=== PATIENT | female | born 1930 | race Caucasian/White ===

== ENCOUNTER → 2018-09-15 | Outpatient (CLI) | payer MEDICARE ==
--- NOTE | 2018-09-15 13:30 | USB ---
Reason for exam: clinical finding. History: Patient is postmenopausal. Benign MG stereo VAD BX RT of the right breast, January 18, 2015. Benign stereotactic core biopsy of the right breast, June 13, 2001. Core biopsy of the right breast. Excisional biopsy of the left breast. Excisional biopsy of the right breast. Physical Findings: Nurse Summary: right breast tender, nipple with healing black blood blister, previously bleeding (nurse dw). US Breast RT Right complete breast ultrasound includes all four quadrants, the retroareolar region and axilla. Finding demonstrates several benign appearing, oval, cystic, complex lesions measuring 0.4 x 0.4 x 0.2cm at 8 o'clock, 0.9 x 0.8 x 0.6cm at 8 o'clock, 0.4 x 1.2 x 0.3cm at 8 o'clock and 0.6 x 0.9 x 0.5cm at 9 o'clock, a 0.7 x 0.7 x 0.5cm oval, irregular, mixed, vascular lesion at 9 o'clock, suspicious, biopsy recommended and duct ectasia with calcification at the posterior nipple. These results were verbally communicated with the patient and result sheet given to the patient on 09/15/18. ASSESSMENT: Suspicious, BI-RAD 4 RECOMMENDATION: Ultrasound core biopsy of the right breast. Called Dr. Valle with mammographic findings. Patient unsure if she/family wants to proceed with biopsy. Patient's daughter will speak with Dr. Golden and decide what action to take. PRELIMINARY REPORT CALLED AND FAXED TO DR. VALLE ON 09/15/18.
== END | disposition home or self-care (01) ==
LOC: RADUSWWP 10:06
PROVIDERS: ATTEND Internal Medicine
DX: N63.10 Unspecified lump in the right breast, unspecified quadrant (principal); N64.59 Other signs and symptoms in breast

== ENCOUNTER 2019-02-05 10:07 | Inpatient (IN) | payer MEDICARE ==
[2019-02-05] MEDS ORDERED: methylPREDNISolone SOD SUCCI 125 MG/2 ML VIAL IV STA (10:22)
[2019-02-05] MEDS ORDERED: ALBUTEROL NEBULIZED 2.5 MG/3 ML INHALATION STA (10:22)
[2019-02-05] MEDS ORDERED: IPRATROPIUM 0.5 MG/2.5 ML NEBU INHALATION STA (10:22)
[2019-02-05] MEDS ORDERED: AZITHROMYCIN 500 MG in SODIUM CHLORIDE 0.9% 250 ML IVPB STA (10:22)
--- NOTE | 2019-02-05 10:26 | ED ---
General Adult HPI - General Chief complaint: Shortness of Breath Stated complaint: ALLEN, WEAKNESS Time Seen by Provider: 02/05/19 10:14 Source: patient, RN notes reviewed, old records reviewed Mode of arrival: wheelchair Limitations: no limitations - History of Present Illness Initial comments: 88 -year-old female presented for evaluation of worsening cough and dyspnea. Patient's symptoms have progressed over the past 3 or 4 days. She does follow with pulmonology secondary to advanced COPD currently on home oxygen. She denies fever or chills. She has had productive cough with green sputum. Denies chest pain. She denies lower extremity pain or swelling. Denies abdominal pain nausea vomiting. She states his symptoms are consistent with previous episodes of worsening COPD. No history of heart failure. No history of DVT or PE. - Related Data Home Medications Medication Instructions Recorded Confirmed Albuterol Sulfate [Proair Hfa] 1 - 2 puff INHALATION RT-Q6H PRN 10/12/17 02/05/19 Budesonide/Formoterol Fumarate 2 puff INHALATION RT-BID PRN 10/12/17 02/05/19 [Symbicort 160-4.5 Mcg Inhaler] Gabapentin [Neurontin] 100 mg PO DAILY 10/12/17 02/05/19 Gabapentin [Neurontin] 300 mg PO HS 10/12/17 02/05/19 Ascorbic Acid [Vitamin C] 500 mg PO DAILY 02/05/19 02/05/19 Losartan [Cozaar] 25 mg PO DAILY 02/05/19 02/05/19 Magnesium Oxide [Mag-Ox] 250 mg PO DAILY 02/05/19 02/05/19 Vit C/E/Zn/Coppr/Lutein/Zeaxan 1 cap PO DAILY 02/05/19 02/05/19 [Preservision Areds 2 Softgel] Previous Rx's Medication Instructions Recorded Aspirin [Adult Low Dose Aspirin EC] 81 mg PO DAILY #30 tablet. 10/16/17 Furosemide [Lasix] 20 mg PO DAILY #30 tab 10/16/17 Isosorbide Mononitrate ER [Imdur] 30 mg PO DAILY #30 tab.er.24h 10/16/17 Metoprolol Tartrate [Lopressor] 25 mg PO BID #60 tab 10/16/17 Allergies Allergy/AdvReac Type Severity Reaction Status Date / Time alendronate sodium Allergy Unknown Verified 02/05/19 10:45 [From Fosamax] raloxifene [From Evista] Allergy Unknown Verified 02/05/19 10:45 simvastatin [From Zocor] Allergy Unknown Verified 02/05/19 10:45 Review of Systems ROS Statement: Those systems with pertinent positive or pertinent negative responses have been documented in the HPI. ROS Other: All systems not noted in ROS Statement are negative. Past Medical History Past Medical History: Asthma, COPD, Dementia, Hypertension, Osteoarthritis (OA) Additional Past Medical History / Comment(s): emphysema, rheumatic fever as a child, aortic aneurysm - tests done at [facility] History of Any Multi-Drug Resistant Organisms: None Reported Past Surgical History: Appendectomy, Cholecystectomy, Hysterectomy Additional Past Surgical History / Comment(s): colonoscopy Past Anesthesia/Blood Transfusion Reactions: No Reported Reaction Past Psychological History: No Psychological Hx Reported Smoking Status: Never smoker Past Alcohol Use History: None Reported Past Drug Use History: None Reported - Past Family History Father Family Medical History: Cancer Additional Family Medical History / Comment(s): Patient is unable to provide family history due to dementia. Mother Family Medical History: Cancer General Exam Limitations: no limitations General appearance: alert, in distress Head exam: Present: atraumatic, normocephalic Eye exam: Present: normal appearance, PERRL ENT exam: Present: normal exam Neck exam: Present: normal inspection. Absent: tenderness, meningismus Respiratory exam: Present: respiratory distress, wheezes, accessory muscle use, decreased breath sounds, prolonged expiratory Cardiovascular Exam: Present: regular rate, normal rhythm GI/Abdominal exam: Present: soft. Absent: distended, tenderness, guarding Extremities exam: Present: normal inspection, normal capillary refill. Absent: pedal edema, calf tenderness Neurological exam: Present: alert, oriented X3, CN II-XII intact, motor sensory deficit Psychiatric exam: Present: normal affect, normal mood Skin exam: Present: warm, dry, intact. Absent: cyanosis, diaphoretic Course Vital Signs 02/05/19 02/05/19 02/05/19 10:09 10:23 10:30 Temperature 98.8 F Pulse Rate 89 63 Respiratory 18 22 Rate Blood Pressure 139/77 149/94 O2 Sat by Pulse 91 L 94 L 94 L Oximetry 02/05/19 02/05/19 02/05/19 10:40 10:47 10:50 Temperature Pulse Rate 63 64 Respiratory 19 18 27 H Rate Blood Pressure 139/78 139/78 O2 Sat by Pulse 93 L Oximetry 02/05/19 02/05/19 02/05/19 11:00 11:10 11:20 Temperature Pulse Rate 59 L 62 70 Respiratory 26 H 18 21 Rate Blood Pressure 139/78 137/83 137/83 O2 Sat by Pulse 98 97 97 Oximetry 02/05/19 02/05/19 02/05/19 11:25 11:30 11:40 Temperature Pulse Rate 80 82 Respiratory 22 Rate Blood Pressure 137/83 116/67 O2 Sat by Pulse 95 Oximetry 02/05/19 02/05/19 02/05/19 11:50 12:00 12:10 Temperature Pulse Rate 86 86 85 Respiratory 24 25 H 14 Rate Blood Pressure 116/67 116/67 113/87 O2 Sat by Pulse 96 97 97 Oximetry 02/05/19 02/05/19 02/05/19 12:20 12:30 12:40 Temperature Pulse Rate 85 85 Respiratory 20 26 H 20 Rate Blood Pressure 113/87 113/87 127/83 O2 Sat by Pulse 97 97 97 Oximetry 02/05/19 02/05/19 12:50 13:00 Temperature Pulse Rate 80 81 Respiratory 13 20 Rate Blood Pressure 127/83 127/83 O2 Sat by Pulse 97 98 Oximetry EKG Findings - EKG Comments: EKG Findings:: EKG: Normal sinus rhythm, low voltage left anterior fascicular block, rate of 81, IL interval 170, QS duration 68, QTC 476, no ST segment elevation. Medical Decision Making - Medical Decision Making 88 -year-old female history of COPD presenting with increased cough and dyspnea. Patient has small respiratory distress, decreased air entry, wheezing bilateral lung dykes. X-ray obtained, negative for focal pneumonia. No pneumothorax. Normal CBC, normal CMP. Patient started on IV steroids, given albuterol, Atrovent, after 3 treatments, she still has persistent dyspnea. Will be admitted for further treatment of COPD exacerbation. Case discussed with admitting physician Dr. Walden, we will admit with pulmonology on consult. - Lab Data Result diagrams: 02/05/19 10:32 02/05/19 10:32 Lab Results 02/05/19 02/05/19 02/05/19 Range/Units 10:32 10:32 10:32 WBC 6.9 (3.8-10.6) k/uL RBC 4.05 (3.80-5.40) m/uL Hgb 14.4 (11.4-16.0) gm/dL Hct 42.7 (34.0-46.0) % MCV 105.2 H (80.0-100.0) fL MCH 35.5 H (25.0-35.0) pg MCHC 33.7 (31.0-37.0) g/dL RDW 13.3 (11.5-15.5) % Plt Count 184 (150-450) k/uL Neutrophils % 85 % Lymphocytes % 9 % Monocytes % 4 % Eosinophils % 1 % Basophils % 0 % Neutrophils # 5.8 (1.3-7.7) k/uL Lymphocytes # 0.6 L (1.0-4.8) k/uL Monocytes # 0.3 (0-1.0) k/uL Eosinophils # 0.1 (0-0.7) k/uL Basophils # 0.0 (0-0.2) k/uL Macrocytosis Slight PT (9.0-12.0) sec INR (<1.2) APTT (22.0-30.0) sec Sodium (137-145) mmol/L Potassium (3.5-5.1) mmol/L Chloride (98-107) mmol/L Carbon Dioxide (22-30) mmol/L Anion Gap mmol/L BUN (7-17) mg/dL Creatinine (0.52-1.04) mg/dL Est GFR (CKD-EPI)AfAm (>60 ml/min/1.73 sqM) Est GFR (CKD-EPI)NonAf (>60 ml/min/1.73 sqM) Glucose (74-99) mg/dL Plasma Lactic Acid Tramaine 1.2 (0.7-2.0) mmol/L Calcium (8.4-10.2) mg/dL Total Bilirubin (0.2-1.3) mg/dL AST (14-36) U/L ALT (9-52) U/L Alkaline Phosphatase (38-126) U/L Total Protein (6.3-8.2) g/dL Albumin (3.5-5.0) g/dL Influenza Type A RNA Not Detected (Not Detectd) Influenza Type B (PCR) Not Detected (Not Detectd) 02/05/19 02/05/19 Range/Units 10:32 10:32 WBC (3.8-10.6) k/uL RBC (3.80-5.40) m/uL Hgb (11.4-16.0) gm/dL Hct (34.0-46.0) % MCV (80.0-100.0) fL MCH (25.0-35.0) pg MCHC (31.0-37.0) g/dL RDW (11.5-15.5) % Plt Count (150-450) k/uL Neutrophils % % Lymphocytes % % Monocytes % % Eosinophils % % Basophils % % Neutrophils # (1.3-7.7) k/uL Lymphocytes # (1.0-4.8) k/uL Monocytes # (0-1.0) k/uL Eosinophils # (0-0.7) k/uL Basophils # (0-0.2) k/uL Macrocytosis PT 10.8 (9.0-12.0) sec INR 1.0 (<1.2) APTT 22.0 (22.0-30.0) sec Sodium 135 L (137-145) mmol/L Potassium 4.9 (3.5-5.1) mmol/L Chloride 99 (98-107) mmol/L Carbon Dioxide 29 (22-30) mmol/L Anion Gap 7 mmol/L BUN 24 H (7-17) mg/dL Creatinine 0.54 (0.52-1.04) mg/dL Est GFR (CKD-EPI)AfAm >90 (>60 ml/min/1.73 sqM) Est GFR (CKD-EPI)NonAf 86 (>60 ml/min/1.73 sqM) Glucose 108 H (74-99) mg/dL Plasma Lactic Acid Tramaine (0.7-2.0) mmol/L Calcium 8.6 (8.4-10.2) mg/dL Total Bilirubin 0.9 (0.2-1.3) mg/dL AST 57 H (14-36) U/L ALT 33 (9-52) U/L Alkaline Phosphatase 79 (38-126) U/L Total Protein 6.7 (6.3-8.2) g/dL Albumin 3.8 (3.5-5.0) g/dL Influenza Type A RNA (Not Detectd) Influenza Type B (PCR) (Not Detectd) Critical Care Time Critical Care Time: Yes Total Critical Care Time: 35 Disposition Clinical Impression: Acute exacerbation of chronic obstructive airways disease Disposition: ADMITTED IP TO THIS HOSP Condition: Stable Is patient prescribed a controlled substance at d/c from ED?: No Referrals: Efrain Walden DO [Primary Care Provider] - 1-2 days Time of Disposition: 13:03
[2019-02-05 10:58] LABS: Basophils % (A) 0 %; Eosinophils # (A) 0.1 k/uL (0-0.7); Eosinophils % (A) 1 %; HCT 42.7 % (34.0-46.0); HGB 14.4 gm/dL (11.4-16.0); Lymphocytes # (A) 0.6 k/uL (1.0-4.8); Lymphocytes % (A) 9 %; MCH 35.5 pg (25.0-35.0); MCHC 33.7 g/dL (31.0-37.0); MCV 105.2 fL (80.0-100.0); Macrocytosis Slight; Mean Platelet Volume 7.5; Monocytes # (A) 0.3 k/uL (0-1.0); Monocytes % (A) 4 %; Neutrophils # (A) 5.8 k/uL (1.3-7.7); Neutrophils % (A) 85 %; Platelet Count 184 k/uL (150-450); RBC 4.05 m/uL (3.80-5.40); RDW 13.3 % (11.5-15.5); WBC 6.9 k/uL (3.8-10.6)
[2019-02-05 11:03] LABS: ALT 33 U/L (9-52); AST 57 U/L (14-36); Albumin 3.8 g/dL (3.5-5.0); Alkaline Phosphatase 79 U/L (38-126); Anion Gap 7 mmol/L; Blood Urea Nitrogen 24 mg/dL (7-17); Calcium 8.6 mg/dL (8.4-10.2); Carbon Dioxide 29 mmol/L (22-30); Chloride 99 mmol/L (98-107); Glucose 108 mg/dL (74-99); Sodium 135 mmol/L (137-145); Total Bilirubin 0.9 mg/dL (0.2-1.3); Total Protein 6.7 g/dL (6.3-8.2)
[2019-02-05 11:06] LABS: Potassium 4.9 mmol/L (3.5-5.1)
[2019-02-05 11:15] LABS: Prothrombin Time 10.8 sec (9.0-12.0)
--- NOTE | 2019-02-05 11:47 | XR ---
EXAMINATION TYPE: XR chest 2V DATE OF EXAM: 02/05/2019 COMPARISON: Chest x-ray October 12, 2017 and newer study January 05, 2019. HISTORY: Difficulty breathing and cough. TECHNIQUE: Frontal and lateral views of the chest are obtained. FINDINGS: There is chronic emphysematous change without suspicious focal air space opacity or pneumo thorax seen. There is tiny left pleural effusion. The cardiac silhouette size is mildly enlarged with atherosclerotic and ectatic aorta. The osseous structures are demineralized. IMPRESSION: Mild cardiomegaly and chronic emphysematous change with tiny left pleural effusion. No n ew acute infiltrate. No significant change from most recent x-ray.
[2019-02-05] MEDS ORDERED: IPRATROPIUM-ALBUTEROL 3 ML NEB INHALATION PRN (12:58)
[2019-02-05] MEDS ORDERED: ALBUTEROL NEBULIZED 2.5 MG/3 ML INHALATION PRN (13:01)
[2019-02-05] MEDS ORDERED: FUROSEMIDE 10 MG/ML 4 ML VIAL IV STA (13:04)
[2019-02-05] MEDS ORDERED: SYMBICORT 160-4.5 MCG INHALER INHALATION PRN (14:36)
[2019-02-05] MEDS ORDERED: FUROSEMIDE 20 MG TAB PO SCH (14:45)
--- NOTE | 2019-02-05 15:08 | P.CNPUL ---
History of Present Illness Consult date: 02/05/19 Reason for consult: dyspnea, COPD, hypoxemia, abnormal CXR/CT Chief complaint: Acute hypoxic respiratory failure secondary to COPD exacerbation History of present illness: This is a 88-year-old white female patient with past medical history of severe advanced emphysema/COPD at her baseline FEV1 is 41% of predicted, with FEV1/FVC ratio of 49% and DLCO consistent with severe emphysema. Patient is on home oxygen, DuoNeb nebulized treatments, Symbicort. 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 Patient presented to the emergency department on 02/05/2019 for complaints of worsening dyspnea and cough for last 3 days. Denied any fever or chills, denied any complaints of chest pain. She has had a productive cough with some green sputum. Denied any weight gain or swelling in lower extremities. No nausea vomiting or diarrhea. Patient was having difficulty ambulating, her states she was hardly able to walk a few feet without being extremely short of breath. In the emergency department chest x-ray was taken, which showed mild cardiomegaly, and chronic emphysematous changes with tiny left pleural effusion, no new acute infiltrate. EKG showed normal sinus rhythm with evidence of inferior infarct of undetermined age, and possible old anterolateral infarct. Lab work was negative for any leukocytosis, white blood cell count was 6.9, hemoglobin is 14.4, sodium was 135, the rest of the electrolytes were unremarkable, BUN was 24 creatinine was 0.54, plasma lactic acid was 1.2, influenza screen was negative. She was afebrile, she is sinus rhythm on the monitor, she is on 2 L of oxygen and her pulse ox is 88-91%. She was given a dose of IV Lasix in the emergency department, she was given a dose of Zithromax, started on breathing treatments and IV steroids and admitted for further management. Review of Systems All systems: negative Constitutional: Denies chills, Denies fever Eyes: denies blurred vision, denies pain Ears, nose, mouth and throat: Denies headache, Denies sore throat Cardiovascular: Denies chest pain, Denies shortness of breath Respiratory: Reports dyspnea, Reports home oxygen, Reports wheezing, Denies cough Gastrointestinal: Denies abdominal pain, Denies diarrhea, Denies nausea, Denies vomiting Genitourinary: Denies dysuria, Denies hematuria Musculoskeletal: Denies myalgias Integumentary: Denies pruritus, Denies rash Neurological: Denies numbness, Denies weakness Psychiatric: Denies anxiety, Denies depression Endocrine: Denies fatigue, Denies weight change Past Medical History Past Medical History: Asthma, Heart Failure, COPD, Dementia, Eye Disorder, Hypertension, Myocardial Infarction (RI), Osteoarthritis (OA), Respiratory Disorder Additional Past Medical History / Comment(s): Aortic aneurysm, nonischemic cardiomyopathy, acute systolic heart failure, home oxygen at 2L.NC ATC, rheumatic fever as a child, chronic back pain, macular degeneration L eye, hiatal hernia, diverticular disease, benign colon polyps. Last Myocardial Infarction Date:: 10/12/17 History of Any Multi-Drug Resistant Organisms: None Reported Past Surgical History: Appendectomy, Bladder Surgery, Cholecystectomy, Hysterectomy Additional Past Surgical History / Comment(s): EGDs, colonoscopies/benign polyps, bladder suspension. Past Anesthesia/Blood Transfusion Reactions: No Reported Reaction Smoking Status: Never smoker - Past Family History Father Family Medical History: Cancer Additional Family Medical History / Comment(s): Father had pleural cancer per pt's spouse. Mother Family Medical History: Cancer Additional Family Medical History / Comment(s): Mother had liver cancer. Medications and Allergies Home Medications Medication Instructions Recorded Confirmed Type Albuterol Sulfate [Proair Hfa] 1 - 2 puff INHALATION RT-Q6H PRN 10/12/17 02/05/19 History Budesonide/Formoterol Fumarate 2 puff INHALATION RT-BID PRN 10/12/17 02/05/19 History [Symbicort 160-4.5 Mcg Inhaler] Gabapentin [Neurontin] 100 mg PO DAILY 10/12/17 02/05/19 History Gabapentin [Neurontin] 300 mg PO HS 10/12/17 02/05/19 History Aspirin [Adult Low Dose Aspirin EC] 81 mg PO DAILY #30 tablet.dr 10/16/17 02/05/19 Rx Furosemide [Lasix] 20 mg PO DAILY #30 tab 10/16/17 02/05/19 Rx Isosorbide Mononitrate ER [Imdur] 30 mg PO DAILY #30 tab.er.24h 10/16/17 02/05/19 Rx Metoprolol Tartrate [Lopressor] 25 mg PO BID #60 tab 10/16/17 02/05/19 Rx Ascorbic Acid [Vitamin C] 500 mg PO DAILY 02/05/19 02/05/19 History Losartan [Cozaar] 25 mg PO DAILY 02/05/19 02/05/19 History Magnesium Oxide [Mag-Ox] 250 mg PO DAILY 02/05/19 02/05/19 History Vit C/E/Zn/Coppr/Lutein/Zeaxan 1 cap PO DAILY 02/05/19 02/05/19 History [Preservision Areds 2 Softgel] Allergies Allergy/AdvReac Type Severity Reaction Status Date / Time alendronate sodium Allergy Unknown Verified 02/05/19 10:45 [From Fosamax] raloxifene [From Evista] Allergy Unknown Verified 02/05/19 10:45 simvastatin [From Zocor] Allergy Unknown Verified 02/05/19 10:45 Physical Exam Vitals: Vital Signs Temp Pulse Pulse Resp BP BP Pulse Ox 02/05/19 13:46 97.8 F 80 20 145/88 90 L 02/05/19 13:00 99.4 F 81 20 127/83 98 02/05/19 12:50 80 13 127/83 97 02/05/19 12:40 20 127/83 97 02/05/19 12:30 85 26 H 113/87 97 02/05/19 12:20 85 20 113/87 97 02/05/19 12:10 85 14 113/87 97 02/05/19 12:00 86 25 H 116/67 97 02/05/19 11:50 86 24 116/67 96 02/05/19 11:40 116/67 02/05/19 11:30 82 22 137/83 95 02/05/19 11:25 80 02/05/19 11:20 70 21 137/83 97 02/05/19 11:10 62 18 137/83 97 02/05/19 11:00 59 L 26 H 139/78 98 02/05/19 10:50 64 27 H 139/78 02/05/19 10:47 18 02/05/19 10:40 63 19 139/78 93 L 02/05/19 10:30 63 22 149/94 94 L 02/05/19 10:23 94 L 02/05/19 10:09 98.8 F 89 18 139/77 91 L Intake and Output 02/04/19 02/05/19 02/05/19 22:59 06:59 14:59 Other: # Voids 1 # Bowel Movements 0 Weight 61.235 kg GENERAL EXAM: Alert, pleasant, 88-year-old white female, currently on 2 L of oxygen with a pulse ox ranging from 80-91% comfortable in no apparent distress. HEAD: Normocephalic/atraumatic. EYES: Normal reaction of pupils, equal size. Conjunctiva pink, sclera white. NOSE: Clear with pink turbinates. THROAT: No erythema or exudates. NECK: No masses, no JVD, no thyroid enlargement, no adenopathy. CHEST: No chest wall deformity. Symmetrical expansion. LUNGS: Equal air entry with coarse expiratory crackles over right lower base, end expiratory wheezes CVS: Regular rate and rhythm, normal S1 and S2, no gallops, no murmurs, no rubs ABDOMEN: Soft, nontender. No hepatosplenomegaly, normal bowel sounds, no guarding or rigidity. EXTREMITIES: No clubbing, no edema, no cyanosis, 2+ pulses and upper and lower extremities. MUSCULOSKELETAL: Muscle strength and tone normal. SPINE: No scoliosis or deformity SKIN: No rashes CENTRAL NERVOUS SYSTEM: Alert and oriented -3. No focal deficits, tone is normal in all 4 extremities. PSYCHIATRIC: Alert and oriented -3. Appropriate affect. Intact judgment and insight. Results - Laboratory Findings CBC and BMP: 02/05/19 10:32 02/05/19 10:32 PT/INR, D-dimer PT 10.8 sec (9.0-12.0) 02/05/19 10:32 INR 1.0 (<1.2) 02/05/19 10:32 Abnormal lab findings: Abnormal Labs 02/05/19 02/05/19 10:32 10:32 MCV 105.2 H MCH 35.5 H Lymphocytes # 0.6 L Sodium 135 L BUN 24 H Glucose 108 H AST 57 H - Diagnostic Findings Chest x-ray: report reviewed, image reviewed Assessment and Plan Plan: Assessment: #1. Acute exacerbation of COPD, chest x-ray did not show any acute pulmonary infiltrates #2. Possible exacerbation of congestive heart failure, previously documented systolic dysfunction with an EF of 35-40% #3. Advanced oxygen-dependent COPD, with a baseline FEV1 of 41% of predicted, an FEV1/FVC of 49% of predicted, stage III COPD #4. Hypertension #5. Osteoarthritis #6. History of Takosubo syndrome #7. History of aortic aneurysm #8. Previous history of non-ST elevated RI #9. Dementia Plan: Will obtain the IV diuretics, 20 mg every 12 hours, continue the IV steroids, continue Zithromax, will add Rocephin, Symbicort. We'll add BNP to the labs drawn earlier. Patient is dyspnea could be related to acute exacerbation of COPD and possibly congestive heart failure. We'll obtain repeat echocardiogram. Daily weights, monitor electrolytes and renal profile, we'll continue to follow and make further recommendations I performed a history & physical examination of the patient and discussed their management with my nurse practitioner, Josie Espinosa. I reviewed the nurse practitioner's note and agree with the documented findings and plan of care. Lung sounds are positive for coarse crackles at the right base. The findings and the impression was discussed with the patient. I attest to the documentation by the nurse practitioner. Time with Patient: Greater than 30
[2019-02-05] MEDS ORDERED: ACETAMINOPHEN TAB 325 MG TAB PO PRN (15:14)
[2019-02-05] MEDS: ISOSORBIDE MONONITRATE ER 30 MG TAB.ER.24H PO SCH (15:24)
[2019-02-05] MEDS: IPRATROPIUM-ALBUTEROL 3 ML NEB INHALATION SCH ×2 (15:30→20:11)
[2019-02-05 16:52] LABS: Glucose,Whole Blood 144 mg/dL (75-99)
[2019-02-05] MEDS: INSULIN ASPART (NovoLOG) 100 UNIT/ML VIAL SQ SCH ×2 (17:16→20:55)
[2019-02-05] MEDS: methylPREDNISolone SOD SUCCI 125 MG/2 ML VIAL IV SCH ×2 (18:55→23:13)
[2019-02-05 20:11] LABS: Glucose,Whole Blood 233 mg/dL (75-99)
[2019-02-05] MEDS: METOPROLOL TARTRATE 25 MG TAB PO SCH (20:55)
[2019-02-05] MEDS: GABAPENTIN 300 MG CAP PO SCH (20:55)
[2019-02-05] MEDS: FUROSEMIDE 10 MG/ML 2 ML VIAL IV SCH (20:56)
[2019-02-06] MEDS: methylPREDNISolone SOD SUCCI 125 MG/2 ML VIAL IV SCH ×4 (05:15→23:06)
[2019-02-06] MEDS: IPRATROPIUM-ALBUTEROL 3 ML NEB INHALATION SCH ×4 (07:13→19:28)
[2019-02-06 07:37] LABS: Glucose,Whole Blood 137 mg/dL (75-99)
[2019-02-06 08:28] LABS: Anion Gap 6 mmol/L; Blood Urea Nitrogen 31 mg/dL (7-17); Carbon Dioxide 31 mmol/L (22-30); Chloride 98 mmol/L (98-107); Glucose 149 mg/dL (74-99); Potassium 4.2 mmol/L (3.5-5.1); Sodium 135 mmol/L (137-145)
[2019-02-06] MEDS: GABAPENTIN 100 MG CAP PO SCH (08:33)
[2019-02-06] MEDS: ISOSORBIDE MONONITRATE ER 30 MG TAB.ER.24H PO SCH (08:33)
[2019-02-06] MEDS: ASCORBIC ACID 500 MG TAB PO SCH (08:33)
[2019-02-06] MEDS: METOPROLOL TARTRATE 25 MG TAB PO SCH ×2 (08:33→20:04)
[2019-02-06] MEDS: LOSARTAN 25 MG TAB PO SCH (08:33)
[2019-02-06] MEDS: MAGNESIUM OXIDE 400 MG TAB PO SCH (08:33)
[2019-02-06] MEDS: VIT A,C & E-LUTEIN-MINERALS 1 EACH TAB PO SCH (08:33)
[2019-02-06] MEDS: ASPIRIN 81 MG PO SCH (08:33)
[2019-02-06] MEDS: AZITHROMYCIN 500 MG TAB PO SCH (08:33)
[2019-02-06] MEDS: INSULIN ASPART (NovoLOG) 100 UNIT/ML VIAL SQ SCH ×4 (08:34→20:26)
[2019-02-06] MEDS: FUROSEMIDE 10 MG/ML 2 ML VIAL IV SCH (08:34)
--- NOTE | 2019-02-06 10:12 | ECHOF ---
Referral Reason:lv dysfunction sob MEASUREMENTS -------- HEIGHT: 149.9 cm WEIGHT: 61.2 kg BP: 145/88 RVIDd: 3.1 cm (< 3.3) IVSd: 1.2 cm (0.6 - 1.1) LVIDd: 2.9 cm (3.9 - 5.3) LVPWd: 1.2 cm (0.6 - 1.1) IVSs: 1.7 cm LVIDs: 2.1 cm LVPWs: 1.9 cm LA Diam: 3.3 cm (2.7 - 3.8) LAESV Index (A-L): 13.03 ml/m Ao Diam: 3.0 cm (2.0 - 3.7) AV Cusp: 1.8 cm (1.5 - 2.6) MV EXCURSION: 8.807 mm (> 18.000) MV EF SLOPE: 19 mm/s (70 - 150) EPSS: 0.7 cm MV E Jose: 0.62 m/s MV DecT: 298 ms MV A Jose: 1.10 m/s MV E/A Ratio: 0.56 RAP: 5.00 mmHg RVSP: 30.86 mmHg FINDINGS -------- Sinus rhythm. This was a technically adequate study. The left ventricular size is normal. There is borderline concentric left ventricular hypertrophy. Overall left ventricular systolic function is normal with, an EF between 60 - 65 %. The right ventricle is normal in size. Normal LA size by volume 22+/-6 ml/m2. The right atrium is normal in size. Interatrial and interventricular septum intact. There is mild aortic valve sclerosis. Trace to mild aortic regurgitation. Mild mitral annular calcification present. Mild mitral regurgitation is present. Mild tricuspid regurgitation present. Right ventricular systolic pressure is normal at < 35 mmHg. Trace/mild (physiologic) pulmonic regurgitation. The aortic root size is normal. Normal inferior vena cava with normal inspiratory collapse consistent with estimated right atrial pre ssure of 5 mmHg. The inferior vena cava is mildly dilated. There is no pericardial effusion. CONCLUSIONS -------- 1. Sinus rhythm. 2. This was a technically adequate study. 3. The left ventricular size is normal. 4. There is borderline concentric left ventricular hypertrophy. 5. Overall left ventricular systolic function is normal with, an EF between 60 - 65 %. 6. The right ventricle is normal in size. 7. Normal LA size by volume 22+/-6 ml/m2. 8. The right atrium is normal in size. 9. Interatrial and interventricular septum intact. 10. There is mild aortic valve sclerosis. 11. Trace to mild aortic regurgitation. 12. Mild mitral annular calcification present. 13. Mild mitral regurgitation is present. 14. Mild tricuspid regurgitation present. 15. Right ventricular systolic pressure is normal at < 35 mmHg. 16. Trace/mild (physiologic) pulmonic regurgitation. 17. The aortic root size is normal. 18. Normal inferior vena cava with normal inspiratory collapse consistent with estimated right atrial pressure of 5 mmHg. 19. The inferior vena cava is mildly dilated. 20. There is no pericardial effusion. SINTER PRESS OPERATOR: Kaye Maki RDCS
[2019-02-06 11:38] LABS: Glucose,Whole Blood 221 mg/dL (75-99)
[2019-02-06 12:03] VITALS: BMI 24.5
--- NOTE | 2019-02-06 17:12 | P.PN ---
Subjective Progress Note Date: 02/06/19 Principal diagnosis: Acute exacerbation of COPD, and acute exacerbation of congestive heart failure with systolic dysfunction This is a 88-year-old white female patient with past medical history of severe advanced emphysema/COPD at her baseline FEV1 is 41% of predicted, with FEV1/FVC ratio of 49% and DLCO consistent with severe emphysema. Patient is on home oxygen, DuoNeb nebulized treatments, Symbicort. 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 Patient presented to the emergency department on 02/05/2019 for complaints of worsening dyspnea and cough for last 3 days. Denied any fever or chills, denied any complaints of chest pain. She has had a productive cough with some green sputum. Denied any weight gain or swelling in lower extremities. No nausea vomiting or diarrhea. Patient was having difficulty ambulating, her states she was hardly able to walk a few feet without being extremely short of breath. In the emergency department chest x-ray was taken, which showed mild cardiomegaly, and chronic emphysematous changes with tiny left pleural effusion, no new acute infiltrate. EKG showed normal sinus rhythm with evidence of inferior infarct of undetermined age, and possible old anterolateral infarct. Lab work was negative for any leukocytosis, white blood cell count was 6.9, hemoglobin is 14.4, sodium was 135, the rest of the electrolytes were unremarkable, BUN was 24 creatinine was 0.54, plasma lactic acid was 1.2, influenza screen was negative. She was afebrile, she is sinus rhythm on the monitor, she is on 2 L of oxygen and her pulse ox is 88-91%. She was given a dose of IV Lasix in the emergency department, she was given a dose of Zithromax, started on breathing treatments and IV steroids and admitted for further management. On 02/06/2019 patient was seen again in follow-up on medical surgical floor. Still has exertional dyspnea, but no acute distress. Lung sounds are positive for diffuse coarse crackles, some minimal wheezing. She continues on 2 L of oxygen with pulse ox of 98%, afebrile, empiric antibiotic coverage in the form of Rocephin and Zithromax. On IV diuretics at 20 every 12, she is maintaining negative fluid balance. Today's labs have been reviewed, shows sodium of 135, potassium is 4.2, chloride is 98, CO2 was 31, B1 is 31 and creatinine 0.68. Her BNP was elevated at 5930 confirming the suspicion of congestive heart failure. No new chest x-rays, no complaints of chest pain, repeat echocardiogram was completed, showing borderline concentric left ventricular hypertrophy, normal systolic function of 60-65% Objective - Vital Signs Vital signs: Vital Signs Temp 98.1 F 02/06/19 14:47 Pulse 82 02/06/19 16:00 Resp 16 02/06/19 14:47 BP 121/68 02/06/19 14:47 Pulse Ox 98 02/06/19 14:47 Intake & Output 02/05/19 02/06/19 02/06/19 18:59 06:59 18:59 Weight 61.235 kg 55 kg 55 kg Other: # Voids 1 3 1 # Bowel Movements 0 - Exam GENERAL EXAM: Alert, pleasant, 88-year-old white female, currently on 2 L of oxygen with a pulse ox ranging from 80-91% comfortable in no apparent distress. HEAD: Normocephalic/atraumatic. EYES: Normal reaction of pupils, equal size. Conjunctiva pink, sclera white. NOSE: Clear with pink turbinates. THROAT: No erythema or exudates. NECK: No masses, no JVD, no thyroid enlargement, no adenopathy. CHEST: No chest wall deformity. Symmetrical expansion. LUNGS: Equal air entry with coarse expiratory crackles over right lower base, end expiratory wheezes CVS: Regular rate and rhythm, normal S1 and S2, no gallops, no murmurs, no rubs ABDOMEN: Soft, nontender. No hepatosplenomegaly, normal bowel sounds, no guarding or rigidity. EXTREMITIES: No clubbing, no edema, no cyanosis, 2+ pulses and upper and lower extremities. MUSCULOSKELETAL: Muscle strength and tone normal. SPINE: No scoliosis or deformity SKIN: No rashes CENTRAL NERVOUS SYSTEM: Alert and oriented -3. No focal deficits, tone is normal in all 4 extremities. PSYCHIATRIC: Alert and oriented -3. Appropriate affect. Intact judgment and insight. - Labs CBC & Chem 7: 02/05/19 10:32 02/06/19 08:01 Labs: Abnormal Lab Results - Last 24 Hours (Table) 02/05/19 02/06/19 02/06/19 Range/Units 20:10 07:34 08:01 Sodium 135 L (137-145) mmol/L Carbon Dioxide 31 H (22-30) mmol/L BUN 31 H (7-17) mg/dL Glucose 149 H (74-99) mg/dL POC Glucose (mg/dL) 233 H 137 H (75-99) mg/dL 02/06/19 Range/Units 11:36 Sodium (137-145) mmol/L Carbon Dioxide (22-30) mmol/L BUN (7-17) mg/dL Glucose (74-99) mg/dL POC Glucose (mg/dL) 221 H (75-99) mg/dL Microbiology - Last 24 Hours (Table) 02/05/19 10:32 Blood Culture - Preliminary Blood No Growth after 24 hours Assessment and Plan Plan: Assessment: #1. Acute exacerbation of COPD, chest x-ray did not show any acute pulmonary infiltrates #2. Possible exacerbation of congestive heart failure, previously documented systolic dysfunction with an EF of 35-40%. Repeat echo showed a preserved left ventricular systolic function of 60-65% #3. Advanced oxygen-dependent COPD, with a baseline FEV1 of 41% of predicted, an FEV1/FVC of 49% of predicted, stage III COPD #4. Hypertension #5. Osteoarthritis #6. History of Takosubo syndrome #7. History of aortic aneurysm #8. Previous history of non-ST elevated [place] #9. Dementia Plan: Patient has been diuresed, we will switch to oral Lasix, she started to develop volume contraction alkalosis. Continue with IV steroids, nebulized broncho- dilators and oral antibiotics. Improving. Increase activity as tolerated. Follow-up labs to check electrolytes and renal profile in the morning. Continue to follow. I performed a history & physical examination of the patient and discussed their management with my nurse practitioner, Josie Espinosa. I reviewed the nurse practitioner's note and agree with the documented findings and plan of care. Lung sounds are positive for coarse crackles at the right base. The findings and the impression was discussed with the patient. I attest to the documentation by the nurse practitioner. Time with Patient: Less than 30
[2019-02-06 17:21] LABS: Glucose,Whole Blood 179 mg/dL (75-99)
[2019-02-06] MEDS: GABAPENTIN 300 MG CAP PO SCH (20:04)
[2019-02-06 20:11] LABS: Glucose,Whole Blood 231 mg/dL (75-99)
--- NOTE | 2019-02-06 20:54 | P.HPIM ---
History of Present Illness H&P Date: 02/06/19 This is an 88-year-old female presented to the ER with shortness of breath, worsening cough of 3-4 days in a patient with advanced COPD, chronic hypoxic respiratory failure on home oxygen, and multiple other medical issues. Reports green sputum no fever or chills. Denies nausea vomiting or diarrhea. Denies chest pain, palpitations. Denies lightheadedness dizziness or focal deficits. EKG reporting normal sinus rhythm, evidence of inferior infarct of undetermined age, possible old anterior lateral infarct. Troponin added onto labs, pending. T-max on admission 99.4 .Chest X-ray reported chronic emphysematous change no new acute infiltrate, no significant change from prior. On admission m aintaining high 90s on 2 L nasal cannula. Afebrile, normal WBC. Tested negative for influenza. Nebulized bronchodilators, IV diuretics, IV steroids, Zithromax and Rocephin initiated. Elevated BNP, 5930. Echo pending. Memory mildly impaired,cannot remember PCPs name. States she's been having some mild memory deficits. Evaluated by Pulmonary with recommendations noted. Review of Systems ROS Statement: Those systems with pertinent positive or pertinent negative responses have been documented in the HPI. ROS Other: All systems not noted in ROS Statement are negative. Past Medical History Past Medical History: Asthma, Heart Failure, COPD, Dementia, Eye Disorder, Hypertension, Myocardial Infarction ([place]), Osteoarthritis (OA), Respiratory Disorder Additional Past Medical History / Comment(s): Aortic aneurysm, nonischemic cardiomyopathy, acute systolic heart failure, home oxygen at 2L.[place] ATC, rheumatic fever as a child, chronic back pain, macular degeneration L eye, hiatal hernia, diverticular disease, benign colon polyps. Last Myocardial Infarction Date:: 10/12/17 History of Any Multi-Drug Resistant Organisms: None Reported Past Surgical History: Appendectomy, Bladder Surgery, Cholecystectomy, Hysterectomy Additional Past Surgical History / Comment(s): EGDs, colonoscopies/benign polyps, bladder suspension. Past Anesthesia/Blood Transfusion Reactions: No Reported Reaction Smoking Status: Never smoker - Past Family History Father Family Medical History: Cancer Additional Family Medical History / Comment(s): Father had pleural cancer per pt's spouse. Mother Family Medical History: Cancer Additional Family Medical History / Comment(s): Mother had liver cancer. Medications and Allergies Home Medications Medication Instructions Recorded Confirmed Type Albuterol Sulfate [Proair Hfa] 1 - 2 puff INHALATION RT-Q6H PRN 10/12/17 02/05/19 History Budesonide/Formoterol Fumarate 2 puff INHALATION RT-BID PRN 10/12/17 02/05/19 History [Symbicort 160-4.5 Mcg Inhaler] Gabapentin [Neurontin] 100 mg PO DAILY 10/12/17 02/05/19 History Gabapentin [Neurontin] 300 mg PO HS 10/12/17 02/05/19 History Aspirin [Adult Low Dose Aspirin EC] 81 mg PO DAILY #30 tablet.dr 10/16/17 02/05/19 Rx Furosemide [Lasix] 20 mg PO DAILY #30 tab 10/16/17 02/05/19 Rx Isosorbide Mononitrate ER [Imdur] 30 mg PO DAILY #30 tab.er.24h 10/16/17 02/05/19 Rx Metoprolol Tartrate [Lopressor] 25 mg PO BID #60 tab 10/16/17 02/05/19 Rx Ascorbic Acid [Vitamin C] 500 mg PO DAILY 02/05/19 02/05/19 History Losartan [Cozaar] 25 mg PO DAILY 02/05/19 02/05/19 History Magnesium Oxide [Mag-Ox] 250 mg PO DAILY 02/05/19 02/05/19 History Vit C/E/Zn/Coppr/Lutein/Zeaxan 1 cap PO DAILY 02/05/19 02/05/19 History [Preservision Areds 2 Softgel] Allergies Allergy/AdvReac Type Severity Reaction Status Date / Time alendronate sodium Allergy Unknown Verified 02/05/19 10:45 [From Fosamax] raloxifene [From Evista] Allergy Unknown Verified 02/05/19 10:45 simvastatin [From Zocor] Allergy Unknown Verified 02/05/19 10:45 Physical Exam Vitals: Vital Signs Temp Pulse Pulse Resp BP Pulse Ox 02/06/19 19:59 97.8 F 107 H 16 119/77 99 02/06/19 19:40 82 02/06/19 19:29 80 02/06/19 16:00 82 02/06/19 15:49 80 02/06/19 14:47 98.1 F 78 16 121/68 98 02/06/19 11:00 82 04/19/19 10:51 80 02/06/19 08:00 20 02/06/19 07:27 79 02/06/19 07:14 78 02/06/19 07:00 98.2 F 82 20 167/108 90 L 02/06/19 01:25 97.8 F 64 16 130/82 99 Intake and Output 02/06/19 02/06/19 02/06/19 06:59 14:59 22:59 Other: Voiding Method Toilet # Voids 3 1 Weight 55 kg 55 kg PHYSICAL EXAM: VITAL SIGNS: As above GENERAL: Sitting up in bed, respiratory effort increased HEENT: Conjunctivae normal. eyes normal. Oral mucosa moist NECK: No JVD. No thyroid enlargement. No LNs CARDIOVASCULAR: S1, S2 muffled. No murmur RESPIRATION: Breath sounds diminished in the bases. inspiratory and expiratory wheezing ,No rhonchi, occasional fine crackles right base ABDOMEN: Soft, nontender . No guarding. no masses palpable. No guarding or rigidity.Bowel sounds heard. LEGS: No edema. no swelling PSYCHIATRY: Alert and oriented -3, mood and affect normal. NERVOUS SYSTEM: Cranial N 2-12 grossly normal. Moves all 4 limbs. Diffuse weakness No focal deficits. Skin: no lesions, no rash Joints: No active swelling. No inflammation. Lymphatic system. No LN neck axilla or groin. Results CBC & Chem 7: 02/05/19 10:32 02/06/19 08:01 Labs: Abnormal Lab Results - Last 24 Hours (Table) 02/06/19 02/06/19 02/06/19 Range/Units 07:34 08:01 11:36 Sodium 135 L (137-145) mmol/L Carbon Dioxide 31 H (22-30) mmol/L BUN 31 H (7-17) mg/dL Glucose 149 H (74-99) mg/dL POC Glucose (mg/dL) 137 H 221 H (75-99) mg/dL 02/06/19 02/06/19 Range/Units 17:19 20:10 Sodium (137-145) mmol/L Carbon Dioxide (22-30) mmol/L BUN (7-17) mg/dL Glucose (74-99) mg/dL POC Glucose (mg/dL) 179 H 231 H (75-99) mg/dL Microbiology - Last 24 Hours (Table) 02/05/19 10:32 Blood Culture - Preliminary Blood No Growth after 24 hours Thrombosis Risk Factor Assmnt - Choose All That Apply Any of the Below Risk Factors Present?: Yes Each Factor Represents 1 point: Abnormal pulmonary function (COPD), Obesity (BMI >25), Serious lung disease incl. pneumonia (< 1month) Other Risk Factors: Yes Each Risk Factor Represents 3 Points: Age 75 years or older Other congenital or acquired thrombophilia - If yes, enter type in comment: No Thrombosis Risk Factor Assessment Total Risk Factor Score: 6 Thrombosis Risk Factor Assessment Level: High Risk Assessment and Plan Assessment: -Acute COPD exacerbation in a patient with history of advanced COPD, stage III -Possible mild component of CHF exacerbation, systolic dysfunction, EF 35-40% -Chronic hypoxic respiratory failure -Dementia, type unknown -Previous history of non-STEMI, Takosubo syndrome -Hypertension -Osteoarthritis -History of aortic aneurysm Plan continue on current medication regime ,monitoring and symptomatic treatment. Maintain nebulized bronchodilators, IV antibiotics, IV steroids, diuretics. Strict I&O's , daily weights .Close monitoring of renal function, electrolytes with repeat labs ordered for a.m. Echo completed, results pending. Increase ambulation as tolerated. Follow closely with pulmonary.Home meds have been reviewed and resumed. Significant clinical improvement, discharge planning in the next 48 hrs. The impression and plan of care has been dictated as directed. : I performed a history and examination of this patient, discussed the same with the dictator. I agree with the dictator's note ,documented as a scribe. Any additional findings or plans will be noted.
[2019-02-07] MEDS: methylPREDNISolone SOD SUCCI 125 MG/2 ML VIAL IV SCH ×3 (05:33→18:06)
[2019-02-07 07:54] LABS: Glucose,Whole Blood 129 mg/dL (75-99)
[2019-02-07 08:41] LABS: Anion Gap 7 mmol/L; Blood Urea Nitrogen 42 mg/dL (7-17); Calcium 9.2 mg/dL (8.4-10.2); Carbon Dioxide 33 mmol/L (22-30); Chloride 96 mmol/L (98-107); Glucose 130 mg/dL (74-99); Potassium 4.7 mmol/L (3.5-5.1); Sodium 136 mmol/L (137-145)
[2019-02-07] MEDS: IPRATROPIUM-ALBUTEROL 3 ML NEB INHALATION SCH ×4 (09:36→20:25)
[2019-02-07] MEDS: ASCORBIC ACID 500 MG TAB PO SCH (10:23)
[2019-02-07] MEDS: INSULIN ASPART (NovoLOG) 100 UNIT/ML VIAL SQ SCH ×4 (10:23→20:59)
[2019-02-07] MEDS: ISOSORBIDE MONONITRATE ER 30 MG TAB.ER.24H PO SCH (10:24)
[2019-02-07] MEDS: ASPIRIN 81 MG PO SCH (10:24)
[2019-02-07] MEDS: LOSARTAN 25 MG TAB PO SCH (10:24)
[2019-02-07] MEDS: AZITHROMYCIN 500 MG TAB PO SCH (10:24)
[2019-02-07] MEDS: FUROSEMIDE 20 MG TAB PO SCH ×2 (10:24→18:04)
[2019-02-07] MEDS: GABAPENTIN 100 MG CAP PO SCH (10:24)
[2019-02-07] MEDS: VIT A,C & E-LUTEIN-MINERALS 1 EACH TAB PO SCH (10:25)
[2019-02-07] MEDS: MAGNESIUM OXIDE 400 MG TAB PO SCH (10:25)
[2019-02-07] MEDS: METOPROLOL TARTRATE 25 MG TAB PO SCH ×2 (10:25→20:59)
[2019-02-07 12:10] LABS: Glucose,Whole Blood 138 mg/dL (75-99)
--- NOTE | 2019-02-07 12:23 | P.PN ---
Subjective Progress Note Date: 02/07/19 Principal diagnosis: Acute exacerbation of chronic obstructive pulmonary disease as well as an acute exacerbation of diastolic congestive heart failure. This is a 88-year-old white female patient with past medical history of severe advanced emphysema/COPD at her baseline FEV1 is 41% of predicted, with FEV1/FVC ratio of 49% and DLCO consistent with severe emphysema. Patient is on home oxygen, DuoNeb nebulized treatments, Symbicort. 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 Patient presented to the emergency department on 02/05/2019 for complaints of worsening dyspnea and cough for last 3 days. Denied any fever or chills, denied any complaints of chest pain. She has had a productive cough with some green sputum. Denied any weight gain or swelling in lower extremities. No nausea vomiting or diarrhea. Patient was having difficulty ambulating, her states she was hardly able to walk a few feet without being extremely short of breath. In the emergency department chest x-ray was taken, which showed mild cardiomegaly, and chronic emphysematous changes with tiny left pleural effusion, no new acute infiltrate. EKG showed normal sinus rhythm with evidence of inferior infarct of undetermined age, and possible old anterolateral infarct. Lab work was negative for any leukocytosis, white blood cell count was 6.9, hemoglobin is 14.4, sodium was 135, the rest of the electrolytes were unremarkable, BUN was 24 creatinine was 0.54, plasma lactic acid was 1.2, influenza screen was negative. She was afebrile, she is sinus rhythm on the monitor, she is on 2 L of oxygen and her pulse ox is 88-91%. She was given a dose of IV Lasix in the emergency dep artment, she was given a dose of Zithromax, started on breathing treatments and IV steroids and admitted for further management. On 02/06/2019 patient was seen again in follow-up on medical surgical floor. Still has exertional dyspnea, but no acute distress. Lung sounds are positive for diffuse coarse crackles, some minimal wheezing. She continues on 2 L of oxygen with pulse ox of 98%, afebrile, empiric antibiotic coverage in the form of Rocephin and Zithromax. On IV diuretics at 20 every 12, she is maintaining negative fluid balance. Today's labs have been reviewed, shows sodium of 135, potassium is 4.2, chloride is 98, CO2 was 31, B1 is 31 and creatinine 0.68. Her BNP was elevated at 5930 confirming the suspicion of congestive heart failure. No new chest x-rays, no complaints of chest pain, repeat echocardiogram was completed, showing borderline concentric left ventricular hypertrophy, normal systolic function of 60-65% The patient is seen today 02/07/2018 in follow-up on the regular medical floor. She is awake and alert in no acute distress. She is maintaining good O2 s aturations in the upper 90s on 3 L/m per nasal cannula. She's afebrile. Hemodynamically stable. Blood culture reveals no growth. Sodium 136, potassium 4.7, creatinine 0.67. She is maintained on DuoNeb inhalations, Symbicort, IV Solu-Medrol. Antibiotics in the form of ceftriaxone and Symbicort. Objective - Vital Signs Vital signs: Vital Signs Temp 97.9 F 02/07/19 07:00 Pulse 64 02/07/19 09:48 Resp 12 02/07/19 07:00 BP 124/74 02/07/19 07:00 Pulse Ox 98 02/07/19 07:00 Intake & Output 02/06/19 02/07/19 02/07/19 18:59 06:59 18:59 Intake Total 350 Balance 350 Weight 55 kg 58 kg Intake: Oral 350 Other: Voiding Method Toilet # Voids 1 - Exam GENERAL EXAM: Alert, pleasant, 88-year-old female, currently on 3 L of oxygen wi th a pulse ox 98% comfortable in no apparent distress. HEAD: Normocephalic/atraumatic. EYES: Normal reaction of pupils, equal size. Conjunctiva pink, sclera white. NOSE: Clear with pink turbinates. THROAT: No erythema or exudates. NECK: No masses, no JVD, no thyroid enlargement, no adenopathy. CHEST: No chest wall deformity. Symmetrical expansion. LUNGS: Equal air entry with coarse expiratory crackles over right lower base, end expiratory wheezes CVS: Regular rate and rhythm, normal S1 and S2, no gallops, no murmurs, no rubs ABDOMEN: Soft, nontender. No hepatosplenomegaly, normal bowel sounds, no guarding or rigidity. EXTREMITIES: No clubbing, no edema, no cyanosis, 2+ pulses and upper and lower extremities. MUSCULOSKELETAL: Muscle strength and tone normal. SPINE: No scoliosis or deformity SKIN: No rashes CENTRAL NERVOUS SYSTEM: No focal deficits, tone is normal in all 4 extremities. PSYCHIATRIC: Alert and oriented -3. Appropriate affect. Intact judgment and insight. - Labs CBC & Chem 7: 02/05/19 10:32 02/07/19 07:43 Labs: Abnormal Lab Results - Last 24 Hours (Table) 02/06/19 02/06/19 02/07/19 Range/Units 17:19 20:10 07:24 Sodium (137-145) mmol/L Chloride (98-107) mmol/L Carbon Dioxide (22-30) mmol/L BUN (7-17) mg/dL Glucose (74-99) mg/dL POC Glucose (mg/dL) 179 H 231 H 129 H (75-99) mg/dL 02/07/19 02/07/19 Range/Units 07:43 11:52 Sodium 136 L (137-145) mmol/L Chloride 96 L (98-107) mmol/L Carbon Dioxide 33 H (22-30) mmol/L BUN 42 H (7-17) mg/dL Glucose 130 H (74-99) mg/dL POC Glucose (mg/dL) 138 H (75-99) mg/dL Microbiology - Last 24 Hours (Table) 02/05/19 10:32 Blood Culture - Preliminary Blood No Growth after 24 hours Assessment and Plan Assessment: Assessment: #1. Acute exacerbation of COPD, chest x-ray did not show any acute pulmonary infiltrates #2. Possible exacerbation of congestive heart failure, previously documented systolic dysfunction with an EF of 35-40%. Repeat echo showed a preserved left ventricular systolic function of 60-65% #3. Advanced oxygen-dependent COPD, with a baseline FEV1 of 41% of predicted, an FEV1/FVC of 49% of predicted, stage III COPD #4. Hypertension #5. Osteoarthritis #6. History of Takosubo syndrome #7. History of aortic aneurysm #8. Previous history of non-ST elevated AL #9. Dementia Plan: The patient was seen and evaluated by Dr. Blakely. She is improved today as compared to yesterday. We'll continue with the current treatment plan. Increas e her activity as tolerated. We'll continue to follow. I, the cosigning physician, performed a history & physical examination of the patient. Lungs sounds with crackles in the right posterior base. Maintaining good O2 saturations in the 90s on 3 L/m per nasal cannula. I discussed the assessment and plan of care with my nurse practitioner, Carolina Li. I attest to the above note as dictated by her.
[2019-02-07] MEDS: CLOTRIMAZOLE TROCHE 10 MG TROCHE MUCOUS MEM SCH ×3 (12:56→20:59)
[2019-02-07 17:05] LABS: Glucose,Whole Blood 194 mg/dL (75-99)
[2019-02-07 20:39] LABS: Glucose,Whole Blood 329 mg/dL (75-99)
[2019-02-07] MEDS: GABAPENTIN 300 MG CAP PO SCH (20:59)
[2019-02-07 22:10] LABS: Glucose,Whole Blood 211 mg/dL (75-99)
[2019-02-08] MEDS: methylPREDNISolone SOD SUCCI 125 MG/2 ML VIAL IV SCH ×2 (00:11→05:07)
[2019-02-08] MEDS: CLOTRIMAZOLE TROCHE 10 MG TROCHE MUCOUS MEM SCH ×6 (00:11→23:47)
[2019-02-08] MEDS: METOPROLOL TARTRATE 25 MG TAB PO SCH ×2 (07:31→21:08)
[2019-02-08] MEDS: FUROSEMIDE 20 MG TAB PO SCH ×2 (07:31→15:56)
[2019-02-08] MEDS: ISOSORBIDE MONONITRATE ER 30 MG TAB.ER.24H PO SCH (07:31)
[2019-02-08] MEDS: MAGNESIUM OXIDE 400 MG TAB PO SCH (07:31)
[2019-02-08] MEDS: INSULIN ASPART (NovoLOG) 100 UNIT/ML VIAL SQ SCH ×4 (07:32→21:08)
[2019-02-08] MEDS: ASPIRIN 81 MG PO SCH (07:32)
[2019-02-08] MEDS: GABAPENTIN 100 MG CAP PO SCH (07:32)
[2019-02-08] MEDS: LOSARTAN 25 MG TAB PO SCH (07:32)
[2019-02-08] MEDS: ASCORBIC ACID 500 MG TAB PO SCH (07:32)
[2019-02-08] MEDS: VIT A,C & E-LUTEIN-MINERALS 1 EACH TAB PO SCH (07:41)
[2019-02-08] MEDS: AZITHROMYCIN 500 MG TAB PO SCH (07:41)
[2019-02-08 07:49] LABS: Glucose,Whole Blood 133 mg/dL (75-99)
--- NOTE | 2019-02-08 08:39 | P.PN ---
Subjective Progress Note Date: 02/08/19 Principal diagnosis: Acute exacerbation of COPD, and acute exacerbation of congestive heart failure with systolic dysfunction This is a 88-year-old white female patient with past medical history of severe advanced emphysema/COPD at her baseline FEV1 is 41% of predicted, with FEV1/FVC ratio of 49% and DLCO consistent with severe emphysema. Patient is on home oxygen, DuoNeb nebulized treatments, Symbicort. 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 Patient presented to the emergency department on 02/05/2019 for complaints of worsening dyspnea and cough for last 3 days. Denied any fever or chills, denied any complaints of chest pain. She has had a productive cough with some green sputum. Denied any weight gain or swelling in lower extremities. No nausea vomiting or diarrhea. Patient was having difficulty ambulating, her states she was hardly able to walk a few feet without being extremely short of breath. In the emergency department chest x-ray was taken, which showed mild cardiomegaly, and chronic emphysematous changes with tiny left pleural effusion, no new acute infiltrate. EKG showed normal sinus rhythm with evidence of inferior infarct of undetermined age, and possible old anterolateral infarct. Lab work was negative for any leukocytosis, white blood cell count was 6.9, hemoglobin is 14.4, sodium was 135, the rest of the electrolytes were unremarkable, BUN was 24 creatinine was 0.54, plasma lactic acid was 1.2, influenza screen was negative. She was afebrile, she is sinus rhythm on the monitor, she is on 2 L of oxygen and her pulse ox is 88-91%. She was given a dose of IV Lasix in the emergency department, she was given a dose of Zithromax, started on breathing treatments and IV steroids and admitted for further management. On 02/06/2019 patient was seen again in follow-up on medical surgical floor. Still has exertional dyspnea, but no acute distress. Lung sounds are positive for diffuse coarse crackles, some minimal wheezing. She continues on 2 L of oxygen with pulse ox of 98%, afebrile, empiric antibiotic coverage in the form of Rocephin and Zithromax. On IV diuretics at 20 every 12, she is maintaining negative fluid balance. Today's labs have been reviewed, shows sodium of 135, potassium is 4.2, chloride is 98, CO2 was 31, B1 is 31 and creatinine 0.68. Her BNP was elevated at 5930 confirming the suspicion of congestive heart failure. No new chest x-rays, no complaints of chest pain, repeat echocardiogram was completed, showing borderline concentric left ventricular hypertrophy, normal systolic function of 60-65% On 02/08/2019 patient seen in follow-up on medical surgical floor. She is resting in bed, in no acute distress, she states her breathing is improving, lung sounds are still positive for some coarse scattered rales bilaterally, no fever or chills, patient is on oral Lasix 20 mg twice daily, she is on antibiotic coverage in the form of Rocephin and Zithromax. Blood culture has s hown no growth, sputum culture was not sent, patient was not able to produce a sputum sample. He is on 3 L of oxygen her pulse ox is 96%. We will obtain follow-up chest x-ray today, and follow-up blood work to check electrolytes and renal profile. No acute complaints, no complaints of chest pain or worsening dyspnea. No cough or congestion. Objective - Vital Signs Vital signs: Vital Signs Temp 97.4 F L 02/08/19 01:43 Pulse 62 02/08/19 01:43 Resp 18 02/08/19 01:43 BP 105/66 02/08/19 01:43 Pulse Ox 96 02/08/19 01:43 Intake & Output 02/07/19 02/08/19 02/08/19 18:59 06:59 18:59 Intake Total 200 Balance 200 Weight 55.5 kg Intake: Oral 200 Other: Voiding Method Toilet # Voids 3 - Exam GENERAL EXAM: Alert, pleasant, 88-year-old white female, currently on 3 L of oxygen with a pulse ox of 96% comfortable in no apparent distress. HEAD: Normocephalic/atraumatic. EYES: Normal reaction of pupils, equal size. Conjunctiva pink, sclera white. NOSE: Clear with pink turbinates. THROAT: No erythema or exudates. NECK: No masses, no JVD, no thyroid enlargement, no adenopathy. CHEST: No chest wall deformity. Symmetrical expansion. LUNGS: Equal air entry with coarse expiratory crackles over right lower base, end expiratory wheezes CVS: Regular rate and rhythm, normal S1 and S2, no gallops, no murmurs, no rubs ABDOMEN: Soft, nontender. No hepatosplenomegaly, normal bowel sounds, no guarding or rigidity. EXTREMITIES: No clubbing, no edema, no cyanosis, 2+ pulses and upper and lower extremities. MUSCULOSKELETAL: Muscle strength and tone normal. SPINE: No scoliosis or deformity SKIN: No rashes CENTRAL NERVOUS SYSTEM: Alert and oriented -3. No focal deficits, tone is normal in all 4 extremities. PSYCHIATRIC: Alert and oriented -3. Appropriate affect. Intact judgment and insight. - Labs CBC & Chem 7: 02/05/19 10:32 02/07/19 07:43 Labs: Abnormal Lab Results - Last 24 Hours (Table) 02/07/19 02/07/19 02/07/19 Range/Units 07:43 11:52 16:53 Sodium 136 L (137-145) mmol/L Chloride 96 L (98-107) mmol/L Carbon Dioxide 33 H (22-30) mmol/L BUN 42 H (7-17) mg/dL Glucose 130 H (74-99) mg/dL POC Glucose (mg/dL) 138 H 194 H (75-99) mg/dL 02/07/19 02/07/19 02/08/19 Range/Units 20:20 21:51 07:29 Sodium (137-145) mmol/L Chloride (98-107) mmol/L Carbon Dioxide (22-30) mmol/L BUN (7-17) mg/dL Glucose (74-99) mg/dL POC Glucose (mg/dL) 329 H 211 H 133 H (75-99) mg/dL Microbiology - Last 24 Hours (Table) 02/05/19 10:32 Blood Culture - Preliminary Blood No Growth after 48 hours Assessment and Plan Plan: Assessment: #1. Acute exacerbation of COPD, chest x-ray did not show any acute pulmonary infiltrates #2. Possible exacerbation of congestive heart failure, previously documented systolic dysfunction with an EF of 35-40%. Repeat echo showed a preserved left ventricular systolic function of 60-65% #3. Advanced oxygen-dependent COPD, with a baseline FEV1 of 41% of predicted, an FEV1/FVC of 49% of predicted, stage III COPD #4. Hypertension #5. Osteoarthritis #6. History of Takosubo syndrome #7. History of aortic aneurysm #8. Previous history of non-ST elevated [place] #9. Dementia Plan: We'll obtain a BMP today, and follow-up chest x-ray. Continue with oral Lasix, current antibiotics, breathing treatments and steroids. We'll start tapering the steroids. I performed a history & physical examination of the patient and discussed their management with my nurse practitioner, Josie Espinosa. I reviewed the nurse practitioner's note and agree with the documented findings and plan of care. Lung sounds are positive for coarse crackles at the right base. The findings and the impression was discussed with the patient. I attest to the docu mentation by the nurse practitioner. Time with Patient: Less than 30
[2019-02-08 08:56] LABS: Anion Gap 4 mmol/L; Blood Urea Nitrogen 47 mg/dL (7-17); Calcium 8.6 mg/dL (8.4-10.2); Carbon Dioxide 37 mmol/L (22-30); Chloride 97 mmol/L (98-107); Glucose 128 mg/dL (74-99); Potassium 4.4 mmol/L (3.5-5.1); Sodium 138 mmol/L (137-145)
[2019-02-08] MEDS: IPRATROPIUM-ALBUTEROL 3 ML NEB INHALATION SCH ×4 (09:11→20:59)
--- NOTE | 2019-02-08 11:12 | XR ---
EXAMINATION TYPE: XR chest 2V DATE OF EXAM: 02/08/2019 COMPARISON: 02/05/2019 HISTORY: 88-year-old female follow-up left pleural effusion TECHNIQUE: PA and lateral views FINDINGS: The heart is upper limits of normal in size. Tortuous/ectatic thoracic aorta redemonstrated. Somewhat large appearance to the right and left pulmonary arteries on the lateral view. Hyperinflation with m ild interstitial prominence. There is trace blunting of the costophrenic angles that could represent pleural parenchymal scarring or trace effusions. IMPRESSION: COPD and suspected underlying pulmonary arterial hypertension. Trace blunting of the costophrenic angles could represent trace effusions or pleural parenchymal scar ring. No progressive effusion.
--- NOTE | 2019-02-08 11:49 | P.PN ---
Subjective Progress Note Date: 02/07/19 This is a 88-year-old white female patient with past medical history of severe advanced emphysema/COPD at her baseline FEV1 is 41% of predicted, with FEV1/FVC ratio of 49% and DLCO consistent with severe emphysema. Patient is on home oxygen, DuoNeb nebulized treatments, Symbicort. 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 Patient presented to the emergency department on 02/05/2019 for complaints of worsening dyspnea and cough for last 3 days. Denied any fever or chills, denied any complaints of chest pain. She has had a productive cough with some green sputum 02/07/2018 Patient is seen in follow-up on the regular medical floor. She is awake and alert in no acute distress. She is maintaining good O2 saturations in the upper 90s on 3 L/m per nasal cannula. She's afebrile. Hemodynamically stable. Blood culture reveals no growth. Sodium 136, potassium 4.7, creatinine 0.67. She is maintained on DuoNeb inhalations, Symbicort, IV Solu-Medrol. Antibiotics in the form of ceftriaxone and Symbicort. Objective - Vital Signs Vital signs: Vital Signs Temp 97.9 F 02/07/19 07:00 Pulse 64 02/07/19 09:48 Resp 12 02/07/19 07:00 BP 124/74 02/07/19 07:00 Pulse Ox 98 02/07/19 07:00 Intake & Output 02/06/19 02/07/19 02/07/19 18:59 06:59 18:59 Intake Total 350 Balance 350 Weight 55 kg 58 kg Intake: Oral 350 Other: Voiding Method Toilet # Voids 1 - Exam GENERAL EXAM: Alert, pleasant, 88-year-old female, currently on 3 L of oxygen with a pulse ox 98% comfortable in no apparent distress. HEAD: Normocephalic/atraumatic. EYES: Normal reaction of pupils, equal size. Conjunctiva pink, sclera white. NOSE: Clear with pink turbinates. THROAT: No erythema or exudates. NECK: No masses, no JVD, no thyroid enlargement, no adenopathy. CHEST: No chest wall deformity. Symmetrical expansion. LUNGS: Equal air entry with coarse expiratory crackles over right lower base, end expiratory wheezes CVS: Regular rate and rhythm, normal S1 and S2, no gallops, no murmurs, no rubs ABDOMEN: Soft, nontender. No hepatosplenomegaly, normal bowel sounds, no guarding or rigidity. EXTREMITIES: No clubbing, no edema, no cyanosis, 2+ pulses and upper and lower extremities. MUSCULOSKELETAL: Muscle strength and tone normal. SPINE: No scoliosis or deformity SKIN: No rashes CENTRAL NERVOUS SYSTEM: No focal deficits, tone is normal in all 4 extremities. PSYCHIATRIC: Alert and oriented -3. Appropriate affect. Intact judgment and insight. - Labs CBC & Chem 7: 02/05/19 10:32 02/07/19 07:43 Labs: Abnormal Lab Results - Last 24 Hours (Table) 02/06/19 02/06/19 02/07/19 Range/Units 17:19 20:10 07:24 Sodium (137-145) mmol/L Chloride (98-107) mmol/L Carbon Dioxide (22-30) mmol/L BUN (7-17) mg/dL Glucose (74-99) mg/dL POC Glucose (mg/dL) 179 H 231 H 129 H (75-99) mg/dL 02/07/19 02/07/19 Range/Units 07:43 11:52 Sodium 136 L (137-145) mmol/L Chloride 96 L (98-107) mmol/L Carbon Dioxide 33 H (22-30) mmol/L BUN 42 H (7-17) mg/dL Glucose 130 H (74-99) mg/dL POC Glucose (mg/dL) 138 H (75-99) mg/dL Microbiology - Last 24 Hours (Table) 02/05/19 10:32 Blood Culture - Preliminary Blood No Growth after 48 hours Assessment and Plan Assessment: 1. Acute exacerbation of COPD, chest x-ray did not show any acute pulmonary infiltrates - Patient remains on IV ceftriaxone and Zithromax; pulmonary service is following - Continue with DuoNeb nebulizer treatments along with Symbicort inhalation 2 puffs twice a day - IV Solu-Medrol 60 mg every 6 hours 2. Possible exacerbation of congestive heart failure, - previously documented systolic dysfunction with an EF of 35-40%. - Repeat echo showed a preserved left ventricular systolic function of 60-65% - Patient remains on Lasix 20 mg by mouth twice a day; continue with gelacio inhibitor therapy in form of Cozaar 25 mg twice a day - Continue to monitor weights and I&O's 3. Advanced oxygen-dependent COPD, with a baseline FEV1 of 41% of predicted, an FEV1/FVC of 49% of predicted, stage III COPD 4. Hypertension; stable on Cozaar 25 mg twice a day and metoprolol 25 mg twice a day 5. Osteoarthritis; Tylenol when necessary 6. History of Takosubo syndrome/ non-ST elevation [place]/ aortic aneurysm; continue with aspirin' oral nitrates, beta blockers and GELACIO inhibitor therapy 7. Dementia 8. DVT prophylaxis; SCDs CODE STATUS; full code
[2019-02-08 11:58] LABS: Glucose,Whole Blood 194 mg/dL (75-99)
[2019-02-08] MEDS ORDERED: methylPREDNISolone SOD SUCCI 40 MG/ML 1 ML VIAL IV SCH (16:00)
[2019-02-08 17:07] LABS: Glucose,Whole Blood 185 mg/dL (75-99)
[2019-02-08 20:59] LABS: Glucose,Whole Blood 202 mg/dL (75-99)
[2019-02-08] MEDS: GABAPENTIN 300 MG CAP PO SCH (21:07)
--- NOTE | 2019-02-08 21:42 | P.PN ---
Subjective Progress Note Date: 02/08/19 Principal diagnosis: Acute exacerbation COPD Acute exacerbation systolic CHF This is a 88-year-old white female patient with past medical history of severe advanced emphysema/COPD at her baseline FEV1 is 41% of predicted, with FEV1/FVC ratio of 49% and DLCO consistent with severe emphysema. Patient is on home oxygen, DuoNeb nebulized treatments, Symbicort. 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 Patient presented to the emergency department on 02/05/2019 for complaints of worsening dyspnea and cough for last 3 days. Denied any fever or chills, denied any complaints of chest pain. She has had a productive cough with some green sputum 02/07/2018 Patient is seen in follow-up on the regular medical floor. She is awake and alert in no acute distress. She is maintaining good O2 saturations in the upper 90s on 3 L/m per nasal cannula. She's afebrile. Hemodynamically stable. Blood culture reveals no growth. Sodium 136, potassium 4.7, creatinine 0.67. She is maintained on DuoNeb inhalations, Symbicort, IV Solu-Medrol. Antibiotics in the form of ceftriaxone and Symbicort. 02/08/2019 Patient is seen and evaluated in follow-up on medical surgical floor. She is resting in bed, in no acute distres; reports breathing is improving, Vital signs are reviewed and significant for a temperature of 97.5, pulse 76, respiration 12 and blood pressure 134/79 with SpO2 of 97% on 3 L On examination; lung sounds are still positive for some coarse scattered rales bilaterally, no fever or chills, patient is on oral Lasix 20 mg twice daily, she is on antibiotic coverage in the form of Rocephin and Zithromax. Blood culture has shown no growth, sputum culture was not sent, patient was not able to produce a sputum sample. Pulmonary's recommending follow-up chest x-ray today, and follow-up blood work to check electrolytes and renal profile. No acute complaints, no complaints of chest pain or worsening dyspnea. No cough or congestion. Objective - Vital Signs Vital signs: Vital Signs Temp 97.5 F L 02/08/19 07:00 Pulse 76 02/08/19 09:23 Resp 12 02/08/19 07:00 BP 134/79 02/08/19 07:00 Pulse Ox 97 02/08/19 07:00 Intake & Output 02/07/19 02/08/19 02/08/19 18:59 06:59 18:59 Intake Total 200 Balance 200 Weight 55.5 kg Intake: Oral 200 Other: Voiding Method Toilet # Voids 3 - Exam GENERAL EXAM: Alert, pleasant, 88-year-old female, currently on 3 L of oxygen with a pulse ox 98% comfortable in no apparent distress. HEAD: Normocephalic/atraumatic. EYES: Normal reaction of pupils, equal size. Conjunctiva pink, sclera white. NOSE: Clear with pink turbinates. THROAT: No erythema or exudates. NECK: No masses, no JVD, no thyroid enlargement, no adenopathy. CHEST: No chest wall deformity. Symmetrical expansion. LUNGS: Equal air entry with coarse expiratory crackles over right lower base, end expiratory wheezes CVS: Regular rate and rhythm, normal S1 and S2, no gallops, no murmurs, no rubs ABDOMEN: Soft, nontender. No hepatosplenomegaly, normal bowel sounds, no guarding or rigidity. EXTREMITIES: No clubbing, no edema, no cyanosis, 2+ pulses and upper and lower extremities. MUSCULOSKELETAL: Muscle strength and tone normal. SPINE: No scoliosis or deformity SKIN: No rashes CENTRAL NERVOUS SYSTEM: No focal deficits, tone is normal in all 4 extremities. PSYCHIATRIC: Alert and oriented -3. Appropriate affect. Intact judgment and insight. - Labs CBC & Chem 7: 02/05/19 10:32 02/08/19 07:26 Labs: Abnormal Lab Results - Last 24 Hours (Table) 02/07/19 02/07/19 02/07/19 Range/Units 11:52 16:53 20:20 Chloride (98-107) mmol/L Carbon Dioxide (22-30) mmol/L BUN (7-17) mg/dL Glucose (74-99) mg/dL POC Glucose (mg/dL) 138 H 194 H 329 H (75-99) mg/dL 02/07/19 02/08/19 02/08/19 Range/Units 21:51 07:26 07:29 Chloride 97 L (98-107) mmol/L Carbon Dioxide 37 H (22-30) mmol/L BUN 47 H (7-17) mg/dL Glucose 128 H (74-99) mg/dL POC Glucose (mg/dL) 211 H 133 H (75-99) mg/dL Microbiology - Last 24 Hours (Table) 02/05/19 10:32 Blood Culture - Preliminary Blood No Growth after 48 hours Assessment and Plan Assessment: 1. Acute exacerbation of COPD, chest x-ray did not show any acute pulmonary infiltrates - Patient remains on IV ceftriaxone and Zithromax; pulmonary service is following - Continue with DuoNeb nebulizer treatments along with Symbicort inhalation 2 puffs twice a day - IV Solu-Medrol 60 mg every 6 hours 2. Possible exacerbation of congestive heart failure, - previously documented systolic dysfunction with an EF of 35-40%. - Repeat echo showed a preserved left ventricular systolic function of 60-65% - Patient remains on Lasix 20 mg by mouth twice a day; continue with gelacio inhibitor therapy in form of Cozaar 25 mg twice a day - Continue to monitor weights and I&O's 3. Advanced oxygen-dependent COPD, with a baseline FEV1 of 41% of predicted, an FEV1/FVC of 49% of predicted, stage III COPD 4. Hypertension; stable on Cozaar 25 mg twice a day and metoprolol 25 mg twice a day 5. Osteoarthritis; Tylenol when necessary 6. History of Takosubo syndrome/ non-ST elevation [place]/ aortic aneurysm; continue with aspirin' oral nitrates, beta blockers and GELACIO inhibitor therapy 7. Dementia 8. DVT prophylaxis; SCDs CODE STATUS; full code
[2019-02-09] MEDS: CLOTRIMAZOLE TROCHE 10 MG TROCHE MUCOUS MEM SCH ×2 (05:39→12:28)
[2019-02-09 07:17] LABS: Glucose,Whole Blood 100 mg/dL (75-99)
[2019-02-09] MEDS: INSULIN ASPART (NovoLOG) 100 UNIT/ML VIAL SQ SCH ×2 (07:24→12:27)
[2019-02-09] MEDS: IPRATROPIUM-ALBUTEROL 3 ML NEB INHALATION SCH ×2 (07:55→11:18)
[2019-02-09 08:14] VITALS: BP 152/81; RESP 18; TEMP 98.3
[2019-02-09 08:14] LABS: Anion Gap 2 mmol/L; Blood Urea Nitrogen 41 mg/dL (7-17); Calcium 8.5 mg/dL (8.4-10.2); Carbon Dioxide 38 mmol/L (22-30); Chloride 97 mmol/L (98-107); Glucose 102 mg/dL (74-99); Sodium 137 mmol/L (137-145)
[2019-02-09 08:15] LABS: Potassium 4.5 mmol/L (3.5-5.1)
[2019-02-09 08:18] LABS: Basophils % (A) 0 %; Eosinophils # (A) 0.1 k/uL (0-0.7); Eosinophils % (A) 1 %; HCT 42.6 % (34.0-46.0); HGB 14.2 gm/dL (11.4-16.0); Lymphocytes # (A) 1.2 k/uL (1.0-4.8); Lymphocytes % (A) 11 %; MCH 34.9 pg (25.0-35.0); MCHC 33.3 g/dL (31.0-37.0); MCV 104.7 fL (80.0-100.0); Macrocytosis Slight; Mean Platelet Volume 9.6; Monocytes # (A) 0.7 k/uL (0-1.0); Monocytes % (A) 6 %; Neutrophils # (A) 8.6 k/uL (1.3-7.7); Neutrophils % (A) 81 %; Platelet Count 162 k/uL (150-450); RBC 4.07 m/uL (3.80-5.40); RDW 13.2 % (11.5-15.5); WBC 10.6 k/uL (3.8-10.6)
[2019-02-09] MEDS ORDERED: predniSONE 20 MG TAB PO SCH (09:00)
[2019-02-09] MEDS: ASPIRIN 81 MG PO SCH (09:12)
[2019-02-09] MEDS: LOSARTAN 25 MG TAB PO SCH (09:12)
[2019-02-09] MEDS: METOPROLOL TARTRATE 25 MG TAB PO SCH (09:12)
[2019-02-09] MEDS: MAGNESIUM OXIDE 400 MG TAB PO SCH (09:12)
[2019-02-09] MEDS: ISOSORBIDE MONONITRATE ER 30 MG TAB.ER.24H PO SCH (09:12)
[2019-02-09] MEDS: FUROSEMIDE 20 MG TAB PO SCH (09:12)
[2019-02-09] MEDS: GABAPENTIN 100 MG CAP PO SCH (09:12)
[2019-02-09] MEDS: ASCORBIC ACID 500 MG TAB PO SCH (09:12)
[2019-02-09] MEDS: AZITHROMYCIN 500 MG TAB PO SCH (09:13)
[2019-02-09] MEDS: VIT A,C & E-LUTEIN-MINERALS 1 EACH TAB PO SCH (09:14)
[2019-02-09 11:28] VITALS: PULSE 76
--- NOTE | 2019-02-09 11:45 | P.DS ---
Providers Date of admission: 02/05/19 12:58 Expected date of discharge: 02/09/19 Attending physician: Efrain Walden Consults: 02/05/19 12:58 Consult Physician Routine Consulting Provider: Bodgan Blakely Consult Reason/Comments: COPD Do you want consulting provider notified?: Yes Primary care physician: Efrain Walden Hospital Course: Final Diagnoses: -Acute COPD exacerbation in a patient with history of advanced COPD, stage III -Possible mild component of CHF exacerbation, systolic dysfunction, EF 35-40% -Chronic hypoxic respiratory failure -Dementia, type unknown -Previous history of non-STEMI, Takosubo syndrome -Hypertension -Osteoarthritis -History of aortic aneurysm Hospital course:This is an 88-year-old female presented to the ER with shortness of breath, worsening cough of 3-4 days in a patient with advanced COPD, chronic hypoxic respiratory failure on home oxygen, and multiple other medical issues. Reports green sputum no fever or chills. Denies nausea vomiting or diarrhea. Denies chest pain, palpitations. Denies lightheadedness dizziness or focal deficits. EKG reporting normal sinus rhythm, evidence of inferior infarct of undetermined age, possible old anterior lateral infarct. Troponin added onto labs, pending. T-max on admission 99.4 .Chest X-ray reported chronic emphysematous change no new acute infiltrate, no significant change from prior. On admission maintaining high 90s on 2 L nasal cannula. Afebrile, normal WBC. Tested negative for influenza. Nebulized bronchodilators, IV diuretics, IV steroids, Zithromax and Rocephin initiated. Elevated BNP, 5930. Echo pending. Memory mildly impaired,cannot remember PCPs name. States she's been having some mild memory deficits. Evaluated by Pulmonary with recommendations noted. Maintained on nebulized bronchodilators, Lasix, steroids, antibiotics. Lasix increased to 20 mg twice a day.Significant clinical improvement. Cleared by pulmonary for discharge. Patient is being discharged home in a stable condition with guarded prognosis. EXAM: GENERAL: Alert and oriented 2, no acute distress CARDIOVASCULAR: S1, S2 muffled. No murmur RESPIRATION: Breath sounds diminished in the bases. fine crackles right base ABDOMEN: Soft, nontender . No guarding. no masses palpable. No guarding or rigidity.Bowel sounds heard. NERVOUS SYSTEM: No focal deficits. Skin: no lesions, no rash The impression and plan of care has been dictated as directed. : I performed a history and examination of this patient, discussed the same with the dictator. I agree with the dictator's note ,documented as a scribe. Any additional findings or plans will be noted. Time taken: 35 minutes Patient Condition at Discharge: Stable Plan - Discharge Summary Discharge Rx Participant: No New Discharge Prescriptions: New Clotrimazole Nick [Mycelex Nick] 10 mg MUCOUS MEM 5XD #25 nick predniSONE 10 mg PO DIRECTED #30 tab Azithromycin [Zithromax Z-pack] 0 mg PO DIRECTED #6 tab Furosemide [Lasix] 20 mg PO BID@0900,1600 #60 tab Ipratropium-Albuterol Nebulize [Duoneb 0.5 mg-3 mg/3 ml Soln] 3 ml INHALATION RT-QID #120 ampul.neb Continue Gabapentin [Neurontin] 300 mg PO HS Gabapentin [Neurontin] 100 mg PO DAILY Albuterol Sulfate [Proair Hfa] 1 - 2 puff INHALATION RT-Q6H PRN PRN Reason: sob Budesonide/Formoterol Fumarate [Symbicort 160-4.5 Mcg Inhaler] 2 puff INHALATION RT-BID PRN PRN Reason: Cough Aspirin [Adult Low Dose Aspirin EC] 81 mg PO DAILY #30 tablet. Isosorbide Mononitrate ER [Imdur] 30 mg PO DAILY #30 tab.er.24h Metoprolol Tartrate [Lopressor] 25 mg PO BID #60 tab Ascorbic Acid [Vitamin C] 500 mg PO DAILY Magnesium Oxide [Mag-Ox] 250 mg PO DAILY Vit C/E/Zn/Coppr/Lutein/Zeaxan [Preservision Areds 2 Softgel] 1 cap PO DAILY Losartan [Cozaar] 25 mg PO DAILY Discontinued Furosemide [Lasix] 20 mg PO DAILY #30 tab Discharge Medication List Albuterol Sulfate [Proair Hfa] 1 - 2 puff INHALATION RT-Q6H PRN 10/12/17 [History] Budesonide/Formoterol Fumarate [Symbicort 160-4.5 Mcg Inhaler] 2 puff INHALATION RT-BID PRN 10/12/17 [History] Gabapentin [Neurontin] 100 mg PO DAILY 10/12/17 [History] Gabapentin [Neurontin] 300 mg PO HS 10/12/17 [History] Aspirin [Adult Low Dose Aspirin EC] 81 mg PO DAILY #30 tablet.dr 10/16/17 [Rx] Isosorbide Mononitrate ER [Imdur] 30 mg PO DAILY #30 tab.er.24h 10/16/17 [Rx] Metoprolol Tartrate [Lopressor] 25 mg PO BID #60 tab 10/16/17 [Rx] Ascorbic Acid [Vitamin C] 500 mg PO DAILY 02/05/19 [History] Losartan [Cozaar] 25 mg PO DAILY 02/05/19 [History] Magnesium Oxide [Mag-Ox] 250 mg PO DAILY 02/05/19 [History] Vit C/E/Zn/Coppr/Lutein/Zeaxan [Preservision Areds 2 Softgel] 1 cap PO DAILY 02/05/19 [History] Azithromycin [Zithromax Z-pack] 0 mg PO DIRECTED #6 tab 02/09/19 [Rx] Clotrimazole Nick [Mycelex Nick] 10 mg MUCOUS MEM 5XD #25 nick 02/09/19 [Rx] Furosemide [Lasix] 20 mg PO BID@0900,1600 #60 tab 02/09/19 [Rx] Ipratropium-Albuterol Nebulize [Duoneb 0.5 mg-3 mg/3 ml Soln] 3 ml INHALATION RT-QID #120 ampul.neb 02/09/19 [Rx] predniSONE 10 mg PO DIRECTED #30 tab 02/09/19 [Rx] Follow up Appointment(s)/Referral(s): Bogdan Blakely MD [STAFF PHYSICIAN] - 2 Weeks Efrain Walden DO [Primary Care Provider] - 3 Days [facility], [NON-STAFF] - Ambulatory/Diagnostic Orders: Complete Blood Count w/diff [LAB.AMB] Time Frame: 3 Days, Location: None Selected Activity/Diet/Wound Care/Special Instructions: Case management to arrange for nebulizer 2 L nasal cannula O2 O2 sat on room air 87-88%.
[2019-02-09 12:19] LABS: Glucose,Whole Blood 178 mg/dL (75-99)
--- NOTE | 2019-02-09 13:22 | P.PN ---
Subjective Progress Note Date: 02/09/19 Principal diagnosis: Acute exacerbation of COPD, and acute exacerbation of congestive heart failure with systolic dysfunction This is a 88-year-old white female patient with past medical history of severe advanced emphysema/COPD at her baseline FEV1 is 41% of predicted, with FEV1/FVC ratio of 49% and DLCO consistent with severe emphysema. Patient is on home oxygen, DuoNeb nebulized treatments, Symbicort. 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 Patient presented to the emergency department on 02/05/2019 for complaints of worsening dyspnea and cough for last 3 days. Denied any fever or chills, denied any complaints of chest pain. She has had a productive cough with some green sputum. Denied any weight gain or swelling in lower extremities. No nausea vomiting or diarrhea. Patient was having difficulty ambulating, her states she was hardly able to walk a few feet without being extremely short of breath. In the emergency department chest x-ray was taken, which showed mild cardiomegaly, and chronic emphysematous changes with tiny left pleural effusion, no new acute infiltrate. EKG showed normal sinus rhythm with evidence of inferior infarct of undetermined age, and possible old anterolateral infarct. Lab work was negative for any leukocytosis, white blood cell count was 6.9, hemoglobin is 14.4, sodium was 135, the rest of the electrolytes were unremarkable, BUN was 24 creatinine was 0.54, plasma lactic acid was 1.2, influenza screen was negative. She was afebrile, she is sinus rhythm on the monitor, she is on 2 L of oxygen and her pulse ox is 88-91%. She was given a dose of IV Lasix in the emergency department, she was given a dose of Zithromax, started on breathing treatments and IV steroids and admitted for further management. On 02/06/2019 patient was seen again in follow-up on medical surgical floor. Still has exertional dyspnea, but no acute distress. Lung sounds are positive for diffuse coarse crackles, some minimal wheezing. She continues on 2 L of oxygen with pulse ox of 98%, afebrile, empiric antibiotic coverage in the form of Rocephin and Zithromax. On IV diuretics at 20 every 12, she is maintaining negative fluid balance. Today's labs have been reviewed, shows sodium of 135, potassium is 4.2, chloride is 98, CO2 was 31, B1 is 31 and creatinine 0.68. Her BNP was elevated at 5930 confirming the suspicion of congestive heart failure. No new chest x-rays, no complaints of chest pain, repeat echocardiogram was completed, showing borderline concentric left ventricular hypertrophy, normal systolic function of 60-65% On 02/08/2019 patient seen in follow-up on medical surgical floor. She is resting in bed, in no acute distress, she states her breathing is improving, lung sounds are still positive for some coarse scattered rales bilaterally, no fever or chills, patient is on oral Lasix 20 mg twice daily, she is on antibiotic coverage in the form of Rocephin and Zithromax. Blood culture has s hown no growth, sputum culture was not sent, patient was not able to produce a sputum sample. He is on 3 L of oxygen her pulse ox is 96%. We will obtain follow-up chest x-ray today, and follow-up blood work to check electrolytes and renal profile. No acute complaints, no complaints of chest pain or worsening dyspnea. No cough or congestion. On 02/09/2018 patient seen in follow-up medical surgical floor. Doing well, vital signs are stable, she is currently on 2 L of oxygen the pulse ox of 92%, vital signs are stable, no fever or chills, lung sounds reveal bibasilar crackles, and some scattered wheezes, today's lab work has been reviewed. Patient has been on oral Lasix, overall she is less short of breath, she is able to ambulate in the room, her proBNP is trending down. Cultures showed no growth, no fever or chills Objective - Vital Signs Vital signs: Vital Signs Temp 98.3 F 02/09/19 07:22 Pulse 76 02/09/19 11:27 Resp 18 02/09/19 09:21 BP 152/81 02/09/19 07:22 Pulse Ox 94 L 02/09/19 09:03 Intake & Output 02/08/19 02/09/19 02/09/19 18:59 06:59 18:59 Weight 55.1 kg 55.1 kg Other: Voiding Method Toilet Toilet # Voids 1 - Exam GENERAL EXAM: Alert, pleasant, 88-year-old white female, currently on 3 L of oxygen with a pulse ox of 96% comfortable in no apparent distress. HEAD: Normocephalic/atraumatic. EYES: Normal reaction of pupils, equal size. Conjunctiva pink, sclera white. NOSE: Clear with pink turbinates. THROAT: No erythema or exudates. NECK: No masses, no JVD, no thyroid enlargement, no adenopathy. CHEST: No chest wall deformity. Symmetrical expansion. LUNGS: Equal air entry with coarse expiratory crackles over right lower base, end expiratory wheezes CVS: Regular rate and rhythm, normal S1 and S2, no gallops, no murmurs, no rubs ABDOMEN: Soft, nontender. No hepatosplenomegaly, normal bowel sounds, no guar ding or rigidity. EXTREMITIES: No clubbing, no edema, no cyanosis, 2+ pulses and upper and lower extremities. MUSCULOSKELETAL: Muscle strength and tone normal. SPINE: No scoliosis or deformity SKIN: No rashes CENTRAL NERVOUS SYSTEM: Alert and oriented -3. No focal deficits, tone is normal in all 4 extremities. PSYCHIATRIC: Alert and oriented -3. Appropriate affect. Intact judgment and insight. - Labs CBC & Chem 7: 02/09/19 06:44 02/09/19 06:44 Labs: Abnormal Lab Results - Last 24 Hours (Table) 02/08/19 02/08/19 02/09/19 Range/Units 16:55 20:48 06:44 MCV (80.0-100.0) fL Neutrophils # (1.3-7.7) k/uL Chloride 97 L (98-107) mmol/L Carbon Dioxide 38 H (22-30) mmol/L BUN 41 H (7-17) mg/dL Glucose 102 H (74-99) mg/dL POC Glucose (mg/dL) 185 H 202 H (75-99) mg/dL 02/09/19 02/09/19 02/09/19 Range/Units 06:44 07:03 11:56 MCV 104.7 H (80.0-100.0) fL Neutrophils # 8.6 H (1.3-7.7) k/uL Chloride (98-107) mmol/L Carbon Dioxide (22-30) mmol/L BUN (7-17) mg/dL Glucose (74-99) mg/dL POC Glucose (mg/dL) 100 H 178 H (75-99) mg/dL Microbiology - Last 24 Hours (Table) 02/05/19 10:32 Blood Culture - Preliminary Blood No Growth after 72 hours Assessment and Plan Plan: Assessment: #1. Acute exacerbation of COPD, chest x-ray did not show any acute pulmonary infiltrates #2. Possible exacerbation of congestive heart failure, previously documented systolic dysfunction with an EF of 35-40%. Repeat echo showed a preserved left ventricular systolic function of 60-65% #3. Advanced oxygen-dependent COPD, with a baseline FEV1 of 41% of predicted, an FEV1/FVC of 49% of predicted, stage III COPD #4. Hypertension #5. Osteoarthritis #6. History of Takosubo syndrome #7. History of aortic aneurysm #8. Previous history of non-ST elevated OK #9. Dementia Plan: Yesterday chest x-ray has been reviewed and shows COPD, and trace pleural effusions, no progressive effusion, clinically patient is improving, she is less short of breath, she is able to ambulate within the room, proBNP is trending down, patient has been diuresed, patient has been treated with steroids and breathing treatments, clinically improving, from pulmonary perspective patient is stable for discharge home today, she has oxygen, she has nebulized bronchodilators at home, will likely need oral diuretics, Follow up with Dr. Escobar in the office in 7-10 days. I performed a history & physical examination of the patient and discussed their management with my nurse practitioner, Josie Espinosa. I reviewed the nurse practitioner's note and agree with the documented findings and plan of care. Lung sounds are positive for coarse crackles at the right base. The findings and the impression was discussed with the patient. I attest to the docume ntation by the nurse practitioner. Time with Patient: Less than 30
== END 2019-02-09 15:15 | disposition home health service (06) | DRG 190 ==
LOC: EC 10:07 → 4SSUR 12:58
PROVIDERS: ADMIT Family Medicine; ATTEND Family Medicine
DX: J43.9 Emphysema, unspecified (principal); J96.21 Acute and chronic respiratory failure with hypoxia; I42.9 Cardiomyopathy, unspecified; J96.11 Chronic respiratory failure with hypoxia; F03.90 Unspecified dementia, unspecified severity, without behavioral disturbance, psychotic disturbance, mood disturbance, and anxiety; I11.0 Hypertensive heart disease with heart failure; I25.2 Old myocardial infarction; Z99.81 Dependence on supplemental oxygen; M19.90 Unspecified osteoarthritis, unspecified site; Z79.51 Long term (current) use of inhaled steroids; Z79.52 Long term (current) use of systemic steroids; Z79.82 Long term (current) use of aspirin; Z79.899 Other long term (current) drug therapy; Z80.0 Family history of malignant neoplasm of digestive organs; Z80.2 Family history of malignant neoplasm of other respiratory and intrathoracic organs; Z86.79 Personal history of other diseases of the circulatory system; Z90.710 Acquired absence of both cervix and uterus; Z88.8 Allergy status to other drugs, medicaments and biological substances
CPT/HCPCS: 36415; 71046; 80048; 80053; 83605; 83880; 84484; 85025; 85610; 85730; 87040; 87502; 93005; 93306; 94640; 94760; 96365; 96366; 96375; 99291

== ENCOUNTER 2019-04-14 03:01 | Inpatient (IN) | payer MEDICARE ==
[2019-04-14] MEDS ORDERED: IPRATROPIUM-ALBUTEROL 3 ML NEB INHALATION STA ×2 (03:37→03:39)
[2019-04-14 03:43] LABS: Basophils # (A) 0.1 k/uL (0-0.2); Basophils % (A) 1 %; Eosinophils # (A) 0.1 k/uL (0-0.7); Eosinophils % (A) 1 %; HCT 39.9 % (34.0-46.0); HGB 13.2 gm/dL (11.4-16.0); Lymphocytes # (A) 3.8 k/uL (1.0-4.8); Lymphocytes % (A) 31 %; MCH 35.1 pg (25.0-35.0); MCHC 33.1 g/dL (31.0-37.0); MCV 105.9 fL (80.0-100.0); Macrocytosis Slight; Mean Platelet Volume 7.1; Monocytes # (A) 0.7 k/uL (0-1.0); Monocytes % (A) 6 %; Neutrophils # (A) 7.4 k/uL (1.3-7.7); Neutrophils % (A) 60 %; Platelet Count 184 k/uL (150-450); RBC 3.77 m/uL (3.80-5.40); RDW 12.7 % (11.5-15.5); WBC 12.3 k/uL (3.8-10.6)
[2019-04-14 03:49] LABS: ALT 41 U/L (9-52); AST 50 U/L (14-36); African American GFR (CKD) >90 (>60 ml/min/1.73 sqM); Albumin 3.5 g/dL (3.5-5.0); Alkaline Phosphatase 86 U/L (38-126); Anion Gap 8 mmol/L; Blood Urea Nitrogen 19 mg/dL (7-17); Calcium 8.4 mg/dL (8.4-10.2); Carbon Dioxide 23 mmol/L (22-30); Chloride 102 mmol/L (98-107); Glucose 141 mg/dL (74-99); Potassium 4.7 mmol/L (3.5-5.1); Sodium 133 mmol/L (137-145); Total Bilirubin 0.5 mg/dL (0.2-1.3)
--- NOTE | 2019-04-14 04:23 | XR ---
EXAM: XR Chest, 2 Views CLINICAL HISTORY: cough TECHNIQUE: Frontal and lateral views of the chest. COMPARISON: 02/09/20 FINDINGS: Lungs: Nonspecific bibasilar opacities may represent atelectasis or consolidation. Pulmonary vascular congestion. Pleural space: Small bilateral pleural effusions. No pneumothorax. Heart: Stable cardiomediastinal silhouette. Mediastinum: See above. Bones/joints: No acute osseous abnormality. Tubes, lines and devices: Telemetry leads overlie the patient. IMPRESSION: Small bilateral pleural effusions with adjacent atelectasis or consolidation. Pulmonary vascular congestion.
[2019-04-14 04:24] LABS: Appearance,Urine Clear (Clear); Bilirubin,Urine Negative (Negative); Blood,Urine Negative (Negative); Color,Urine Yellow; Glucose,Urine (UA) Negative (Negative); Hyaline Casts,Urine 6 /lpf (0-2); Ketones,Urine Negative (Negative); Leukocyte Esterase,Urine Negative (Negative); Mucus,Urine Rare /hpf; Nitrite,Urine Negative (Negative); PH, Urine 5.5 (5.0-8.0); Protein,Urine 1+ (Negative); RBC,Urine <1 /hpf (0-5); Specific Gravity,Urine 1.018 (1.001-1.035); Urobilinogen,Urine <2.0 mg/dL (<2.0); WBC,Urine 2 /hpf (0-5)
--- NOTE | 2019-04-14 04:53 | ED ---
SOB HPI - General Chief Complaint: Shortness of Breath Stated Complaint: SOB Time Seen by Provider: 04/14/19 03:09 Source: EMS Mode of arrival: EMS Limitations: physical limitation - History of Present Illness Initial Comments: Rebeca an 89-year-old female with history of CHF and COPD with what she reports is 20% function of her lungs. Patient is brought to the emergency department today by her family for evaluation of progressively worsening shortness of breath and nonproductive cough for 2 days. Patient reports she's not been able to sleep due to difficult in breathing. History is limited by patient's dementia however she denies any chest pain. Daughter reports she's not been complaining about any chest pain but that the daughter has noticed that her breathing seems strained and she can hear her wheezing. - Related Data Home Medications Medication Instructions Recorded Confirmed Albuterol Sulfate [Proair Hfa] 1 - 2 puff INHALATION RT-Q6H PRN 10/12/17 04/14/19 Budesonide/Formoterol Fumarate 2 puff INHALATION RT-BID PRN 10/12/17 04/14/19 [Symbicort 160-4.5 Mcg Inhaler] Gabapentin [Neurontin] 100 mg PO DAILY 10/12/17 04/14/19 Gabapentin [Neurontin] 300 mg PO HS 10/12/17 04/14/19 Losartan [Cozaar] 25 mg PO DAILY 02/05/19 04/14/19 Metoprolol Tartrate [Lopressor] 25 mg PO DAILY 04/14/19 04/14/19 Pravastatin Sodium [Pravachol] 10 mg PO DAILY 04/14/19 04/14/19 Previous Rx's Medication Instructions Recorded Isosorbide Mononitrate ER [Imdur] 30 mg PO DAILY #30 tab.er.24h 10/16/17 Furosemide [Lasix] 20 mg PO BID@0900,1600 #60 tab 02/09/19 Ipratropium-Albuterol Nebulize 3 ml INHALATION RT-QID #120 02/09/19 [Duoneb 0.5 mg-3 mg/3 ml Soln] ampul.neb Allergies Allergy/AdvReac Type Severity Reaction Status Date / Time alendronate sodium Allergy Unknown Verified 04/14/19 08:13 [From Fosamax] raloxifene [From Evista] Allergy Unknown Verified 04/14/19 08:13 simvastatin [From Zocor] Allergy Unknown Verified 04/14/19 08:13 Review of Systems ROS Statement: Those systems with pertinent positive or pertinent negative responses have been documented in the HPI. Limitations: ROS unobtainable due to patients medical condition (Dementia) Past Medical History Past Medical History: Asthma, Heart Failure, COPD, Dementia, Eye Disorder, Hypertension, Myocardial Infarction ([place]), Osteoarthritis (OA), Respiratory Disorder Additional Past Medical History / Comment(s): Aortic aneurysm, nonischemic cardiomyopathy, acute systolic heart failure, home oxygen at 2L.[place] ATC, r heumatic fever as a child, chronic back pain, macular degeneration L eye, hiatal hernia, diverticular disease, benign colon polyps. Last Myocardial Infarction Date:: 10/12/17 History of Any Multi-Drug Resistant Organisms: None Reported Past Surgical History: Appendectomy, Bladder Surgery, Cholecystectomy, Hysterectomy Additional Past Surgical History / Comment(s): EGDs, colonoscopies/benign polyps , bladder suspension. Past Anesthesia/Blood Transfusion Reactions: No Reported Reaction Past Psychological History: No Psychological Hx Reported Smoking Status: Never smoker - Past Family History Father Family Medical History: Cancer Additional Family Medical History / Comment(s): Father had pleural cancer per pt's spouse. Mother Family Medical History: Cancer Additional Family Medical History / Comment(s): Mother had liver cancer. General Exam - General Exam Comments Initial Comments: Physical Exam GENERAL: Elderly female, tachypneic with increased work of breathing HENT: Normocephalic, Atraumatic. EYES: PERRL, EOMI PULMONARY: Tachypnea with wheezing in all lung dykes CARDIOVASCULAR: RRR ABDOMEN: Soft and nontender with normal bowel sounds. SKIN: Skin is dry : Deferred NEUROLOGIC: Alert and oriented to person only MUSCULOSKELETAL: Normal extremities with adequate strength and full range of motion. No lower extremity swelling or edema. No calf tenderness. PSYCHIATRIC: Pleasantly demented Limitations: physical limitation Course Vital Signs 04/14/19 04/14/19 04/14/19 03:03 03:22 03:34 Temperature 100.0 F H Pulse Rate 126 H 124 H Respiratory 26 H Rate Blood Pressure 157/117 O2 Sat by Pulse 98 Oximetry 04/14/19 04/14/19 04/14/19 03:42 04:15 05:44 Temperature 98.4 F 98.8 F Pulse Rate 129 H 124 H 109 H Respiratory 20 16 Rate Blood Pressure 119/80 106/74 O2 Sat by Pulse 99 99 Oximetry Medical Decision Making - Medical Decision Making The patient was seen and evaluated patient presented via EMS she received a DuoNeb as well as steroids and route to the hospital Despite DuoNeb therapy patient continues to have wheezing in all lung dykes repeat doses were ordered Labs and imaging ordered chest x-ray shows no signs of pneumonia there is concern for fluid overload patient will be admitted for CHF and COPD exacerbation. - Lab Data Result diagrams: 04/15/19 05:48 04/15/19 05:48 Lab Results 04/14/19 04/14/19 04/14/19 Range/Units 03:14 03:14 03:14 WBC 12.3 H (3.8-10.6) k/uL RBC 3.77 L (3.80-5.40) m/uL Hgb 13.2 (11.4-16.0) gm/dL Hct 39.9 (34.0-46.0) % MCV 105.9 H (80.0-100.0) fL MCH 35.1 H (25.0-35.0) pg MCHC 33.1 (31.0-37.0) g/dL RDW 12.7 (11.5-15.5) % Plt Count 184 (150-450) k/uL Neutrophils % 60 % Lymphocytes % 31 % Monocytes % 6 % Eosinophils % 1 % Basophils % 1 % Neutrophils # 7.4 (1.3-7.7) k/uL Lymphocytes # 3.8 (1.0-4.8) k/uL Monocytes # 0.7 (0-1.0) k/uL Eosinophils # 0.1 (0-0.7) k/uL Basophils # 0.1 (0-0.2) k/uL Macrocytosis Slight PT (9.0-12.0) sec INR (<1.2) APTT (22.0-30.0) sec Sodium 133 L (137-145) mmol/L Potassium 4.7 (3.5-5.1) mmol/L Chloride 102 (98-107) mmol/L Carbon Dioxide 23 (22-30) mmol/L Anion Gap 8 mmol/L BUN 19 H (7-17) mg/dL Creatinine 0.65 (0.52-1.04) mg/dL Est GFR (CKD-EPI)AfAm >90 (>60 ml/min/1.73 sqM) Est GFR (CKD-EPI)NonAf 80 (>60 ml/min/1.73 sqM) Glucose 141 H (74-99) mg/dL Plasma Lactic Acid Tramaine 1.2 (0.7-2.0) mmol/L Calcium 8.4 (8.4-10.2) mg/dL Total Bilirubin 0.5 (0.2-1.3) mg/dL AST 50 H (14-36) U/L ALT 41 (9-52) U/L Alkaline Phosphatase 86 (38-126) U/L Total Creatine Kinase (30-135) U/L CK-MB (CK-2) (0.0-2.4) ng/mL CK-MB (CK-2) Rel Index Troponin I (0.000-0.034) ng/mL Total Protein 6.0 L (6.3-8.2) g/dL Albumin 3.5 (3.5-5.0) g/dL Urine Color Urine Appearance (Clear) Urine pH (5.0-8.0) Ur Specific [place] (1.001-1.035) Urine Protein (Negative) Urine Glucose (UA) (Negative) Urine Ketones (Negative) Urine Blood (Negative) Urine Nitrite (Negative) Urine Bilirubin (Negative) Urine Urobilinogen (<2.0) mg/dL Ur Leukocyte Esterase (Negative) Urine RBC (0-5) /hpf Urine WBC (0-5) /hpf Hyaline Casts (0-2) /lpf Urine Mucus (None) /hpf 04/14/19 04/14/19 04/14/19 Range/Units 03:14 03:14 04:10 WBC (3.8-10.6) k/uL RBC (3.80-5.40) m/uL Hgb (11.4-16.0) gm/dL Hct (34.0-46.0) % MCV (80.0-100.0) fL MCH (25.0-35.0) pg MCHC (31.0-37.0) g/dL RDW (11.5-15.5) % Plt Count (150-450) k/uL Neutrophils % % Lymphocytes % % Monocytes % % Eosinophils % % Basophils % % Neutrophils # (1.3-7.7) k/uL Lymphocytes # (1.0-4.8) k/uL Monocytes # (0-1.0) k/uL Eosinophils # (0-0.7) k/uL Basophils # (0-0.2) k/uL Macrocytosis PT 11.0 (9.0-12.0) sec INR 1.0 (<1.2) APTT 20.0 L (22.0-30.0) sec Sodium (137-145) mmol/L Potassium (3.5-5.1) mmol/L Chloride (98-107) mmol/L Carbon Dioxide (22-30) mmol/L Anion Gap mmol/L BUN (7-17) mg/dL Creatinine (0.52-1.04) mg/dL Est GFR (CKD-EPI)AfAm (>60 ml/min/1.73 sqM) Est GFR (CKD-EPI)NonAf (>60 ml/min/1.73 sqM) Glucose (74-99) mg/dL Plasma Lactic Acid Tramaine (0.7-2.0) mmol/L Calcium (8.4-10.2) mg/dL Total Bilirubin (0.2-1.3) mg/dL AST (14-36) U/L ALT (9-52) U/L Alkaline Phosphatase (38-126) U/L Total Creatine Kinase 83 (30-135) U/L CK-MB (CK-2) 2.3 (0.0-2.4) ng/mL CK-MB (CK-2) Rel Index 2.8 Troponin I 0.042 H* (0.000-0.034) ng/mL Total Protein (6.3-8.2) g/dL Albumin (3.5-5.0) g/dL Urine Color Yellow Urine Appearance Clear (Clear) Urine pH 5.5 (5.0-8.0) Ur Specific [place] 1.018 (1.001-1.035) Urine Protein 1+ H (Negative) Urine Glucose (UA) Negative (Negative) Urine Ketones Negative (Negative) Urine Blood Negative (Negative) Urine Nitrite Negative (Negative) Urine Bilirubin Negative (Negative) Urine Urobilinogen <2.0 (<2.0) mg/dL Ur Leukocyte Esterase Negative (Negative) Urine RBC <1 (0-5) /hpf Urine WBC 2 (0-5) /hpf Hyaline Casts 6 H (0-2) /lpf Urine Mucus Rare H (None) /hpf - EKG Data -: EKG Interpreted by Me EKG Comments: EKG was obtained due to complaint of shortness of breath. EKG obtained at 3:14 AM, rate is 124 rhythm is sinus tachycardia. WI 170, QRS 76, QTC is 422. There are no acute ST elevations or depressions there is no evidence of acute ischemia or infarction. When EKG was her to EKG obtained in January of this year there is no significant change in morphology, tachycardia has replaced normal rhythm. Disposition Clinical Impression: Systolic CHF, COPD (chronic obstructive pulmonary disease) Disposition: ADMITTED IP TO THIS HOSP Condition: Serious
[2019-04-14] MEDS ORDERED: IPRATROPIUM-ALBUTEROL 3 ML NEB INHALATION PRN (05:13)
[2019-04-14] MEDS: predniSONE 20 MG TAB PO SCH (08:36)
[2019-04-14 10:14] LABS: Creatine Kinase MB 2.3 ng/mL (0.0-2.4)
[2019-04-14] MEDS ORDERED: HYDROmorphone 0.5 MG/0.5 ML SYRINGE IVP STA (10:28)
[2019-04-14] MEDS: ALPRAZolam 0.25 MG TAB PO PRN (10:39)
[2019-04-14 10:41] LABS: Troponin I 0.042 ng/mL (0.000-0.034)
[2019-04-14] MEDS: METOPROLOL TARTRATE 25 MG TAB PO SCH (10:54)
[2019-04-14] MEDS ORDERED: PRAVASTATIN SODIUM 20 MG TAB PO SCH (11:00)
[2019-04-14] MEDS ORDERED: FUROSEMIDE 10 MG/ML 2 ML VIAL IV SCH (11:00)
[2019-04-14 11:10] LABS: Creatine Kinase MB 10.2 ng/mL (0.0-2.4)
[2019-04-14 11:12] LABS: Troponin I 2.65 ng/mL (0.000-0.034)
--- NOTE | 2019-04-14 13:38 | P.HPIM ---
History of Present Illness H&P Date: 04/14/19 Chief Complaint: Shortness of breath Patient is a 89-year-old female with a known history of COPD/severe emphysema with baseline FEV1 of 41% of predicted, CHF with systolic dysfunction, history of CT, hypertension and chronic hypoxic respiratory failure on home oxygen, dementia, aortic aneurysm, history of rheumatic fever in childhood, possible Takasubu syndrome previously, was brought to the ER by her family and EMS with worsening shortness of breath for the past few days and also developed congested cough since yesterday. Patient is also requiring more oxygen at home. Up to 6 L. Patient does not have any sputum production otherwise. No fever or chills at home. Patient denied any nausea vomiting or abdominal pain or diarrhea. Patient was previously discharged from hospital on 02/07/2019, was treated for acute COPD exacerbation. Denied any worsening leg swelling. No headache or dizziness or lightheadedness. Patient follows with Dr. Escobar as an outpatient. Patient is being treated for acute COPD exacerbation and CHF. Patient developed chest tightness this morning and second troponin is trending up to 2.650. Patient was transferred to telemetry unit and cardiology was consulted. Shewas given a dose of aspirin. EKG showed sinus tachycardia with low voltage criteria. Recent echocardiogram on 02/05/2019 showed ejection fraction 60-60% with mild aortic regurgitation and mitral and tricuspid regurgitation. No significant valvular abnormalities were noted. Chest x-ray showed small bilateral pleural effusions with adjacent atelectasis or consolidation. Pulmonary vascular congestion. WBC 13.3, sodium 133 Troponin 0.042 and 2.650 BNP 3770 Review of Systems Constitutional: Patient denies any fever or chills . No generalized weakness or weight loss. Abdomen: Patient denied nausea vomiting and diarrhea and abdominal pain. Cardiovascular: Chest tightness and shortness of breath. No palpitations.. Respiratory: Cough with congestion and shortness of breath Neurologic: Patient denied any numbness or tingling headache. Musculoskeletal: Patient denies any complaints of joint swelling or deformity. Skin: Negative Psychiatric: Negative Endocrine: No heat or cold intolerance. No recent weight gain. Genitourinary: No dysuria or hematuria. All other 14 point ROS negative except the above Past Medical History Past Medical History: Asthma, Heart Failure, COPD, Dementia, Eye Disorder, Hypertension, Myocardial Infarction (CT), Osteoarthritis (OA), Respiratory Disorder Additional Past Medical History / Comment(s): Aortic aneurysm, nonischemic cardiomyopathy, acute systolic heart failure, home oxygen at 2L.[place] ATC, rheumatic fever as a child, chronic back pain, macular degeneration L eye, hiatal hernia, diverticular disease, benign colon polyps. Last Myocardial Infarction Date:: 10/12/17 History of Any Multi-Drug Resistant Organisms: None Reported Past Surgical History: Appendectomy, Bladder Surgery, Cholecystectomy, Hysterectomy Additional Past Surgical History / Comment(s): EGDs, colonoscopies/benign poly ps, bladder suspension. Past Anesthesia/Blood Transfusion Reactions: No Reported Reaction Past Psychological History: No Psychological Hx Reported Additional Psychological History / Comment(s): Pt resides with her spouse and their adult son, Hernando. Hernando is very helpful with parents care. Pt has home oxygen at 2L/NC ATC. She has a nebulizer. Pt no longer drives, her spouse drives. Smoking Status: Never smoker Past Alcohol Use History: None Reported Additional Past Alcohol Use History / Comment(s): Patient is a lifelong nonsmoker. She denies any illicit drug use, alcohol use. She lives at home with her . She ambulates with out assistant superintendent device. She denies any oxygen or nebulizer at home. Past Drug Use History: None Reported - Past Family History Father Family Medical History: Cancer Additional Family Medical History / Comment(s): Father had pleural cancer per pt's spouse. Mother Family Medical History: Cancer Additional Family Medical History / Comment(s): Mother had liver cancer. Medications and Allergies Home Medications Medication Instructions Recorded Confirmed Type Albuterol Sulfate [Proair Hfa] 1 - 2 puff INHALATION RT-Q6H PRN 10/12/17 04/14/19 History Budesonide/Formoterol Fumarate 2 puff INHALATION RT-BID PRN 10/12/17 04/14/19 History [Symbicort 160-4.5 Mcg Inhaler] Gabapentin [Neurontin] 100 mg PO DAILY 10/12/17 04/14/19 History Gabapentin [Neurontin] 300 mg PO HS 10/12/17 04/14/19 History Isosorbide Mononitrate ER [Imdur] 30 mg PO DAILY #30 tab.er.24h 10/16/17 04/14/19 Rx Losartan [Cozaar] 25 mg PO DAILY 02/05/19 04/14/19 History Furosemide [Lasix] 20 mg PO BID@0900,1600 #60 tab 02/09/19 04/14/19 Rx Ipratropium-Albuterol Nebulize 3 ml INHALATION RT-QID #120 02/09/19 04/14/19 Rx [Duoneb 0.5 mg-3 mg/3 ml Soln] ampul.neb Metoprolol Tartrate [Lopressor] 25 mg PO DAILY 04/14/19 04/14/19 History Pravastatin Sodium [Pravachol] 10 mg PO DAILY 04/14/19 04/14/19 History Allergies Allergy/AdvReac Type Severity Reaction Status Date / Time alendronate sodium Allergy Unknown Verified 04/14/19 08:13 [From Fosamax] raloxifene [From Evista] Allergy Unknown Verified 04/14/19 08:13 simvastatin [From Zocor] Allergy Unknown Verified 04/14/19 08:13 Physical Exam Vitals: Vital Signs Temp Pulse Pulse Resp BP BP Pulse Ox 04/14/19 12:02 98.7 F 107 H 24 101/69 98 04/14/19 11:48 107 H 24 04/14/19 09:05 76 20 127/72 97 04/14/19 06:50 98.7 F 107 H 16 101/69 98 04/14/19 05:44 98.8 F 109 H 16 106/74 99 04/14/19 04:15 98.4 F 124 H 20 119/80 99 04/14/19 03:42 129 H 04/14/19 03:34 124 H 04/14/19 03:22 126 H 04/14/19 03:03 100.0 F H 26 H 157/117 98 Intake and Output 04/13/19 04/14/19 04/14/19 22:59 06:59 14:59 Intake Total 20 Balance 20 Intake: Oral 20 Other: Weight 58.513 kg PHYSICAL EXAMINATION: Patient is lying in the bed comfortably, no acute distress, awake alert and oriented.. HEENT: Normocephalic. Neck is supple. Pupils reactive. Nostrils clear. Oral cavity is moist. Ears reveal no drainage. Neck reveals no JVD, carotid bruits, or thyromegaly. CHEST EXAMINATION: Trachea is central. Symmetrical expansion. Bilateral fine crackles heard. Diminished breath sounds basally.. CARDIAC: Normal S1, S2 with no gallops. No murmurs ABDOMEN: Soft. Bowel sounds normal. No organomegaly. No abdominal bruits. Extremities: reveal no edema. No clubbing or cyanosis Neurologically awake, alert, oriented x3 with well-coordinated movements. No focal deficits noted Skin: No rash or skin lesions. Psychiatric: Coperative. Nonsuicidal Musculoskeletal: No joint swelling or deformity. Normal range of motion. Results CBC & Chem 7: 04/14/19 03:14 04/14/19 03:14 Labs: Abnormal Lab Results - Last 24 Hours (Table) 04/14/19 04/14/19 04/14/19 Range/Units 03:14 03:14 03:14 WBC 12.3 H (3.8-10.6) k/uL RBC 3.77 L (3.80-5.40) m/uL MCV 105.9 H (80.0-100.0) fL MCH 35.1 H (25.0-35.0) pg APTT 20.0 L (22.0-30.0) sec Sodium 133 L (137-145) mmol/L BUN 19 H (7-17) mg/dL Glucose 141 H (74-99) mg/dL AST 50 H (14-36) U/L Total Creatine Kinase (30-135) U/L CK-MB (CK-2) (0.0-2.4) ng/mL Troponin I (0.000-0.034) ng/mL Total Protein 6.0 L (6.3-8.2) g/dL Urine Protein (Negative) Hyaline Casts (0-2) /lpf Urine Mucus (None) /hpf 04/14/19 04/14/19 04/14/19 Range/Units 03:14 04:10 09:52 WBC (3.8-10.6) k/uL RBC (3.80-5.40) m/uL MCV (80.0-100.0) fL MCH (25.0-35.0) pg APTT (22.0-30.0) sec Sodium (137-145) mmol/L BUN (7-17) mg/dL Glucose (74-99) mg/dL AST (14-36) U/L Total Creatine Kinase 169 H (30-135) U/L CK-MB (CK-2) 10.2 H (0.0-2.4) ng/mL Troponin I 0.042 H* 2.650 H* (0.000-0.034) ng/mL Total Protein (6.3-8.2) g/dL Urine Protein 1+ H (Negative) Hyaline Casts 6 H (0-2) /lpf Urine Mucus Rare H (None) /hpf Microbiology - Last 24 Hours (Table) 04/14/19 04:10 Urine Culture - Preliminary Urine,Catheterized Thrombosis Risk Factor Assmnt - DVT/VTE Prophylaxis DVT/VTE Prophylaxis: Pharmacologic Prophylaxis ordered - Choose All That Apply Each Factor Represents 1 point: Abnormal pulmonary function (COPD), Obesity (BMI >25) Each Risk Factor Represents 3 Points: Age 75 years or older Thrombosis Risk Factor Assessment Total Risk Factor Score: 5 Thrombosis Risk Factor Assessment Level: High Risk Assessment and Plan Assessment: Acute on chronic CHF with systolic dysfunction. EF was 35-40%. Normalized ejection fraction during recent echo on 02/05/2019 Acute non-ST elevated CT with elevated troponin level trending up. Mild COPD exacerbation Severe COPD/emphysema and chronic hypoxic respiratory failure on home oxygen 2 L nasal cannula. Acute on chronic hypoxic respiratory failure requiring up to 6 L of oxygen. History of Takosubo syndrome Hypertension osteoarthritis Dementia Chronic back pain Macular degeneration of left eye Diverticular disease History of secondhand smoking DVT prophylaxis Plan: Patient will be started on telemetry monitoring was given a dose of aspirin and continue with statins. IV Lasix 20 mg daily. Continue with beta blockers. Continue with DuoNeb's and prednisone 40 mg daily. Cardiology was consulted for evaluation. Continue the home medications and blood pressure medications as tolerated. Further recommendations based on the clinical course. Prognosis is guarded with multiple medical problems and comorbid conditions. Discussed with family at bedside in detail. Time with Patient: Greater than 30
[2019-04-14] MEDS ORDERED: HEPARIN SODIUM,PORCINE 5,000 UNIT/ML 1 ML VIAL SQ SCH (16:00)
[2019-04-14 16:46] LABS: Creatine Kinase MB 16.5 ng/mL (0.0-2.4)
[2019-04-14 16:50] LABS: Troponin I 3.87 ng/mL (0.000-0.034)
[2019-04-14] MEDS ORDERED: HEPARIN SODIUM,PORCINE 5,000 UNIT/ML 1 ML VIAL IV ONE (17:15)
[2019-04-14] MEDS ORDERED: HEPARIN SOD,PORK IN 0.45% NACL 25,000 UNIT in 0.45% NACL 1 250ML.BAG IV SCH (17:15)
[2019-04-14] MEDS ORDERED: HEPARIN SODIUM,PORCINE 5,000 UNIT/ML 1 ML VIAL IV PRN (17:15)
[2019-04-14] MEDS: NITROGLYCERIN OINT 1 INCH/GM PACKET TOPICAL SCH ×2 (17:30→23:07)
[2019-04-14] MEDS: HYDROmorphone 0.5 MG/0.5 ML SYRINGE IVP PRN (17:31)
[2019-04-14] MEDS: ASPIRIN 81 MG PO SCH (20:21)
[2019-04-14] MEDS: FUROSEMIDE 10 MG/ML 2 ML VIAL IV SCH (20:21)
[2019-04-14] MEDS: IPRATROPIUM-ALBUTEROL 3 ML NEB INHALATION SCH (20:50)
[2019-04-15] MEDS ORDERED: NITROGLYCERIN OINT 1 INCH/GM PACKET TOPICAL ONE
[2019-04-15] MEDS: NITROGLYCERIN SL TABS 0.4 MG TAB SUBLINGUAL PRN ×2 (04:58→05:01)
[2019-04-15] MEDS: HYDROmorphone 0.5 MG/0.5 ML SYRINGE IVP PRN (05:12)
[2019-04-15] MEDS ORDERED: FUROSEMIDE 10 MG/ML 4 ML VIAL IV STA (05:30)
[2019-04-15] MEDS ORDERED: methylPREDNISolone SOD SUCCI 125 MG/2 ML VIAL IV STA (06:12)
[2019-04-15] MEDS: NITROGLYCERIN OINT 1 INCH/GM PACKET TOPICAL SCH (06:19)
[2019-04-15 06:27] LABS: Basophils % (A) 0 %; Eosinophils % (A) 0 %; HCT 39.9 % (34.0-46.0); HGB 13.4 gm/dL (11.4-16.0); Lymphocytes # (A) 0.9 k/uL (1.0-4.8); Lymphocytes % (A) 12 %; MCH 35.6 pg (25.0-35.0); MCHC 33.6 g/dL (31.0-37.0); MCV 106.1 fL (80.0-100.0); Macrocytosis Moderate; Mean Platelet Volume 7.9; Monocytes # (A) 0.6 k/uL (0-1.0); Monocytes % (A) 8 %; Neutrophils # (A) 5.9 k/uL (1.3-7.7); Neutrophils % (A) 78 %; Platelet Count 185 k/uL (150-450); RBC 3.76 m/uL (3.80-5.40); RDW 13.7 % (11.5-15.5); WBC 7.5 k/uL (3.8-10.6)
[2019-04-15 06:46] LABS: Partial Thromboplastin Time 50.4 sec (22.0-30.0)
[2019-04-15 06:49] LABS: Calcium 8.6 mg/dL (8.4-10.2); Potassium 4.7 mmol/L (3.5-5.1)
--- NOTE | 2019-04-15 06:56 | CONS ---
CONSULTATION Mrs. Sequeira is an 89-year-old female who is seen for cardiac evaluation. Patient's history and physical examination as well as medical records reviewed. This patient was admitted through the emergency room yesterday with symptoms of shortness of breath. EKG on admission did not show any acute ischemic changes. The patient was admitted with diagnosis of congestive heart failure and acute exacerbation of COPD. The patient's troponin went up to 2 and patient was transferred to the selective care unit. The patient remained stable during the evening. This morning patient developed more significant chest tightness, shortness of breath and she was diaphoretic. Patient's troponin this morning was 3.8. EKG done again shows some T-wave inversion and mild J- point elevation. Patient was given Dilaudid and breathing treatment with it got stabilized. She continues to have some chest discomfort. I came and saw the patient, discussed with the family, explained the situation that she may have underlying significant cardiac blockage and discussed the pros and cons with a cardiac catheterization. They would like to proceed with cardiac catheterization if patient could be a candidate for any significant stenting. The patient is not considered an ideal candidate for coronary artery bypass surgery. Patient has severe COPD. She follows with Dr. Blakely as outpatient and has been using oxygen at times. The patient was admitted with non-Q-wave myocardial infarction in 2019 and was treated medically. She did not have any recent cardiac catheterization. The patient denies any history of diabetes. PAST MEDICAL HISTORY: Past medial history includes history of known coronary artery disease, hypertension, history of aortic aneurysm, history of COPD, appendicectomy, bladder surgery, cholecystectomy, and hysterectomy. SOCIAL HISTORY: Patient is a lifelong nonsmoker. HOME MEDICATIONS: Patient's home medications included albuterol, Symbicort, gabapentin, losartan 25 mg daily, DuoNeb nebulizer, pravastatin 10 mg daily and metoprolol 25 mg daily. PHYSICAL EXAMINATION: Physical examination at present reveals an 89-year-old female who is slightly diaphoretic and clammy. Blood pressure is 110/80 mmHg. HEAD/ENT examination is negative. Neck is supple. Jugular venous pressure is difficult to assess. HEART: First and second heart sounds are heard. LUNGS: Examination reveals bilateral basal rales. ABDOMEN: Soft. EXTREMITIES: Peripheral pulsations are 1+. EKG shows significant baseline artifact with some J-point elevation and T-wave inversions in the inferior lateral leads. FINAL IMPRESSION: Acute non ST-segment elevation myocardial infarction with recurrent chest pain. The patient appears to be at present in mild congestive cardiac failure. Arterial blood gases done shows pCO2 is 59, pH is 7.32. PLAN: The patient will be taken to the cardiac catheterization. The risk and benefits of the cardiac catheterization were fully discussed with the family members and they want to proceed with it. FERNANDA / JUAN: [id number] /
[2019-04-15] MEDS ORDERED: LIDOCAINE 1% INJ 10MG/ML (20 ML MDV) ONE (06:58)
[2019-04-15] MEDS ORDERED: MIDAZOLAM (PF) 2 MG/2 ML VIAL IV ONE (07:00)
[2019-04-15] MEDS ORDERED: IV FLUID CONTINUATION 500 ML IV ONE (07:00)
--- NOTE | 2019-04-15 07:10 | XR ---
EXAMINATION TYPE: XR chest 1V portable DATE OF EXAM: 04/15/2019 Comparison: 04/14/2019 Clinical History: 89-year-old female with shortness of breath. Findings: Heart borderline in size. Hyperinflation. Elongated/ectatic thoracic aorta with arch calcifications. Leftward rotated exam. Right hilar prominence redemonstrated. Mild interstitial prominence and suspe cted trace effusions. Mild patchy density left upper lobe increased. Impression: 1. COPD, suspected underlying pulmonary arterial hypertension, and mild pulmonary vascular congestion , overall similar. Trace effusions also suspected. 2. Increase in patchy left upper lobe density could represent an area of developing edema or infiltra te.
[2019-04-15 07:26] LABS: ABG Base Excess 4.7 mmol/L; ABG HCO3 31 mmol/L (21-25); ABG Oxygen Saturation 98.5 % (94-97); ABG PCO2 59 mmHg (35-45); ABG PH 7.32 (7.35-7.45); ABG PO2 119 mmHg (83-108); ABG TCO2 33 mmol/L (19-24); Allen Test Performed? Yes
[2019-04-15] MEDS ORDERED: IOPAMIDOL-370 125ML BTL INJ ONE (07:35)
[2019-04-15] MEDS ORDERED: RX INFO: IV CONTRAST WAS GIVEN 1 EACH MISC MISCELLANE PRN (07:56)
[2019-04-15] MEDS ORDERED: CLOPIDOGREL 75 MG TAB PO STA (07:59)
[2019-04-15] MEDS ORDERED: HEPARIN SODIUM,PORCINE 5,000 UNIT/ML 1 ML VIAL IV PRN (08:00)
--- NOTE | 2019-04-15 08:26 | CC ---
CARDIAC CATHETERIZATION REPORT Mrs. Sequeira is an 89-year-old female who was admitted with a non-Q-wave myocardial infarction. Patient had a severe chest pain and shortness of breath early this morning with EKG showed T-wave inversions in the anterior lateral leads. Maximum troponin was 3.8. In view of the prolonged episode of resting pain and elevated troponin, patient was advised further evaluation with a cardiac catheterization for definite diagnosis procedure. The right groin was prepped and draped in the usual manner and the skin was infiltrated with 2% Xylocaine. The right femoral artery was entered using Seldinger technique, a #6-Amharic sheath was placed in. Selective coronary angiography was then performed in multiple projections. The patient's aorta was tortuous and all the catheters were exchanged over the exchange wire. Left ventricular end-diastolic pressure was subsequently obtained. Moderate sedation was used. Total sedation time was 21 minutes. HEMODYNAMICS: Left ventricular end-diastolic pressure is 28-30 mmHg. No gradient is noted across the aortic valve. CORONARY ANGIOGRAPHY: Left main coronary artery is normal and patent. LAD is a good caliber blood vessel. The ostial LAD has a 50% stenosis. The 50% stenosis circumflex coronary artery is a good caliber blood vessel and 1st obtuse marginal branch has about 40% to 50% stenosis. The right coronary artery has mild irregularity. FINAL IMPRESSION: This study has a mild coronary artery disease with a 50% ostial stenosis, 50% mid LAD stenosis and there is also 40%-50% percent stenosis of obtuse marginal branch. The films were reviewed with Dr. Melgar does not have a critical coronary artery disease, possibly patient had Keflex rupture and non-Q-wave myocardial infarction. I recommended to continue the patient on medical treatment. If in spite of that medical treatment patient continues to have recurrent episodes of chest pain. He may need she may need further intervention thank. MMODL / IJN: [id number] /
[2019-04-15] MEDS: IPRATROPIUM-ALBUTEROL 3 ML NEB INHALATION SCH ×4 (08:30→21:01)
[2019-04-15 09:23] LABS: INR 1.1 (<1.2); Prothrombin Time 11.2 sec (9.0-12.0)
[2019-04-15] MEDS: ASPIRIN 81 MG PO SCH (09:27)
--- NOTE | 2019-04-15 09:47 | ECHOF ---
Referral Reason:elevated trop MEASUREMENTS -------- HEIGHT: 177.8 cm WEIGHT: 58.5 kg BP: 105/78 RVIDd: 2.6 cm (< 3.3) IVSd: 1.2 cm (0.6 - 1.1) LVIDd: 4.6 cm (3.9 - 5.3) LVPWd: 1.0 cm (0.6 - 1.1) IVSs: 1.1 cm LVIDs: 4.3 cm LVPWs: 0.9 cm LAESV Index (A-L): 23.56 ml/m Ao Diam: 3.2 cm (2.0 - 3.7) AV Cusp: 1.6 cm (1.5 - 2.6) LA Diam: 3.1 cm (2.7 - 3.8) MV EXCURSION: 6.247 mm (> 18.000) MV EF SLOPE: 22 mm/s (70 - 150) EPSS: 0.5 cm MV E Jose: 0.76 m/s MV DecT: 222 ms MV A Jose: 1.17 m/s MV E/A Ratio: 0.65 AR PHT: 140 ms RAP: 15.00 mmHg RVSP: 51.67 mmHg FINDINGS -------- Sinus rhythm. This was a technically adequate study. The left ventricular size is normal. There is mild concentric left ventricular hypertrophy. Overa ll left ventricular systolic function is severely impaired with, an EF between 25 - 30 %. Basal Seg ment Artie only. The right ventricle is normal in size. The left atrial size is normal. Normal LA size by volume 22+/-6 ml/m2. The right atrial size is normal. Interatrial and interventricular septum intact. Aortic valve is trileaflet and is mildly thickened. The mitral valve leaflets are mildly thickened. Mild mitral annular calcification present. Mild m itral regurgitation is present. Mild tricuspid regurgitation present. There is mild to moderate pulmonary hypertension. The right ventricular systolic pressure, as measured by Doppler, is 51.67mmHg. Trace/mild (physiologic) pulmonic regurgitation. The aortic root size is normal. The inferior vena cava is mildly dilated. There is a trivial pericardial effusion present. CONCLUSIONS -------- 1. Sinus rhythm. 2. This was a technically adequate study. 3. The left ventricular size is normal. 4. There is mild concentric left ventricular hypertrophy. 5. Overall left ventricular systolic function is severely impaired with, an EF between 25 - 30 %. 6. Basal Segment Artie only. 7. The right ventricle is normal in size. 8. The left atrial size is normal. 9. Normal LA size by volume 22+/-6 ml/m2. 10. The right atrial size is normal. 11. Interatrial and interventricular septum intact. 12. Aortic valve is trileaflet and is mildly thickened. 13. The mitral valve leaflets are mildly thickened. 14. Mild mitral annular calcification present. 15. Mild mitral regurgitation is present. 16. Mild tricuspid regurgitation present. 17. There is mild to moderate pulmonary hypertension. 18. The right ventricular systolic pressure, as measured by Doppler, is 51.67mmHg. 19. Trace/mild (physiologic) pulmonic regurgitation. 20. The aortic root size is normal. 21. The inferior vena cava is mildly dilated. 22. There is a trivial pericardial effusion present. CLOTH SHRINKER: Lucila Del Rio RDCS
[2019-04-15] MEDS: HEPARIN SOD,PORK IN 0.45% NACL 25,000 UNIT in 0.45% NACL 1 250ML.BAG IV SCH (11:50)
[2019-04-15] MEDS: predniSONE 20 MG TAB PO SCH (11:51)
[2019-04-15] MEDS ORDERED: HEPARIN SODIUM,PORCINE 5,000 UNIT/ML 1 ML VIAL IV ONE (12:00)
[2019-04-15] MEDS: ATORVASTATIN 40 MG TAB PO SCH (19:49)
[2019-04-15] MEDS: FUROSEMIDE 10 MG/ML 4 ML VIAL IV SCH (19:49)
[2019-04-15] MEDS: ALPRAZolam 0.25 MG TAB PO PRN (19:49)
[2019-04-16] MEDS: FUROSEMIDE 10 MG/ML 2 ML VIAL IV SCH ×3 (01:52→23:18)
[2019-04-16] MEDS: METOPROLOL TARTRATE 25 MG TAB PO SCH (01:52)
[2019-04-16 06:58] LABS: Basophils % (A) 0 %; Eosinophils # (A) 0.1 k/uL (0-0.7); Eosinophils % (A) 1 %; HGB 13.9 gm/dL (11.4-16.0); Lymphocytes # (A) 1.3 k/uL (1.0-4.8); Lymphocytes % (A) 11 %; MCH 35.5 pg (25.0-35.0); MCHC 32.2 g/dL (31.0-37.0); Macrocytosis Marked; Mean Platelet Volume 7.6; Monocytes # (A) 0.9 k/uL (0-1.0); Monocytes % (A) 8 %; Neutrophils % (A) 78 %; Platelet Count 198 k/uL (150-450); RBC 3.91 m/uL (3.80-5.40); RDW 12.8 % (11.5-15.5); WBC 11.5 k/uL (3.8-10.6)
[2019-04-16] MEDS: SYMBICORT 160-4.5 MCG INHALER INHALATION PRN ×2 (07:16→19:32)
[2019-04-16] MEDS: IPRATROPIUM-ALBUTEROL 3 ML NEB INHALATION SCH ×4 (07:16→19:32)
[2019-04-16] MEDS: FUROSEMIDE 10 MG/ML 4 ML VIAL IV SCH (08:38)
[2019-04-16] MEDS: predniSONE 20 MG TAB PO SCH (08:38)
[2019-04-16] MEDS: ASPIRIN 81 MG PO SCH (08:38)
[2019-04-16] MEDS: CLOPIDOGREL 75 MG TAB PO SCH (08:38)
[2019-04-16] MEDS: HEPARIN SOD,PORK IN 0.45% NACL 25,000 UNIT in 0.45% NACL 1 250ML.BAG IV SCH (08:39)
[2019-04-16 08:50] LABS: Poikilocytosis (M) Present
--- NOTE | 2019-04-16 12:43 | P.PN ---
Subjective Progress Note Date: 04/16/19 This is an 89-year-old female seen in consultation by Dr. VC Rascon. Patient was admitted through the emergency room with symptoms of shortness of breath, originally her EKG on admission did not show any acute changes, she was admitted with the diagnosis of congestive heart failure and acute exacerbation of COPD. Her troponins went up to 2, she was transferred to the cardiac unit and during the night developed significant chest discomfort with EKG changes. Subsequent to that the patient was taken to the cardiac catheterization lab, early yesterday morning which revealed mild coronary artery disease with a 50% ostial stenosis 50% mid LAD stenosis and also a 40-50% stenosis of the obtuse marginal branch. The films were reviewed with Dr. Melgar who felt the patient did not have any critical coronary artery disease, possible plaque rupture to be considered. Patient was treated medically. Echocardiogram with Doppler study was performed which revealed an ejection fraction of 25-30%, only the basal segment was dallin. Suggesting possible stress cardiomyopathy. I pressure this morning 110/60 with a heart rate in the low 100s, 92% on 4 L of oxygen. Does continue to be on IV Lasix and is diuresing well overall. Blood cell count 11.5, hemoglobin 13.9, platelet count 198. Objective - Vital Signs Vital signs: Vital Signs Temp 97.8 F 04/16/19 12:00 Pulse 116 H 04/16/19 12:00 Resp 18 04/16/19 12:00 BP 109/57 04/16/19 12:00 Pulse Ox 92 L 04/16/19 12:00 Intake & Output 04/15/19 04/16/19 04/16/19 18:59 06:59 18:59 Intake Total 220 266.175 Output Total 1600 875 600 Balance -1380 -875 -333.825 Weight 58.513 kg 54 kg Intake: IV 100 Intake, IV Titration 146.175 Amount Heparin Sod,Pork in 0.45% 146.175 NaCl 25,000 unit In 0.45 % NaCl 1 250ml.bag @ 12 UNITS/KG/HR 7.022 mls/hr IV .Q24H [facility] Rx#: [id number] Oral 120 120 Output: Urine 1600 875 600 Straight 800 Other: Voiding Method Indwelling Catheter Indwelling Catheter Indwelling Catheter - Exam PHYSICAL EXAMINATION: GENERAL: 89-year-old female in no acute distress at the time of my examination HEENT: Head is atraumatic, normocephalic. Pupils equal, round. Sclera anicteric. Conjunctiva are clear. Mucous membranes of the mouth are moist. Neck is supple. There is no elevated jugular venous pressure. No carotid bruit is heard. HEART EXAMINATION: Heart S1, S2 normal. No murmur or gallop heard. CHEST EXAMINATION: Lungs reveal fine rales to bilateral bases. ABDOMEN: Soft, nontender. Bowel sounds are heard. No organomegaly noted. EXTREMITIES: 1+ peripheral pulses with no evidence of peripheral edema and no calf tenderness noted. Right groin is soft, mild ecchymosis noted, no hematoma. NEUROLOGIC patient is awake, alert and oriented 3 . . - Labs CBC & Chem 7: 04/16/19 06:32 04/15/19 05:48 Labs: Abnormal Lab Results - Last 24 Hours (Table) 04/15/19 04/15/19 04/16/19 Range/Units 13:58 18:10 06:32 WBC 11.5 H (3.8-10.6) k/uL MCV 110.0 H (80.0-100.0) fL MCH 35.5 H (25.0-35.0) pg Neutrophils # 9.0 H (1.3-7.7) k/uL Macrocytosis Marked A APTT 33.3 H 49.9 H (22.0-30.0) sec 04/16/19 Range/Units 06:32 WBC (3.8-10.6) k/uL MCV (80.0-100.0) fL MCH (25.0-35.0) pg Neutrophils # (1.3-7.7) k/uL Macrocytosis APTT 55.6 H (22.0-30.0) sec Microbiology - Last 24 Hours (Table) 04/14/19 03:33 Blood Culture - Preliminary Blood No Growth after 48 hours 04/14/19 04:10 Urine Culture - Final Urine,Catheterized Assessment and Plan Plan: Assessment and plan #1 symptoms of shortness of breath with associated chest discomfort, status post cardiac catheterization which revealed proximal and mid LAD disease of approximately 50%. Echocardiogram with Doppler study revealed an ejection fraction of 20-25%, severe area suggests a possible stress cardiomyopathy versus non-Q-wave AK #2 hypertension #3 hyperlipidemia #4 systolic congestive heart failure acute on chronic #5 COPD Plan We will decrease the Lasix to 20 mg IV every 8 hourly, add a small dose of losartan and metoprolol to the medication regime. Discontinue IV heparin and initiate subcu heparin. DNP note has been reviewed, I agree with a documented findings and plan of care. Patient was seen and examined.
[2019-04-16] MEDS: HYDROmorphone 0.5 MG/0.5 ML SYRINGE IVP PRN (14:43)
--- NOTE | 2019-04-16 17:51 | P.PN ---
Subjective Progress Note Date: 04/15/19 Principal diagnosis: CHF with acute exacerbation Acute CT non-ST elevated CT Patient is a 89-year-old female with a known history of COPD/severe emphysema with baseline FEV1 of 41% of predicted, CHF with systolic dysfunction, history of CT, hypertension and chronic hypoxic respiratory failure on home oxygen, dementia, aortic aneurysm, history of rheumatic fever in childhood, possible Takasubu syndrome previously, was brought to the ER by her family and EMS with worsening shortness of breath for the past few days and also developed congested cough since yesterday. Patient is also requiring more oxygen at home. Up to 6 L. Patient does not have any sputum production otherwise. No fever or chills at home. Patient denied any nausea vomiting or abdominal pain or diarrhea. Patient was previously discharged from hospital on 02/07/2019, was treated for acute COPD exacerbation. Denied any worsening leg swelling. No headache or dizziness or lightheadedness. Patient follows with Dr. Escobar as an outpatient. Patient is being treated for acute COPD exacerbation and CHF. Patient developed chest tightness this morning and second troponin is trending up to 2.650. Patient was transferred to telemetry unit and cardiology was consulted. Shewas given a dose of aspirin. EKG showed sinus tachycardia with low voltage criteria. Recent echocardiogram on 02/05/2019 showed ejection fraction 60-60% with mild aortic regurgitation and mitral and tricuspid regurgitation. No significant valvular abnormalities were noted. Chest x-ray showed small bilateral pleural effusions with adjacent atelectasis or consolidation. Pulmonary vascular congestion. WBC 13.3, sodium 133 Troponin 0.042 and 2.650 BNP 3770 04/15/2019 Patient underwent cardiac catheterization today. Nonobstructive coronary disease. breathing status is improving. No complains of chest pain or worsenin g shortness of breath. No nausea vomiting or abdominal pain. Tolerating oral diet. He is following. Chest x-ray showed COPD suspect underlying pulmonary arterial hypertension, mild pulmonary vascular congestion, trace effusions are suspected. Increase in patchy left lower lobe density could represent area of developing edema or infiltrate. WBC 7.5. No fever no chills. No cough or sputum production. Patient is being continued on DuoNeb's and IV Lasix and prednisone. Current medications reviewed. Objective - Vital Signs Vital signs: Vital Signs Temp 97.6 F 04/15/19 07:57 Pulse 82 04/15/19 12:27 Resp 18 04/15/19 12:00 BP 121/68 04/15/19 11:42 Pulse Ox 97 04/15/19 11:42 Intake & Output 04/14/19 04/15/19 04/15/19 18:59 06:59 18:59 Intake Total 20 212.08 100 Output Total 1648 1274 1600 Balance -1628 -1061.92 -1500 Weight 58.513 kg Intake: IV 160 100 0.9 160 Intake, IV Titration 52.08 Amount Heparin Sod,Pork in 0.45% 52.08 NaCl 25,000 unit In 0.45 % NaCl 1 250ml.bag @ 12 UNITS/KG/HR 7.022 mls/hr IV .Q24H [facility] Rx#: [id number] Oral 20 0 Output: Urine 8478 153 1450 Straight 600 800 Post Void Residual 448 424 Other: Voiding Method Indwelling Catheter Indwelling Catheter - Exam PHYSICAL EXAMINATION: Patient is lying in the bed comfortably, no acute distress, awake alert and oriented.. HEENT: Normocephalic. Neck is supple. Pupils reactive. Nostrils clear. Oral cavity is moist. Ears reveal no drainage. Neck reveals no JVD, carotid bruits, or thyromegaly. CHEST EXAMINATION: Trachea is central. Symmetrical expansion. Bilateral fine crackles heard. Diminished breath sounds basally.. CARDIAC: Normal S1, S2 with no gallops. No murmurs ABDOMEN: Soft. Bowel sounds normal. No organomegaly. No abdominal bruits. Extremities: reveal no edema. No clubbing or cyanosis Neurologically awake, alert, oriented x3 with well-coordinated movements. No focal deficits noted Skin: No rash or skin lesions. Psychiatric: Coperative. Nonsuicidal Musculoskeletal: No joint swelling or deformity. Normal range of motion. - Labs CBC & Chem 7: 04/16/19 06:32 04/15/19 05:48 Labs: Abnormal Lab Results - Last 24 Hours (Table) 04/14/19 04/15/19 04/15/19 Range/Units 16:00 00:06 05:43 RBC (3.80-5.40) m/uL MCV (80.0-100.0) fL MCH (25.0-35.0) pg Lymphocytes # (1.0-4.8) k/uL APTT 111.7 H* (22.0-30.0) sec ABG pH 7.32 L (7.35-7.45) ABG pCO2 59 H (35-45) mmHg ABG pO2 119 H (83-108) mmHg ABG HCO3 31 H (21-25) mmol/L ABG Total CO2 33 H (19-24) mmol/L ABG O2 Saturation 98.5 H (94-97) % Sodium (137-145) mmol/L Chloride (98-107) mmol/L Carbon Dioxide (22-30) mmol/L BUN (7-17) mg/dL Glucose (74-99) mg/dL Total Creatine Kinase 196 H (30-135) U/L CK-MB (CK-2) 16.5 H (0.0-2.4) ng/mL Troponin I 3.870 H* (0.000-0.034) ng/mL 04/15/19 04/15/19 04/15/19 Range/Units 05:48 05:48 05:48 RBC 3.76 L (3.80-5.40) m/uL MCV 106.1 H (80.0-100.0) fL MCH 35.6 H (25.0-35.0) pg Lymphocytes # 0.9 L (1.0-4.8) k/uL APTT 50.4 H (22.0-30.0) sec ABG pH (7.35-7.45) ABG pCO2 (35-45) mmHg ABG pO2 (83-108) mmHg ABG HCO3 (21-25) mmol/L ABG Total CO2 (19-24) mmol/L ABG O2 Saturation (94-97) % Sodium 135 L (137-145) mmol/L Chloride 97 L (98-107) mmol/L Carbon Dioxide 33 H (22-30) mmol/L BUN 30 H (7-17) mg/dL Glucose 135 H (74-99) mg/dL Total Creatine Kinase (30-135) U/L CK-MB (CK-2) (0.0-2.4) ng/mL Troponin I (0.000-0.034) ng/mL 04/15/19 Range/Units 13:58 RBC (3.80-5.40) m/uL MCV (80.0-100.0) fL MCH (25.0-35.0) pg Lymphocytes # (1.0-4.8) k/uL APTT 33.3 H (22.0-30.0) sec ABG pH (7.35-7.45) ABG pCO2 (35-45) mmHg ABG pO2 (83-108) mmHg ABG HCO3 (21-25) mmol/L ABG Total CO2 (19-24) mmol/L ABG O2 Saturation (94-97) % Sodium (137-145) mmol/L Chloride (98-107) mmol/L Carbon Dioxide (22-30) mmol/L BUN (7-17) mg/dL Glucose (74-99) mg/dL Total Creatine Kinase (30-135) U/L CK-MB (CK-2) (0.0-2.4) ng/mL Troponin I (0.000-0.034) ng/mL Microbiology - Last 24 Hours (Table) 04/14/19 04:10 Urine Culture - Final Urine,Catheterized 04/14/19 03:33 Blood Culture - Preliminary Blood No Growth after 24 hours Assessment and Plan Assessment: Acute on chronic CHF with systolic dysfunction. EF was 35-40%. Normalized ejec tion fraction during recent echo on 02/05/2019 Acute non-ST elevated CT with elevated troponin. Status post cardiac catheterization. No PCI.. Mild COPD exacerbation Severe COPD/emphysema and chronic hypoxic respiratory failure on home oxygen 2 L nasal cannula. Acute on chronic hypoxic respiratory failure requiring up to 6 L of oxygen. History of Takosubo syndrome Hypertension osteoarthritis Dementia Chronic back pain Macular degeneration of left eye Diverticular disease History of secondhand smoking DVT prophylaxis Plan: Patient continued on telemetry monitoring was given a dose of aspirin and continue with statins. IV Lasix 20 mg twice daily. Continue with beta blockers. Continue with DuoNeb's and prednisone 40 mg daily. Cardiology is following. Continue the home medications and blood pressure medications as tolerated. Further recommendations based on the clinical course. Prognosis is guarded with multiple medical problems and comorbid conditions. Discussed with family at bedside in detail. Time with Patient: Greater than 30
[2019-04-16] MEDS: ATORVASTATIN 40 MG TAB PO SCH (20:19)
--- NOTE | 2019-04-17 02:19 | P.PN ---
Subjective Progress Note Date: 04/16/19 Principal diagnosis: CHF with acute exacerbation Acute NV non-ST elevated NV Patient is a 89-year-old female with a known history of COPD/severe emphysema with baseline FEV1 of 41% of predicted, CHF with systolic dysfunction, history of NV, hypertension and chronic hypoxic respiratory failure on home oxygen, dementia, aortic aneurysm, history of rheumatic fever in childhood, possible Takasubu syndrome previously, was brought to the ER by her family and EMS with worsening shortness of breath for the past few days and also developed congested cough since yesterday. Patient is also requiring more oxygen at home. Up to 6 L. Patient does not have any sputum production otherwise. No fever or chills at home. Patient denied any nausea vomiting or abdominal pain or diarrhea. Patient was previously discharged from hospital on 02/07/2019, was treated for acute COPD exacerbation. Denied any worsening leg swelling. No headache or dizziness or lightheadedness. Patient follows with Dr. Escobar as an outpatient. Patient is being treated for acute COPD exacerbation and CHF. Patient developed chest tightness this morning and second troponin is trending up to 2.650. Patient was transferred to telemetry unit and cardiology was consulted. Shewas given a dose of aspirin. EKG showed sinus tachycardia with low voltage criteria. Recent echocardiogram on 02/05/2019 showed ejection fraction 60-60% with mild aortic regurgitation and mitral and tricuspid regurgitation. No significant valvular abnormalities were noted. Chest x-ray showed small bilateral pleural effusions with adjacent atelectasis or consolidation. Pulmonary vascular congestion. WBC 13.3, sodium 133 Troponin 0.042 and 2.650 BNP 3770 04/15/2019 Patient underwent cardiac catheterization today. Nonobstructive coronary disease. breathing status is improving. No complains of chest pain or worsenin g shortness of breath. No nausea vomiting or abdominal pain. Tolerating oral diet. He is following. Chest x-ray showed COPD suspect underlying pulmonary arterial hypertension, mild pulmonary vascular congestion, trace effusions are suspected. Increase in patchy left lower lobe density could represent area of developing edema or infiltrate. WBC 7.5. No fever no chills. No cough or sputum production. Patient is being continued on DuoNeb's and IV Lasix and prednisone. 2018 Patient is currently sitting in a chair comfortable. Shortness of breath is improving. Cardiac catheterization showed mild coronary artery disease with a 50% ostial stenosis 50% mid LAD stenosis and also 5-50% stenosis of the obtuse marginal branch. Possible Plake rupture to be considered. Echocardiogram showed ejection fraction 25-30% with basal segment dallin. Possible stress cardiomyopathy. Patient is being continued on IV diuresis. No fever no chills. No nausea vomiting or abdominal pain or diarrhea. Patient is being continued on breathing treatments and oral steroids as well. Current medications reviewed. Objective - Vital Signs Vital signs: Vital Signs Temp 98.1 F 04/16/19 15:33 Pulse 102 H 04/16/19 16:24 Resp 18 04/16/19 15:38 BP 103/65 04/16/19 15:33 Pulse Ox 98 04/16/19 16:09 Intake & Output 04/15/19 04/16/19 04/16/19 18:59 06:59 18:59 Intake Total 220 376.175 Output Total 1600 875 600 Balance -1380 -875 -223.825 Weight 58.513 kg 54 kg Intake: IV 100 Intake, IV Titration 146.175 Amount Heparin Sod,Pork in 0.45% 146.175 NaCl 25,000 unit In 0.45 % NaCl 1 250ml.bag @ 12 UNITS/KG/HR 7.022 mls/hr IV .Q24H [facility] Rx#: [id number] Oral 120 230 Output: Urine 1600 875 600 Straight 800 Other: Voiding Method Indwelling Catheter Indwelling Catheter Indwelling Catheter - Exam PHYSICAL EXAMINATION: Patient is lying in the bed comfortably, no acute distress, awake alert and oriented.. HEENT: Normocephalic. Neck is supple. Pupils reactive. Nostrils clear. Oral cavity is moist. Ears reveal no drainage. Neck reveals no JVD, carotid bruits, or thyromegaly. CHEST EXAMINATION: Trachea is central. Symmetrical expansion. Bilateral fine crackles heard. Diminished breath sounds basally.. CARDIAC: Normal S1, S2 with no gallops. No murmurs ABDOMEN: Soft. Bowel sounds normal. No organomegaly. No abdominal bruits. Extremities: reveal no edema. No clubbing or cyanosis Neurologically awake, alert, oriented x3 with well-coordinated movements. No focal deficits noted Skin: No rash or skin lesions. Psychiatric: Coperative. Nonsuicidal Musculoskeletal: No joint swelling or deformity. Normal range of motion. - Labs CBC & Chem 7: 06/27/19 06:32 04/15/19 05:48 Labs: Abnormal Lab Results - Last 24 Hours (Table) 04/15/19 04/16/19 04/16/19 Range/Units 18:10 06:32 06:32 WBC 11.5 H (3.8-10.6) k/uL MCV 110.0 H (80.0-100.0) fL MCH 35.5 H (25.0-35.0) pg Neutrophils # 9.0 H (1.3-7.7) k/uL Macrocytosis Marked A APTT 49.9 H 55.6 H (22.0-30.0) sec Microbiology - Last 24 Hours (Table) 04/14/19 03:33 Blood Culture - Preliminary Blood No Growth after 48 hours Assessment and Plan Assessment: Acute on chronic CHF with systolic dysfunction. EF was 35-40%. Ejection fraction 25-30% as per echocardiogram. Possible stress cardiomyopathy. Acute non-ST elevated NV with elevated troponin. Status post cardiac catheterization. No PCI.. Mild COPD exacerbation Severe COPD/emphysema and chronic hypoxic respiratory failure on home oxygen 2 L nasal cannula. Acute on chronic hypoxic respiratory failure requiring up to 6 L of oxygen. History of Takosubo syndrome Hypertension osteoarthritis Dementia Chronic back pain Macular degeneration of left eye Diverticular disease History of secondhand smoking DVT prophylaxis Plan: Patient continued on telemetry monitoring was given a dose of aspirin and continue with statins. IV Lasix 20 mg every 8. Continue with beta blockers. Continue with DuoNeb's and prednisone 40 mg daily. Cardiology is following. Continue the home medications and blood pressure medications as tolerated. Further recommendations based on the clinical course. Prognosis is guarded with multiple medical problems and comorbid conditions. Discussed with family at bedside in detail. Time with Patient: Greater than 30
[2019-04-17 06:45] LABS: Basophils % (A) 0 %; Eosinophils # (A) 0.1 k/uL (0-0.7); Eosinophils % (A) 1 %; HCT 38.3 % (34.0-46.0); Lymphocytes # (A) 1.7 k/uL (1.0-4.8); Lymphocytes % (A) 18 %; MCH 35.6 pg (25.0-35.0); Macrocytosis Slight; Mean Platelet Volume 8.1; Monocytes # (A) 0.9 k/uL (0-1.0); Monocytes % (A) 9 %; Neutrophils # (A) 6.8 k/uL (1.3-7.7); Neutrophils % (A) 70 %; Platelet Count 165 k/uL (150-450); RBC 3.67 m/uL (3.80-5.40); RDW 13.7 % (11.5-15.5); WBC 9.8 k/uL (3.8-10.6)
[2019-04-17 06:49] LABS: MCV 104.6 fL (80.0-100.0)
[2019-04-17 06:57] LABS: Calcium 8.4 mg/dL (8.4-10.2); Potassium 3.5 mmol/L (3.5-5.1)
[2019-04-17] MEDS ORDERED: METOPROLOL TARTRATE 12.5 MG TAB PO SCH (09:00)
[2019-04-17] MEDS: IPRATROPIUM-ALBUTEROL 3 ML NEB INHALATION SCH ×4 (09:04→20:39)
[2019-04-17] MEDS: SYMBICORT 160-4.5 MCG INHALER INHALATION PRN ×2 (09:19→20:39)
[2019-04-17] MEDS: FUROSEMIDE 10 MG/ML 2 ML VIAL IV SCH (09:44)
[2019-04-17] MEDS: ASPIRIN 81 MG PO SCH (09:45)
[2019-04-17] MEDS: CLOPIDOGREL 75 MG TAB PO SCH (09:45)
[2019-04-17] MEDS: predniSONE 20 MG TAB PO SCH (09:45)
[2019-04-17] MEDS: PSYLLIUM HUSK 100% 6 GM PACKET PO SCH (13:58)
[2019-04-17] MEDS: DRONABINOL 2.5 MG CAP PO SCH ×2 (13:58→17:16)
[2019-04-17] MEDS: POTASSIUM CHLORIDE ER 20 MEQ TAB.ER PO SCH ×2 (13:58→17:16)
--- NOTE | 2019-04-17 18:10 | PN ---
PROGRESS NOTE DATE OF SERVICE: Mrs. Sequeira came into the hospital with chest pain, troponin elevation, and clinical picture is that of takotsubo. However, she also has COPD and complains of shortness of breath. Clinical evaluation suggests her vital are stable. Blood pressure is at the low end of normal with 92 systolic. S1, S2 heard normally. Short systolic murmur noted. Lungs revealed diminished air entry. There is no JVD. Abdomen is soft. Right groin area has a small hematoma. I am recommending that we increase the Lopressor, increase Lasix, and hopefully this will help her shortness of breath also. We will keep her for one more day and see how she does clinically. MMODL / IJN: [id number] /
[2019-04-17] MEDS: LOSARTAN 25 MG TAB PO SCH (19:46)
[2019-04-17] MEDS: ATORVASTATIN 40 MG TAB PO SCH (19:46)
[2019-04-17] MEDS: FUROSEMIDE 10 MG/ML 4 ML VIAL IV SCH (19:49)
[2019-04-17] MEDS: METOPROLOL TARTRATE 12.5 MG TAB PO SCH (21:51)
[2019-04-18] MEDS: DRONABINOL 2.5 MG CAP PO SCH ×2 (06:52→17:47)
[2019-04-18] MEDS: SYMBICORT 160-4.5 MCG INHALER INHALATION PRN (07:38)
[2019-04-18] MEDS: IPRATROPIUM-ALBUTEROL 3 ML NEB INHALATION SCH ×4 (07:39→20:19)
[2019-04-18 07:54] LABS: Basophils % (A) 0 %; Eosinophils % (A) 0 %; HCT 40.8 % (34.0-46.0); HGB 13.3 gm/dL (11.4-16.0); Lymphocytes # (A) 2.4 k/uL (1.0-4.8); Lymphocytes % (A) 21 %; MCH 35.2 pg (25.0-35.0); MCHC 32.7 g/dL (31.0-37.0); MCV 107.7 fL (80.0-100.0); Macrocytosis Moderate; Monocytes # (A) 0.9 k/uL (0-1.0); Monocytes % (A) 8 %; Neutrophils % (A) 69 %; Platelet Count 178 k/uL (150-450); RBC 3.79 m/uL (3.80-5.40); RDW 12.6 % (11.5-15.5); WBC 11.6 k/uL (3.8-10.6)
[2019-04-18 08:09] LABS: African American GFR (CKD) >90 (>60 ml/min/1.73 sqM); Blood Urea Nitrogen 45 mg/dL (7-17); Calcium 8.3 mg/dL (8.4-10.2); Chloride 96 mmol/L (98-107); Glucose 110 mg/dL (74-99); Potassium 3.9 mmol/L (3.5-5.1); Sodium 140 mmol/L (137-145)
[2019-04-18 08:15] LABS: Anion Gap 3 mmol/L
[2019-04-18] MEDS: FUROSEMIDE 10 MG/ML 4 ML VIAL IV SCH (08:30)
[2019-04-18] MEDS: CLOPIDOGREL 75 MG TAB PO SCH (08:30)
[2019-04-18] MEDS: METOPROLOL TARTRATE 12.5 MG TAB PO SCH ×2 (08:30→22:12)
[2019-04-18] MEDS: PSYLLIUM HUSK 100% 6 GM PACKET PO SCH (08:30)
[2019-04-18] MEDS: ASPIRIN 81 MG PO SCH (08:30)
[2019-04-18] MEDS: predniSONE 20 MG TAB PO SCH (08:30)
[2019-04-18 08:33] LABS: Carbon Dioxide 41 mmol/L (22-30)
[2019-04-18] MEDS: NITROGLYCERIN SL TABS 0.4 MG TAB SUBLINGUAL PRN ×2 (10:46→10:51)
[2019-04-18] MEDS: HYDROmorphone 0.5 MG/0.5 ML SYRINGE IVP PRN (11:10)
--- NOTE | 2019-04-18 11:50 | PN ---
PROGRESS NOTE Mrs. Sequeira is in sinus rhythm, resting comfortably. Breathing is a bit easier. Her blood pressure is somewhat low. I will switch her from IV to oral Lasix. She continues to have wheezing. I will request Pulmonary evaluation. Vital signs stable. JVD is 1 cm. No carotid bruit. S1-S2 heard normally. Short systolic murmur noted. Lungs reveal scattered rhonchi. Abdomen and lower extremity exam unchanged. This patient got admitted with takotsubo type picture without obstructive CAD of significance and extensive wall motion abnormality and troponin elevation. Clinically, she is doing better. I am recommending that we switch her from IV to oral Lasix and seek Pulmonary evaluation. MMODL / IJN: [id number] /
--- NOTE | 2019-04-18 12:06 | P.PN ---
Subjective Progress Note Date: 04/17/19 Principal diagnosis: CHF with acute exacerbation Acute TN non-ST elevated TN Patient is a 89-year-old female with a known history of COPD/severe emphysema with baseline FEV1 of 41% of predicted, CHF with systolic dysfunction, history of TN, hypertension and chronic hypoxic respiratory failure on home oxygen, dementia, aortic aneurysm, history of rheumatic fever in childhood, possible Takasubu syndrome previously, was brought to the ER by her family and EMS with worsening shortness of breath for the past few days and also developed congested cough since yesterday. Patient is also requiring more oxygen at home. Up to 6 L. Patient does not have any sputum production otherwise. No fever or chills at home. Patient denied any nausea vomiting or abdominal pain or diarrhea. Patient was previously discharged from hospital on 02/07/2019, was treated for acute COPD exacerbation. Denied any worsening leg swelling. No headache or dizziness or lightheadedness. Patient follows with Dr. Escobar as an outpatient. Patient is being treated for acute COPD exacerbation and CHF. Patient developed chest tightness this morning and second troponin is trending up to 2.650. Patient was transferred to telemetry unit and cardiology was consulted. Shewas given a dose of aspirin. EKG showed sinus tachycardia with low voltage criteria. Recent echocardiogram on 02/05/2019 showed ejection fraction 60-60% with mild aortic regurgitation and mitral and tricuspid regurgitation. No significant valvular abnormalities were noted. Chest x-ray showed small bilateral pleural effusions with adjacent atelectasis or consolidation. Pulmonary vascular congestion. WBC 13.3, sodium 133 Troponin 0.042 and 2.650 BNP 3770 04/15/2019 Patient underwent cardiac catheterization today. Nonobstructive coronary disease. breathing status is improving. No complains of chest pain or worsenin g shortness of breath. No nausea vomiting or abdominal pain. Tolerating oral diet. He is following. Chest x-ray showed COPD suspect underlying pulmonary arterial hypertension, mild pulmonary vascular congestion, trace effusions are suspected. Increase in patchy left lower lobe density could represent area of developing edema or infiltrate. WBC 7.5. No fever no chills. No cough or sputum production. Patient is being continued on DuoNeb's and IV Lasix and prednisone. 2018 Patient is currently sitting in a chair comfortable. Shortness of breath is improving. Cardiac catheterization showed mild coronary artery disease with a 50% ostial stenosis 50% mid LAD stenosis and also 5-50% stenosis of the obtuse marginal branch. Possible Plake rupture to be considered. Echocardiogram showed ejection fraction 25-30% with basal segment dallin. Possible stress cardiomyopathy. Patient is being continued on IV diuresis. No fever no chills. No nausea vomiting or abdominal pain or diarrhea. Patient is being continued on breathing treatments and oral steroids as well. 04/17/2019 Patient is currently sitting received. Breathing is about the same. Patient is getting IV Lasix 40 mg every 12. Patient feels very weak otherwise. BUN 45 and creatinine 0.78 Bicarbonate level is 38. No complaint of chest pain. No nausea vomiting or diarrhea. Patient is on DuoNeb's and prednisone 40 mg daily. We will follow up chest x-ray tomorrow. No fever no chills. No leukocytosis. Current medications reviewed. Objective - Vital Signs Vital signs: Vital Signs Temp 98.1 F 04/17/19 20:00 Pulse 98 04/17/19 20:52 Resp 17 04/17/19 20:00 BP 106/68 04/17/19 20:00 Pulse Ox 98 04/17/19 20:41 Intake & Output 04/17/19 04/17/19 04/18/19 06:59 18:59 06:59 Intake Total 340 Output Total 1400 Balance -1060 Weight 54.5 kg Intake: Oral 340 Output: Urine 1400 Straight 800 Other: Voiding Method Indwelling Catheter Indwelling Catheter Indwelling Catheter - Exam PHYSICAL EXAMINATION: Patient is lying in the bed comfortably, no acute distress, awake alert and oriented.. HEENT: Normocephalic. Neck is supple. Pupils reactive. Nostrils clear. Oral cavity is moist. Ears reveal no drainage. Neck reveals no JVD, carotid bruits, or thyromegaly. CHEST EXAMINATION: Trachea is central. Symmetrical expansion. Bilateral fine crackles heard. Diminished breath sounds basally.. CARDIAC: Normal S1, S2 with no gallops. No murmurs ABDOMEN: Soft. Bowel sounds normal. No organomegaly. No abdominal bruits. Extremities: reveal no edema. No clubbing or cyanosis Neurologically awake, alert, oriented x3 with well-coordinated movements. No focal deficits noted Skin: No rash or skin lesions. Psychiatric: Coperative. Nonsuicidal Musculoskeletal: No joint swelling or deformity. Normal range of motion. - Labs CBC & Chem 7: 04/18/19 06:48 04/18/19 06:48 Labs: Abnormal Lab Results - Last 24 Hours (Table) 04/17/19 04/17/19 Range/Units 06:18 06:18 RBC 3.67 L (3.80-5.40) m/uL MCV 104.6 H D (80.0-100.0) fL MCH 35.6 H (25.0-35.0) pg Carbon Dioxide 38 H (22-30) mmol/L BUN 45 H (7-17) mg/dL Glucose 109 H (74-99) mg/dL Microbiology - Last 24 Hours (Table) 04/14/19 03:33 Blood Culture - Preliminary Blood No Growth after 72 hours Assessment and Plan Assessment: Acute on chronic CHF with systolic dysfunction. EF was 35-40%. Ejection fraction 25-30% as per echocardiogram. Possible stress cardiomyopathy. Acute non-ST elevated TN with elevated troponin. Status post cardiac catheterization. No PCI.. Acute COPD exacerbation Severe COPD/emphysema and chronic hypoxic respiratory failure on home oxygen 2 L nasal cannula. Acute on chronic hypoxic respiratory failure requiring up to 6 L of oxygen. History of Takosubo syndrome Hypertension osteoarthritis Dementia Chronic back pain Macular degeneration of left eye Diverticular disease History of secondhand smoking DVT prophylaxis Plan: Patient continued on telemetry monitoring was given a dose of aspirin and continue with statins. IV Lasix 40 mg every 12. Continue with beta blockers. Continue with DuoNeb's and prednisone 40 mg daily. Cardiology is following. Continue the home medications and blood pressure medications as tolerated. Further recommendations based on the clinical course. Prognosis is guarded with multiple medical problems and comorbid conditions. Discussed with family at bedside in detail. Time with Patient: Greater than 30
[2019-04-18] MEDS: AZITHROMYCIN 500 MG in SODIUM CHLORIDE 0.9% 250 ML IVPB SCH (12:42)
--- NOTE | 2019-04-18 14:00 | XR ---
EXAMINATION TYPE: XR chest 1V portable DATE OF EXAM: 04/18/2019 HISTORY: dyspnea. REFERENCE: Previous study dated 04/15/2019. FINDINGS: Lung volumes are prominent. Heart size is mildly enlarged. Lungs appear clear. Pleural spac e are clear. IMPRESSION: 1. COPD. 2. MILD CARDIOMEGALY.
--- NOTE | 2019-04-18 14:31 | CONS ---
CONSULTATION PULMONARY/CRITICAL CARE CONSULTATION: DATE OF SERVICE: 04/18/2019 This is an 89-year-old female who apparently sees Dr. Efrain Walden as a primary. She apparently presented to the emergency room on April 14 with complaints of shortness of breath. She apparently been having shortness of breath that had been getting progressively worse for about 2 days prior to admission. She does have a history of chronic bronchial asthma and also has a history of congestive heart failure with poor ejection fraction of about 20%. She had apparently not been able to sleep particularly well and was having difficulty with her breathing. Most of the history is obtained from her daughter. The patient herself is somewhat demented. She is also very hard of hearing. In addition to being short of breath apparently the daughter could hear her wheezing. For that reason she was brought in and evaluated by the ER physician. The admission diagnosis was that of CHF and COPD exacerbation. Finally, on April 18, we were consulted for worsening shortness of breath as well as congested wet cough and wheezing. She is in the room trying to eat lunch with her daughter feeding her. Her cough is very harsh and wet and congested sounding. She is not in any respiratory distress to look at her. No conversational dyspnea. No audible wheezing. No use of accessory muscles. MEDICATIONS: Reviewed. She is on a ProAir inhaler and also Symbicort. I suspect she got those from my partner, Dr. Blakely. In addition, she has a history of being on Neurontin, Cozaar, metoprolol, pravastatin, Imdur, Lasix and DuoNeb. ALLERGIES: INCLUDE FOSAMAX, EVISTA AND ZOCOR. MEDICAL HISTORY: Chronic bronchial asthma, severe systolic heart failure with an ejection fraction of about 20%, dementia, hypertension, myocardial infarction, DJD, aortic aneurysm, chronic hypoxemic respiratory failure. Rheumatic fever as a child. Chronic back pain. Macular degeneration left eye, hiatal hernia. Diverticular disease and benign colonic polyps. SURGICAL HISTORY: Includes among other things appendectomy, bladder suspension, cholecystectomy, and hysterectomy. She has also had EGDs in the past. SOCIAL HISTORY: Negative for tobacco use. Denies any alcohol use or illicit drug use. FAMILY HISTORY: Positive for father with mesothelioma, a mother with liver cancer. The other family members that were free of any significant diseases. 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 REVIEW OF SYSTEMS: CONSTITUTIONAL negative. NEUROLOGIC negative. HEENT negative. CARDIOVASCULAR negative. PULMONARY: Shortness of breath, wheezing and chest congestion, congested cough without phlegm production. GI negative. negative. RHEUMATOLOGIC negative. IMMUNOLOGIC negative. ENDOCRINOLOGICAL: Negative. HEMATOLOGIC negative. DERMATOLOGIC negative. PHYSICAL EXAMINATION: VITAL SIGNS: Current vital signs are reviewed. Temperature 97, heart rate 60, respiratory rate 18, blood pressure 105/64 mean 77, 2 L saturation 98%. GENERAL: Appears in no acute distress. Nasal O2 in place. HEENT examination is grossly unremarkable. As I mentioned, nasal supplemental oxygen is noted. Being given to her by nasal cannula. NECK: Supple. Full range of motion. No adenopathy, thyromegaly or neck vein distention. CARDIOVASCULAR examination reveals a regular rhythm and rate. Heart rate is about 60 beats per minute. Heart sounds are distant. S1 normal. Soft systolic murmur is noted. S2 is normal. No S3, S4. LUNGS: Some inspiratory and expiratory wheezes. There is some prolongation. No crackles. Breath sounds are equal bilaterally. ABDOMEN: Soft. Bowel sounds are heard. EXTREMITIES are intact. No cyanosis, clubbing, or edema. Skin without rash. NEUROLOGIC examination is difficult to assess because of her dementia, but she does move all 4 extremities. She does respond but you have to talk very loudly to her. A chest x-ray was done. It does not show any abnormality in my opinion. The chest x- ray on admission April 14 shows small bilateral effusions and pulmonary vascular congestion consistent with a admission diagnosis of heart failure. Microbiologic studies have been negative here. White count 11.6, hemoglobin 13.3, hematocrit 40.8, platelet count 178,000. Sodium 140, potassium 3.9, chloride 96, CO2 41, anion gap 3 BUN and creatinine were 45 and 0.69. The rest of the labs look okay. Medications are reviewed. ASSESSMENT: 1. Shortness of breath, likely multifactorial in part related to underlying asthma exacerbation, but also congestive heart failure from chronic systolic heart failure. 2. Possible purulent tracheobronchitis. 3. History of dementia. 4. History of macular degeneration. 5. Hypertension by history. 6. Myocardial infarction. 7. Degenerative joint disease. 8. Lifelong nonsmoking nonsmoker. 9. Aortic aneurysm. 10.History of diverticular disease. 11.History of benign colonic polyps. PLAN: Please see my orders. Additional medications will be reviewed. It appears that her asthma is probably what is causing most of her shortness of breath right now. Her chest x-ray looks good. The patient's medications will be adjusted accordingly. Will DC prednisone and favor some IV Solu-Medrol. She is on good antibiotics. She is on updrafts. We will add Singulair. Additional recommendations and suggestions are forthcoming. MMODL / IJN: [id number] /
[2019-04-18] MEDS: methylPREDNISolone SOD SUCCI 125 MG/2 ML VIAL IV SCH ×2 (17:47→23:31)
[2019-04-18] MEDS: FUROSEMIDE 20 MG TAB PO SCH (17:47)
[2019-04-18] MEDS: ATORVASTATIN 40 MG TAB PO SCH (19:41)
[2019-04-18] MEDS: MONTELUKAST 10 MG TAB PO SCH (19:41)
[2019-04-18] MEDS: LOSARTAN 25 MG TAB PO SCH (19:41)
[2019-04-18] MEDS ORDERED: BUDESONIDE 0.5 MG/2 ML NEBU INHALATION SCH (20:00)
[2019-04-18] MEDS: BUDESONIDE 1 MG/2 ML NEBU INHALATION SCH (20:19)
[2019-04-18] MEDS: FORMOTEROL FUMARATE 20 MCG/2 ML NEBU INHALATION SCH (20:19)
[2019-04-19 05:57] LABS: Glucose,Whole Blood 166 mg/dL (75-99)
[2019-04-19] MEDS: DRONABINOL 2.5 MG CAP PO SCH ×2 (06:26→17:29)
[2019-04-19] MEDS: INSULIN ASPART (NovoLOG) 100 UNIT/ML VIAL SQ SCH ×4 (06:26→21:39)
[2019-04-19] MEDS: methylPREDNISolone SOD SUCCI 125 MG/2 ML VIAL IV SCH ×4 (06:26→22:56)
[2019-04-19 06:54] LABS: African American GFR (CKD) >90 (>60 ml/min/1.73 sqM); Anion Gap 4 mmol/L; Blood Urea Nitrogen 50 mg/dL (7-17); Calcium 8.3 mg/dL (8.4-10.2); Carbon Dioxide 40 mmol/L (22-30); Chloride 94 mmol/L (98-107); Glucose 154 mg/dL (74-99); Potassium 4.2 mmol/L (3.5-5.1); Sodium 138 mmol/L (137-145)
[2019-04-19 07:01] LABS: Basophils % (A) 0 %; Eosinophils % (A) 0 %; HCT 38.6 % (34.0-46.0); HGB 12.7 gm/dL (11.4-16.0); Lymphocytes # (A) 0.9 k/uL (1.0-4.8); Lymphocytes % (A) 11 %; MCHC 32.8 g/dL (31.0-37.0); MCV 106.7 fL (80.0-100.0); Macrocytosis Moderate; Mean Platelet Volume 8.9; Monocytes # (A) 0.3 k/uL (0-1.0); Monocytes % (A) 4 %; Neutrophils % (A) 84 %; Platelet Count 147 k/uL (150-450); RBC 3.62 m/uL (3.80-5.40); RDW 13.2 % (11.5-15.5); WBC 8.3 k/uL (3.8-10.6)
[2019-04-19] MEDS: PSYLLIUM HUSK 100% 6 GM PACKET PO SCH (07:54)
[2019-04-19] MEDS: FUROSEMIDE 40 MG TAB PO SCH (07:54)
[2019-04-19] MEDS: METOPROLOL TARTRATE 12.5 MG TAB PO SCH ×2 (07:54→21:39)
[2019-04-19] MEDS: ASPIRIN 81 MG PO SCH (07:54)
[2019-04-19] MEDS: CLOPIDOGREL 75 MG TAB PO SCH (07:54)
[2019-04-19] MEDS: BUDESONIDE 1 MG/2 ML NEBU INHALATION SCH ×2 (08:51→20:19)
[2019-04-19] MEDS: IPRATROPIUM-ALBUTEROL 3 ML NEB INHALATION SCH ×4 (08:52→20:19)
[2019-04-19] MEDS: FORMOTEROL FUMARATE 20 MCG/2 ML NEBU INHALATION SCH ×2 (08:52→20:19)
[2019-04-19] MEDS: HYDROmorphone 0.5 MG/0.5 ML SYRINGE IVP PRN (10:02)
--- NOTE | 2019-04-19 11:29 | PN ---
PROGRESS NOTE Mrs Sequeira is in sinus rhythm. Comfortable. Breathing easier. Denies chest pain. Blood pressure is better. Vital signs stable. S1-S2 heard normally. Short systolic murmur noted. Lungs reveal improved air entry. She has some reactive airway disease and pulmonary consult was requested and have made some adjustment in her medications. We will continue current medical regimen including beta liz and losartan. MMODL / IJN: [id number] /
[2019-04-19 12:13] LABS: Glucose,Whole Blood 203 mg/dL (75-99)
--- NOTE | 2019-04-19 12:36 | PN ---
PROGRESS NOTE DATE OF SERVICE: April 19, 2019 This is an 89-year-old female seen yesterday in consultation. She sees Dr. Efrain Walden as a primary. She came into the emergency room on April 14 complaining of shortness of breath. I saw her yesterday for an asthma exacerbation complicated by purulent tracheobronchitis. She was quite bronchospastic and had a very congested wet sounding cough. She also had some issues with her congestive heart failure that was chronic and systolic in nature. Anyway, the patient is feeling a bit better according to the daughter. She still has a significant cough. Not producing much or any phlegm. She is still a bit short of breath particularly with exertion. In addition to the above, she has a history of dementia, macular degeneration, hypertension, myocardial infarction, DJD, aortic aneurysm, diverticular disease, and benign colonic polyps. We basically put her on bronchodilators, steroids and antibiotics. Her ejection fraction is quite low right around 20%. Chest x-ray from April 18 shows primarily changes of COPD/asthma. There is some cardiomegaly. PHYSICAL EXAMINATION: Current vital signs reviewed. Temperature 97.6 heart rate 65, respiratory rate 16, blood pressure 119/74 mean 89 and 3 L saturation is 99%. She appears to be much more comfortable today than yesterday. She is certainly coughing less. HEENT examination is grossly unremarkable. Nasal O2 in place. NECK: Supple. Full range of motion. No adenopathy. Neck veins are flat. CARDIOVASCULAR examination reveals regular rhythm and rate. Heart rate 65. Heart sounds are distant. There is a soft systolic murmur. LUNGS: Expiratory rhonchi and wheezes. Breath sounds are diminished. There is prolongation. Her cough is very congested and wet sounding. ABDOMEN: Soft. Bowel sounds are heard. EXTREMITIES reveal no cyanosis, clubbing, or edema. SKIN without rash. NEUROLOGIC examination is brief. Appears not to be focal. She is demented. History is difficult to obtain. LAB DATA: Reviewed. White count 8.3, hemoglobin 12.7, hematocrit 38.6, platelet count 147,000. Sodium 138, potassium 4.2, chloride 94, CO2 40, BUN and creatinine were 15 and 0.66. Anion gap is 4. The rest of the labs look okay. Microbiologic studies include urine and blood sampling is negative. Chest x-ray shows changes primarily of COPD/asthma. Medications were adjusted yesterday. They include Pulmicort, formoterol, Zithromax, Solu-Medrol, Singulair and DuoNeb. ASSESSMENT: 1. Shortness of breath, likely related primarily to an asthma exacerbation, but also heart failure. 2. Chronic systolic congestive heart failure, with ejection fraction of 20%. 3. History of dementia. 4. History of macular degeneration. 5. History of hypertension. 6. Myocardial infarction. 7. Degenerative joint disease. 8. History of being a lifelong nonsmoker. 9. Aortic aneurysm. 10.History of diverticular disease. 11.History of benign colonic polyps. PLAN: The patient's medications are adjusted accordingly. She is on appropriate medications including Pulmicort, formoterol, DuoNeb, steroids and antibiotics. We will continue to follow. Her cough today is much better. Not as bronchospastic. Her cough is still significant though. Not quite ready for discharge. We will continue to follow closely. MMODL / IJN: [id number] /
[2019-04-19] MEDS: AZITHROMYCIN 500 MG in SODIUM CHLORIDE 0.9% 250 ML IVPB SCH (12:43)
[2019-04-19] MEDS: FAMOTIDINE 20 MG TAB PO SCH ×2 (14:01→20:00)
[2019-04-19] MEDS: ALPRAZolam 0.25 MG TAB PO PRN (14:01)
[2019-04-19 17:15] LABS: Glucose,Whole Blood 212 mg/dL (75-99)
[2019-04-19] MEDS: FUROSEMIDE 20 MG TAB PO SCH (17:29)
[2019-04-19] MEDS: LOSARTAN 25 MG TAB PO SCH (19:59)
[2019-04-19] MEDS: ATORVASTATIN 40 MG TAB PO SCH (19:59)
[2019-04-19] MEDS: MONTELUKAST 10 MG TAB PO SCH (19:59)
[2019-04-19 21:05] LABS: Glucose,Whole Blood 296 mg/dL (75-99)
--- NOTE | 2019-04-20 01:01 | P.PN ---
Subjective Progress Note Date: 04/18/19 Principal diagnosis: CHF with acute exacerbation Acute GA non-ST elevated GA Patient is a 89-year-old female with a known history of COPD/severe emphysema with baseline FEV1 of 41% of predicted, CHF with systolic dysfunction, history of GA, hypertension and chronic hypoxic respiratory failure on home oxygen, dementia, aortic aneurysm, history of rheumatic fever in childhood, possible Takasubu syndrome previously, was brought to the ER by her family and EMS with worsening shortness of breath for the past few days and also developed congested cough since yesterday. Patient is also requiring more oxygen at home. Up to 6 L. Patient does not have any sputum production otherwise. No fever or chills at home. Patient denied any nausea vomiting or abdominal pain or diarrhea. Patient was previously discharged from hospital on 02/07/2019, was treated for acute COPD exacerbation. Denied any worsening leg swelling. No headache or dizziness or lightheadedness. Patient follows with Dr. Escobar as an outpatient. Patient is being treated for acute COPD exacerbation and CHF. Patient developed chest tightness this morning and second troponin is trending up to 2.650. Patient was transferred to telemetry unit and cardiology was consulted. Shewas given a dose of aspirin. EKG showed sinus tachycardia with low voltage criteria. Recent echocardiogram on 02/05/2019 showed ejection fraction 60-60% with mild aortic regurgitation and mitral and tricuspid regurgitation. No significant valvular abnormalities were noted. Chest x-ray showed small bilateral pleural effusions with adjacent atelectasis or consolidation. Pulmonary vascular congestion. WBC 13.3, sodium 133 Troponin 0.042 and 2.650 BNP 3770 04/15/2019 Patient underwent cardiac catheterization today. Nonobstructive coronary disease. breathing status is improving. No complains of chest pain or worsenin g shortness of breath. No nausea vomiting or abdominal pain. Tolerating oral diet. He is following. Chest x-ray showed COPD suspect underlying pulmonary arterial hypertension, mild pulmonary vascular congestion, trace effusions are suspected. Increase in patchy left lower lobe density could represent area of developing edema or infiltrate. WBC 7.5. No fever no chills. No cough or sputum production. Patient is being continued on DuoNeb's and IV Lasix and prednisone. 2018 Patient is currently sitting in a chair comfortable. Shortness of breath is improving. Cardiac catheterization showed mild coronary artery disease with a 50% ostial stenosis 50% mid LAD stenosis and also 5-50% stenosis of the obtuse marginal branch. Possible Plake rupture to be considered. Echocardiogram showed ejection fraction 25-30% with basal segment dallin. Possible stress cardiomyopathy. Patient is being continued on IV diuresis. No fever no chills. No nausea vomiting or abdominal pain or diarrhea. Patient is being continued on breathing treatments and oral steroids as well. 04/17/2019 Patient is currently sitting received. Breathing is about the same. Patient is getting IV Lasix 40 mg every 12. Patient feels very weak otherwise. BUN 45 and creatinine 0.78 Bicarbonate level is 38. No complaint of chest pain. No nausea vomiting or diarrhea. Patient is on DuoNeb's and prednisone 40 mg daily. We will follow up chest x-ray tomorrow. No fever no chills. No leukocytosis. 04/18/2019 Patient is awake alert and seems to have increased shortness of breath. Chest x-ray showed COPD. Otherwise patient is being continued on prednisone and breathing treatments. Added Pulmicort and Perforomist as per pulmonary recommendations. Patient does have elevated bicarb level likely due to contraction alkalosis. Lasix changed to by mouth. Monitor closely and complains of fever or chills. No sputum production. Discussed with the family at bedside in detail. Current medications reviewed. Objective - Vital Signs Vital signs: Vital Signs Temp 98 F 04/18/19 20:00 Pulse 68 04/18/19 20:42 Resp 20 04/18/19 20:00 BP 105/71 04/18/19 20:00 Pulse Ox 99 04/18/19 20:20 Intake & Output 04/18/19 04/18/19 04/19/19 06:59 18:59 06:59 Intake Total 400 65 400 Output Total 600 650 Balance -200 -585 400 Weight 51.5 kg Intake: Oral 400 65 400 Output: Urine 600 650 Other: Voiding Method Indwelling Catheter Indwelling Catheter Indwelling Catheter - Exam PHYSICAL EXAMINATION: Patient is lying in the bed comfortably, no acute distress, awake alert and oriented.. HEENT: Normocephalic. Neck is supple. Pupils reactive. Nostrils clear. Oral cavity is moist. Ears reveal no drainage. Neck reveals no JVD, carotid bruits, or thyromegaly. CHEST EXAMINATION: Trachea is central. Symmetrical expansion. Bilateral coarse breath sounds and wheezing... CARDIAC: Normal S1, S2 with no gallops. No murmurs ABDOMEN: Soft. Bowel sounds normal. No organomegaly. No abdominal bruits. Extremities: reveal no edema. No clubbing or cyanosis Neurologically awake, alert, oriented x3 with well-coordinated movements. No focal deficits noted Skin: No rash or skin lesions. Psychiatric: Coperative. Nonsuicidal Musculoskeletal: No joint swelling or deformity. Normal range of motion. - Labs CBC & Chem 7: 04/19/19 06:00 04/19/19 06:00 Labs: Abnormal Lab Results - Last 24 Hours (Table) 04/18/19 04/18/19 Range/Units 06:48 06:48 WBC 11.6 H (3.8-10.6) k/uL RBC 3.79 L (3.80-5.40) m/uL MCV 107.7 H (80.0-100.0) fL MCH 35.2 H (25.0-35.0) pg Neutrophils # 8.0 H (1.3-7.7) k/uL Chloride 96 L (98-107) mmol/L Carbon Dioxide 41 H* (22-30) mmol/L BUN 45 H (7-17) mg/dL Glucose 110 H (74-99) mg/dL Calcium 8.3 L (8.4-10.2) mg/dL Microbiology - Last 24 Hours (Table) 04/14/19 03:33 Blood Culture - Preliminary Blood No Growth after 96 hours Assessment and Plan Assessment: Acute on chronic CHF with systolic dysfunction. EF was 35-40%. Ejection fraction 25-30% as per echocardiogram. Possible stress cardiomyopathy. Acute non-ST elevated GA with elevated troponin. Status post cardiac catheterization. No PCI.. Acute COPD exacerbation Severe COPD/emphysema and chronic hypoxic respiratory failure on home oxygen 2 L nasal cannula. Acute on chronic hypoxic respiratory failure requiring up to 6 L of oxygen. History of Takosubo syndrome Hypertension osteoarthritis Dementia Chronic back pain Macular degeneration of left eye Diverticular disease History of secondhand smoking DVT prophylaxis Plan: Patient continued on telemetry monitoring was given a dose of aspirin and continue with statins. IV Lasix 40 mg every 12--change to by mouth.. Continue with beta blockers. Continue with DuoNeb's and prednisone 40 mg daily. Cardiology is following. Continue the home medications and blood pressure medications as tolerated. Further recommendations based on the clinical course. Prognosis is guarded with multiple medical problems and comorbid conditions. Discussed with family at bedside in detail. Time with Patient: Greater than 30
--- NOTE | 2019-04-20 01:04 | P.PN ---
Subjective Progress Note Date: 04/19/19 Principal diagnosis: CHF with acute exacerbation Acute GA non-ST elevated GA Patient is a 89-year-old female with a known history of COPD/severe emphysema with baseline FEV1 of 41% of predicted, CHF with systolic dysfunction, history of GA, hypertension and chronic hypoxic respiratory failure on home oxygen, dementia, aortic aneurysm, history of rheumatic fever in childhood, possible Takasubu syndrome previously, was brought to the ER by her family and EMS with worsening shortness of breath for the past few days and also developed congested cough since yesterday. Patient is also requiring more oxygen at home. Up to 6 L. Patient does not have any sputum production otherwise. No fever or chills at home. Patient denied any nausea vomiting or abdominal pain or diarrhea. Patient was previously discharged from hospital on 02/07/2019, was treated for acute COPD exacerbation. Denied any worsening leg swelling. No headache or dizziness or lightheadedness. Patient follows with Dr. Escobar as an outpatient. Patient is being treated for acute COPD exacerbation and CHF. Patient developed chest tightness this morning and second troponin is trending up to 2.650. Patient was transferred to telemetry unit and cardiology was consulted. Shewas given a dose of aspirin. EKG showed sinus tachycardia with low voltage criteria. Recent echocardiogram on 02/05/2019 showed ejection fraction 60-60% with mild aortic regurgitation and mitral and tricuspid regurgitation. No significant valvular abnormalities were noted. Chest x-ray showed small bilateral pleural effusions with adjacent atelectasis or consolidation. Pulmonary vascular congestion. WBC 13.3, sodium 133 Troponin 0.042 and 2.650 BNP 3770 04/15/2019 Patient underwent cardiac catheterization today. Nonobstructive coronary disease. breathing status is improving. No complains of chest pain or worsening shortness of breath. No nausea vomiting or abdominal pain. Tolerating oral diet. He is following. Chest x-ray showed COPD suspect underlying pulmonary arterial hypertension, mild pulmonary vascular congestion, trace effusions are suspected. Increase in patchy left lower lobe density could represent area of developing edema or infiltrate. WBC 7.5. No fever no chills. No cough or sputum production. Patient is being continued on DuoNeb's and IV Lasix and prednisone. 2018 Patient is currently sitting in a chair comfortable. Shortness of breath is improving. Cardiac catheterization showed mild coronary artery disease with a 50% ostial stenosis 50% mid LAD stenosis and also 5-50% stenosis of the obtuse marginal branch. Possible Plake rupture to be considered. Echocardiogram showed ejection fraction 25-30% with basal segment dallin. Possible stress cardiomyopathy. Patient is being continued on IV diuresis. No fever no chills. No nausea vomiting or abdominal pain or diarrhea. Patient is being continued on breathing treatments and oral steroids as well. 04/17/2019 Patient is currently sitting received. Breathing is about the same. Patient is getting IV Lasix 40 mg every 12. Patient feels very weak otherwise. BUN 45 and creatinine 0.78 Bicarbonate level is 38. No complaint of chest pain. No nausea vomiting or diarrhea. Patient is on DuoNeb's and prednisone 40 mg daily. We will follow up chest x-ray tomorrow. No fever no chills. No leukocytosis. 04/18/2019 Patient is awake alert and seems to have increased shortness of breath. Chest x-ray showed COPD. Otherwise patient is being continued on prednisone and breathing treatments. Added Pulmicort and Perforomist as per pulmonary recommendations. Patient does have elevated bicarb level likely due to contraction alkalosis. Lasix changed to by mouth. Monitor closely and complains of fever or chills. No sputum production. Discussed with the family at bedside in detail. 04/19/2019 Patient is being treated for acute COPD and CHF exacerbation. Patient seems to be more comfortable today. Breathing status is improving slowly. Continue don oral Lasix. Saturating well on 2 L nasal cannula. Continue with prednisone, DuoNeb's and Pulmicort. Pulmonary and cardiology is following. Anticipate discharge in next 24-48 hours with marked clinical improvement. Current medications reviewed. Objective - Vital Signs Vital signs: Vital Signs Temp 97.6 F 04/19/19 11:54 Pulse 64 04/19/19 13:55 Resp 16 04/19/19 11:54 BP 119/74 04/19/19 11:54 Pulse Ox 99 04/19/19 11:54 Intake & Output 04/18/19 04/19/19 04/19/19 18:59 06:59 18:59 Intake Total 65 600 120 Output Total 650 400 Balance -585 200 120 Weight 52 kg Intake: Oral 65 600 120 Output: Urine 650 400 Other: Voiding Method Indwelling Catheter Indwelling Catheter Indwelling Catheter # Voids 0 # Bowel Movements 0 - Exam PHYSICAL EXAMINATION: Patient is lying in the bed comfortably, no acute distress, awake alert and oriented.. HEENT: Normocephalic. Neck is supple. Pupils reactive. Nostrils clear. Oral cavity is moist. Ears reveal no drainage. Neck reveals no JVD, carotid bruits, or thyromegaly. CHEST EXAMINATION: Trachea is central. Symmetrical expansion. Bilateral air entry improved. Mild expiratory wheeze.... CARDIAC: Normal S1, S2 with no gallops. No murmurs ABDOMEN: Soft. Bowel sounds normal. No organomegaly. No abdominal bruits. Extremities: reveal no edema. No clubbing or cyanosis Neurologically awake, alert, oriented x3 with well-coordinated movements. No focal deficits noted Skin: No rash or skin lesions. Psychiatric: Coperative. Nonsuicidal Musculoskeletal: No joint swelling or deformity. Normal range of motion. - Labs CBC & Chem 7: 04/19/19 06:00 04/19/19 06:00 Labs: Abnormal Lab Results - Last 24 Hours (Table) 04/19/19 04/19/19 04/19/19 Range/Units 05:56 06:00 06:00 RBC 3.62 L (3.80-5.40) m/uL MCV 106.7 H (80.0-100.0) fL Plt Count 147 L (150-450) k/uL Lymphocytes # 0.9 L (1.0-4.8) k/uL Chloride 94 L (98-107) mmol/L Carbon Dioxide 40 H (22-30) mmol/L BUN 50 H (7-17) mg/dL Glucose 154 H (74-99) mg/dL POC Glucose (mg/dL) 166 H (75-99) mg/dL Calcium 8.3 L (8.4-10.2) mg/dL 04/19/19 Range/Units 12:11 RBC (3.80-5.40) m/uL MCV (80.0-100.0) fL Plt Count (150-450) k/uL Lymphocytes # (1.0-4.8) k/uL Chloride (98-107) mmol/L Carbon Dioxide (22-30) mmol/L BUN (7-17) mg/dL Glucose (74-99) mg/dL POC Glucose (mg/dL) 203 H (75-99) mg/dL Calcium (8.4-10.2) mg/dL Microbiology - Last 24 Hours (Table) 04/14/19 03:33 Blood Culture - Preliminary Blood No Growth after 120 hours Assessment and Plan Assessment: Acute on chronic CHF with systolic dysfunction. EF was 35-40%. Ejection fraction 25-30% as per echocardiogram. Possible stress cardiomyopathy. Acute non-ST elevated GA with elevated troponin. Status post cardiac catheteriz ation. No PCI.. Acute COPD exacerbation Severe COPD/emphysema and chronic hypoxic respiratory failure on home oxygen 2 L nasal cannula. Acute on chronic hypoxic respiratory failure requiring up to 6 L of oxygen. History of Takosubo syndrome Hypertension osteoarthritis Dementia Chronic back pain Macular degeneration of left eye Diverticular disease History of secondhand smoking DVT prophylaxis Plan: Patient continued on telemetry monitoring was given a dose of aspirin and continue with statins. IV Lasix 40 mg every 12--change to by mouth.. Continue with beta blockers. Continue with DuoNeb's and prednisone 40 mg daily. Cardiology is following. Continue the home medications and blood pressure medications as tolerated. Further recommendations based on the clinical course. Prognosis is guarded with multiple medical problems and comorbid conditions. Discussed with family at bedside in detail. Time with Patient: Greater than 30
[2019-04-20 06:06] LABS: Glucose,Whole Blood 154 mg/dL (75-99)
[2019-04-20] MEDS: INSULIN ASPART (NovoLOG) 100 UNIT/ML VIAL SQ SCH ×4 (06:11→20:54)
[2019-04-20] MEDS: DRONABINOL 2.5 MG CAP PO SCH ×2 (06:11→17:29)
[2019-04-20] MEDS: methylPREDNISolone SOD SUCCI 125 MG/2 ML VIAL IV SCH ×4 (06:11→22:56)
[2019-04-20] MEDS: IPRATROPIUM-ALBUTEROL 3 ML NEB INHALATION SCH ×4 (07:57→21:04)
[2019-04-20] MEDS: BUDESONIDE 1 MG/2 ML NEBU INHALATION SCH ×2 (07:57→21:04)
[2019-04-20] MEDS: FORMOTEROL FUMARATE 20 MCG/2 ML NEBU INHALATION SCH ×2 (07:57→21:04)
[2019-04-20] MEDS: AZITHROMYCIN 500 MG TAB PO SCH (08:17)
[2019-04-20] MEDS: CLOPIDOGREL 75 MG TAB PO SCH (08:17)
[2019-04-20] MEDS: FAMOTIDINE 20 MG TAB PO SCH ×2 (08:17→20:26)
[2019-04-20] MEDS: PSYLLIUM HUSK 100% 6 GM PACKET PO SCH (08:17)
[2019-04-20] MEDS: METOPROLOL TARTRATE 12.5 MG TAB PO SCH ×2 (08:17→20:26)
[2019-04-20] MEDS: FUROSEMIDE 40 MG TAB PO SCH (08:17)
[2019-04-20] MEDS: ASPIRIN 81 MG PO SCH (08:17)
[2019-04-20 09:24] LABS: Basophils % (A) 0 %; Eosinophils # (A) 0.1 k/uL (0-0.7); Eosinophils % (A) 0 %; HCT 39.4 % (34.0-46.0); HGB 12.9 gm/dL (11.4-16.0); Lymphocytes # (A) 0.8 k/uL (1.0-4.8); Lymphocytes % (A) 6 %; MCH 35.1 pg (25.0-35.0); MCHC 32.9 g/dL (31.0-37.0); MCV 106.8 fL (80.0-100.0); Macrocytosis Moderate; Mean Platelet Volume 9.2; Monocytes # (A) 0.4 k/uL (0-1.0); Monocytes % (A) 3 %; Neutrophils # (A) 11.9 k/uL (1.3-7.7); Neutrophils % (A) 90 %; Platelet Count 213 k/uL (150-450); RBC 3.69 m/uL (3.80-5.40); RDW 13.3 % (11.5-15.5); WBC 13.2 k/uL (3.8-10.6)
[2019-04-20 09:27] LABS: Calcium 8.4 mg/dL (8.4-10.2)
[2019-04-20 09:39] LABS: Potassium 4.2 mmol/L (3.5-5.1)
[2019-04-20 12:06] LABS: Glucose,Whole Blood 298 mg/dL (75-99)
[2019-04-20] MEDS ORDERED: INSULIN ASPART (NovoLOG) 100 UNIT/ML VIAL SQ ONE (12:08)
--- NOTE | 2019-04-20 12:28 | P.PN ---
Subjective 89-year-old female with a history of COPD with FEV1 of 41% of predicted, history of CHF systolic dysfunction, history of NM comes in for shortness of breath. She is been treated for COPD and CHF exacerbation, troponins were high at the time of admission. Cardiology is following the patient so is pulmonology. Patient had cardiac cath which showed a mild CAD with 50% ostial stenosis 50% mid LAD stenosis and stenosis of the obtuse marginal branch. Pulmonology also following the patient and patient is on steroids, breathing treatments. This morning the patient was still short of breath and wheezy She does not complain of any chest pain racing heart Lasix today changed to oral Objective - Vital Signs Vital signs: Vital Signs Temp 98.3 F 04/20/19 12:00 Pulse 70 04/20/19 12:00 Resp 20 04/20/19 12:00 BP 112/57 04/20/19 12:00 Pulse Ox 98 04/20/19 12:00 Intake & Output 04/19/19 04/20/19 04/20/19 18:59 06:59 18:59 Intake Total 370 1130 Output Total 450 0 Balance -80 1130 Weight 50.5 kg 50.5 kg Intake: IV 20 Invasive Line 2 20 Intake, IV Titration 250 500 Amount Azithromycin 500 mg In 250 500 Sodium Chloride 0.9% 250 ml @ 250 mls/hr IVPB DAILY@1200 [facility] Rx#: [id number] Oral 120 610 Output: Urine 450 Stool 0 Other: Voiding Method Indwelling Catheter Indwelling Catheter Indwelling Catheter # Voids 0 # Bowel Movements 0 0 - Exam PHYSICAL EXAMINATION: Patient is lying in the bed comfortably, no acute distress, awake alert and oriented.. HEENT: Normocephalic. Neck is supple. Pupils reactive. Nostrils clear. Oral cavity is moist. Ears reveal no drainage. Neck reveals no JVD, carotid bruits, or thyromegaly. CHEST EXAMINATION: Patient is having wheezing heard bilaterally, no rhonchi no rales appreciated CARDIAC: Normal S1, S2 with no gallops. No murmurs ABDOMEN: Soft. Bowel sounds normal. No organomegaly. No abdominal bruits. Extremities: reveal no edema. No clubbing or cyanosis Neurologically awake, alert, oriented x3 with well-coordinated movements. No focal deficits noted Skin: No rash or skin lesions. Psychiatric: Coperative. Nonsuicidal Musculoskeletal: No joint swelling or deformity. Normal range of motion. - Labs CBC & Chem 7: 04/20/19 07:40 04/20/19 07:40 Labs: Abnormal Lab Results - Last 24 Hours (Table) 04/19/19 04/19/19 04/20/19 Range/Units 17:12 21:04 06:03 WBC (3.8-10.6) k/uL RBC (3.80-5.40) m/uL MCV (80.0-100.0) fL MCH (25.0-35.0) pg Neutrophils # (1.3-7.7) k/uL Lymphocytes # (1.0-4.8) k/uL Chloride (98-107) mmol/L Carbon Dioxide (22-30) mmol/L BUN (7-17) mg/dL Glucose (74-99) mg/dL POC Glucose (mg/dL) 212 H 296 H 154 H (75-99) mg/dL 04/20/19 04/20/19 04/20/19 Range/Units 07:40 07:40 11:44 WBC 13.2 H (3.8-10.6) k/uL RBC 3.69 L (3.80-5.40) m/uL MCV 106.8 H (80.0-100.0) fL MCH 35.1 H (25.0-35.0) pg Neutrophils # 11.9 H (1.3-7.7) k/uL Lymphocytes # 0.8 L (1.0-4.8) k/uL Chloride 92 L (98-107) mmol/L Carbon Dioxide 39 H (22-30) mmol/L BUN 57 H (7-17) mg/dL Glucose 171 H (74-99) mg/dL POC Glucose (mg/dL) 298 H (75-99) mg/dL Microbiology - Last 24 Hours (Table) 04/14/19 03:33 Blood Culture - Final Blood No Growth after 144 hours Assessment and Plan Assessment: Acute on chronic respiratory failure due to combination of COPD and CHF exacerbation Acute on chronic CHF with systolic dysfunction. EF was 35-40%. Ejection fraction 25-30% as per echocardiogram. Possible stress cardiomyopathy. Acute non-ST elevated NM with elevated troponin. Status post cardiac catheterization. No PCI.. Acute COPD exacerbation History of Takosubo syndrome Hypertension osteoarthritis Dementia Chronic back pain Macular degeneration of left eye Diverticular disease History of secondhand smoking Plan - Continue steroids, breathing treatments. Further recommendations from pulmonology appreciated - Continue oral Lasix - Continue rest of medications - We'll follow the patient - Discussed with the nurse patient apparently is doing the same as yesterday. She seems to be in distress because of the shortness of breath at the time examination Time with Patient: Greater than 30
--- NOTE | 2019-04-20 13:00 | P.DS ---
Providers Date of admission: 04/14/19 05:13 Expected date of discharge: 04/20/19 Attending physician: Kota Guadarrama Consults: 04/14/19 10:47 Consult Physician Stat Consulting Provider: Farzad Hayden Consult Reason/Comments: chest pain, critical trops Do you want consulting provider notified?: Yes 04/18/19 10:24 Consult Physician Routine Consulting Provider: Chaz Holt Consult Reason/Comments: dyspnea Do you want consulting provider notified?: Yes Primary care physician: Efrain Walden [facility] Hospital Course: -Nonketotic hyperglycemia to the diabetes2. Patient is stopping her metformin because of diarrhea. Has also had been on steroids. -Diabetes mellitus type 2 on oral hypoglycemic -Morbid obesity BMI 44.7 -Intubated asthma -Essential hypertension -Hyperlipidemia -Hypothyroid -Primary osteoarthritis -Depression otherwise specified -Lymph nodes in the lung being evaluated as an outpatient Hospital course This very pleasant 76-year-old female with a past paresis significant for diabetes, hypertension, hyperlipidemia is admitted for hypoglycemia. She said that metformin was causing her diarrhea should she stop taking metformin. She was also on steroids for a while for bronchitis and she is not on them right now. Patient was not feeling well so she decided to come to the ER. Blood sugars were over 500. She was started on insulin drip and IV fluids. Her insul in drip was DC'd. She was tried on metformin again yesterday but she did not tolerate and she said that she is starting to have diarrhea again and she would not take metformin. On 04/20/2019 Patient says that she's feeling much better. Blood sugars in the morning are 120s and then after breakfast there were 250. Discussed the case with Dr. Win Knight who suggested that the patient will be started on invokana which he already discussed with her. He was kind enough to prescribe invokana so that the patient can pick it up on the way home after discharge. Physical On exam, alert and oriented x3. HEENT: Conjunctivae normal. eyes normal. NECK: No JVD. No thyroid enlargement. No LNs CARDIOVASCULAR: S1, S2 muffled. No murmur RESPIRATION: Breath sounds diminished in the bases. No rhonchi or crackles. No bronchial breathing. ABDOMEN: Soft, nontender . No guarding. no masses palpable. No ascites, No hepatosplenomegaly.Bowel sounds heard. LEGS: No edema. no swelling NERVOUS SYSTEM: Cranial N 2-12 grossly normal. Moves all 4 limbs. No focal deficits. No sensory deficit. No signs of cerebellar dysfucntion. Skin: no ulcer no rash Patient will does be discharged home with instruction to start taking invokana She was to follow-up with her PCP on Saturday that is on 04/27/2019 the appointment is already scheduled Spoke with the PCP personally and appreciate his help in prescribing invokana Patient Condition at Discharge: Serious Plan - Discharge Summary Discharge Rx Participant: No New Discharge Prescriptions: No Action Gabapentin [Neurontin] 300 mg PO HS Gabapentin [Neurontin] 100 mg PO DAILY Albuterol Sulfate [Proair Hfa] 1 - 2 puff INHALATION RT-Q6H PRN PRN Reason: sob Budesonide/Formoterol Fumarate [Symbicort 160-4.5 Mcg Inhaler] 2 puff INHALATION RT-BID PRN PRN Reason: Cough Isosorbide Mononitrate ER [Imdur] 30 mg PO DAILY #30 tab.er.24h Losartan [Cozaar] 25 mg PO DAILY Furosemide [Lasix] 20 mg PO BID@0900,1600 #60 tab Ipratropium-Albuterol Nebulize [Duoneb 0.5 mg-3 mg/3 ml Soln] 3 ml INHALATION RT-QID #120 ampul.neb Metoprolol Tartrate [Lopressor] 25 mg PO DAILY Pravastatin Sodium [Pravachol] 10 mg PO DAILY Discharge Medication List Albuterol Sulfate [Proair Hfa] 1 - 2 puff INHALATION RT-Q6H PRN 10/12/17 [History] Budesonide/Formoterol Fumarate [Symbicort 160-4.5 Mcg Inhaler] 2 puff INHALATION RT-BID PRN 10/12/17 [History] Gabapentin [Neurontin] 100 mg PO DAILY 10/12/17 [History] Gabapentin [Neurontin] 300 mg PO HS 10/12/17 [History] Isosorbide Mononitrate ER [Imdur] 30 mg PO DAILY #30 tab.er.24h 10/16/17 [Rx] Losartan [Cozaar] 25 mg PO DAILY 02/05/19 [History] Furosemide [Lasix] 20 mg PO BID@0900,1600 #60 tab 02/09/19 [Rx] Ipratropium-Albuterol Nebulize [Duoneb 0.5 mg-3 mg/3 ml Soln] 3 ml INHALATION RT-QID #120 ampul.neb 02/09/19 [Rx] Metoprolol Tartrate [Lopressor] 25 mg PO DAILY 04/14/19 [History] Pravastatin Sodium [Pravachol] 10 mg PO DAILY 04/14/19 [History] Follow up Appointment(s)/Referral(s): Efrain Walden DO [Primary Care Provider] - 05/01/19 3:30 pm (Saturday -earliest available appointment) Chaz Holt DO [Doctor of Osteopathic Medicine] - 04/22/19 10:45 am [facility], [NON-STAFF] - Frida Rascon MD [STAFF PHYSICIAN] - 1 Week Patient Instructions/Handouts: Heart Failure (DC), COPD (Chronic Obstructive Pulmonary Disease) (DC), Low-Sodium Diet (DC)
--- NOTE | 2019-04-20 15:05 | CDI ---
Documentation Clarification Form Date: 04/20/2019 CDS: Leida Blue, CCS, CCDS Admit Date: 04/14/2019 Patient Name: Rebeca Sequeira Discharge Date: ATTENTION: The Clinical Documentation Specialists (CDI) and [facility] Coding Staff appreciate your assistance in clarifying documentation. Please respond to the clarification below the line at the bottom and electronically sign. The CDI & [facility] Coding staff will review the response and follow-up if needed. Please note: Queries are made part of the Legal Health Record. If you have any questions, please contact the author of this message via ITS. Dear Dr. Chaz Holt: Per the 04/19 pulmonary progress note: "Shortness of breath, likely related primarily to an asthma exacerbation, but also heart failure." History: Asthma, PA, Cardiomyopathy, Chronic systolic CHF, Chronic hypoxic respiratory failure on home O2, Hypertension, Dementia, Aortic, mitral & tricuspid regurgitation. Clinical Indicators: Presented with SOB. Diagnosed with acute on chronic systolic CHF, Acute NSTEMI, Mild COPD exacerbation, Chronic hypoxic respiratory failure on home O2 2Lnc. Radiology: CXR: COPD, suspected pulmonary arterial hypertension & mild pulmonary vascular congestion, trace effusions suspected. Vital Signs: T 100.0^, P 126^, R 26^ (sob, labored, accessory use, deep breathing, tachypnea), BP 157/117^. PO 98 10L aerosol mist. Treatment: INH Albuterol, IV Dilaudid, IV Lasix, IV Heparin drip, Nitro sl, IV Solumedrol, O2. In your professional opinion, can you please further specify the type of asthma, if known? Severity o Mild intermittent o Mild persistent o Moderate persistent o Severe persistent o Other, please specify ____ o Unable to determine Form or Type o Cough variant o Childhood o Exercise induced bronchospasm o Extrinsic allergic o Idiosyncratic o Intrinsic nonallergic o Late-onset o Mixed o Other, please specify____ o Unable to determine (Last Revision: January 2018)Not able to determine severity or type at this time MTDD
[2019-04-20 16:49] LABS: Glucose,Whole Blood 99 mg/dL (75-99)
[2019-04-20] MEDS: FUROSEMIDE 20 MG TAB PO SCH (17:29)
--- NOTE | 2019-04-20 18:27 | P.PN ---
Subjective Progress Note Date: 04/20/19 Principal diagnosis: Shortness of breath related to acute exacerbation of COPD and exacerbation congestive heart failure with systolic dysfunction On 04/20/2019 patient seen in follow-up on selective care unit, she is awake and alert, she is sitting up in the recliner, currently on 2 L of oxygen, her pulse ox 99%, she is afebrile, hemodynamically stable, she appears to be quite fatigued, but no acute distress, lung sounds are positive for some diffuse rhonchi, no significant wheezing, family is at the bedside, and they state that the and appears to be more confused, she does have underlying dementia. No acute events overnight, no new chest x-rays today, today's labs have been reviewed, showing white blood cell, 13.2, hemoglobin of 12.9, serum sodium is 137, potassium is 4.2, chloride is 92, CO2 is 39, BUN is 57, creatinine 0.75. Continues on Zithromax, she is on oral Lasix, IV steroids, 60 mg every 6 hours, nebulized bronchodilators. Urine and blood cultures showed no growth. No fever or chills Objective - Vital Signs Vital signs: Vital Signs Temp 97.9 F 04/20/19 15:36 Pulse 60 04/20/19 15:36 Resp 18 04/20/19 15:36 BP 113/60 04/20/19 15:36 Pulse Ox 99 04/20/19 15:36 Intake & Output 04/19/19 04/20/19 04/20/19 18:59 06:59 18:59 Intake Total 370 1130 120 Output Total 450 0 550 Balance -80 1130 -430 Weight 50.5 kg 50.5 kg Intake: IV 20 Invasive Line 2 20 Intake, IV Titration 250 500 Amount Azithromycin 500 mg In 250 500 Sodium Chloride 0.9% 250 ml @ 250 mls/hr IVPB DAILY@1200 [facility] Rx#: [id number] Oral 120 610 120 Output: Urine 450 550 Stool 0 Other: Voiding Method Indwelling Catheter Indwelling Catheter Indwelling Catheter # Voids 0 # Bowel Movements 0 0 1 - Exam GENERAL EXAM: Alert, pleasant, 89-year-old white female, on 2 L of oxygen with a pulse ox of 99%, sitting up in the recliner, appears fatigued comfortable in no apparent distress. HEAD: Normocephalic/atraumatic. EYES: Normal reaction of pupils, equal size. Conjunctiva pink, sclera white. NOSE: Clear with pink turbinates. THROAT: No erythema or exudates. NECK: No masses, no JVD, no thyroid enlargement, no adenopathy. CHEST: No chest wall deformity. Symmetrical expansion. LUNGS: Equal air entry with diffuse rhonchi CVS: Regular rate and rhythm, normal S1 and S2, no gallops, no murmurs, no rubs ABDOMEN: Soft, nontender. No hepatosplenomegaly, normal bowel sounds, no guarding or rigidity. EXTREMITIES: No clubbing, no edema, no cyanosis, 2+ pulses and upper and lower extremities. MUSCULOSKELETAL: Muscle strength and tone normal. SPINE: No scoliosis or deformity SKIN: No rashes CENTRAL NERVOUS SYSTEM: Alert and oriented -2. No focal deficits, tone is normal in all 4 extremities. PSYCHIATRIC: Alert and oriented -2. Appropriate affect. Intact judgment and insight. - Labs CBC & Chem 7: 04/20/19 07:40 04/20/19 07:40 Labs: Abnormal Lab Results - Last 24 Hours (Table) 04/19/19 04/20/19 04/20/19 Range/Units 21:04 06:03 07:40 WBC 13.2 H (3.8-10.6) k/uL RBC 3.69 L (3.80-5.40) m/uL MCV 106.8 H (80.0-100.0) fL MCH 35.1 H (25.0-35.0) pg Neutrophils # 11.9 H (1.3-7.7) k/uL Lymphocytes # 0.8 L (1.0-4.8) k/uL Chloride (98-107) mmol/L Carbon Dioxide (22-30) mmol/L BUN (7-17) mg/dL Glucose (74-99) mg/dL POC Glucose (mg/dL) 296 H 154 H (75-99) mg/dL 04/20/19 04/20/19 Range/Units 07:40 11:44 WBC (3.8-10.6) k/uL RBC (3.80-5.40) m/uL MCV (80.0-100.0) fL MCH (25.0-35.0) pg Neutrophils # (1.3-7.7) k/uL Lymphocytes # (1.0-4.8) k/uL Chloride 92 L (98-107) mmol/L Carbon Dioxide 39 H (22-30) mmol/L BUN 57 H (7-17) mg/dL Glucose 171 H (74-99) mg/dL POC Glucose (mg/dL) 298 H (75-99) mg/dL Microbiology - Last 24 Hours (Table) 04/14/19 03:33 Blood Culture - Final Blood No Growth after 144 hours Assessment and Plan Plan: Assessment: #1. Acute exacerbation of chronic obstructive pulmonary disease #2. Acute exacerbation of congestive heart failure with systolic dysfunction, with ejection fraction of 25-30% #3. Advanced COPD, with a baseline FEV1 0.42 l or 42% of predicted chronic hypoxemic respiratory failure #4. Previous myocardial infarction #5. Elevated troponins, acute non-ST elevated [place] #6. Coronary artery disease and cardiac cath showed mild CAD with 50% ostial stenosis, 50% mid LAD stenosis, and stenosis of the up to his marginal branch #7. Takasubo syndrome #8. History of dementia #9. Osteoarthritis #10. 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 No acute events overnight, FiO2 is at 2 L, patient maintaining stable oxygenation. Continue Symbicort, and abdomen, culture data has been reviewed, remains is negative. Family is discussing possibility of taking the patient home after discharge, may need home care, or possible rehab. Long-term prognosis is guarded. Continue to follow I performed a history & physical examination of the patient and discussed their management with my nurse practitioner, Josie Espinosa. I reviewed the nurse practitioner's note and agree with the documented findings and plan of care. Lung sounds are positive for scattered wheezes throughout the lung dykes. The findings and the impression was discussed with the patient. I attest to the do cumentation by the nurse practitioner. Time with Patient: Less than 30
[2019-04-20] MEDS: ATORVASTATIN 40 MG TAB PO SCH (20:26)
[2019-04-20] MEDS: MONTELUKAST 10 MG TAB PO SCH (20:26)
[2019-04-20] MEDS: LOSARTAN 25 MG TAB PO SCH (20:26)
[2019-04-20 20:46] LABS: Glucose,Whole Blood 318 mg/dL (75-99)
[2019-04-20] MEDS: NITROGLYCERIN-D5W PMX 50 MG in DEXTROSE/WATER 1 250ML.BAG IV SCH ×4 (22:11→22:29)
[2019-04-21 02:02] LABS: Glucose,Whole Blood 139 mg/dL (75-99)
[2019-04-21 06:21] LABS: Glucose,Whole Blood 208 mg/dL (75-99)
[2019-04-21] MEDS: methylPREDNISolone SOD SUCCI 125 MG/2 ML VIAL IV SCH ×4 (06:27→22:41)
[2019-04-21] MEDS: DRONABINOL 2.5 MG CAP PO SCH ×2 (06:27→18:04)
[2019-04-21] MEDS: INSULIN ASPART (NovoLOG) 100 UNIT/ML VIAL SQ SCH ×4 (06:31→21:21)
[2019-04-21] MEDS: IPRATROPIUM-ALBUTEROL 3 ML NEB INHALATION SCH ×4 (07:52→20:33)
[2019-04-21] MEDS: FORMOTEROL FUMARATE 20 MCG/2 ML NEBU INHALATION SCH ×2 (07:52→20:33)
[2019-04-21] MEDS: BUDESONIDE 1 MG/2 ML NEBU INHALATION SCH ×2 (07:52→20:32)
[2019-04-21 08:11] LABS: Basophils % (A) 0 %; Eosinophils # (A) 0.1 k/uL (0-0.7); Eosinophils % (A) 1 %; HCT 39.5 % (34.0-46.0); HGB 13.1 gm/dL (11.4-16.0); Lymphocytes # (A) 0.7 k/uL (1.0-4.8); Lymphocytes % (A) 6 %; MCH 35.9 pg (25.0-35.0); MCHC 33.1 g/dL (31.0-37.0); MCV 108.5 fL (80.0-100.0); Macrocytosis Moderate; Mean Platelet Volume 9.8; Monocytes # (A) 0.5 k/uL (0-1.0); Monocytes % (A) 4 %; Neutrophils % (A) 89 %; RBC 3.64 m/uL (3.80-5.40); RDW 13.8 % (11.5-15.5); WBC 12.4 k/uL (3.8-10.6)
[2019-04-21 08:13] LABS: Platelet Count 106 k/uL (150-450)
[2019-04-21] MEDS: PSYLLIUM HUSK 100% 6 GM PACKET PO SCH (08:56)
[2019-04-21] MEDS: METOPROLOL TARTRATE 12.5 MG TAB PO SCH ×2 (08:56→19:58)
[2019-04-21] MEDS: AZITHROMYCIN 500 MG TAB PO SCH (08:56)
[2019-04-21] MEDS: ASPIRIN 81 MG PO SCH (08:56)
[2019-04-21] MEDS: CLOPIDOGREL 75 MG TAB PO SCH (08:56)
[2019-04-21] MEDS: FAMOTIDINE 20 MG TAB PO SCH (08:56)
[2019-04-21] MEDS: FUROSEMIDE 40 MG TAB PO SCH (09:01)
[2019-04-21 10:19] VITALS: RESP 20
[2019-04-21 12:20] LABS: Glucose,Whole Blood 144 mg/dL (75-99)
--- NOTE | 2019-04-21 14:16 | P.PN ---
Subjective Progress Note Date: 04/21/19 Principal diagnosis: Shortness of breath related to an acute exacerbation of COPD and systolic congestive heart failure. The patient is seen today 04/21/2019 in follow-up on the selective care unit. She is currently sitting up in bed. Awake and alert in no acute distress. Agustina ntaining O2 saturations in the high 90s on 2 L/m per nasal cannula. She's been afebrile. Hemodynamically stable. Computed tomography scan of the brain is pending. Blood and urine cultures reveal no growth. White count 12.4. Hemoglobin 13.1. Platelet count 106,000. She is continued on DuoNeb inhalations, Pulmicort and Perforomist inhalations, Singulair, azithromycin. Objective - Vital Signs Vital signs: Vital Signs Temp 98.3 F 04/21/19 08:10 Pulse 57 L 04/21/19 12:00 Resp 20 04/21/19 12:00 BP 119/59 04/21/19 12:00 Pulse Ox 98 04/21/19 12:00 Intake & Output 04/20/19 04/21/19 04/21/19 18:59 06:59 18:59 Intake Total 120 10 240 Output Total 550 550 Balance -430 -540 240 Weight 50.5 kg 50 kg Intake: IV 10 0.9 10 Oral 120 240 Output: Urine 550 550 Other: Voiding Method Indwelling Catheter Indwelling Catheter Indwelling Catheter # Voids 1 # Bowel Movements 1 - Exam GENERAL EXAM: Alert, 89-year-old female, on 2 L of oxygen with a pulse ox of 98%, resting comfortably in bed in no apparent distress. HEAD: Normocephalic/atraumatic. EYES: Normal reaction of pupils, equal size. Conjunctiva pink, sclera white. NOSE: Clear with pink turbinates. THROAT: No erythema or exudates. NECK: No masses, no JVD, no thyroid enlargement, no adenopathy. CHEST: No chest wall deformity. Symmetrical expansion. LUNGS: Equal air entry with few scattered rhonchi CVS: Regular rate and rhythm, normal S1 and S2, no gallops, no murmurs, no rubs ABDOMEN: Soft, nontender. No hepatosplenomegaly, normal bowel sounds, no guarding or rigidity. EXTREMITIES: No clubbing, no edema, no cyanosis, 2+ pulses and upper and lower extremities. MUSCULOSKELETAL: Muscle strength and tone normal. SPINE: No scoliosis or deformity SKIN: No rashes CENTRAL NERVOUS SYSTEM: Alert and oriented -2. No focal deficits, tone is normal in all 4 extremities. PSYCHIATRIC: Alert and oriented -2. Appropriate affect. Intact judgment and insight. - Labs CBC & Chem 7: 04/21/19 06:39 04/20/19 07:40 Labs: Abnormal Lab Results - Last 24 Hours (Table) 04/20/19 04/21/19 04/21/19 Range/Units 20:44 02:01 06:18 WBC (3.8-10.6) k/uL RBC (3.80-5.40) m/uL MCV (80.0-100.0) fL MCH (25.0-35.0) pg Plt Count (150-450) k/uL Neutrophils # (1.3-7.7) k/uL Lymphocytes # (1.0-4.8) k/uL POC Glucose (mg/dL) 318 H 139 H 208 H (75-99) mg/dL 04/21/19 04/21/19 Range/Units 06:39 11:58 WBC 12.4 H (3.8-10.6) k/uL RBC 3.64 L (3.80-5.40) m/uL MCV 108.5 H (80.0-100.0) fL MCH 35.9 H (25.0-35.0) pg Plt Count 106 L D (150-450) k/uL Neutrophils # 11.0 H (1.3-7.7) k/uL Lymphocytes # 0.7 L (1.0-4.8) k/uL POC Glucose (mg/dL) 144 H (75-99) mg/dL Assessment and Plan Assessment: Assessment: #1. Acute exacerbation of chronic obstructive pulmonary disease #2. Acute exacerbation of congestive heart failure with systolic dysfunction, with ejection fraction of 25-30% #3. Advanced COPD, with a baseline FEV1 0.42 l or 42% of predicted chronic hypoxemic respiratory failure #4. Previous myocardial infarction #5. Elevated troponins, acute non-ST elevated [place] #6. Coronary artery disease and cardiac cath showed mild CAD with 50% ostial stenosis, 50% mid LAD stenosis, and stenosis of the up to his marginal branch #7. Takasubo syndrome #8. History of dementia #9. Osteoarthritis #10. 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 Banks. She is improved today as compared to yesterday. The plan is for transfer to subacute rehabilitation possibly at [facility] on the [place]. Continue current medications for now. We'll continue to follow. I, the cosigning physician, performed a history & physical examination of the patient. Lungs sounds are with few scattered rhonchi. Maintaining good O2 saturations in the 90s on 2 L/m per nasal cannula. I discussed the assessment and plan of care with my nurse practitioner, Carolina Li. I attest to the above note as dictated by her.
--- NOTE | 2019-04-21 15:58 | P.PN ---
Subjective 89-year-old female with a history of COPD with FEV1 of 41% of predicted, history of CHF systolic dysfunction, history of SD comes in for shortness of breath. She is been treated for COPD and CHF exacerbation, troponins were high at the time of admission. Cardiology is following the patient so is pulmonology. Patient had cardiac cath which showed a mild CAD with 50% ostial stenosis 50% mid LAD stenosis and stenosis of the obtuse marginal branch. Pulmonology also following the patient and patient is on steroids, breathing treatments. 04/20/2019 This morning the patient was still short of breath and wheezy She does not complain of any chest pain racing heart Lasix today changed to oral 04/21/2019 Patient was still confused. On or baseline if it's dementia or is new She still short of breath but little bit better than yesterday No chest pain or racing heart Objective - Vital Signs Vital signs: Vital Signs Temp 98.3 F 04/21/19 08:10 Pulse 57 L 04/21/19 12:00 Resp 20 04/21/19 12:00 BP 119/59 04/21/19 12:00 Pulse Ox 98 04/21/19 12:00 Intake & Output 04/20/19 04/21/19 04/21/19 18:59 06:59 18:59 Intake Total 120 10 240 Output Total 550 550 Balance -430 -540 240 Weight 50.5 kg 50 kg Intake: IV 10 0.9 10 Oral 120 240 Output: Urine 550 550 Other: Voiding Method Indwelling Catheter Indwelling Catheter Indwelling Catheter # Voids 1 # Bowel Movements 1 - Exam PHYSICAL EXAMINATION: Patient is lying in the bed comfortably, no acute distress, awake alert and oriented.. HEENT: Normocephalic. Neck is supple. Pupils reactive. Nostrils clear. Oral cavity is moist. Ears reveal no drainage. Neck reveals no JVD, carotid bruits, or thyromegaly. CHEST EXAMINATION: Patient is having wheezing heard bilaterally, no rhonchi no rales appreciated CARDIAC: Normal S1, S2 with no gallops. No murmurs ABDOMEN: Soft. Bowel sounds normal. No organomegaly. No abdominal bruits. Extremities: reveal no edema. No clubbing or cyanosis Neurologically awake, alert, oriented x3 with well-coordinated movements. No focal deficits noted Skin: No rash or skin lesions. Psychiatric: Coperative. Nonsuicidal Musculoskeletal: No joint swelling or deformity. Normal range of motion. - Labs CBC & Chem 7: 04/21/19 06:39 04/20/19 07:40 Labs: Abnormal Lab Results - Last 24 Hours (Table) 04/20/19 04/21/19 04/21/19 Range/Units 20:44 02:01 06:18 WBC (3.8-10.6) k/uL RBC (3.80-5.40) m/uL MCV (80.0-100.0) fL MCH (25.0-35.0) pg Plt Count (150-450) k/uL Neutrophils # (1.3-7.7) k/uL Lymphocytes # (1.0-4.8) k/uL POC Glucose (mg/dL) 318 H 139 H 208 H (75-99) mg/dL 04/21/19 04/21/19 Range/Units 06:39 11:58 WBC 12.4 H (3.8-10.6) k/uL RBC 3.64 L (3.80-5.40) m/uL MCV 108.5 H (80.0-100.0) fL MCH 35.9 H (25.0-35.0) pg Plt Count 106 L D (150-450) k/uL Neutrophils # 11.0 H (1.3-7.7) k/uL Lymphocytes # 0.7 L (1.0-4.8) k/uL POC Glucose (mg/dL) 144 H (75-99) mg/dL Assessment and Plan Assessment: Acute on chronic respiratory failure due to combination of COPD and CHF exacerbation Acute on chronic CHF with systolic dysfunction. EF was 35-40%. Ejection fraction 25-30% as per echocardiogram. Possible stress cardiomyopathy. Acute non-ST elevated SD with elevated troponin. Status post cardiac catheterization. No PCI.. Acute COPD exacerbation History of Takosubo syndrome Hypertension osteoarthritis Dementia Chronic back pain Macular degeneration of left eye Diverticular disease History of secondhand smoking Plan 04/20/2019 - Continue steroids, breathing treatments. Further recommendations from pulmonology appreciated - Continue oral Lasix - Continue rest of medications - We'll follow the patient - Discussed with the nurse patient apparently is doing the same as yesterday. She seems to be in distress because of the shortness of breath at the time examination 04/21/2019 - Consulted neurology for the recommendations also get a CAT scan of the head - And any breathing treatments and steroids as per pulmonology - Cardiology following the patient - Continue rest of the medical care -We'll follow up on the patient
--- NOTE | 2019-04-21 16:14 | CT ---
EXAMINATION TYPE: CT brain wo con DATE OF EXAM: 04/21/2019 COMPARISON: None HISTORY: 89-year-old female Confusion TECHNIQUE: Examination was done in axial plane without intravenous contrast. Coronal and sagittal r econstructions performed. CT DLP: 1099.4 mGycm Automated exposure control for dose reduction was used. FINDINGS: There is no evidence of acute intracranial hemorrhage, acute ischemic changes, mass, mass-effect, or extra-axial fluid collection. There is no effacement of cerebral sulci or basal subarachnoid cister ns. There is no hydrocephalus. There is no midline shift. Ramos-white matter distinction is preserv ed. There is moderate generalized supratentorial volume loss and confluent white matter hypodensities in both cerebral hemispheres. Empty sella noted. Scattered mild to moderate mucosal thickening ethmoid air cells. Air-fluid levels in the sphenoid and left maxillary sinuses. Orbits and globes are intact. Mastoid air cells are well pneumatized. Degenerative changes at the TMJ s. IMPRESSION: 1. Moderate atrophy and confluent changes of chronic small vessel ischemic disease. No acute intracra nial abnormality seen. 2. Empty sella, generally an incidental finding. 3. Correlate for acute on chronic left maxillary and sphenoid sinusitis.
--- NOTE | 2019-04-21 16:51 | PN ---
PROGRESS NOTE DATE OF SERVICE: Mrs. Sequeira is doing better today. She has been seen by Pulmonology and she is on bronchodilators and steroids. Vitals are stable. S1, S2 heard normally. Lungs reveal improved air entry. Abdomen and lower extremity exam unchanged. Plan is to increase activity and discharge her. She has a takotsubo type picture, has no significant obstructive CAD. She can be discharged in the next 24-48 hours. Social work consult is in place. Will continue occupational therapy, physical therapy, increase activity and discharge her soon. MMODL / IJN: [id number] /
[2019-04-21] MEDS: FUROSEMIDE 20 MG TAB PO SCH (16:54)
--- NOTE | 2019-04-21 17:26 | P.CNNES ---
History of Present Illness Consult date: 04/21/19 Requesting physician: Maxwell Coyne Reason for Consult: AMS Chief complaint: AMS History of Present Illness: This is an 89 primarily RH female here because of SOB with h/o COPD and CHF systolic dysfunction. Patient is noted to be confused, hence this consultation. No h/o seizure activity. Patient denies any head trauma nor does she have any neurological complaints, though she cannot provide much meaningful history. My historical information was obtained by reviewing available medical records in EMR. Review of Systems Unable to obtain due to AMS. Past Medical History Past Medical History: Asthma, Heart Failure, COPD, Dementia, Eye Disorder, Hypertension, Myocardial Infarction (DE), Osteoarthritis (OA), Respiratory Disor amanda Additional Past Medical History / Comment(s): Aortic aneurysm, nonischemic cardiomyopathy, acute systolic heart failure, home oxygen at 2L.[place] ATC, rheumatic fever as a child, chronic back pain, macular degeneration L eye, hiatal hernia, diverticular disease, benign colon polyps. Last Myocardial Infarction Date:: 10/12/17 History of Any Multi-Drug Resistant Organisms: None Reported Past Surgical History: Appendectomy, Bladder Surgery, Cholecystectomy, Hysterectomy Additional Past Surgical History / Comment(s): EGDs, colonoscopies/benign polyps, bladder suspension. Past Anesthesia/Blood Transfusion Reactions: No Reported Reaction Past Psychological History: No Psychological Hx Reported Smoking Status: Never smoker - Past Family History Father Family Medical History: Cancer Additional Family Medical History / Comment(s): Father had pleural cancer per pt's spouse. Mother Family Medical History: Cancer Additional Family Medical History / Comment(s): Mother had liver cancer. Medications and Allergies Home Medications Medication Instructions Recorded Confirmed Type Albuterol Sulfate [Proair Hfa] 1 - 2 puff INHALATION RT-Q6H PRN 10/12/17 04/14/19 History Budesonide/Formoterol Fumarate 2 puff INHALATION RT-BID PRN 10/12/17 04/14/19 History [Symbicort 160-4.5 Mcg Inhaler] Gabapentin [Neurontin] 100 mg PO DAILY 10/12/17 04/14/19 History Gabapentin [Neurontin] 300 mg PO HS 10/12/17 04/14/19 History Isosorbide Mononitrate ER [Imdur] 30 mg PO DAILY #30 tab.er.24h 10/16/17 04/14/19 Rx Losartan [Cozaar] 25 mg PO DAILY 02/05/19 04/14/19 History Furosemide [Lasix] 20 mg PO BID@0900,1600 #60 tab 02/09/19 04/14/19 Rx Ipratropium-Albuterol Nebulize 3 ml INHALATION RT-QID #120 02/09/19 04/14/19 Rx [Duoneb 0.5 mg-3 mg/3 ml Soln] ampul.neb Metoprolol Tartrate [Lopressor] 25 mg PO DAILY 04/14/19 04/14/19 History Pravastatin Sodium [Pravachol] 10 mg PO DAILY 04/14/19 04/14/19 History Allergies Allergy/AdvReac Type Severity Reaction Status Date / Time alendronate sodium Allergy Unknown Verified 04/14/19 08:13 [From Fosamax] raloxifene [From Evista] Allergy Unknown Verified 04/14/19 08:13 simvastatin [From Zocor] Allergy Unknown Verified 04/14/19 08:13 Physical Examination - Vital Signs Vital Signs: Vital Signs Temp Pulse Pulse Resp BP Pulse Ox 04/21/19 16:08 68 04/21/19 16:01 76 04/21/19 16:00 97.8 F 77 20 119/62 94 L 04/21/19 12:00 57 L 20 119/59 98 04/21/19 11:36 72 04/21/19 11:27 64 04/21/19 08:12 68 04/21/19 08:10 98.3 F 63 20 124/66 98 04/21/19 08:08 72 04/21/19 08:05 72 04/21/19 07:54 70 04/21/19 03:18 98.2 F 72 22 122/68 98 04/20/19 23:10 70 20 113/66 97 04/20/19 21:25 62 04/20/19 21:18 62 04/20/19 21:06 62 04/20/19 20:00 98 F 68 18 119/72 100 Intake and Output 04/21/19 04/21/19 04/21/19 06:59 14:59 22:59 Intake Total 240 Output Total 550 Balance -550 240 Intake: Oral 240 Output: Urine 550 Other: Voiding Method Indwelling Catheter Indwelling Catheter Indwelling Catheter # Voids 1 Weight 50 kg Gen NAD Pleasant and cooperative HEENT NCAT Sclera without icterus O/P clear Neck Supple No carotid bruit Cor RRR no m/r/g Lungs Bilateral expiratory wheeze Abd Soft NTND +BS Ext Warm to touch No edema Neuro MS Awake and alert conversant but perseverates without echolalia or echopraxia oriented only to self Thinks she's in [place] Able to follow one-step commands consistently without finger agnosia Occasional semantic but no phonemic paraphrasia, word salad or neologism Immediate recall 1/3 Short-term recall 0/3 Unable to spell WORLD backwards CN PERRL VFF no APD EOMI no nystagmus or GUILLAUME No facial asymmetry Masseter's symmetric Hearing intact to normal voice bilaterally Speech not dysarthric Equal elevation of palate Tongue midline Sym shrug and SCM bilaterally Motor Normal bulk/tone No pronator drift or tremors Strength 5/5 sym throughout Sens Intact to LT x4 No neglect Coord No dysmetria on FTN bilaterally DTRs 2+/4 sym throughout Toes downgoing bilaterally No clonus at achilles Gait Deferred Results CT head without contrast 04/21/19. Moderate atrophy and confluent changes of chronic small vessel ischemic disease. No acute intracranial abnormalities are seen. Empty sella. - Laboratory Findings CBC and BMP: 04/21/19 06:39 04/20/19 07:40 Abnormal Lab Findings: Abnormal Labs 04/14/19 04/14/19 04/14/19 03:14 03:14 03:14 WBC 12.3 H RBC 3.77 L MCV 105.9 H MCH 35.1 H Plt Count Neutrophils # Lymphocytes # Macrocytosis APTT 20.0 L ABG pH ABG pCO2 ABG pO2 ABG HCO3 ABG Total CO2 ABG O2 Saturation Sodium 133 L Chloride Carbon Dioxide BUN 19 H Glucose 141 H POC Glucose (mg/dL) Calcium AST 50 H Total Creatine Kinase CK-MB (CK-2) Troponin I Total Protein 6.0 L Urine Protein Hyaline Casts Urine Mucus 04/14/19 04/14/19 04/14/19 03:14 04:10 09:52 WBC RBC MCV MCH Plt Count Neutrophils # Lymphocytes # Macrocytosis APTT ABG pH ABG pCO2 ABG pO2 ABG HCO3 ABG Total CO2 ABG O2 Saturation Sodium Chloride Carbon Dioxide BUN Glucose POC Glucose (mg/dL) Calcium AST Total Creatine Kinase 169 H CK-MB (CK-2) 10.2 H Troponin I 0.042 H* 2.650 H* Total Protein Urine Protein 1+ H Hyaline Casts 6 H Urine Mucus Rare H 04/14/19 04/15/19 04/15/19 16:00 00:06 05:43 WBC RBC MCV MCH Plt Count Neutrophils # Lymphocytes # Macrocytosis APTT 111.7 H* ABG pH 7.32 L ABG pCO2 59 H ABG pO2 119 H ABG HCO3 31 H ABG Total CO2 33 H ABG O2 Saturation 98.5 H Sodium Chloride Carbon Dioxide BUN Glucose POC Glucose (mg/dL) Calcium AST Total Creatine Kinase 196 H CK-MB (CK-2) 16.5 H Troponin I 3.870 H* Total Protein Urine Protein Hyaline Casts Urine Mucus 04/15/19 04/15/19 04/15/19 05:48 05:48 05:48 WBC RBC 3.76 L MCV 106.1 H MCH 35.6 H Plt Count Neutrophils # Lymphocytes # 0.9 L Macrocytosis APTT 50.4 H ABG pH ABG pCO2 ABG pO2 ABG HCO3 ABG Total CO2 ABG O2 Saturation Sodium 135 L Chloride 97 L Carbon Dioxide 33 H BUN 30 H Glucose 135 H POC Glucose (mg/dL) Calcium AST Total Creatine Kinase CK-MB (CK-2) Troponin I Total Protein Urine Protein Hyaline Casts Urine Mucus 04/15/19 04/15/19 04/16/19 13:58 18:10 06:32 WBC 11.5 H RBC MCV 110.0 H MCH 35.5 H Plt Count Neutrophils # 9.0 H Lymphocytes # Macrocytosis Marked A APTT 33.3 H 49.9 H ABG pH ABG pCO2 ABG pO2 ABG HCO3 ABG Total CO2 ABG O2 Saturation Sodium Chloride Carbon Dioxide BUN Glucose POC Glucose (mg/dL) Calcium AST Total Creatine Kinase CK-MB (CK-2) Troponin I Total Protein Urine Protein Hyaline Casts Urine Mucus 04/16/19 04/17/19 04/17/19 06:32 06:18 06:18 WBC RBC 3.67 L MCV 104.6 H D MCH 35.6 H Plt Count Neutrophils # Lymphocytes # Macrocytosis APTT 55.6 H ABG pH ABG pCO2 ABG pO2 ABG HCO3 ABG Total CO2 ABG O2 Saturation Sodium Chloride Carbon Dioxide 38 H BUN 45 H Glucose 109 H POC Glucose (mg/dL) Calcium AST Total Creatine Kinase CK-MB (CK-2) Troponin I Total Protein Urine Protein Hyaline Casts Urine Mucus 04/18/19 04/18/19 04/19/19 06:48 06:48 05:56 WBC 11.6 H RBC 3.79 L MCV 107.7 H MCH 35.2 H Plt Count Neutrophils # 8.0 H Lymphocytes # Macrocytosis APTT ABG pH ABG pCO2 ABG pO2 ABG HCO3 ABG Total CO2 ABG O2 Saturation Sodium Chloride 96 L Carbon Dioxide 41 H* BUN 45 H Glucose 110 H POC Glucose (mg/dL) 166 H Calcium 8.3 L AST Total Creatine Kinase CK-MB (CK-2) Troponin I Total Protein Urine Protein Hyaline Casts Urine Mucus 04/19/19 04/19/19 04/19/19 06:00 06:00 12:11 WBC RBC 3.62 L MCV 106.7 H MCH Plt Count 147 L Neutrophils # Lymphocytes # 0.9 L Macrocytosis APTT ABG pH ABG pCO2 ABG pO2 ABG HCO3 ABG Total CO2 ABG O2 Saturation Sodium Chloride 94 L Carbon Dioxide 40 H BUN 50 H Glucose 154 H POC Glucose (mg/dL) 203 H Calcium 8.3 L AST Total Creatine Kinase CK-MB (CK-2) Troponin I Total Protein Urine Protein Hyaline Casts Urine Mucus 04/19/19 04/19/19 04/20/19 17:12 21:04 06:03 WBC RBC MCV MCH Plt Count Neutrophils # Lymphocytes # Macrocytosis APTT ABG pH ABG pCO2 ABG pO2 ABG HCO3 ABG Total CO2 ABG O2 Saturation Sodium Chloride Carbon Dioxide BUN Glucose POC Glucose (mg/dL) 212 H 296 H 154 H Calcium AST Total Creatine Kinase CK-MB (CK-2) Troponin I Total Protein Urine Protein Hyaline Casts Urine Mucus 04/20/19 04/20/19 04/20/19 07:40 07:40 11:44 WBC 13.2 H RBC 3.69 L MCV 106.8 H MCH 35.1 H Plt Count Neutrophils # 11.9 H Lymphocytes # 0.8 L Macrocytosis APTT ABG pH ABG pCO2 ABG pO2 ABG HCO3 ABG Total CO2 ABG O2 Saturation Sodium Chloride 92 L Carbon Dioxide 39 H BUN 57 H Glucose 171 H POC Glucose (mg/dL) 298 H Calcium AST Total Creatine Kinase CK-MB (CK-2) Troponin I Total Protein Urine Protein Hyaline Casts Urine Mucus 04/20/19 04/21/19 04/21/19 20:44 02:01 06:18 WBC RBC MCV MCH Plt Count Neutrophils # Lymphocytes # Macrocytosis APTT ABG pH ABG pCO2 ABG pO2 ABG HCO3 ABG Total CO2 ABG O2 Saturation Sodium Chloride Carbon Dioxide BUN Glucose POC Glucose (mg/dL) 318 H 139 H 208 H Calcium AST Total Creatine Kinase CK-MB (CK-2) Troponin I Total Protein Urine Protein Hyaline Casts Urine Mucus 04/21/19 04/21/19 06:39 11:58 WBC 12.4 H RBC 3.64 L MCV 108.5 H MCH 35.9 H Plt Count 106 L D Neutrophils # 11.0 H Lymphocytes # 0.7 L Macrocytosis APTT ABG pH ABG pCO2 ABG pO2 ABG HCO3 ABG Total CO2 ABG O2 Saturation Sodium Chloride Carbon Dioxide BUN Glucose POC Glucose (mg/dL) 144 H Calcium AST Total Creatine Kinase CK-MB (CK-2) Troponin I Total Protein Urine Protein Hyaline Casts Urine Mucus Assessment and Plan Assessment: AMS- possible she may have underlying dementia, but this is not something we can accurately diagnose during acute stay. Meanwhile, will obtain neuro work-up for any reversible causes. Empty sella- no S+S to suggest increased ICP. Incidental finding. Plan: -CT Head reviewed -EEG in am -Reversible labs including TSH and B12 -Please make referral to outpatient neurology for cognitive evaluation -Will follow up -d/w patient in detail. All questions answered. Thank you for this consultation. Please call with ?. Time with Patient: Greater than 30 (Time spent in direct patient care, greater than 50% of which was spent in [id number] counseling and coordination of care: 70 minutes.)
[2019-04-21 17:32] LABS: Glucose,Whole Blood 262 mg/dL (75-99)
[2019-04-21] MEDS: MONTELUKAST 10 MG TAB PO SCH (19:57)
[2019-04-21] MEDS: LOSARTAN 25 MG TAB PO SCH (19:57)
[2019-04-21] MEDS: ATORVASTATIN 40 MG TAB PO SCH (19:58)
[2019-04-21 21:10] LABS: Glucose,Whole Blood 257 mg/dL (75-99)
[2019-04-22 05:56] LABS: Glucose,Whole Blood 145 mg/dL (75-99)
[2019-04-22] MEDS: methylPREDNISolone SOD SUCCI 125 MG/2 ML VIAL IV SCH ×2 (06:23→11:23)
[2019-04-22] MEDS: DRONABINOL 2.5 MG CAP PO SCH ×2 (06:23→16:58)
[2019-04-22] MEDS: INSULIN ASPART (NovoLOG) 100 UNIT/ML VIAL SQ SCH ×3 (06:25→16:58)
[2019-04-22 07:06] LABS: HCT 38.6 % (34.0-46.0); HGB 12.7 gm/dL (11.4-16.0); MCH 35.3 pg (25.0-35.0); Macrocytosis Moderate; Mean Platelet Volume 8.4; RDW 13.5 % (11.5-15.5); WBC 14.7 k/uL (3.8-10.6)
[2019-04-22 07:09] LABS: Platelet Count 182 k/uL (150-450)
[2019-04-22 07:12] LABS: Calcium 8.2 mg/dL (8.4-10.2); Potassium 3.8 mmol/L (3.5-5.1)
[2019-04-22] MEDS: AZITHROMYCIN 500 MG TAB PO SCH (07:49)
[2019-04-22] MEDS: CLOPIDOGREL 75 MG TAB PO SCH (07:49)
[2019-04-22] MEDS: METOPROLOL TARTRATE 12.5 MG TAB PO SCH (07:49)
[2019-04-22] MEDS: FUROSEMIDE 40 MG TAB PO SCH (07:49)
[2019-04-22] MEDS: ASPIRIN 81 MG PO SCH (07:49)
[2019-04-22] MEDS: PSYLLIUM HUSK 100% 6 GM PACKET PO SCH (07:50)
[2019-04-22 08:03] VITALS: TEMP 97.6
[2019-04-22] MEDS: BUDESONIDE 1 MG/2 ML NEBU INHALATION SCH (08:43)
[2019-04-22] MEDS: IPRATROPIUM-ALBUTEROL 3 ML NEB INHALATION SCH ×3 (08:43→15:43)
[2019-04-22] MEDS: FORMOTEROL FUMARATE 20 MCG/2 ML NEBU INHALATION SCH (08:43)
[2019-04-22] MEDS ORDERED: FAMOTIDINE 20 MG TAB PO SCH (09:00)
--- NOTE | 2019-04-22 10:46 | P.PN ---
Subjective Progress Note Date: 04/22/19 Principal diagnosis: AMS No acute events O/N. Getting nebs this am. Does not remember me from yesterday. No new neuro c/o. Objective - Vital Signs Vital signs: Vital Signs Temp 97.6 F 04/22/19 07:56 Pulse 68 04/22/19 09:09 Resp 20 04/22/19 07:56 BP 110/71 04/22/19 07:56 Pulse Ox 98 04/22/19 07:56 Intake & Output 04/21/19 04/22/19 04/22/19 18:59 06:59 18:59 Intake Total 358 75 Output Total 350 350 Balance 8 -275 Weight 48.5 kg Intake: Oral 358 75 Output: Urine 350 350 Other: Voiding Method Indwelling Catheter Indwelling Catheter Indwelling Catheter - Exam Gen NAD Pleasant and cooperative MS A+Ox1 Normal fluency socially appropriate but with semantic paraphasia CN II-XII grossly intact no nystagmus Motor Normal bulk/tone No tremors SOLIMAN x4 Sens Intact to LT x4 Coord No dysmetria on FTN bilaterally DTRs 2+/4 sym throughout Gait Deferred - Labs CBC & Chem 7: 04/22/19 06:14 04/22/19 06:14 Labs: Abnormal Lab Results - Last 24 Hours (Table) 04/20/19 04/21/19 04/21/19 Range/Units 07:40 11:58 17:08 WBC (3.8-10.6) k/uL RBC (3.80-5.40) m/uL MCV (80.0-100.0) fL MCH (25.0-35.0) pg Sodium (137-145) mmol/L Chloride (98-107) mmol/L Carbon Dioxide (22-30) mmol/L BUN (7-17) mg/dL Glucose (74-99) mg/dL POC Glucose (mg/dL) 144 H 262 H (75-99) mg/dL Calcium (8.4-10.2) mg/dL Vitamin B12 1416.0 H (200.0-944.0) pg/mL 04/21/19 04/22/19 04/22/19 Range/Units 21:09 05:55 06:14 WBC 14.7 H (3.8-10.6) k/uL RBC 3.60 L (3.80-5.40) m/uL MCV 107.0 H (80.0-100.0) fL MCH 35.3 H (25.0-35.0) pg Sodium (137-145) mmol/L Chloride (98-107) mmol/L Carbon Dioxide (22-30) mmol/L BUN (7-17) mg/dL Glucose (74-99) mg/dL POC Glucose (mg/dL) 257 H 145 H (75-99) mg/dL Calcium (8.4-10.2) mg/dL Vitamin B12 (200.0-944.0) pg/mL 04/22/19 Range/Units 06:14 WBC (3.8-10.6) k/uL RBC (3.80-5.40) m/uL MCV (80.0-100.0) fL MCH (25.0-35.0) pg Sodium 136 L (137-145) mmol/L Chloride 88 L (98-107) mmol/L Carbon Dioxide 42 H* (22-30) mmol/L BUN 62 H (7-17) mg/dL Glucose 127 H (74-99) mg/dL POC Glucose (mg/dL) (75-99) mg/dL Calcium 8.2 L (8.4-10.2) mg/dL Vitamin B12 (200.0-944.0) pg/mL Assessment and Plan Assessment: AMS- may have underlying dementia, but this is not something we can accurately diagnose during acute stay. Reversible work-up in progress. Empty sella- no S+S to suggest increased ICP. Incidental finding. Plan: -CT Head reviewed -EEG pending -Reversible labs including TSH and B12 pending -Please make referral to outpatient neurology for cognitive evaluation -Will follow up -d/w patient again in detail. All questions answered. Thank you again for this consultation. Please call with ?. Time with Patient: Less than 30 (Time spent in direct patient care, greater than 50% of which was spent in [id number] counseling and coordination of care: 25 minutes.)
--- NOTE | 2019-04-22 10:59 | PN ---
PROGRESS NOTE Mrs. Sequeira is an 89-year-old female who presented with symptoms of progressive dyspnea, underwent an echocardiogram that revealed a severely impaired left ventricular systolic function with findings suggestive of takotsubo. She had chest discomfort and elevation of troponin, underwent cardiac catheterization by Dr. Rascon and was found to have no evidence of high-grade stenosis. She is feeling better today, her breathing is better, although she is still a bit short of breath. She has evidence of chronic obstructive lung disease. She denies any dizziness or palpitation. She denies any nausea. She continues to be at this time on aspirin 81 mg daily, Lipitor 40 mg daily, Plavix 75 mg daily, furosemide 40 in the morning, 20 in the afternoon, losartan 25 mg daily. metoprolol tartrate 25 mg twice a day. PHYSICAL EXAMINATION: Blood pressure 110/70 with a heart rate in 60. LUNGS: With decreased air exchange, no wheezes. HEART: Regular rate and rhythm, S1, S2. No S3 with systolic murmur, no diastolic murmur, no rub. ABDOMEN: Soft, nontender. EXTREMITIES: No edema. LAB DATA: Revealed BUN and creatinine 62 and 0.85, potassium 3.8. Her bicarb is up to 42. Hemoglobin of 12.7. IMPRESSION: 1. Takotsubo syndrome, stable. No evidence of overt congestive heart failure at this time. 2. Exacerbation of chronic obstructive pulmonary disease. 3. Change in mental status. 4. Mild coronary artery disease. RECOMMENDATION: I will cut down her diuretics at this time. Continue the beta liz and the ARB and depending on her progress, further recommendation will be made. Will follow her renal function. I am hopeful that she should be able to be discharged soon. MMODL / IJN: [id number] /
[2019-04-22 11:20] VITALS: BMI 20.9
[2019-04-22 12:50] LABS: Glucose,Whole Blood 108 mg/dL (75-99)
[2019-04-22 12:51] VITALS: BP 113/70
--- NOTE | 2019-04-22 14:09 | P.PN ---
Subjective 89-year-old female with a history of COPD with FEV1 of 41% of predicted, history of CHF systolic dysfunction, history of IN comes in for shortness of breath. She is been treated for COPD and CHF exacerbation, troponins were high at the time of admission. Cardiology is following the patient so is pulmonology. Patient had cardiac cath which showed a mild CAD with 50% ostial stenosis 50% mid LAD stenosis and stenosis of the obtuse marginal branch. Pulmonology also following the patient and patient is on steroids, breathing treatments. 04/20/2019 This morning the patient was still short of breath and wheezy She does not complain of any chest pain racing heart Lasix today changed to oral 04/21/2019 Patient was still confused. On or baseline if it's dementia or is new She still short of breath but little bit better than yesterday No chest pain or racing heart 04/22/2019 Patient looks better than yesterday. She is more alert today She said the shortness of breath is better No cough no chest pain no racing heart Objective - Vital Signs Vital signs: Vital Signs Temp 97.6 F 04/22/19 07:56 Pulse 50 L 04/22/19 12:00 Resp 20 04/22/19 12:00 BP 113/70 04/22/19 12:00 Pulse Ox 98 04/22/19 12:00 Intake & Output 04/21/19 04/22/19 04/22/19 18:59 06:59 18:59 Intake Total 358 75 Output Total 350 350 Balance 8 -275 Weight 48.5 kg 48.5 kg Intake: Oral 358 75 Output: Urine 350 350 Other: Voiding Method Indwelling Catheter Indwelling Catheter Indwelling Catheter # Voids 0 - Exam PHYSICAL EXAMINATION: Patient is lying in the bed comfortably, no acute distress, awake alert and oriented.. HEENT: Normocephalic. Neck is supple. Pupils reactive. Nostrils clear. Oral cavity is moist. Ears reveal no drainage. Neck reveals no JVD, carotid bruits, or thyromegaly. CHEST EXAMINATION: Patient is having wheezing heard bilaterally, no rhonchi no rales appreciated CARDIAC: Normal S1, S2 with no gallops. No murmurs ABDOMEN: Soft. Bowel sounds normal. No organomegaly. No abdominal bruits. Extremities: reveal no edema. No clubbing or cyanosis Neurologically awake, alert, oriented x3 with well-coordinated movements. No focal deficits noted Skin: No rash or skin lesions. Psychiatric: Coperative. Nonsuicidal Musculoskeletal: No joint swelling or deformity. Normal range of motion. - Labs CBC & Chem 7: 04/22/19 06:14 04/22/19 06:14 Labs: Abnormal Lab Results - Last 24 Hours (Table) 04/20/19 04/21/19 04/21/19 Range/Units 07:40 17:08 21:09 WBC (3.8-10.6) k/uL RBC (3.80-5.40) m/uL MCV (80.0-100.0) fL MCH (25.0-35.0) pg Sodium (137-145) mmol/L Chloride (98-107) mmol/L Carbon Dioxide (22-30) mmol/L BUN (7-17) mg/dL Glucose (74-99) mg/dL POC Glucose (mg/dL) 262 H 257 H (75-99) mg/dL Calcium (8.4-10.2) mg/dL Vitamin B12 1416.0 H (200.0-944.0) pg/mL 04/22/19 04/22/19 04/22/19 Range/Units 05:55 06:14 06:14 WBC 14.7 H (3.8-10.6) k/uL RBC 3.60 L (3.80-5.40) m/uL MCV 107.0 H (80.0-100.0) fL MCH 35.3 H (25.0-35.0) pg Sodium 136 L (137-145) mmol/L Chloride 88 L (98-107) mmol/L Carbon Dioxide 42 H* (22-30) mmol/L BUN 62 H (7-17) mg/dL Glucose 127 H (74-99) mg/dL POC Glucose (mg/dL) 145 H (75-99) mg/dL Calcium 8.2 L (8.4-10.2) mg/dL Vitamin B12 (200.0-944.0) pg/mL 04/22/19 Range/Units 12:00 WBC (3.8-10.6) k/uL RBC (3.80-5.40) m/uL MCV (80.0-100.0) fL MCH (25.0-35.0) pg Sodium (137-145) mmol/L Chloride (98-107) mmol/L Carbon Dioxide (22-30) mmol/L BUN (7-17) mg/dL Glucose (74-99) mg/dL POC Glucose (mg/dL) 108 H (75-99) mg/dL Calcium (8.4-10.2) mg/dL Vitamin B12 (200.0-944.0) pg/mL Assessment and Plan Assessment: Acute on chronic respiratory failure due to combination of COPD and CHF exacerbation Acute on chronic CHF with systolic dysfunction. EF was 35-40%. Ejection fracti on 25-30% as per echocardiogram. Possible stress cardiomyopathy. Acute non-ST elevated IN with elevated troponin. Status post cardiac catheterization. No PCI.. Acute COPD exacerbation Contraction alkalosis History of Takosubo syndrome Hypertension osteoarthritis Dementia Chronic back pain Macular degeneration of left eye Diverticular disease History of secondhand smoking Plan 04/20/2019 - Continue steroids, breathing treatments. Further recommendations from pulmonology appreciated - Continue oral Lasix - Continue rest of medications - We'll follow the patient - Discussed with the nurse patient apparently is doing the same as yesterday. She seems to be in distress because of the shortness of breath at the time examination 04/21/2019 - Consulted neurology for the recommendations also get a CAT scan of the head - And any breathing treatments and steroids as per pulmonology - Cardiology following the patient - Continue rest of the medical care -We'll follow up on the patient 04/22/2019 - Appreciate neurology recommendations. - Lasix decreased by cardiology - Pulmonology following the patient - Continue rest of the medical care - Patient will need rehab placement as she seemed very weak.
--- NOTE | 2019-04-22 15:04 | P.DS ---
Providers Date of admission: 04/14/19 05:13 Expected date of discharge: 04/22/19 Attending physician: Kota Guadarrama Consults: 04/14/19 10:47 Consult Physician Stat Consulting Provider: Farzad Hayden Consult Reason/Comments: chest pain, critical trops Do you want consulting provider notified?: Yes 04/18/19 10:24 Consult Physician Routine Consulting Provider: Chaz Holt Consult Reason/Comments: dyspnea Do you want consulting provider notified?: Yes 04/21/19 10:57 Consult Physician Routine Consulting Provider: Rin Stephens Consult Reason/Comments: confusion Do you want consulting provider notified?: Yes Primary care physician: Efrain Wladen [place] Hospital Course: Hospital course Patient is a 89-year-old female with a known history of COPD/severe emphysema with baseline FEV1 of 41% of predicted, CHF with systolic dysfunction, history of DC, hypertension and chronic hypoxic respiratory failure on home oxygen, dementia, aortic aneurysm, history of rheumatic fever in childhood, possible Takasubu syndrome previously, was brought to the ER by her family and EMS with worsening shortness of breath for the past few days and also developed congested cough since yesterday. Patient is also requiring more oxygen at home. Up to 6 L. Patient does not have any sputum production otherwise. No fever or chills at home. Patient denied any nausea vomiting or abdominal pain or diarrhea. Patient was previously discharged from hospital on 02/07/2019, was treated for acute COPD exacerbation. Denied any worsening leg swelling. No headache or dizziness or lightheadedness. Patient follows with Dr. Escobar as an outpatient. Patient is being treated for acute COPD exacerbation and CHF. Patient developed chest tightness this morning and second troponin is trending up to 2.650. Patient was transferred to telemetry unit and cardiology was consulted. Shewas given a dose of aspirin. EKG showed sinus tachycardia with low voltage criteria. Pulmonology and cardiology consulted Cardiology the heart cath which was negative. 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 She was continued on antibiotics, breathing treatments and steroids by pulmonology. THE COURSE OF THE HOSPITALIZATION THE PATIENT WAS A LITTLE CONFUSED. UROLOGY WAS CONSULTED WHO RECOMMENDED THAT SHE BE FOLLOWED UP WITH NEUROLOGY AN OUTPATIENT. Patient slowly started to improve. On 04/22/2019 The patient was doing much better. She was back to her baseline. Her breathing improved. She was cleared by cardiology and pulmonology to be DC'd. She was initially supposed to go to rehab but the daughter refused rehab and decided that she would take her home and care for home. Home care was arranged for. She is to follow with cardiology and pulmonology as per the days discussed below in the discharge summary She is also supposed to follow up with the primary care doctor on the dates that was outlined in the discharge summary below. Dr. Perez's office was called for urinary retention. The office will call the daughter to make an appointment Patient also needs to make an appointment with neurology as an outpatient Patient Condition at Discharge: Fair Plan - Discharge Summary Discharge Rx Participant: No New Discharge Prescriptions: New Aspirin 81 mg PO DAILY #30 chew Furosemide [Lasix] 20 mg PO DAILY #30 tab Metoprolol Tartrate [Lopressor] 25 mg PO BID #60 tab Dronabinol [Marinol] 2.5 mg PO AC-BID #60 cap Famotidine [Pepcid] 20 mg PO DAILY #30 tab Clopidogrel [Plavix] 75 mg PO DAILY #30 tab predniSONE 40 mg PO DAILY #7 tab Azithromycin [Zithromax] 250 mg PO DAILY 3 Days #3 tab Continue Gabapentin [Neurontin] 300 mg PO HS Gabapentin [Neurontin] 100 mg PO DAILY Albuterol Sulfate [Proair Hfa] 1 - 2 puff INHALATION RT-Q6H PRN PRN Reason: sob Budesonide/Formoterol Fumarate [Symbicort 160-4.5 Mcg Inhaler] 2 puff INHALATION RT-BID PRN PRN Reason: Cough Isosorbide Mononitrate ER [Imdur] 30 mg PO DAILY #30 tab.er.24h Losartan [Cozaar] 25 mg PO DAILY Ipratropium-Albuterol Nebulize [Duoneb 0.5 mg-3 mg/3 ml Soln] 3 ml INHALATION RT-QID #120 ampul.neb Pravastatin Sodium [Pravachol] 10 mg PO DAILY Discontinued Furosemide [Lasix] 20 mg PO BID@0900,1600 #60 tab Metoprolol Tartrate [Lopressor] 25 mg PO DAILY Discharge Medication List Albuterol Sulfate [Proair Hfa] 1 - 2 puff INHALATION RT-Q6H PRN 10/12/17 [History] Budesonide/Formoterol Fumarate [Symbicort 160-4.5 Mcg Inhaler] 2 puff INHALATION RT-BID PRN 10/12/17 [History] Gabapentin [Neurontin] 100 mg PO DAILY 10/12/17 [History] Gabapentin [Neurontin] 300 mg PO HS 10/12/17 [History] Isosorbide Mononitrate ER [Imdur] 30 mg PO DAILY #30 tab.er.24h 10/16/17 [Rx] Losartan [Cozaar] 25 mg PO DAILY 02/05/19 [History] Ipratropium-Albuterol Nebulize [Duoneb 0.5 mg-3 mg/3 ml Soln] 3 ml INHALATION RT-QID #120 ampul.neb 02/09/19 [Rx] Pravastatin Sodium [Pravachol] 10 mg PO DAILY 04/14/19 [History] Aspirin 81 mg PO DAILY #30 chew 04/22/19 [Rx] Azithromycin [Zithromax] 250 mg PO DAILY 3 Days #3 tab 04/22/19 [Rx] Clopidogrel [Plavix] 75 mg PO DAILY #30 tab 04/22/19 [Rx] Dronabinol [Marinol] 2.5 mg PO AC-BID #60 cap 04/22/19 [Rx] Famotidine [Pepcid] 20 mg PO DAILY #30 tab 04/22/19 [Rx] Furosemide [Lasix] 20 mg PO DAILY #30 tab 04/22/19 [Rx] Metoprolol Tartrate [Lopressor] 25 mg PO BID #60 tab 04/22/19 [Rx] predniSONE 40 mg PO DAILY #7 tab 04/22/19 [Rx] Follow up Appointment(s)/Referral(s): Farzad Hayden MD [STAFF PHYSICIAN] - 04/27/19 1:15 pm Efrain Walden DO [Primary Care Provider] - 05/01/19 3:30 pm (Saturday -earliest available appointment) Chaz Holt DO [Doctor of Osteopathic Medicine] - 04/22/19 10:45 am [facility], [NON-STAFF] - Patient Instructions/Handouts: Heart Failure (DC), COPD (Chronic Obstructive Pulmonary Disease) (DC), Low-Sodium Diet (DC)
--- NOTE | 2019-04-22 15:19 | P.PN ---
Subjective Progress Note Date: 04/22/19 Principal diagnosis: Shortness of breath related to acute exacerbation of COPD and exacerbation congestive heart failure with systolic dysfunction On 04/20/2019 patient seen in follow-up on selective care unit, she is awake and alert, she is sitting up in the recliner, currently on 2 L of oxygen, her pulse ox 99%, she is afebrile, hemodynamically stable, she appears to be quite fatigued, but no acute distress, lung sounds are positive for some diffuse rhonchi, no significant wheezing, family is at the bedside, and they state that the and appears to be more confused, she does have underlying dementia. No acute events overnight, no new chest x-rays today, today's labs have been reviewed, showing white blood cell, 13.2, hemoglobin of 12.9, serum sodium is 137, potassium is 4.2, chloride is 92, CO2 is 39, BUN is 57, creatinine 0.75. Continues on Zithromax, she is on oral Lasix, IV steroids, 60 mg every 6 hours, nebulized bronchodilators. Urine and blood cultures showed no growth. No fever or chills On 04/22/2019 patient seen in follow-up on selective care unit, she is resting comfortably in the recliner, appears fatigued on today's exam, but apparently her appetite is improving. Patient is on 2 L of oxygen and the pulse ox of 98%, signs are stable, lung sounds positive for some scattered rhonchi, and patient has a weak congested nonproductive cough. His labs have been reviewed, or blood cell count is 14.7, hemoglobin is 12.7, serum sodium is 136, potassium is 3.8, chloride is 88, CO2 was 42, BUN was 62 and creatinine was 0.85. Urine and blood cultures remain negative thus far. She continues on antibiotic coverage in the form of Zithromax, and we will transition her IV steroids to oral prednisone, continue breathing treatments. Objective - Vital Signs Vital signs: Vital Signs Temp 97.6 F 04/22/19 07:56 Pulse 50 L 04/22/19 12:00 Resp 20 04/22/19 12:00 BP 113/70 04/22/19 12:00 Pulse Ox 98 04/22/19 12:00 Intake & Output 04/21/19 04/22/19 04/22/19 18:59 06:59 18:59 Intake Total 358 75 Output Total 350 350 Balance 8 -275 Weight 48.5 kg 48.5 kg Intake: Oral 358 75 Output: Urine 350 350 Other: Voiding Method Indwelling Catheter Indwelling Catheter Indwelling Catheter # Voids 0 - Exam GENERAL EXAM: Alert, pleasant, 89-year-old white female, on 2 L of oxygen with a pulse ox of 99%, sitting up in the recliner, appears fatigued comfortable in no apparent distress. HEAD: Normocephalic/atraumatic. EYES: Normal reaction of pupils, equal size. Conjunctiva pink, sclera white. NOSE: Clear with pink turbinates. THROAT: No erythema or exudates. NECK: No masses, no JVD, no thyroid enlargement, no adenopathy. CHEST: No chest wall deformity. Symmetrical expansion. LUNGS: Equal air entry with diffuse rhonchi CVS: Regular rate and rhythm, normal S1 and S2, no gallops, no murmurs, no rubs ABDOMEN: Soft, nontender. No hepatosplenomegaly, normal bowel sounds, no gu arding or rigidity. EXTREMITIES: No clubbing, no edema, no cyanosis, 2+ pulses and upper and lower e xtremities. MUSCULOSKELETAL: Muscle strength and tone normal. SPINE: No scoliosis or deformity SKIN: No rashes CENTRAL NERVOUS SYSTEM: Alert and oriented -2. No focal deficits, tone is normal in all 4 extremities. PSYCHIATRIC: Alert and oriented -2. Appropriate affect. Intact judgment and insight. - Labs CBC & Chem 7: 04/22/19 06:14 04/22/19 06:14 Labs: Abnormal Lab Results - Last 24 Hours (Table) 04/20/19 04/21/19 04/21/19 Range/Units 07:40 17:08 21:09 WBC (3.8-10.6) k/uL RBC (3.80-5.40) m/uL MCV (80.0-100.0) fL MCH (25.0-35.0) pg Sodium (137-145) mmol/L Chloride (98-107) mmol/L Carbon Dioxide (22-30) mmol/L BUN (7-17) mg/dL Glucose (74-99) mg/dL POC Glucose (mg/dL) 262 H 257 H (75-99) mg/dL Calcium (8.4-10.2) mg/dL Vitamin B12 1416.0 H (200.0-944.0) pg/mL 04/22/19 04/22/19 04/22/19 Range/Units 05:55 06:14 06:14 WBC 14.7 H (3.8-10.6) k/uL RBC 3.60 L (3.80-5.40) m/uL MCV 107.0 H (80.0-100.0) fL MCH 35.3 H (25.0-35.0) pg Sodium 136 L (137-145) mmol/L Chloride 88 L (98-107) mmol/L Carbon Dioxide 42 H* (22-30) mmol/L BUN 62 H (7-17) mg/dL Glucose 127 H (74-99) mg/dL POC Glucose (mg/dL) 145 H (75-99) mg/dL Calcium 8.2 L (8.4-10.2) mg/dL Vitamin B12 (200.0-944.0) pg/mL 04/22/19 Range/Units 12:00 WBC (3.8-10.6) k/uL RBC (3.80-5.40) m/uL MCV (80.0-100.0) fL MCH (25.0-35.0) pg Sodium (137-145) mmol/L Chloride (98-107) mmol/L Carbon Dioxide (22-30) mmol/L BUN (7-17) mg/dL Glucose (74-99) mg/dL POC Glucose (mg/dL) 108 H (75-99) mg/dL Calcium (8.4-10.2) mg/dL Vitamin B12 (200.0-944.0) pg/mL Assessment and Plan Plan: Assessment: #1. Acute exacerbation of chronic obstructive pulmonary disease #2. Acute exacerbation of congestive heart failure with systolic dysfunction, with ejection fraction of 25-30% #3. Advanced COPD, with a baseline FEV1 0.42 l or 42% of predicted chronic hypoxemic respiratory failure #4. Previous myocardial infarction #5. Elevated troponins, acute non-ST elevated IN #6. Coronary artery disease and cardiac cath showed mild CAD with 50% ostial stenosis, 50% mid LAD stenosis, and stenosis of the up to his marginal branch #7. Takasubo syndrome #8. History of dementia #9. Osteoarthritis #10. Diverticular disease #11. Macular degeneration of the left eye Plan: Continue current medical treatment, breathing treatments, we'll transition IV steroids to oral prednisone, clinically patient is improving, she will most likely need short-term rehab or home care. Clinical stable, encourage deep breathing and coughing, increase activity as tolerated, from pulmonary perspective patient is stable for discharge today I performed a history & physical examination of the patient and discussed their management with my nurse practitioner, Josie Espinosa. I reviewed the nurse practitioner's note and agree with the documented findings and plan of care. Lung sounds are positive for scattered wheezes throughout the lung dykes. The findings and the impression was discussed with the patient. I attest to the documentation by the nurse practitioner. Time with Patient: Less than 30
[2019-04-22 15:48] VITALS: PULSE 72
[2019-04-22 16:45] LABS: Glucose,Whole Blood 261 mg/dL (75-99)
[2019-04-23] MEDS ORDERED: FUROSEMIDE 20 MG TAB PO SCH (09:00)
[2019-04-23] MEDS ORDERED: predniSONE 20 MG TAB PO SCH (09:00)
== END 2019-04-22 18:19 | disposition home health service (06) | DRG 280 ==
LOC: EC 03:01 → 4SSUR 05:13 → 3SCARD 13:10
PROVIDERS: ADMIT Hospitalist; ATTEND Hospitalist
PROC: 4A023N7 Measurement of Cardiac Sampling and Pressure, Left Heart, Percutaneous Approach (ICD-10-PCS; principal; 2019-04-15 07:00)
PROC: B2111ZZ Fluoroscopy of Multiple Coronary Arteries using Low Osmolar Contrast (ICD-10-PCS; principal; 2019-04-15 07:00)
PROC: B2151ZZ Fluoroscopy of Left Heart using Low Osmolar Contrast (ICD-10-PCS; principal; 2019-04-15 07:00)
DX: I51.81 Takotsubo syndrome (principal); I21.4 Non-ST elevation (NSTEMI) myocardial infarction; J96.21 Acute and chronic respiratory failure with hypoxia; E87.3 Alkalosis; J45.901 Unspecified asthma with (acute) exacerbation; J98.11 Atelectasis; F03.90 Unspecified dementia, unspecified severity, without behavioral disturbance, psychotic disturbance, mood disturbance, and anxiety; I10 Essential (primary) hypertension; G89.29 Other chronic pain; H35.30 Unspecified macular degeneration; H91.90 Unspecified hearing loss, unspecified ear; I25.10 Atherosclerotic heart disease of native coronary artery without angina pectoris; I71.9 Aortic aneurysm of unspecified site, without rupture; J43.9 Emphysema, unspecified; K57.90 Diverticulosis of intestine, part unspecified, without perforation or abscess without bleeding; M54.9 Dorsalgia, unspecified; M19.91 Primary osteoarthritis, unspecified site; Z79.02 Long term (current) use of antithrombotics/antiplatelets; I25.2 Old myocardial infarction; Z79.51 Long term (current) use of inhaled steroids; Z79.82 Long term (current) use of aspirin; Z79.899 Other long term (current) drug therapy; Z80.0 Family history of malignant neoplasm of digestive organs; Z80.2 Family history of malignant neoplasm of other respiratory and intrathoracic organs; Z86.010 Personal history of colon polyps; Z86.19 Personal history of other infectious and parasitic diseases; Z86.79 Personal history of other diseases of the circulatory system; Z90.710 Acquired absence of both cervix and uterus; Z99.81 Dependence on supplemental oxygen; Z88.8 Allergy status to other drugs, medicaments and biological substances; Z90.49 Acquired absence of other specified parts of digestive tract
CPT/HCPCS: 36415; 36600; 70450; 71045; 71046; 80048; 80053; 81001; 82550; 82553; 82607; 82805; 83605; 83880; 84443; 84484; 85025; 85027; 85610; 85730; 87040; 87086; 93005; 93306; 93458; 94640; 94760; 99285

== ENCOUNTER 2019-05-22 10:57 | Inpatient (IN) | payer MEDICARE ==
--- NOTE | 2019-05-22 11:44 | XR ---
EXAMINATION TYPE: XR Hip LT and AP Pelvis DATE OF EXAM: 05/22/2019 COMPARISON: NONE HISTORY: Trauma and pain left hip TECHNIQUE: A single AP view of the pelvis is obtained. Two views of the left hip are obtained. FINDINGS: Bone mineralization is reduced. Vascular calcifications noted incidentally. Degenerative d isc changes present in the visualized spine. There is inferior pubic ramus on the left shows a fractu re is nondisplaced. Question cortical irregularity superior pubic ramus on the left. The hip and sacr oiliac joints appear symmetric and unremarkable. The overlying soft tissue appears unremarkable. Two views of left hip show no acute fracture or dislocation. No focal lytic or sclerotic lesion seen in the proximal left femur. The overlying soft tissue is unremarkable. IMPRESSION: There is inferior pubic ramus fracture on the left, decreased bone mineralization may li moose sensitivity, no evident left hip fracture. Question superior left pubic ramus fracture.
--- NOTE | 2019-05-22 13:40 | ED ---
Lower Extremity Injury HPI - General Chief Complaint: Extremity Injury, Lower Stated Complaint: Fall-left hip Time Seen by Provider: 05/22/19 11:00 Source: patient, family, EMS, RN notes reviewed Mode of arrival: EMS Limitations: no limitations - History of Present Illness Initial Comments: This 89-year-old female who is brought in by EMS with complaints of left hip pain after a fall from same position. She is on Plavix no head neck or back injury reported his left hip some radiation down to her left leg. No fevers chills nausea vomiting sweats palpitations or other symptoms reported. No other modifying factors at this time. MD Complaint: hip injury - Related Data Home Medications Medication Instructions Recorded Confirmed Albuterol Sulfate [Proair Hfa] 1 - 2 puff INHALATION RT-Q6H PRN 10/12/17 05/22/19 Budesonide/Formoterol Fumarate 2 puff INHALATION RT-BID PRN 10/12/17 05/22/19 [Symbicort 160-4.5 Mcg Inhaler] Gabapentin [Neurontin] 100 mg PO DAILY 10/12/17 05/22/19 Gabapentin [Neurontin] 300 mg PO HS 10/12/17 05/22/19 Losartan [Cozaar] 25 mg PO DAILY 02/05/19 05/22/19 Pravastatin Sodium [Pravachol] 10 mg PO DAILY 04/14/19 05/22/19 Levothyroxine Sodium [Synthroid] 50 mcg PO DAILY 05/22/19 05/22/19 Metoprolol Tartrate [Lopressor] 12.5 mg PO BID 05/22/19 05/22/19 Previous Rx's Medication Instructions Recorded Isosorbide Mononitrate ER [Imdur] 30 mg PO DAILY #30 tab.er.24h 10/16/17 Ipratropium-Albuterol Nebulize 3 ml INHALATION RT-QID #120 02/09/19 [Duoneb 0.5 mg-3 mg/3 ml Soln] ampul.neb Aspirin 81 mg PO DAILY #30 chew 04/22/19 Clopidogrel [Plavix] 75 mg PO DAILY #30 tab 04/22/19 Dronabinol [Marinol] 2.5 mg PO AC-BID #60 cap 04/22/19 Famotidine [Pepcid] 20 mg PO DAILY #30 tab 04/22/19 Furosemide [Lasix] 20 mg PO DAILY #30 tab 04/22/19 Allergies Allergy/AdvReac Type Severity Reaction Status Date / Time alendronate sodium Allergy Unknown Verified 05/22/19 11:42 [From Fosamax] raloxifene [From Evista] Allergy Unknown Verified 05/22/19 11:42 simvastatin [From Zocor] Allergy Unknown Verified 05/22/19 11:42 Review of Systems ROS Statement: Those systems with pertinent positive or pertinent negative responses have been documented in the HPI. ROS Other: All systems not noted in ROS Statement are negative. Past Medical History Past Medical History: Asthma, Heart Failure, COPD, Dementia, Eye Disorder, Hypertension, Myocardial Infarction ([place]), Osteoarthritis (OA), Respiratory Disorder Additional Past Medical History / Comment(s): Aortic aneurysm, nonischemic cardiomyopathy, acute systolic heart failure, home oxygen at 2L.[place] ATC, rheumatic fever as a child, chronic back pain, macular degeneration L eye, hia suha hernia, diverticular disease, benign colon polyps. Last Myocardial Infarction Date:: 10/12/17 History of Any Multi-Drug Resistant Organisms: None Reported Past Surgical History: Appendectomy, Bladder Surgery, Cholecystectomy, Hysterectomy Additional Past Surgical History / Comment(s): EGDs, colonoscopies/benign polyps, bladder suspension. Past Anesthesia/Blood Transfusion Reactions: No Reported Reaction Past Psychological History: No Psychological Hx Reported Smoking Status: Never smoker Past Alcohol Use History: None Reported Past Drug Use History: None Reported - Past Family History Father Family Medical History: Cancer Additional Family Medical History / Comment(s): Father had pleural cancer per pt's spouse. Mother Family Medical History: Cancer Additional Family Medical History / Comment(s): Mother had liver cancer. General Exam - General Exam Comments Initial Comments: Is a well-developed sec appearing female who is awake alert in no distress at r est Limitations: no limitations General appearance: alert, in no apparent distress Head exam: Present: atraumatic, normocephalic, normal inspection Eye exam: Present: normal appearance, PERRL, EOMI. Absent: scleral icterus, conjunctival injection, periorbital swelling ENT exam: Present: normal exam, mucous membranes moist Neck exam: Present: normal inspection. Absent: tenderness, meningismus, lymphadenopathy Respiratory exam: Present: normal lung sounds bilaterally. Absent: respiratory distress, wheezes, rales, rhonchi, stridor Cardiovascular Exam: Present: regular rate, normal rhythm, normal heart sounds. Absent: systolic murmur, diastolic murmur, rubs, gallop, clicks GI/Abdominal exam: Present: soft, normal bowel sounds. Absent: distended, tenderness, guarding, rebound, rigid Extremities exam: Present: normal inspection, tenderness (Tenderness palpation of the left hip and pubic ramus no step-off no crepitation. No obvious rotation or shortening.), normal capillary refill. Absent: full ROM, pedal edema, joint swelling, calf tenderness Back exam: Present: normal inspection Neurological exam: Present: alert, oriented X3, CN II-XII intact Psychiatric exam: Present: normal affect, normal mood Skin exam: Present: warm, dry, intact, normal color. Absent: rash Course Vital Signs 05/22/19 05/22/19 10:58 11:13 Temperature 98.9 F Pulse Rate 65 Respiratory 18 18 Rate Blood Pressure 121/72 O2 Sat by Pulse 97 Oximetry Medical Decision Making - Medical Decision Making I did discuss findings with the patient family members and with Dr. Walden patient will be admitted with social service consultation was a consultation. - Radiology Data Radiology results: report reviewed (I did review the imaging and report or is evidence of a inferior pubic ramus fracture.), image reviewed Disposition Clinical Impression: Pelvis fracture, Fall Disposition: ADMITTED IP TO THIS [facility] Condition: Fair Referrals: Efrain Walden DO [Primary Care Provider] - 1-2 days
[2019-05-22] MEDS ORDERED: HYDROmorphone 0.5 MG/0.5 ML SYRINGE IVP STA (13:48)
[2019-05-22] MEDS ORDERED: NALOXONE 0.4 MG/ML 1 ML VIAL IV PRN (13:49)
[2019-05-22] MEDS ORDERED: SYMBICORT 160-4.5 MCG INHALER INHALATION PRN (13:51)
[2019-05-22] MEDS ORDERED: ALBUTEROL NEBULIZED 2.5 MG/3 ML INHALATION PRN (13:51)
--- NOTE | 2019-05-22 13:56 | XR ---
EXAMINATION TYPE: XR chest 1V portable DATE OF EXAM: 05/22/2019 COMPARISON: Prior chest x-ray 04/18/2019 HISTORY: Pain, trauma TECHNIQUE: Single frontal view of the chest is obtained. FINDINGS: Technique is apical lordotic and rotated. Aorta is dense and prominent as on prior exam. T here is a spinal curvature and overlying artifact. There is no evident airspace disease, pneumothorax , or pleural effusion. Right pulmonary artery appears prominently. Heart size is stable. No evident f racture. IMPRESSION: No acute process. Correlate for possible pulmonary artery hypertension.
[2019-05-22] MEDS: SODIUM CHLORIDE 0.9% 1,000 ML IV SCH (14:30)
[2019-05-22 14:34] LABS: Basophils % (A) 0 %; Eosinophils % (A) 0 %; HCT 33.7 % (34.0-46.0); Lymphocytes # (A) 1.1 k/uL (1.0-4.8); Lymphocytes % (A) 11 %; MCH 34.9 pg (25.0-35.0); MCHC 32.6 g/dL (31.0-37.0); MCV 107.1 fL (80.0-100.0); Macrocytosis Moderate; Mean Platelet Volume 6.8; Monocytes # (A) 0.6 k/uL (0-1.0); Monocytes % (A) 5 %; Neutrophils # (A) 8.4 k/uL (1.3-7.7); Neutrophils % (A) 82 %; Platelet Count 336 k/uL (150-450); RBC 3.14 m/uL (3.80-5.40); RDW 13.7 % (11.5-15.5); WBC 10.2 k/uL (3.8-10.6)
[2019-05-22 14:40] LABS: Appearance,Urine Cloudy (Clear); Bacteria,Urine Many /hpf; Bilirubin,Urine Negative (Negative); Blood,Urine Negative (Negative); Color,Urine Light Yellow; Glucose,Urine (UA) Negative (Negative); Ketones,Urine Negative (Negative); Leukocyte Esterase,Urine Large (Negative); Mucus,Urine Rare /hpf; Nitrite,Urine Negative (Negative); PH, Urine 6.5 (5.0-8.0); Protein,Urine Negative (Negative); Specific Gravity,Urine 1.002 (1.001-1.035); Urobilinogen,Urine <2.0 mg/dL (<2.0); WBC,Urine 161 /hpf (0-5)
[2019-05-22 14:45] LABS: ALT 43 U/L (9-52); AST 49 U/L (14-36); African American GFR (CKD) >90 (>60 ml/min/1.73 sqM); Albumin 2.9 g/dL (3.5-5.0); Alkaline Phosphatase 114 U/L (38-126); Anion Gap 4 mmol/L; Blood Urea Nitrogen 19 mg/dL (7-17); Calcium 8.4 mg/dL (8.4-10.2); Carbon Dioxide 34 mmol/L (22-30); Chloride 97 mmol/L (98-107); Glucose 87 mg/dL (74-99); Magnesium 2.2 mg/dL (1.6-2.3); Potassium 4.5 mmol/L (3.5-5.1); Sodium 135 mmol/L (137-145); Total Bilirubin 0.7 mg/dL (0.2-1.3); Total Protein 5.4 g/dL (6.3-8.2)
[2019-05-22] MEDS: IPRATROPIUM-ALBUTEROL 3 ML NEB INHALATION SCH ×2 (17:12→20:26)
[2019-05-22] MEDS: DRONABINOL 2.5 MG CAP PO SCH (17:26)
[2019-05-22] MEDS: HYDROmorphone 0.5 MG/0.5 ML SYRINGE IVP PRN (17:26)
[2019-05-22] MEDS: GABAPENTIN 300 MG CAP PO SCH (21:26)
[2019-05-22] MEDS: METOPROLOL TARTRATE 12.5 MG TAB PO SCH (21:26)
[2019-05-23] MEDS: SODIUM CHLORIDE 0.9% 1,000 ML IV SCH (02:59)
[2019-05-23] MEDS: LEVOTHYROXINE 50 MCG TAB PO SCH (06:21)
[2019-05-23] MEDS: IPRATROPIUM-ALBUTEROL 3 ML NEB INHALATION SCH ×4 (07:11→21:14)
[2019-05-23] MEDS: DRONABINOL 2.5 MG CAP PO SCH ×2 (07:59→16:54)
[2019-05-23] MEDS: LOSARTAN 25 MG TAB PO SCH (07:59)
[2019-05-23] MEDS: METOPROLOL TARTRATE 12.5 MG TAB PO SCH ×2 (07:59→22:25)
[2019-05-23] MEDS: PRAVASTATIN SODIUM 20 MG TAB PO SCH (07:59)
[2019-05-23] MEDS: GABAPENTIN 100 MG CAP PO SCH (08:00)
[2019-05-23] MEDS: ASPIRIN 81 MG PO SCH (08:00)
[2019-05-23] MEDS: FUROSEMIDE 20 MG TAB PO SCH (08:00)
[2019-05-23] MEDS: ISOSORBIDE MONONITRATE ER 30 MG TAB.ER.24H PO SCH (08:00)
[2019-05-23] MEDS: HYDROmorphone 0.5 MG/0.5 ML SYRINGE IVP PRN (08:21)
[2019-05-23] MEDS ORDERED: FAMOTIDINE 20 MG TAB PO SCH (09:00)
--- NOTE | 2019-05-23 09:18 | P.CNOR ---
History of Present Illness - [facility] Consult date: 05/23/19 Consult reason: fracture (left inferior pubic rami fracture) History of present illness: The patient is an 89-year-old female who presented to the emergency department yesterday after sustaining a fall on night. The patient son is at the bedside today and provides more information on her fall. The son states that she tripped and fell onto her left side. He states that she hit her head pretty hard on the left lateral side. She has dementia and lives with her and son. She uses a walker at home. The patient was evaluated in the emergency department where x-rays were taken. No hip fracture was found but a left inferior pubic rami fracture and possible superior pubic rami fracture was f ound. The patient was admitted for further evaluation and care and orthopedics was consulted for the fracture. Today, the patient states that her neck is sore but denies headache and dizziness. The patient is on Plavix. A head CT was not obtained in the emergency department. Review of Systems Constitutional: Denies chills, Denies fatigue, Denies fever Cardiovascular: Denies chest pain, Denies shortness of breath Respiratory: Denies cough Gastrointestinal: Denies diarrhea, Denies nausea, Denies vomiting Musculoskeletal: Reports neck pain Musculoskeletal: left: hip pain, hip stiffness Neurological: Reports head injury, Denies headaches, Denies visual changes Past Medical History Past Medical History: Atrial Fibrillation, Asthma, Heart Failure, COPD, Dementia, Eye Disorder, Hypertension, Myocardial Infarction ([place]), Osteoarthritis (OA), Respiratory Disorder Additional Past Medical History / Comment(s): Aortic aneurysm, nonischemic c ardiomyopathy, acute systolic heart failure, home oxygen at 2L.[place] ATC, rheumatic fever as a child, chronic back pain, macular degeneration L eye, hiatal hernia, diverticular disease, benign colon polyps. Last Myocardial Infarction Date:: 10/12/17 History of Any Multi-Drug Resistant Organisms: None Reported Past Surgical History: Appendectomy, Bladder Surgery, Cholecystectomy, Heart Catheterization, Hysterectomy Additional Past Surgical History / Comment(s): EGDs, colonoscopies/benign polyps, bladder suspension. Past Anesthesia/Blood Transfusion Reactions: No Reported Reaction Past Psychological History: No Psychological Hx Reported Additional Psychological History / Comment(s): Pt resides with her spouse and their adult son, Hernando. Hernando is very helpful with parents care. Pt has home oxygen at 2L/[place] ATC. She has a nebulizer. Pt no longer drives, her spouse drives. Smoking Status: Never smoker Past Alcohol Use History: None Reported Additional Past Alcohol Use History / Comment(s): Patient is a lifelong nonsmoker. She denies any illicit drug use, alcohol use. She lives at home with her . She ambulates with out executive assistant to general counsel device. She denies any oxygen or nebulizer at home. Past Drug Use History: None Reported - Past Family History Father Family Medical History: Cancer Additional Family Medical History / Comment(s): Father had pleural cancer Mother Family Medical History: Cancer Additional Family Medical History / Comment(s): Mother had liver cancer and from but was 102yo. Medications and Allergies Home Medications Medication Instructions Recorded Confirmed Type Albuterol Sulfate [Proair Hfa] 1 - 2 puff INHALATION RT-Q6H PRN 10/12/17 05/22/19 History Budesonide/Formoterol Fumarate 2 puff INHALATION RT-BID PRN 10/12/17 05/22/19 History [Symbicort 160-4.5 Mcg Inhaler] Gabapentin [Neurontin] 100 mg PO DAILY 10/12/17 05/22/19 History Gabapentin [Neurontin] 300 mg PO HS 10/12/17 05/22/19 History Isosorbide Mononitrate ER [Imdur] 30 mg PO DAILY #30 tab.er.24h 10/16/17 08/12/09 Rx Losartan [Cozaar] 25 mg PO DAILY 02/05/19 05/22/19 History Ipratropium-Albuterol Nebulize 3 ml INHALATION RT-QID #120 02/09/19 05/22/19 Rx [Duoneb 0.5 mg-3 mg/3 ml Soln] ampul.neb Pravastatin Sodium [Pravachol] 10 mg PO DAILY 04/14/19 05/22/19 History Aspirin 81 mg PO DAILY #30 chew 04/22/19 05/22/19 Rx Clopidogrel [Plavix] 75 mg PO DAILY #30 tab 04/22/19 05/22/19 Rx Dronabinol [Marinol] 2.5 mg PO AC-BID #60 cap 04/22/19 05/22/19 Rx Famotidine [Pepcid] 20 mg PO DAILY #30 tab 04/22/19 05/22/19 Rx Furosemide [Lasix] 20 mg PO DAILY #30 tab 04/22/19 05/22/19 Rx Levothyroxine Sodium [Synthroid] 50 mcg PO DAILY 05/22/19 05/22/19 History Metoprolol Tartrate [Lopressor] 12.5 mg PO BID 05/22/19 05/22/19 History Allergies Allergy/AdvReac Type Severity Reaction Status Date / Time alendronate sodium Allergy Unknown Verified 05/22/19 11:42 [From Fosamax] raloxifene [From Evista] Allergy Unknown Verified 05/22/19 11:42 simvastatin [From Zocor] Allergy Unknown Verified 05/22/19 11:42 Physical Examination The patient is a 89-year-old female who is in no acute distress. She is alert and oriented 1. The patient's head is normocephalic and atraumatic. Exam of the cervical spine reveals mild pain and paraspinal spasm bilaterally, normal ROM. Exam of the bilateral upper extremities reveal no obvious deformities or pain upon range of motion. Exam of the right lower extremity reveals no pain upon palpation. Exam of the lower lower extremity reveals no obvious deformity. No pain to external and internal rotation of the hip joint bilaterally. No pain upon palpation to the lateral hip. No pain upon AP compression of the pelvis bilaterally. Moderate pain to lateral compression of the pelvis. No SI joint pain bilaterally. Bilateral calves are soft and nontender. Patient has go od foot and ankle motion bilaterally. Neurological and circulatory status is intact. Results - Labs Labs: Abnormal Lab Results - Last 24 Hours (Table) 05/22/19 05/22/19 05/22/19 Range/Units 14:00 14:00 14:20 RBC 3.14 L (3.80-5.40) m/uL Hgb 11.0 L (11.4-16.0) gm/dL Hct 33.7 L (34.0-46.0) % MCV 107.1 H (80.0-100.0) fL Neutrophils # 8.4 H (1.3-7.7) k/uL Sodium 135 L (137-145) mmol/L Chloride 97 L (98-107) mmol/L Carbon Dioxide 34 H (22-30) mmol/L BUN 19 H (7-17) mg/dL AST 49 H (14-36) U/L Total Protein 5.4 L (6.3-8.2) g/dL Albumin 2.9 L (3.5-5.0) g/dL Urine Appearance Cloudy H (Clear) Ur Leukocyte Esterase Large H (Negative) Urine WBC 161 H (0-5) /hpf Urine WBC Clumps Occasional H (None) /hpf Urine Bacteria Many H (None) /hpf Urine Mucus Rare H (None) /hpf H & H 05/22/19 Range/Units 14:00 Hgb 11.0 L (11.4-16.0) gm/dL Hct 33.7 L (34.0-46.0) % Result Diagrams: 05/22/19 14:00 05/22/19 14:00 - Diagnostic results Hip x-ray: image reviewed (Nondisplaced fracture to the left inferior pubic ramus, possible nondisplaced fracture to the superior pubic ramus on the left. SI joints appear to be symmetrical. No other fractures seen. ) Assessment and Plan (1) Fracture of left inferior pubic ramus Current Visit: Yes Status: Acute Code(s): S32.592A - OTH FRACTURE OF LEFT PUBIS, INIT ENCNTR FOR CLOSED FRACTURE SNOMED Code(s): 946633793 (2) Fall Current Visit: Yes Status: Acute Code(s): W19.XXXA - UNSPECIFIED FALL, INITIAL ENCOUNTER SNOMED Code(s): 5334844 Plan: The clinical and x-ray findings were discussed with the patient the patient son at the bedside. The case was discussed with Dr. Marley. We are recommending a stat head and neck CT to rule out intercranial bleed or cervical fracture. If head CT is negative, PT and OT will be ordered to evaluate the patient. She may weight-bear as tolerated with a walker and assistance only. Continue pain control. The patient may need subacute rehab upon discharge. We will continue to follow patient closely and make further recommendations as needed.
--- NOTE | 2019-05-23 10:43 | CT ---
EXAMINATION TYPE: CT brain arlinine wo con DATE OF EXAM: 05/23/2019 COMPARISON: Previous study dated 04/21/2019. HISTORY: fall with blow to head, neck pain. CT DLP: 1174.9 mGycm Automated exposure control for dose reduction was used. TECHNIQUE: CT scan of the head and cervical spine are performed without contrast. FINDINGS: BRAIN: There is an empty sella. There are generalized changes of sulcal prominence and ventriculomegaly, compatible with atrophic sushant nge. There is diffuse periventricular white matter lucency, compatible with chronic white matter isch emic change. There is no acute focal lesion, mass effect or midline shift identified. I do not see ev idence of intracranial blood. There is IMPRESSION: 1. NO ACUTE INTRACRANIAL ABNORMALITY. 2. EMPTY SELLA. 3. DEGENERATIVE CHANGE. CERVICAL SPINE: Visualized portions of the lungs are clear. There is aneurysmal dilatation of the pro ximal descending thoracic aorta measuring 3.6 cm in greatest transverse diameter. Prevertebral soft t issues are normal. There is a mild reversal of the normal cervical lordosis. There is a degenerative grade 1 spondylolis thesis of C4 on C5. There is disc space loss and hypertrophic spondylosis present at C5-6 and to a le sser extent C4-5. There is uncovertebral joint disease at C5-6. There is facet arthropathy on the lef t at C3-4 and bilaterally at C4-5. No definite protrusion is seen. No fracture is identified. IMPRESSION: 1. NO ACUTE OSSEOUS LESION. 2. DEGENERATIVE CHANGE. 3. THORACIC AORTIC ANEURYSM.
[2019-05-23] MEDS: KETOROLAC 30 MG/ML 1 ML VIAL IVP PRN ×2 (11:41→16:54)
--- NOTE | 2019-05-23 13:45 | P.HPIM ---
History of Present Illness A 89-year-old pleasant female was admitted for a mechanical fall which led to fracture of the left inferior pubic rami, orthopedic surgery evaluated the patient patient was started on Dilaudid. Dilaudid will be discontinued and juan ent was started on Toradol for pain. Patient is complaining of neck pain because of which orthopedic surgery often a CAT scan of the cervical and thoracic spine which showed severe degenerative disc disease without any acute fracture. Chest x-ray did not show any pulmonary edema. Patient is a smoker does have COPD which appears to be advanced no much air movement on exam but does not appear severe exacerbation patient usually uses 2 L of oxygen saturating at 98% on 2 L of oxygen. Physical therapy and occupational fever consult that patient may need placement to subacute rehabilitation for physical therapy on Saturday. She will follow up with Dr. Walden on Saturday Review of Systems REVIEW OF SYSTEMS: CONSTITUTIONAL: No fever, no malaise, no fatigue. HEENT: No recent visual problems or hearing problems. Denied any sore throat. CARDIOVASCULAR: No chest pain, orthopnea, PND, no palpitations, no syncope. PULMONARY: No shortness of breath, no cough, no hemoptysis. GASTROINTESTINAL: No diarrhea, no nausea, no vomiting, no abdominal pain. NEUROLOGICAL: No headaches, no weakness, no numbness. HEMATOLOGICAL: Denies any bleeding or petechiae. GENITOURINARY: Denies any burning micturition, frequency, or urgency. MUSCULOSKELETAL/RHEUMATOLOGICAL: As mentioned in HPI ENDOCRINE: Denies any polyuria or polydipsia. The rest of the 14-point review of systems is negative. Past Medical History Past Medical History: Atrial Fibrillation, Asthma, Heart Failure, COPD, Dementia, Eye Disorder, Hypertension, Myocardial Infarction ([place]), Osteoarthritis (OA), Respiratory Disorder Additional Past Medical History / Comment(s): Aortic aneurysm, nonischemic cardiomyopathy, acute systolic heart failure, home oxygen at 2L.[place] ATC, rheumatic fever as a child, chronic back pain, macular degeneration L eye, hiatal hernia, diverticular disease, benign colon polyps. Last Myocardial Infarction Date:: 10/12/17 History of Any Multi-Drug Resistant Organisms: None Reported Past Surgical History: Appendectomy, Bladder Surgery, Cholecystectomy, Heart Catheterization, Hysterectomy Additional Past Surgical History / Comment(s): EGDs, colonoscopies/benign polyps, bladder suspension. Past Anesthesia/Blood Transfusion Reactions: No Reported Reaction Past Psychological History: No Psychological Hx Reported Additional Psychological History / Comment(s): Pt resides with her spouse and their adult son, Hernando. Hernando is very helpful with parents care. Pt has home oxygen at 2L/[place] ATC. She has a nebulizer. Pt no longer drives, her spouse drives. Smoking Status: Never smoker Past Alcohol Use History: None Reported Additional Past Alcohol Use History / Comment(s): Patient is a lifelong nonsmoker. She denies any illicit drug use, alcohol use. She lives at home with her . She ambulates with out team assistant device. She denies any oxygen or nebulizer at home. Past Drug Use History: None Reported - Past Family History Father Family Medical History: Cancer Additional Family Medical History / Comment(s): Father had pleural cancer Mother Family Medical History: Cancer Additional Family Medical History / Comment(s): Mother had liver cancer and from but was 102yo. Medications and Allergies Home Medications Medication Instructions Recorded Confirmed Type Albuterol Sulfate [Proair Hfa] 1 - 2 puff INHALATION RT-Q6H PRN 10/12/17 05/22/19 History Budesonide/Formoterol Fumarate 2 puff INHALATION RT-BID PRN 10/12/17 05/22/19 History [Symbicort 160-4.5 Mcg Inhaler] Gabapentin [Neurontin] 100 mg PO DAILY 10/12/17 05/22/19 History Gabapentin [Neurontin] 300 mg PO HS 10/12/17 05/22/19 History Isosorbide Mononitrate ER [Imdur] 30 mg PO DAILY #30 tab.er.24h 10/16/17 05/22/19 Rx Losartan [Cozaar] 25 mg PO DAILY 02/05/19 05/22/19 History Ipratropium-Albuterol Nebulize 3 ml INHALATION RT-QID #120 02/09/19 05/22/19 Rx [Duoneb 0.5 mg-3 mg/3 ml Soln] ampul.neb Pravastatin Sodium [Pravachol] 10 mg PO DAILY 04/14/19 05/22/19 History Aspirin 81 mg PO DAILY #30 chew 04/22/19 05/22/19 Rx Clopidogrel [Plavix] 75 mg PO DAILY #30 tab 04/22/19 05/22/19 Rx Dronabinol [Marinol] 2.5 mg PO AC-BID #60 cap 04/22/19 05/22/19 Rx Famotidine [Pepcid] 20 mg PO DAILY #30 tab 04/22/19 05/22/19 Rx Furosemide [Lasix] 20 mg PO DAILY #30 tab 04/22/19 05/22/19 Rx Levothyroxine Sodium [Synthroid] 50 mcg PO DAILY 05/22/19 05/22/19 History Metoprolol Tartrate [Lopressor] 12.5 mg PO BID 05/22/19 05/22/19 History Allergies Allergy/AdvReac Type Severity Reaction Status Date / Time alendronate sodium Allergy Unknown Verified 05/22/19 11:42 [From Fosamax] raloxifene [From Evista] Allergy Unknown Verified 05/22/19 11:42 simvastatin [From Zocor] Allergy Unknown Verified 05/22/19 11:42 Physical Exam Vitals: Vital Signs Temp Pulse Pulse Resp BP BP Pulse Ox 05/23/19 11:04 76 05/23/19 07:31 98.2 F 94 16 133/90 98 05/23/19 07:29 72 05/23/19 07:13 72 05/23/19 01:21 97.7 F 69 18 110/70 96 05/22/19 20:38 76 05/22/19 20:29 76 05/22/19 19:08 99.0 F 104 H 19 115/73 95 05/22/19 17:25 76 05/22/19 17:12 80 05/22/19 16:10 98.4 F 87 16 126/73 95 05/22/19 15:48 99.1 F 70 18 110/92 98 05/22/19 15:45 17 05/22/19 14:20 18 129/75 98 Intake and Output 05/22/19 05/23/19 05/23/19 22:59 06:59 14:59 Output Total 500 Balance -500 Output: Urine 500 Other: Voiding Method Indwelling Catheter Indwelling Catheter Indwelling Catheter PHYSICAL EXAMINATION: GENERAL: The patient is alert and oriented x3, not in any acute distress. Well developed, well nourished. HEENT: Pupils are round and equally reacting to light. EOMI. No scleral icterus. No conjunctival pallor. Normocephalic, atraumatic. No pharyngeal erythema. No t hyromegaly. CARDIOVASCULAR: S1 and S2 present. No murmurs, rubs, or gallops. PULMONARY: Significantly diminished air entry into bilateral lung dykes no wheezing or crackles were appreciated ABDOMEN: Soft, nontender, nondistended, normoactive bowel sounds. No palpable organomegaly. MUSCULOSKELETAL: Deferred to orthopedic surgery EXTREMITIES: No cyanosis, clubbing, or pedal edema. NEUROLOGICAL: Gross neurological examination did not reveal any focal deficits. SKIN: No rashes. Results CBC & Chem 7: 05/22/19 14:00 05/22/19 14:00 Labs: Abnormal Lab Results - Last 24 Hours (Table) 05/22/19 05/22/19 05/22/19 Range/Units 14: 14:00 14:20 RBC 3.14 L (3.80-5.40) m/uL Hgb 11.0 L (11.4-16.0) gm/dL Hct 33.7 L (34.0-46.0) % MCV 107.1 H (80.0-100.0) fL Neutrophils # 8.4 H (1.3-7.7) k/uL Sodium 135 L (137-145) mmol/L Chloride 97 L (98-107) mmol/L Carbon Dioxide 34 H (22-30) mmol/L BUN 19 H (7-17) mg/dL AST 49 H (14-36) U/L Total Protein 5.4 L (6.3-8.2) g/dL Albumin 2.9 L (3.5-5.0) g/dL Urine Appearance Cloudy H (Clear) Ur Leukocyte Esterase Large H (Negative) Urine WBC 161 H (0-5) /hpf Urine WBC Clumps Occasional H (None) /hpf Urine Bacteria Many H (None) /hpf Urine Mucus Rare H (None) /hpf Thrombosis Risk Factor Assmnt - Choose All That Apply Each Factor Represents 1 point: Abnormal pulmonary function (COPD), History of prior major surgery (<1month), Obesity (BMI >25) Each Risk Factor Represents 3 Points: Age 75 years or older Other congenital or acquired thrombophilia - If yes, enter type in comment: No Each Risk Factor Represents 5 Points: Hip, pelvis, or leg fracture (< 1 month) Thrombosis Risk Factor Assessment Total Risk Factor Score: 11 Thrombosis Risk Factor Assessment Level: High Risk Assessment and Plan Plan: -Pelvic fracture fracture of the pubic ramus: Physical therapy and occupational therapy evaluation Toradol for pain orthopedic surgery evaluated the patient. Placement to subacute rehabilitation. -Mechanical fall -Atrial fibrillation presently rate controlled, patient will be started on the metoprolol. Patient is not on antiplatelet coagulation probably because of his age and fall risk. This dictation will be left to PCP or wire communications engineer. 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 -Asymptomatic bacteriuria will not require any antibiotics patient doesn't have any evidence of urinary tract infection clinically at this time. -DVT prophylaxis with subcutaneous heparin and GI prophylaxis with Pepcid
[2019-05-23] MEDS: GABAPENTIN 300 MG CAP PO SCH (22:25)
[2019-05-23] MEDS: FAMOTIDINE 20 MG TAB PO SCH (22:26)
[2019-05-23] MEDS: HEPARIN SODIUM,PORCINE 5,000 UNIT/ML 1 ML VIAL SQ SCH (22:26)
[2019-05-24] MEDS: KETOROLAC 30 MG/ML 1 ML VIAL IVP PRN (05:32)
[2019-05-24] MEDS: LEVOTHYROXINE 50 MCG TAB PO SCH (07:16)
[2019-05-24] MEDS: IPRATROPIUM-ALBUTEROL 3 ML NEB INHALATION SCH ×4 (07:39→19:59)
[2019-05-24] MEDS: FUROSEMIDE 20 MG TAB PO SCH (08:27)
[2019-05-24] MEDS: PRAVASTATIN SODIUM 20 MG TAB PO SCH (08:27)
[2019-05-24] MEDS: METOPROLOL TARTRATE 12.5 MG TAB PO SCH ×2 (08:27→20:25)
[2019-05-24] MEDS: GABAPENTIN 100 MG CAP PO SCH (08:27)
[2019-05-24] MEDS: LOSARTAN 25 MG TAB PO SCH (08:29)
[2019-05-24] MEDS: ISOSORBIDE MONONITRATE ER 30 MG TAB.ER.24H PO SCH (08:29)
[2019-05-24] MEDS: HEPARIN SODIUM,PORCINE 5,000 UNIT/ML 1 ML VIAL SQ SCH ×2 (08:30→20:25)
[2019-05-24] MEDS: DRONABINOL 2.5 MG CAP PO SCH ×2 (08:30→17:22)
[2019-05-24] MEDS: ASPIRIN 81 MG PO SCH (08:30)
[2019-05-24] MEDS: FAMOTIDINE 20 MG TAB PO SCH ×2 (08:30→20:25)
--- NOTE | 2019-05-24 09:08 | P.PN ---
Subjective Progress Note Date: 05/24/19 Principal diagnosis: Left inferior pubic rami fracture The patient is an 89-year-old female who we have been following for a left inferior pubic rami fracture. The patient appears comfortable in bed this morning. She denies pain at this time. We are awaiting PT and OT evaluations for possible rehab placement. She states her head and neck pain has improved. No new complaints today. Objective - Vital Signs Vital signs: Vital Signs Temp 97.8 F 05/24/19 07:15 Pulse 75 05/24/19 07:50 Resp 18 05/24/19 07:15 BP 134/89 05/24/19 07:15 Pulse Ox 99 05/24/19 07:15 Intake & Output 05/23/19 05/24/19 05/24/19 18:59 06:59 18:59 Intake Total 460 1280 Output Total 500 Balance -40 1280 Intake: Intake, IV Titration 1280 Amount Sodium Chloride 0.9% 1, 1280 000 ml @ 80 mls/hr IV . [id number] [facility] Rx#:[id number] Oral 460 Output: Urine 500 Other: Voiding Method Indwelling Catheter Indwelling Catheter - Exam The patient is alert and oriented 1. Exam of the bilateral lower extremities reveal no pain upon range of motion or obvious deformities. No pain on external and internal rotation of hips bilaterally. Moderate pain to lateral compression of the pelvis. No pain upon AP compression of the pelvis. No SI joint pain bilaterally. Bilateral calves are soft and nontender. Patient has good foot and ankle motion bilaterally. Neurological and circulatory status is intact. - Labs CBC & Chem 7: 05/22/19 14:00 05/22/19 14:00 Assessment and Plan (1) Fracture of left inferior pubic ramus Current Visit: Yes Status: Acute Code(s): S32.592A - OTH FRACTURE OF LEFT PUBIS, INIT ENCNTR FOR CLOSED FRACTURE SNOMED Code(s): 320755245 (2) Fall Current Visit: Yes Status: Acute Code(s): W19.XXXA - UNSPECIFIED FALL, INITIAL ENCOUNTER SNOMED Code(s): 8350810 Plan: The clinical and x-ray findings were discussed with the patient. The case was discussed with Dr. Marley. Await PT and OT evaluations. She may weight-bear as tolerated with a walker and assistance only. Continue pain control. The patient may need subacute rehab upon discharge. We will continue to follow patient closely and make further recommendations as needed.
[2019-05-24 12:03] VITALS: BMI 25.4
--- NOTE | 2019-05-24 13:14 | P.PN ---
Subjective Patient was admitted for inferior pubic rami fracture. Patient is clinically doing well and can use to have Ellis catheter and orthopedic surgery went into acute the Ellis catheter in on the left patient is more mobile PT and OT is evaluating the patient. No overnight events. Patient pain is well controlled. Constitutional: Denied any fatigue denied any fever. Cardio vascular: denied any chest pain, palpitations Gastrointestinal denied any nausea vomiting Pulmonary: Denied any shortness of breath cough Neurologic denied any new focal deficits All inpatient medications were reviewed and appropriate changes in these medications as dictated in the interval history and assessment and plan. Objective - Vital Signs Vital signs: Vital Signs Temp 97.8 F 05/24/19 07:15 Pulse 73 05/24/19 11:08 Resp 18 05/24/19 07:15 BP 134/89 05/24/19 07:15 Pulse Ox 99 05/24/19 07:15 Intake & Output 05/23/19 05/24/19 05/24/19 18:59 06:59 18:59 Intake Total 460 1280 Output Total 500 Balance -40 1280 Weight 58.967 kg Intake: Intake, IV Titration 1280 Amount Sodium Chloride 0.9% 1, 1280 000 ml @ 80 mls/hr IV . [id number] [facility] Rx#:[id number] Oral 460 Output: Urine 500 Other: Voiding Method Indwelling Catheter Indwelling Catheter Indwelling Catheter - Exam PHYSICAL EXAMINATION: GENERAL: The patient is alert and oriented x3, not in any acute distress. Well developed, well nourished. HEENT: Pupils are round and equally reacting to light. EOMI. No scleral icterus. No conjunctival pallor. Normocephalic, atraumatic. No pharyngeal erythema. No thyromegaly. CARDIOVASCULAR: S1 and S2 present. No murmurs, rubs, or gallops. PULMONARY: Significantly diminished air entry into bilateral lung dykes no wheezing or crackles were appreciated ABDOMEN: Soft, nontender, nondistended, normoactive bowel sounds. No palpable organomegaly. MUSCULOSKELETAL: Deferred to orthopedic surgery EXTREMITIES: No cyanosis, clubbing, or pedal edema. NEUROLOGICAL: Gross neurological examination did not reveal any focal deficits. SKIN: No rashes. - Labs CBC & Chem 7: 05/22/19 14:00 05/22/19 14:00 Assessment and Plan Plan: -Pelvic fracture fracture of the pubic ramus: Physical therapy and occupational therapy evaluation Torshon for pain orthopedic surgery evaluated the patient. Placement to subacute rehabilitation. -Mechanical fall -Atrial fibrillation presently rate controlled, patient will be started on the metoprolol. Patient is not on antiplatelet coagulation probably because of his age and fall risk. This dictation will be left to PCP or inventory accountant. -Peripheral neuropathy from severe degenerative disc disease -Cervical degenerative disc disease -Hypothyroidism Hyperlipidemia patient was resumed on her home dose of statin. -Asymptomatic bacteriuria will not require any antibiotics patient doesn't have any evidence of urinary tract infection clinically at this time. -DVT prophylaxis with subcutaneous heparin and GI prophylaxis with Pepcid
[2019-05-24] MEDS: GABAPENTIN 300 MG CAP PO SCH (20:25)
[2019-05-25 01:34] VITALS: TEMP 98.5
[2019-05-25] MEDS: LEVOTHYROXINE 50 MCG TAB PO SCH (05:13)
[2019-05-25] MEDS: KETOROLAC 30 MG/ML 1 ML VIAL IVP PRN ×2 (05:17→16:02)
[2019-05-25 06:50] LABS: HGB 10.1 gm/dL (11.4-16.0); MCH 35.3 pg (25.0-35.0); MCHC 32.7 g/dL (31.0-37.0); Macrocytosis Moderate; Mean Platelet Volume 6.9; Platelet Count 263 k/uL (150-450); RBC 2.87 m/uL (3.80-5.40); RDW 13.5 % (11.5-15.5); WBC 8.4 k/uL (3.8-10.6)
[2019-05-25 06:59] LABS: African American GFR (CKD) >90 (>60 ml/min/1.73 sqM); Anion Gap 2 mmol/L; Blood Urea Nitrogen 27 mg/dL (7-17); Calcium 8.1 mg/dL (8.4-10.2); Carbon Dioxide 34 mmol/L (22-30); Chloride 99 mmol/L (98-107); Glucose 90 mg/dL (74-99); Potassium 4.2 mmol/L (3.5-5.1); Sodium 135 mmol/L (137-145)
[2019-05-25] MEDS: IPRATROPIUM-ALBUTEROL 3 ML NEB INHALATION SCH ×3 (07:24→15:32)
[2019-05-25 08:00] VITALS: BP 130/70; RESP 15
--- NOTE | 2019-05-25 08:18 | P.PN ---
Subjective Progress Note Date: 05/25/19 Principal diagnosis: Left inferior pubic rami fracture The patient is an 89-year-old female who we have been following for a left inferior pubic rami fracture. The patient appears comfortable in bed this morning. She denies pain at this time. We are awaiting PT and OT evaluations for possible rehab placement. She states her head and neck pain has improved. No new complaints today. Objective - Vital Signs Vital signs: Vital Signs Temp 98.5 F 05/25/19 07:36 Pulse 70 05/25/19 07:36 Resp 15 05/25/19 07:36 BP 130/70 05/25/19 07:36 Pulse Ox 97 05/25/19 07:36 Intake & Output 05/24/19 05/25/19 05/25/19 18:59 06:59 18:59 Intake Total 650 Output Total 600 700 Balance 50 -700 Weight 58.967 kg Intake: Tube Feeding 650 Output: Urine 600 700 Other: Voiding Method Indwelling Catheter Indwelling Catheter # Bowel Movements 1 - Exam The patient is alert and oriented 2. Exam of the bilateral lower extremities reveal no pain upon range of motion or obvious deformities. No pain on external and internal rotation of hips bilaterally. Moderate pain to lateral compression of the pelvis. No pain upon AP compression of the pelvis. No SI joint pain bilaterally. Bilateral calves are soft and nontender. Patient has good foot and ankle motion bilaterally. Neurological and circulatory status is intact. - Labs CBC & Chem 7: 05/25/19 06:12 05/25/19 06:12 Labs: Abnormal Lab Results - Last 24 Hours (Table) 05/25/19 05/25/19 Range/Units 06:12 06:12 RBC 2.87 L (3.80-5.40) m/uL Hgb 10.1 L (11.4-16.0) gm/dL Hct 31.0 L (34.0-46.0) % MCV 108.0 H (80.0-100.0) fL MCH 35.3 H (25.0-35.0) pg Sodium 135 L (137-145) mmol/L Carbon Dioxide 34 H (22-30) mmol/L BUN 27 H (7-17) mg/dL Calcium 8.1 L (8.4-10.2) mg/dL Assessment and Plan (1) Fracture of left inferior pubic ramus Current Visit: Yes Status: Acute Code(s): S32.592A - OTH FRACTURE OF LEFT PUBIS, INIT ENCNTR FOR CLOSED FRACTURE SNOMED Code(s): 974311408 (2) Fall Current Visit: Yes Status: Acute Code(s): W19.XXXA - UNSPECIFIED FALL, INITIAL ENCOUNTER SNOMED Code(s): 9336069 Plan: The clinical and x-ray findings were discussed with the patient. The case was discussed with Dr. Marley. Await PT and OT evaluations. She may weight-bear as tolerated with a walker and assistance only. Continue pain control. The p atient will need subacute rehab upon discharge. She is orthopedically stable for discharge when cleared by internal medicine.
[2019-05-25] MEDS: METOPROLOL TARTRATE 12.5 MG TAB PO SCH (08:57)
[2019-05-25] MEDS: LOSARTAN 25 MG TAB PO SCH (08:58)
[2019-05-25] MEDS: PRAVASTATIN SODIUM 20 MG TAB PO SCH (08:58)
[2019-05-25] MEDS: FAMOTIDINE 20 MG TAB PO SCH (08:58)
[2019-05-25] MEDS: ISOSORBIDE MONONITRATE ER 30 MG TAB.ER.24H PO SCH (08:58)
[2019-05-25] MEDS: ASPIRIN 81 MG PO SCH (08:58)
[2019-05-25] MEDS: FUROSEMIDE 20 MG TAB PO SCH (08:58)
[2019-05-25] MEDS: GABAPENTIN 100 MG CAP PO SCH (08:59)
[2019-05-25] MEDS: HEPARIN SODIUM,PORCINE 5,000 UNIT/ML 1 ML VIAL SQ SCH (08:59)
[2019-05-25] MEDS: DRONABINOL 2.5 MG CAP PO SCH (08:59)
--- NOTE | 2019-05-25 10:20 | P.DS ---
Providers Date of admission: 05/22/19 13:49 Expected date of discharge: 05/25/19 Attending physician: Efrain Walden Consults: 05/22/19 13:50 Consult Physician Routine Consulting Provider: Hugo De La Cruz Consult Reason/Comments: Left pubic ramus fracture Do you want consulting provider notified?: Yes Primary care physician: Efrain Walden [facility] Course: Final Diagnoses: -Left Inferior pubic rami fracture, status post fall. Conservative management -Urinary retention, acute on chronic -Atrial fibrillation, not on anticoagulation secondary to age and fall risk -Peripheral neuropathy secondary to severe degenerative disc disease, uses walker at home -Cervical degenerative disc disease -Hypothyroidism -Hyperlipidemia -Asymptomatic bacteriuria without clinical evidence of UTI, no antibiotics required at this time -Thoracic aortic aneurysm 3.6 cm, further outpatient monitoring recommended -Dementia, possibly Alzheimer's -Depression, otherwise specified -Chronic hypoxic respiratory failure, wears 2 L nasal cannula O2 at home Hospital course: This 89-year-old female with dementia admitted with left inferior pubic rami fracture, status post fall and multiple other medical issues. Evaluated by orthopedics. Conservative management recommended. Denies pain. Ellis catheter being removed for trial void. No anticoagulation secondary to fall risk, age. Patient has been cleared for discharge by orthopedic surgery. Patient being discharged to subacute rehab pending PT/OT evaluation, in a stable condition with guarded prognosis. EXAM: GENERAL: The patient is alert and oriented x3, no acute distress. CARDIOVASCULAR: S1 and S2 present. No murmurs, rubs, or gallops. PULMONARY: Significantly diminished air entry into bilateral lung dykes no wheezing or crackles were appreciated ABDOMEN: Soft, nontender, nondistended, normoactive bowel sounds. No palpable organomegaly. NEUROLOGICAL: Gross neurological examination did not reveal any focal deficits. The impression and plan of care has been dictated as directed. : I performed a history and examination of this patient, discussed the same with the dictator. I agree with the dictator's note ,documented as a scribe. Any additional findings or plans will be noted. Patient Condition at Discharge: Stable Plan - Discharge Summary Discharge Rx Participant: No New Discharge Prescriptions: New Acetaminophen Tab [Tylenol Tab] 650 mg PO Q6H PRN #1 tablet PRN Reason: Pain Continue Albuterol Sulfate [Proair Hfa] 1 - 2 puff INHALATION RT-Q6H PRN PRN Reason: sob Budesonide/Formoterol Fumarate [Symbicort 160-4.5 Mcg Inhaler] 2 puff INHALATION RT-BID PRN PRN Reason: Cough Isosorbide Mononitrate ER [Imdur] 30 mg PO DAILY #30 tab.er.24h Losartan [Cozaar] 25 mg PO DAILY Ipratropium-Albuterol Nebulize [Duoneb 0.5 mg-3 mg/3 ml Soln] 3 ml INHALATION RT-QID #120 ampul.neb Pravastatin Sodium [Pravachol] 10 mg PO DAILY Aspirin 81 mg PO DAILY #30 chew Furosemide [Lasix] 20 mg PO DAILY #30 tab Famotidine [Pepcid] 20 mg PO DAILY #30 tab Levothyroxine Sodium [Synthroid] 50 mcg PO DAILY Metoprolol Tartrate [Lopressor] 12.5 mg PO BID Dronabinol [Marinol] 2.5 mg PO AC-BID #6 cap Gabapentin [Neurontin] 300 mg PO HS #3 cap Gabapentin [Neurontin] 100 mg PO DAILY #3 cap Discontinued Clopidogrel [Plavix] 75 mg PO DAILY #30 tab Discharge Medication List Albuterol Sulfate [Proair Hfa] 1 - 2 puff INHALATION RT-Q6H PRN 10/12/17 [History] Budesonide/Formoterol Fumarate [Symbicort 160-4.5 Mcg Inhaler] 2 puff INHALATION RT-BID PRN 10/12/17 [History] Isosorbide Mononitrate ER [Imdur] 30 mg PO DAILY #30 tab.er.24h 10/16/17 [Rx] Losartan [Cozaar] 25 mg PO DAILY 02/05/19 [History] Ipratropium-Albuterol Nebulize [Duoneb 0.5 mg-3 mg/3 ml Soln] 3 ml INHALATION RT-QID #120 ampul.neb 02/09/19 [Rx] Pravastatin Sodium [Pravachol] 10 mg PO DAILY 04/14/19 [History] Aspirin 81 mg PO DAILY #30 chew 04/22/19 [Rx] Famotidine [Pepcid] 20 mg PO DAILY #30 tab 04/22/19 [Rx] Furosemide [Lasix] 20 mg PO DAILY #30 tab 04/22/19 [Rx] Levothyroxine Sodium [Synthroid] 50 mcg PO DAILY 05/22/19 [History] Metoprolol Tartrate [Lopressor] 12.5 mg PO BID 05/22/19 [History] Acetaminophen Tab [Tylenol Tab] 650 mg PO Q6H PRN #1 tablet 05/25/19 [Rx] Dronabinol [Marinol] 2.5 mg PO AC-BID #6 cap 05/25/19 [Rx] Gabapentin [Neurontin] 100 mg PO DAILY #3 cap 05/25/19 [Rx] Gabapentin [Neurontin] 300 mg PO HS #3 cap 05/25/19 [Rx] Follow up Appointment(s)/Referral(s): Efrain Walden DO [Primary Care Provider] - 1 Week (After discharge from subacute rehab) Gigi Marley DO [Medical Doctor] - 2 Weeks Activity/Diet/Wound Care/Special Instructions: Phil SMITH No anticoagulation related to high-risk, history of falls Weightbearing as tolerated with walker and assistance Diet: Consistent carb CBC, BMP in 3 days 2 L nasal cannula O2 Discharge Disposition: TRANSFER TO SNF/ECF
[2019-05-25 15:43] VITALS: PULSE 68
== END 2019-05-25 16:25 | DRG 536 ==
LOC: EC 10:57 → 4MS4W 13:49 → 4SSUR 14:48
PROVIDERS: ADMIT Family Medicine; ATTEND Family Medicine
DX: S32.592A Other specified fracture of left pubis, initial encounter for closed fracture (principal); I50.22 Chronic systolic (congestive) heart failure; J96.11 Chronic respiratory failure with hypoxia; E03.9 Hypothyroidism, unspecified; E78.5 Hyperlipidemia, unspecified; I25.5 Ischemic cardiomyopathy; F03.90 Unspecified dementia, unspecified severity, without behavioral disturbance, psychotic disturbance, mood disturbance, and anxiety; F32.9 Major depressive disorder, single episode, unspecified; G62.9 Polyneuropathy, unspecified; I11.0 Hypertensive heart disease with heart failure; M19.90 Unspecified osteoarthritis, unspecified site; M50.30 Other cervical disc degeneration, unspecified cervical region; M51.34 Other intervertebral disc degeneration, thoracic region; G30.9 Alzheimer's disease, unspecified; F02.80 Dementia in other diseases classified elsewhere, unspecified severity, without behavioral disturbance, psychotic disturbance, mood disturbance, and anxiety; I71.2 Thoracic aortic aneurysm, without rupture; W18.30XA Fall on same level, unspecified, initial encounter; I48.91 Unspecified atrial fibrillation; J44.9 Chronic obstructive pulmonary disease, unspecified; I25.2 Old myocardial infarction; Z79.02 Long term (current) use of antithrombotics/antiplatelets; Z79.51 Long term (current) use of inhaled steroids; Z79.82 Long term (current) use of aspirin; Z79.890 Hormone replacement therapy; Z79.899 Other long term (current) drug therapy; Z80.0 Family history of malignant neoplasm of digestive organs; Z80.2 Family history of malignant neoplasm of other respiratory and intrathoracic organs; Z90.710 Acquired absence of both cervix and uterus; Z91.81 History of falling; Z99.81 Dependence on supplemental oxygen; Z86.19 Personal history of other infectious and parasitic diseases; Z88.8 Allergy status to other drugs, medicaments and biological substances; Z90.89 Acquired absence of other organs; Z90.49 Acquired absence of other specified parts of digestive tract; Z80.1 Family history of malignant neoplasm of trachea, bronchus and lung; Z98.890 Other specified postprocedural states
CPT/HCPCS: 36415; 70450; 71045; 72125; 73502; 80048; 80053; 81001; 83735; 85025; 85027; 93005; 94640; 96374; 99285

== ENCOUNTER 2019-05-27 23:09 | Inpatient (IN) | payer MEDICARE ==
[2019-05-27] MEDS ORDERED: SODIUM CHLORIDE 0.9% 1,000 ML IV STA (23:17)
[2019-05-27] MEDS ORDERED: SODIUM CHLORIDE 0.9% 500 ML 500 ML IV STA (23:17)
--- NOTE | 2019-05-27 23:20 | ED ---
Altered Mental Status HPI - General Stated Complaint: altered mental status Time Seen by Provider: 05/27/19 23:16 Source: patient, EMS, RN notes reviewed, old records reviewed Mode of arrival: EMS - History of Present Illness Initial Comments: This 89-year-old female with a similar admission for a fall a left pubic ramus fracture history of COPD among other medical problems who presents tonight with report of altered mental status which started earlier today. She has been lethargic no loss of consciousness no definite focal weakness. Fevers chills nausea vomiting sweats or other symptoms no new falls reported she did complain of a left-sided headache upon arrival. MD Complaint: altered mental status, decreased responsiveness - Related Data Home Medications Medication Instructions Recorded Confirmed Albuterol Sulfate [Proair Hfa] 1 - 2 puff INHALATION RT-Q6H PRN 10/12/17 05/22/19 Budesonide/Formoterol Fumarate 2 puff INHALATION RT-BID PRN 10/12/17 05/22/19 [Symbicort 160-4.5 Mcg Inhaler] Losartan [Cozaar] 25 mg PO DAILY 02/05/19 05/22/19 Pravastatin Sodium [Pravachol] 10 mg PO DAILY 04/14/19 05/22/19 Levothyroxine Sodium [Synthroid] 50 mcg PO DAILY 05/22/19 05/22/19 Metoprolol Tartrate [Lopressor] 12.5 mg PO BID 05/22/19 05/22/19 Previous Rx's Medication Instructions Recorded Isosorbide Mononitrate ER [Imdur] 30 mg PO DAILY #30 tab.er.24h 10/16/17 Ipratropium-Albuterol Nebulize 3 ml INHALATION RT-QID #120 02/09/19 [Duoneb 0.5 mg-3 mg/3 ml Soln] ampul.neb Aspirin 81 mg PO DAILY #30 chew 04/22/19 Famotidine [Pepcid] 20 mg PO DAILY #30 tab 04/22/19 Furosemide [Lasix] 20 mg PO DAILY #30 tab 04/22/19 Acetaminophen Tab [Tylenol Tab] 650 mg PO Q6H PRN #1 tablet 05/25/19 Dronabinol [Marinol] 2.5 mg PO AC-BID #6 cap 05/25/19 Gabapentin [Neurontin] 100 mg PO DAILY #3 cap 05/25/19 Gabapentin [Neurontin] 300 mg PO HS #3 cap 05/25/19 Allergies Allergy/AdvReac Type Severity Reaction Status Date / Time alendronate sodium Allergy Unknown Verified 05/22/19 11:42 [From Fosamax] raloxifene [From Evista] Allergy Unknown Verified 05/22/19 11:42 simvastatin [From Zocor] Allergy Unknown Verified 05/22/19 11:42 Review of Systems ROS Statement: Those systems with pertinent positive or pertinent negative responses have been documented in the HPI. ROS Other: All systems not noted in ROS Statement are negative. Past Medical History Past Medical History: Atrial Fibrillation, Asthma, Heart Failure, COPD, Dementia, Eye Disorder, Hypertension, Myocardial Infarction (VT), Osteoarthritis (OA), Respiratory Disorder Additional Past Medical History / Comment(s): Aortic aneurysm, nonischemic cardiomyopathy, acute systolic heart failure, home oxygen at 2L.[place] ATC, rheumatic fever as a child, chronic back pain, macular degeneration L eye, hiatal hernia, diverticular disease, benign colon polyps. Last Myocardial Infarction Date:: 10/12/17 History of Any Multi-Drug Resistant Organisms: None Reported Past Surgical History: Appendectomy, Bladder Surgery, Cholecystectomy, Heart Catheterization, Hysterectomy Additional Past Surgical History / Comment(s): EGDs, colonoscopies/benign po lyps, bladder suspension. Past Anesthesia/Blood Transfusion Reactions: No Reported Reaction Past Psychological History: No Psychological Hx Reported Additional Psychological History / Comment(s): Pt resides with her spouse and their adult son, Hernando. Hernando is very helpful with parents care. Pt has home oxygen at 2L/[place] ATC. She has a nebulizer. Pt no longer drives, her spouse drives. Smoking Status: Never smoker Past Alcohol Use History: None Reported Additional Past Alcohol Use History / Comment(s): Patient is a lifelong nonsmoker. She denies any illicit drug use, alcohol use. She lives at home with her . She ambulates with out office support assistant device. She denies any oxygen or nebulizer at home. Past Drug Use History: None Reported - Past Family History Father Family Medical History: Cancer Additional Family Medical History / Comment(s): Father had pleural cancer Mother Family Medical History: Cancer Additional Family Medical History / Comment(s): Mother had liver cancer and from but was 102yo. General Exam - General Exam Comments Initial Comments: Is a well-developed lethargic female who is awake alert oriented 3 General appearance: alert, in no apparent distress, lethargic Head exam: Present: atraumatic, normocephalic, normal inspection Eye exam: Present: normal appearance, PERRL, EOMI. Absent: scleral icterus, conjunctival injection, periorbital swelling ENT exam: Present: mucous membranes dry Neck exam: Present: normal inspection. Absent: tenderness, meningismus, lymphadenopathy Respiratory exam: Present: normal lung sounds bilaterally. Absent: respiratory distress, wheezes, rales, rhonchi, stridor Cardiovascular Exam: Present: regular rate, normal rhythm, normal heart sounds. Absent: systolic murmur, diastolic murmur, rubs, gallop, clicks GI/Abdominal exam: Present: soft, normal bowel sounds. Absent: distended, tenderness, guarding, rebound, rigid Extremities exam: Present: normal inspection, tenderness (Tenderness), normal capillary refill. Absent: full ROM, pedal edema, joint swelling, calf tenderness Back exam: Present: normal inspection Neurological exam: Present: alert, oriented X3, CN II-XII intact Psychiatric exam: Present: normal affect, normal mood Skin exam: Present: warm, dry, intact, normal color. Absent: rash Course Vital Signs 05/27/19 05/28/19 23:12 00:59 Temperature 97.8 F 98.6 F Pulse Rate 70 72 Respiratory 16 18 Rate Blood Pressure 108/57 101/56 O2 Sat by Pulse 95 Oximetry - Reevaluation(s) Reevaluation #1: 05/28/19 01:10 The patient was more responsive after IV fluids. Medical Decision Making - Medical Decision Making I did discuss findings with patient family members as well as DrDottie [email or web address] facial be admitted for evaluation inpatient as well as IV fluids. - Lab Data Result diagrams: 05/27/19 23:20 05/27/19 23:20 Lab Results 05/27/19 05/27/19 05/27/19 Range/Units 23:20 23:20 23:20 WBC 8.5 (3.8-10.6) k/uL RBC 2.93 L (3.80-5.40) m/uL Hgb 10.6 L (11.4-16.0) gm/dL Hct 31.6 L (34.0-46.0) % MCV 108.1 H (80.0-100.0) fL MCH 36.3 H (25.0-35.0) pg MCHC 33.6 (31.0-37.0) g/dL RDW 14.8 (11.5-15.5) % Plt Count 273 (150-450) k/uL Neutrophils % 73 % Lymphocytes % 18 % Monocytes % 5 % Eosinophils % 2 % Basophils % 1 % Neutrophils # 6.2 (1.3-7.7) k/uL Lymphocytes # 1.5 (1.0-4.8) k/uL Monocytes # 0.4 (0-1.0) k/uL Eosinophils # 0.1 (0-0.7) k/uL Basophils # 0.1 (0-0.2) k/uL Macrocytosis Moderate Sodium 133 L (137-145) mmol/L Potassium 4.1 (3.5-5.1) mmol/L Chloride 95 L (98-107) mmol/L Carbon Dioxide 33 H (22-30) mmol/L Anion Gap 5 mmol/L BUN 25 H (7-17) mg/dL Creatinine 0.77 (0.52-1.04) mg/dL Est GFR (CKD-EPI)AfAm 80 (>60 ml/min/1.73 sqM) Est GFR (CKD-EPI)NonAf 70 (>60 ml/min/1.73 sqM) Glucose 139 H (74-99) mg/dL Calcium 8.5 (8.4-10.2) mg/dL Magnesium 2.2 (1.6-2.3) mg/dL Total Bilirubin 0.4 (0.2-1.3) mg/dL AST 51 H (14-36) U/L ALT 41 (9-52) U/L Alkaline Phosphatase 101 (38-126) U/L Creatine Kinase 24 L (30-135) U/L Troponin I <0.012 (0.000-0.034) ng/mL Total Protein 5.1 L (6.3-8.2) g/dL Albumin 2.6 L (3.5-5.0) g/dL Lipase 209 (23-300) U/L TSH 2.730 (0.465-4.680) mIU/L Urine Color Urine Appearance (Clear) Urine pH (5.0-8.0) Ur Specific [place] (1.001-1.035) Urine Protein (Negative) Urine Glucose (UA) (Negative) Urine Ketones (Negative) Urine Blood (Negative) Urine Nitrite (Negative) Urine Bilirubin (Negative) Urine Urobilinogen (<2.0) mg/dL Ur Leukocyte Esterase (Negative) Urine RBC (0-5) /hpf Urine WBC Clumps (None) /hpf Ur Squamous Epith Cells (0-4) /hpf Urine Bacteria (None) /hpf Hyaline Casts (0-2) /lpf Urine Mucus (None) /hpf 05/28/19 Range/Units 00:27 WBC (3.8-10.6) k/uL RBC (3.80-5.40) m/uL Hgb (11.4-16.0) gm/dL Hct (34.0-46.0) % MCV (80.0-100.0) fL MCH (25.0-35.0) pg MCHC (31.0-37.0) g/dL RDW (11.5-15.5) % Plt Count (150-450) k/uL Neutrophils % % Lymphocytes % % Monocytes % % Eosinophils % % Basophils % % Neutrophils # (1.3-7.7) k/uL Lymphocytes # (1.0-4.8) k/uL Monocytes # (0-1.0) k/uL Eosinophils # (0-0.7) k/uL Basophils # (0-0.2) k/uL Macrocytosis Sodium (137-145) mmol/L Potassium (3.5-5.1) mmol/L Chloride (98-107) mmol/L Carbon Dioxide (22-30) mmol/L Anion Gap mmol/L BUN (7-17) mg/dL Creatinine (0.52-1.04) mg/dL Est GFR (CKD-EPI)AfAm (>60 ml/min/1.73 sqM) Est GFR (CKD-EPI)NonAf (>60 ml/min/1.73 sqM) Glucose (74-99) mg/dL Calcium (8.4-10.2) mg/dL Magnesium (1.6-2.3) mg/dL Total Bilirubin (0.2-1.3) mg/dL AST (14-36) U/L ALT (9-52) U/L Alkaline Phosphatase (38-126) U/L Creatine Kinase (30-135) U/L Troponin I (0.000-0.034) ng/mL Total Protein (6.3-8.2) g/dL Albumin (3.5-5.0) g/dL Lipase (23-300) U/L TSH (0.465-4.680) mIU/L Urine Color Yellow Urine Appearance Cloudy H (Clear) Urine pH 5.5 (5.0-8.0) Ur Specific [place] 1.011 (1.001-1.035) Urine Protein Trace H (Negative) Urine Glucose (UA) Negative (Negative) Urine Ketones Negative (Negative) Urine Blood Trace H (Negative) Urine Nitrite Negative (Negative) Urine Bilirubin Negative (Negative) Urine Urobilinogen <2.0 (<2.0) mg/dL Ur Leukocyte Esterase Large H (Negative) Urine RBC 2 (0-5) /hpf Urine WBC Clumps Few H (None) /hpf Ur Squamous Epith Cells 6 H (0-4) /hpf Urine Bacteria Few H (None) /hpf Hyaline Casts 4 H (0-2) /lpf Urine Mucus Rare H (None) /hpf - EKG Data -: EKG Interpreted by Me EKG shows normal: sinus rhythm (Sinus rhythm rate of 80 QRS 72 QT since QTC 380/438 evidence second-degree heart block) - Radiology Data Radiology results: report reviewed (I did review the imaging and report no acute findings on CAT scan evidence of a small effusion on the X-ray), image reviewed Disposition Clinical Impression: Delirium due to general medical condition, Dehydration, Pelvic fracture Disposition: ADMITTED IP TO THIS [facility] Condition: Fair Referrals: Efrain Walden DO [Primary Care Provider] - 1-2 days
[2019-05-27 23:40] LABS: Basophils # (A) 0.1 k/uL (0-0.2); Basophils % (A) 1 %; Eosinophils # (A) 0.1 k/uL (0-0.7); Eosinophils % (A) 2 %; HCT 31.6 % (34.0-46.0); HGB 10.6 gm/dL (11.4-16.0); Lymphocytes # (A) 1.5 k/uL (1.0-4.8); Lymphocytes % (A) 18 %; MCH 36.3 pg (25.0-35.0); MCHC 33.6 g/dL (31.0-37.0); MCV 108.1 fL (80.0-100.0); Macrocytosis Moderate; Mean Platelet Volume 7.5; Monocytes # (A) 0.4 k/uL (0-1.0); Monocytes % (A) 5 %; Neutrophils # (A) 6.2 k/uL (1.3-7.7); Neutrophils % (A) 73 %; Platelet Count 273 k/uL (150-450); RBC 2.93 m/uL (3.80-5.40); RDW 14.8 % (11.5-15.5); WBC 8.5 k/uL (3.8-10.6)
[2019-05-27 23:50] LABS: Albumin 2.6 g/dL (3.5-5.0); Calcium 8.5 mg/dL (8.4-10.2); Magnesium 2.2 mg/dL (1.6-2.3); Potassium 4.1 mmol/L (3.5-5.1); Total Bilirubin 0.4 mg/dL (0.2-1.3); Total Protein 5.1 g/dL (6.3-8.2)
--- NOTE | 2019-05-27 23:57 | XR ---
EXAM: XR Chest, 2 Views CLINICAL HISTORY: ITS.REASON XR Reason: cough TECHNIQUE: Frontal and lateral views of the chest. COMPARISON: 05/22/2019 IMPRESSION: Unchanged heart size. Enlarged pulmonary arteries. Trace left pleural effusion. Possible mild vascular prominence/congestion.
--- NOTE | 2019-05-28 00:19 | CT ---
EXAM: CT Head Without Intravenous Contrast CLINICAL HISTORY: ITS.REASON CT Reason: Pain TECHNIQUE: Axial computed tomography images of the head/brain without intravenous contrast. CTDI is 49 mGy and DLP is 1115 mGy-cm. This CT exam was performed using one or more of the following dose reduction techniques: automated exposure control, adjustment of the mA and/or kV according to patient size, and/or use of iterative reconstruction technique. COMPARISON: 04/21/2019 CT head FINDINGS: Brain: No hemorrhage, large hypodensity, or mass effect. Chronic microvascular ischemic changes. Ventricles: No hydrocephalus. Age related cerebral volume loss. Bones/joints: Unremarkable. Soft tissues: Unremarkable. Sinuses: Unremarkable. Mastoid air cells: Clear. IMPRESSION: No acute hemorrhage, hydrocephalus, or mass effect.
[2019-05-28 00:46] LABS: Appearance,Urine Cloudy (Clear); Bacteria,Urine Few /hpf; Bilirubin,Urine Negative (Negative); Blood,Urine Trace (Negative); Color,Urine Yellow; Glucose,Urine (UA) Negative (Negative); Hyaline Casts,Urine 4 /lpf (0-2); Ketones,Urine Negative (Negative); Leukocyte Esterase,Urine Large (Negative); Mucus,Urine Rare /hpf; Nitrite,Urine Negative (Negative); PH, Urine 5.5 (5.0-8.0); Protein,Urine Trace (Negative); RBC,Urine 2 /hpf (0-5); Specific Gravity,Urine 1.011 (1.001-1.035); Squamous Epithelial Cell,Urine 6 /hpf (0-4); Urobilinogen,Urine <2.0 mg/dL (<2.0); WBC,Urine >182 /hpf (0-5)
[2019-05-28] MEDS ORDERED: NALOXONE 0.4 MG/ML 1 ML VIAL IV PRN (01:13)
[2019-05-28] MEDS ORDERED: ALBUTEROL NEBULIZED 2.5 MG/3 ML INHALATION PRN (02:00)
[2019-05-28] MEDS: LEVOTHYROXINE 50 MCG TAB PO SCH (05:13)
[2019-05-28] MEDS: IPRATROPIUM-ALBUTEROL 3 ML NEB INHALATION SCH ×4 (07:16→19:37)
[2019-05-28] MEDS: SYMBICORT 160-4.5 MCG INHALER INHALATION PRN ×2 (07:16→19:48)
[2019-05-28] MEDS: GABAPENTIN 100 MG CAP PO SCH (09:39)
[2019-05-28] MEDS: FAMOTIDINE 20 MG TAB PO SCH (09:39)
[2019-05-28] MEDS: METOPROLOL TARTRATE 12.5 MG TAB PO SCH ×2 (09:39→21:57)
[2019-05-28] MEDS: FUROSEMIDE 20 MG TAB PO SCH (09:39)
[2019-05-28] MEDS: ISOSORBIDE MONONITRATE ER 30 MG TAB.ER.24H PO SCH (09:40)
[2019-05-28] MEDS: ASPIRIN 81 MG PO SCH (09:40)
[2019-05-28] MEDS: DRONABINOL 2.5 MG CAP PO SCH ×2 (09:40→17:57)
[2019-05-28] MEDS: LOSARTAN 25 MG TAB PO SCH (09:40)
[2019-05-28] MEDS: PRAVASTATIN SODIUM 20 MG TAB PO SCH (09:40)
--- NOTE | 2019-05-28 18:36 | P.HPIM ---
History of Present Illness H&P Date: 05/28/19 This is a 89-year-old female recently admitted to subacute rehab status post fall, sustaining left inferior pubic ramus fracture with conservative management recommended, presented to the ER with change in mental status, lethargic, without syncope. On admission afebrile, WBC normal, sodium 133, carbon dioxide 33, BUN 25, creatinine 0.77, with UA reporting large leukocytes and elevated WBCs. Daughter reports patient's water intake was minimal at the ECF. Chest x- ray negative nonacute, small effusion. Brain CT reporting no acute hemorrhage, hydrocephalus or mass effect .EKG reporting sinus tachycardia with second degree AV block Mobitz 1.troponin negative. VSS. Denies chest pain, palpitations or increased shortness of breath. Received IV fluid hydration with significant improvement in responsiveness. Rocephin initiated. Urine culture ordered. Review of Systems ROS Statement: Those systems with pertinent positive or pertinent negative responses have been documented in the HPI. ROS Other: All systems not noted in ROS Statement are negative. Past Medical History Past Medical History: Atrial Fibrillation, Asthma, Heart Failure, COPD, Dementia, Eye Disorder, Hypertension, Myocardial Infarction (DE), Osteoarthritis (OA), Respiratory Disorder Additional Past Medical History / Comment(s): Aortic aneurysm, nonischemic cardiomyopathy, acute systolic heart failure, home oxygen at 2L.[place] ATC, rheumatic fever as a child, chronic back pain, macular degeneration L eye, hiatal hernia, diverticular disease, benign colon polyps. Last Myocardial Infarction Date:: 10/12/17 History of Any Multi-Drug Resistant Organisms: None Reported Past Surgical History: Appendectomy, Bladder Surgery, Cholecystectomy, Heart Catheterization, Hysterectomy Additional Past Surgical History / Comment(s): EGDs, colonoscopies/benign polyps, bladder suspension. Past Anesthesia/Blood Transfusion Reactions: No Reported Reaction Past Psychological History: No Psychological Hx Reported Additional Psychological History / Comment(s): Pt resides with her spouse and their adult son, Hernando. Hernando is very helpful with parents care. Pt has home oxygen at 2L/[place] ATC. She has a nebulizer. Pt no longer drives, her spouse drives. Smoking Status: Never smoker Past Alcohol Use History: None Reported Additional Past Alcohol Use History / Comment(s): Patient is a lifelong nonsmoker. She denies any illicit drug use, alcohol use. She lives at home with her . She ambulates with out equal opportunity assistant device. She denies any oxy gen or nebulizer at home. Past Drug Use History: None Reported - Past Family History Father Family Medical History: Cancer Additional Family Medical History / Comment(s): Father had pleural cancer Mother Family Medical History: Cancer Additional Family Medical History / Comment(s): Mother had liver cancer and from but was 102yo. Medications and Allergies Home Medications Medication Instructions Recorded Confirmed Type Albuterol Sulfate [Proair Hfa] 1 - 2 puff INHALATION RT-Q6H PRN 10/12/17 05/28/19 History Budesonide/Formoterol Fumarate 2 puff INHALATION RT-BID PRN 10/12/17 05/28/19 History [Symbicort 160-4.5 Mcg Inhaler] Isosorbide Mononitrate ER [Imdur] 30 mg PO DAILY #30 tab.er.24h 10/16/17 05/28/19 Rx Losartan [Cozaar] 25 mg PO DAILY 02/05/19 05/28/19 History Ipratropium-Albuterol Nebulize 3 ml INHALATION RT-QID #120 02/09/19 05/28/19 Rx [Duoneb 0.5 mg-3 mg/3 ml Soln] ampul.neb Pravastatin Sodium [Pravachol] 10 mg PO DAILY 04/14/19 05/28/19 History Aspirin 81 mg PO DAILY #30 chew 04/22/19 05/28/19 Rx Famotidine [Pepcid] 20 mg PO DAILY #30 tab 04/22/19 05/28/19 Rx Furosemide [Lasix] 20 mg PO DAILY #30 tab 04/22/19 05/28/19 Rx Levothyroxine Sodium [Synthroid] 50 mcg PO DAILY 05/22/19 05/28/19 History Metoprolol Tartrate [Lopressor] 12.5 mg PO BID 05/22/19 05/28/19 History Acetaminophen Tab [Tylenol Tab] 650 mg PO Q6H PRN #1 tablet 05/25/19 05/28/19 Rx Dronabinol [Marinol] 2.5 mg PO AC-BID #6 cap 05/25/19 05/28/19 Rx Gabapentin [Neurontin] 100 mg PO DAILY #3 cap 05/25/19 05/28/19 Rx Gabapentin [Neurontin] 300 mg PO HS #3 cap 05/25/19 05/28/19 Rx Allergies Allergy/AdvReac Type Severity Reaction Status Date / Time alendronate sodium Allergy Unknown Verified 05/28/19 08:40 [From Fosamax] raloxifene [From Evista] Allergy Unknown Verified 05/28/19 08:40 simvastatin [From Zocor] Allergy Unknown Verified 05/28/19 08:40 Physical Exam Vitals: Vital Signs Temp Pulse Pulse Resp BP BP Pulse Ox 05/28/19 16:01 70 05/28/19 15:46 68 18 95 05/28/19 13:27 99.0 F 61 16 112/54 99 05/28/19 10:59 72 05/28/19 10:52 68 05/28/19 07:30 76 05/28/19 07:24 68 05/28/19 04:30 98.2 F 65 16 130/75 99 05/28/19 03:11 98 F 68 18 117/63 99 05/28/19 00:59 98.6 F 72 18 101/56 05/27/19 23:12 97.8 F 70 16 108/57 95 Intake and Output 05/28/19 05/28/19 05/28/19 06:59 14:59 22:59 Intake Total 580 Balance 580 Intake: Intake, IV Titration 580 Amount Sodium Chloride 0.9% 1, 480 000 ml @ 80 mls/hr IV . [id number] [facility] Rx#:[id number] cefTRIAXone 1 gm In 100 Sodium Chloride 0.9% 50 ml @ 100 mls/hr IVPB Q24HR [facility] Rx#:[id number] Other: Voiding Method Bedpan Incontinent Diaper Incontinent Weight 62.142 kg GENERAL: The patient is alert and oriented x3, not in any acute distress. Well developed, well nourished. HEENT: Pupils are round and equally reacting to light. EOMI. No scleral icterus. No conjunctival pallor. Normocephalic, atraumatic. No pharyngeal erythema. No thyromegaly. CARDIOVASCULAR: S1 and S2 present. No murmurs, rubs, or gallops. PULMONARY: Diminished air entry into bilateral lung dykes no wheezing or crackles were appreciated ABDOMEN: Soft, nontender, nondistended, normoactive bowel sounds. No palpable organomegaly. EXTREMITIES: No cyanosis, clubbing, or pedal edema. NEUROLOGICAL: Gross neurological examination did not reveal any focal deficits. SKIN: No rashes. Results CBC & Chem 7: 05/27/19 23:20 05/27/19 23:20 Labs: Abnormal Lab Results - Last 24 Hours (Table) 05/27/19 05/27/19 05/28/19 Range/Units 23:20 23:20 00:27 RBC 2.93 L (3.80-5.40) m/uL Hgb 10.6 L (11.4-16.0) gm/dL Hct 31.6 L (34.0-46.0) % MCV 108.1 H (80.0-100.0) fL MCH 36.3 H (25.0-35.0) pg Sodium 133 L (137-145) mmol/L Chloride 95 L (98-107) mmol/L Carbon Dioxide 33 H (22-30) mmol/L BUN 25 H (7-17) mg/dL Glucose 139 H (74-99) mg/dL AST 51 H (14-36) U/L Creatine Kinase 24 L (30-135) U/L Total Protein 5.1 L (6.3-8.2) g/dL Albumin 2.6 L (3.5-5.0) g/dL Urine Appearance Cloudy H (Clear) Urine Protein Trace H (Negative) Urine Blood Trace H (Negative) Ur Leukocyte Esterase Large H (Negative) Urine WBC >182 H (0-5) /hpf Urine WBC Clumps Few H (None) /hpf Ur Squamous Epith Cells 6 H (0-4) /hpf Urine Bacteria Few H (None) /hpf Hyaline Casts 4 H (0-2) /lpf Urine Mucus Rare H (None) /hpf Microbiology - Last 24 Hours (Table) 05/28/19 00:27 Urine Culture - Preliminary Urine,Voided Thrombosis Risk Factor Assmnt - Choose All That Apply Any of the Below Risk Factors Present?: No Other Risk Factors: Yes Each Risk Factor Represents 3 Points: Age 75 years or older Other congenital or acquired thrombophilia - If yes, enter type in comment: No Each Risk Factor Represents 5 Points: Hip, pelvis, or leg fracture (< 1 month) Thrombosis Risk Factor Assessment Total Risk Factor Score: 8 Thrombosis Risk Factor Assessment Level: High Risk Assessment and Plan Assessment: Acute UTI, culture pending -Dehydration -Acute metabolic encephalopathy secondary to the above -Left Inferior pubic rami fracture, status post fall. Conservative management -Urinary retention, chronic -Atrial fibrillation, not on anticoagulation secondary to age and fall risk -Peripheral neuropathy secondary to severe degenerative disc disease, uses walker at home -Cervical degenerative disc disease -Hypothyroidism -Hyperlipidemia -Thoracic aortic aneurysm 3.6 cm, further outpatient monitoring recommended -Dementia, possibly Alzheimer's -Depression, otherwise specified -Chronic hypoxic respiratory failure, wears 2 L nasal cannula O2 at home Plan: Continue on current medication regime ,monitoring and symptomatic treatment. Rocephin initiated, urine cultures ordered. Rule out colonization. PT/OT. Discharge planning in progress potentially for tomorrow back to [facility]. The impression and plan of care has been dictated as directed. : I performed a history and examination of this patient, discussed the same with the dictator. I agree with the dictator's note ,documented as a scribe. Any additional findings or plans will be noted. Time taken: 35 minutes
[2019-05-28] MEDS: GABAPENTIN 300 MG CAP PO SCH (21:57)
[2019-05-29] MEDS: LEVOTHYROXINE 50 MCG TAB PO SCH (06:14)
[2019-05-29 09:06] LABS: Basophils % (A) 1 %; Eosinophils # (A) 0.1 k/uL (0-0.7); Eosinophils % (A) 2 %; HCT 31.9 % (34.0-46.0); HGB 10.3 gm/dL (11.4-16.0); Lymphocytes # (A) 1.2 k/uL (1.0-4.8); Lymphocytes % (A) 15 %; MCH 35.8 pg (25.0-35.0); MCHC 32.4 g/dL (31.0-37.0); MCV 110.3 fL (80.0-100.0); Macrocytosis Marked; Mean Platelet Volume 7.6; Monocytes # (A) 0.4 k/uL (0-1.0); Monocytes % (A) 5 %; Neutrophils # (A) 6.5 k/uL (1.3-7.7); Neutrophils % (A) 77 %; Platelet Count 248 k/uL (150-450); RBC 2.89 m/uL (3.80-5.40); RDW 15.1 % (11.5-15.5); WBC 8.4 k/uL (3.8-10.6)
[2019-05-29 09:09] LABS: African American GFR (CKD) >90 (>60 ml/min/1.73 sqM); Anion Gap 2 mmol/L; Blood Urea Nitrogen 11 mg/dL (7-17); Calcium 8.3 mg/dL (8.4-10.2); Carbon Dioxide 33 mmol/L (22-30); Chloride 103 mmol/L (98-107); Glucose 88 mg/dL (74-99); Non-African American GFR(CKD) 85 (>60 ml/min/1.73 sqM); Potassium 4.2 mmol/L (3.5-5.1); Sodium 138 mmol/L (137-145)
[2019-05-29] MEDS: IPRATROPIUM-ALBUTEROL 3 ML NEB INHALATION SCH ×4 (09:23→20:35)
[2019-05-29 09:45] LABS: Poikilocytosis (M) Present
[2019-05-29] MEDS: PRAVASTATIN SODIUM 20 MG TAB PO SCH (09:56)
[2019-05-29] MEDS: ISOSORBIDE MONONITRATE ER 30 MG TAB.ER.24H PO SCH (09:56)
[2019-05-29] MEDS: ASPIRIN 81 MG PO SCH (09:56)
[2019-05-29] MEDS: FAMOTIDINE 20 MG TAB PO SCH (09:56)
[2019-05-29] MEDS: METOPROLOL TARTRATE 12.5 MG TAB PO SCH ×2 (09:56→22:31)
[2019-05-29] MEDS: LOSARTAN 25 MG TAB PO SCH (09:56)
[2019-05-29] MEDS: FUROSEMIDE 20 MG TAB PO SCH (09:56)
[2019-05-29] MEDS: DRONABINOL 2.5 MG CAP PO SCH ×2 (09:57→17:47)
[2019-05-29] MEDS: GABAPENTIN 100 MG CAP PO SCH (09:57)
--- NOTE | 2019-05-29 14:14 | P.PN ---
Subjective Progress Note Date: 05/29/19 This is a 89-year-old female recently admitted to subacute rehab status post fall, sustaining left inferior pubic ramus fracture with conservative management recommended, presented to the ER with change in mental status, lethargic, without syncope. On admission afebrile, WBC normal, sodium 133, carbon dioxide 33, BUN 25, creatinine 0.77, with UA reporting large leukocytes and elevated WBCs. Daughter reports patient's water intake was minimal at the ECF. Chest x- ray negative nonacute, small effusion. Brain CT reporting no acute hemorrhage, hydrocephalus or mass effect .EKG reporting sinus tachycardia with second degree AV block Mobitz 1.troponin negative. VSS. Denies chest pain, palpitations or increased shortness of breath. Received IV fluid hydration with significant improvement in responsiveness. Rocephin initiated. Urine culture ordered. Afebrile, normal WBC. Cultures pending. Recurrent urinary retention, post void residual 600 MLS, Ellis catheter placed. Patient will need to follow-up with urology in 1 week at discharge. Denies pain. Denies chest pain, palpitations or shortness of breath. Objective - Vital Signs Vital signs: Vital Signs Temp 97.4 F L 05/29/19 05:10 Pulse 70 05/29/19 09:40 Resp 20 05/29/19 05:10 BP 153/89 05/29/19 05:10 Pulse Ox 98 05/29/19 09:24 Intake & Output 05/28/19 05/29/19 05/29/19 18:59 06:59 18:59 Intake Total 580 300 Balance 580 300 Intake: Intake, IV Titration 580 Amount Sodium Chloride 0.9% 1, 480 000 ml @ 80 mls/hr IV . [id number] [facility] Rx#:[id number] cefTRIAXone 1 gm In 100 Sodium Chloride 0.9% 50 ml @ 100 mls/hr IVPB Q24HR [facility] Rx#:[id number] Oral 300 Other: Voiding Method Incontinent Incontinent # Voids 2 # Bowel Movements 1 - Exam GENERAL: The patient is alert and oriented x3, not in any acute distress. HEENT: Pupils are round and equally reacting to light. EOMI. No scleral icterus. No conjunctival pallor. Normocephalic, atraumatic. No pharyngeal erythema. No thyromegaly. CARDIOVASCULAR: S1 and S2 present. No murmurs, rubs, or gallops. PULMONARY: Diminished air entry into bilateral lung dykes no wheezing or crackles ABDOMEN: Soft, nontender, nondistended, normoactive bowel sounds. No palpable organomegaly. EXTREMITIES: No cyanosis, clubbing, or pedal edema. NEUROLOGICAL: Gross neurological examination did not reveal any focal deficits. SKIN: No rashes. - Labs CBC & Chem 7: 05/29/19 08:31 05/29/19 08:31 Labs: Abnormal Lab Results - Last 24 Hours (Table) 05/29/19 05/29/19 Range/Units 08:31 08:31 RBC 2.89 L (3.80-5.40) m/uL Hgb 10.3 L (11.4-16.0) gm/dL Hct 31.9 L (34.0-46.0) % MCV 110.3 H (80.0-100.0) fL MCH 35.8 H (25.0-35.0) pg Macrocytosis Marked A Carbon Dioxide 33 H (22-30) mmol/L Calcium 8.3 L (8.4-10.2) mg/dL Microbiology - Last 24 Hours (Table) 05/28/19 00:27 Urine Culture - Preliminary Urine,Voided Assessment and Plan Assessment: Acute UTI, culture pending -Dehydration -Acute metabolic encephalopathy secondary to the above -Left Inferior pubic rami fracture, status post fall. Conservative management -Acute on chronic Urinary retention, follow-up with urology outpatient -Atrial fibrillation, not on anticoagulation secondary to age and fall risk -Peripheral neuropathy secondary to severe degenerative disc disease, uses walker at home -Cervical degenerative disc disease -Hypothyroidism -Hyperlipidemia -Thoracic aortic aneurysm 3.6 cm, further outpatient monitoring recommended -Dementia, possibly Alzheimer's -Depression, otherwise specified -Chronic hypoxic respiratory failure, wears 2 L nasal cannula O2 at home Plan: Continue on current medication regime ,monitoring and symptomatic treatment. Rocephin initiated, urine cultures ordered. Rule out colonization. PT/OT. Discharge planning in progress potentially for tomorrow back to [facility]. The impression and plan of care has been dictated as directed. : I performed a history and examination of this patient, discussed the same with the dictator. I agree with the dictator's note ,documented as a scribe. Any additional findings or plans will be noted. Time taken: 35 minutes
[2019-05-29] MEDS: TAMSULOSIN 0.4 MG CAP.ER.24H PO SCH (15:37)
[2019-05-29] MEDS: ACETAMINOPHEN TAB 325 MG TAB PO PRN (17:46)
[2019-05-29] MEDS: GABAPENTIN 300 MG CAP PO SCH (22:31)
[2019-05-30] MEDS: LEVOTHYROXINE 50 MCG TAB PO SCH (05:56)
[2019-05-30] MEDS: SYMBICORT 160-4.5 MCG INHALER INHALATION PRN (09:08)
[2019-05-30] MEDS: IPRATROPIUM-ALBUTEROL 3 ML NEB INHALATION SCH ×4 (09:08→19:46)
[2019-05-30] MEDS: ISOSORBIDE MONONITRATE ER 30 MG TAB.ER.24H PO SCH (09:14)
[2019-05-30] MEDS: GABAPENTIN 100 MG CAP PO SCH (09:14)
[2019-05-30] MEDS: FUROSEMIDE 20 MG TAB PO SCH (09:14)
[2019-05-30] MEDS: TAMSULOSIN 0.4 MG CAP.ER.24H PO SCH (09:14)
[2019-05-30] MEDS: DRONABINOL 2.5 MG CAP PO SCH ×2 (09:14→17:52)
[2019-05-30] MEDS: PRAVASTATIN SODIUM 20 MG TAB PO SCH (09:14)
[2019-05-30] MEDS: LOSARTAN 25 MG TAB PO SCH (09:14)
[2019-05-30] MEDS: METOPROLOL TARTRATE 12.5 MG TAB PO SCH ×2 (09:15→20:53)
[2019-05-30] MEDS: ASPIRIN 81 MG PO SCH (09:15)
[2019-05-30] MEDS: FAMOTIDINE 20 MG TAB PO SCH (09:15)
[2019-05-30] MEDS: ACETAMINOPHEN TAB 325 MG TAB PO PRN ×3 (09:26→22:21)
[2019-05-30] MEDS: PIPERACILLIN-TAZOBACTAM 3.375 GM in SODIUM CHLORIDE 0.9% 100 ML IVPB SCH ×2 (11:41→20:54)
[2019-05-30] MEDS ORDERED: SODIUM CHLORIDE 0.9% 500 ML 500 ML IV ONE (14:46)
--- NOTE | 2019-05-30 16:36 | XR ---
EXAMINATION TYPE: XR chest 1V portable DATE OF EXAM: 05/30/2019 COMPARISON: 05/27/2019 HISTORY: Short of breath TECHNIQUE: Single frontal view of the chest is obtained. FINDINGS: There is no heart failure. There is minimal interstitial infiltrate at the left lung base. Thoracic aorta is atheromatous. There are are no hilar masses. IMPRESSION: Minimal fibrotic changes at the left lung base are likely not changed compared to last e xam. No heart failure seen. Normal heart.
--- NOTE | 2019-05-30 17:32 | PN ---
PROGRESS NOTE DATE OF SERVICE: 05/30/2019. This 89-year-old woman was admitted with UTI with sepsis, UTI, also had possibly sepsis also. The patient had Pseudomonas aeruginosa grown from the culture. Antibiotics are changed to Zosyn at this time. No chest pain. No palpitations. No fever. PAST MEDICAL HISTORY: Reviewed. REVIEW OF SYSTEMS: CARDIOVASCULAR SYSTEM: No angina or palpitations. RESPIRATORY: As mentioned earlier. GASTROINTESTINAL: As mentioned earlier. no dysuria. NERVOUS SYSTEM: No numbness or weakness. CURRENT MEDICATIONS: Reviewed and include: 1. Tylenol p.r.n. 2. Ventolin 2.5 q.6h p.r.n. 3. DuoNeb q.i.d. and p.r.n. 4. Aspirin 81 mg p.o. daily. 5. Symbicort 160/4.5 two puffs b.i.d. 6. Marinol 2.5 mg b.i.d. 7. Pepcid 20 mg p.o. daily. 8. Lasix 20 mg p.o. daily. 9. Neurontin 100 mg p.o. daily and 300 mg q.h.s. 10.Imdur 30 mg p.o. daily. 11.Synthroid 50 mg b.i.d. 12.Cozaar 25 mg p.o. 13.Lopressor 12.5 mg b.i.d. 14.Narcan p.r.n. 15.Zosyn 3.365 IV q.8h. 16.Pravachol 10 mg p.o. daily. 17.Flomax 0.4 daily. PHYSICAL EXAMINATION: Physical exam reveals patient is alert and oriented times three. Pulse 93, blood pressure 78/45, respiration 20, temperature 97.9, pulse ox 98% on 2 L. HEENT is conjunctivae normal. Neck is no JVD. Cardiovascular: S1, S2 muffled. RESPIRATION: Breath sounds diminished in the bases. A few scattered rhonchi and crackles. ABDOMEN is soft. Nontender. No mass palpable. LEGS: No edema. No swelling. NERVOUS SYSTEM: Higher functions as mentioned earlier. Moves all four extremities. No focal motor or sensory deficits. LYMPHATICS: No lymph nodes palpable in the neck, axilla or groin. JOINTS: No active deforming arthropathy. LABS: WBC 8.2, hemoglobin 10.3. UA noted. Urine culture is Pseudomonas aeruginosa. ASSESSMENT: 1. Acute urinary tract infection with Pseudomonas aeruginosa with possible sepsis present on admission. 2. Hypotension secondary to sepsis. 3. Dehydration present on admission. 4. Metabolic encephalopathy, change in mental status, possibly secondary to sepsis. 5. Left inferior pubic rami fracture status post fall. 6. Chronic urinary tract infection. 7. Atrial fibrillation, not on anticoagulation because of fall risk. 8. Peripheral neuropathy. 9. Cervical degenerative joint disease. 10.Hypothyroidism. 11.Hyperlipidemia. 12.Thoracic aortic aneurysm 3.6 cm. 13.Dementia. 14.Depression. 15.Chronic hypoxic respiratory failure on 2 L nasal cannula at home. RECOMMENDATIONS AND DISCUSSION: I recommend to continue current medications, continue with monitoring, management and symptomatic treatment. Otherwise, at this time, I recommend continue with continue with current medications. Change antibiotics to Zosyn. There is IV fluid boluses. We will hold off the Lasix for now. We will continue with IV fluids. The most recent chest x- ray done on 05/27/2019 reviewed personally by me showed some mild vascular congestion. I will repeat a chest x-ray today. See orders for details. MMODL / IJN: [id number] /
[2019-05-30] MEDS: GABAPENTIN 300 MG CAP PO SCH (20:53)
[2019-05-31] MEDS: PIPERACILLIN-TAZOBACTAM 3.375 GM in SODIUM CHLORIDE 0.9% 100 ML IVPB SCH ×3 (02:41→19:49)
[2019-05-31] MEDS: LEVOTHYROXINE 50 MCG TAB PO SCH (06:02)
[2019-05-31] MEDS: SYMBICORT 160-4.5 MCG INHALER INHALATION PRN ×2 (07:32→20:27)
[2019-05-31] MEDS: IPRATROPIUM-ALBUTEROL 3 ML NEB INHALATION SCH ×4 (07:32→20:27)
[2019-05-31 07:46] LABS: Basophils % (A) 0 %; Eosinophils # (A) 0.3 k/uL (0-0.7); Eosinophils % (A) 4 %; HCT 30.8 % (34.0-46.0); HGB 10.1 gm/dL (11.4-16.0); Lymphocytes # (A) 1.4 k/uL (1.0-4.8); Lymphocytes % (A) 20 %; MCH 35.7 pg (25.0-35.0); MCHC 32.6 g/dL (31.0-37.0); MCV 109.6 fL (80.0-100.0); Macrocytosis Marked; Monocytes # (A) 0.4 k/uL (0-1.0); Monocytes % (A) 5 %; Neutrophils # (A) 4.7 k/uL (1.3-7.7); Neutrophils % (A) 68 %; Platelet Count 230 k/uL (150-450); RBC 2.81 m/uL (3.80-5.40); WBC 6.9 k/uL (3.8-10.6)
[2019-05-31 07:57] LABS: African American GFR (CKD) >90 (>60 ml/min/1.73 sqM); Anion Gap 3 mmol/L; Blood Urea Nitrogen 11 mg/dL (7-17); Calcium 8.3 mg/dL (8.4-10.2); Carbon Dioxide 31 mmol/L (22-30); Chloride 103 mmol/L (98-107); Glucose 88 mg/dL (74-99); Non-African American GFR(CKD) 81 (>60 ml/min/1.73 sqM); Potassium 4.2 mmol/L (3.5-5.1); Sodium 137 mmol/L (137-145)
[2019-05-31] MEDS: DRONABINOL 2.5 MG CAP PO SCH ×2 (08:59→17:42)
[2019-05-31] MEDS: ISOSORBIDE MONONITRATE ER 30 MG TAB.ER.24H PO SCH (09:03)
[2019-05-31] MEDS: GABAPENTIN 100 MG CAP PO SCH (09:03)
[2019-05-31] MEDS: ASPIRIN 81 MG PO SCH (09:03)
[2019-05-31] MEDS: TAMSULOSIN 0.4 MG CAP.ER.24H PO SCH (09:03)
[2019-05-31] MEDS: FAMOTIDINE 20 MG TAB PO SCH (09:03)
[2019-05-31] MEDS: LOSARTAN 25 MG TAB PO SCH (09:03)
[2019-05-31] MEDS: PRAVASTATIN SODIUM 20 MG TAB PO SCH (09:05)
[2019-05-31] MEDS: METOPROLOL TARTRATE 12.5 MG TAB PO SCH ×2 (09:05→22:08)
[2019-05-31] MEDS: ACETAMINOPHEN TAB 325 MG TAB PO PRN ×2 (09:13→15:01)
--- NOTE | 2019-05-31 21:05 | PN ---
PROGRESS NOTE DATE OF SERVICE: 05/31/2019 This 89-year-old woman is admitted with UTI, sepsis, also had Pseudomonas aeruginosa grown from the culture. The patient also had hypotension yesterday, has responded to fluid bolus and IV fluids. The patient is started on IV Zosyn. The most recent chest x-ray which was personally reviewed by me showed no acute abnormality except some hilar prominence. Dr. Walden is following the patient closely. PAST MEDICAL HISTORY: Reviewed. REVIEW OF SYSTEMS: CARDIOVASCULAR SYSTEM: No angina or palpitations. RESPIRATORY: As mentioned earlier. GI: As mentioned earlier. : No dysuria. CENTRAL NERVOUS SYSTEM: No numbness, weakness. CURRENT MEDICATIONS: Reviewed and include: 1. Tylenol 650 q.6 p.r.n. 2. Ventolin 2.5 q.6h p.r.n. 3. DuoNeb q.i.d. and p.r.n. 4. Aspirin 81 mg. 5. Symbicort 160/4.5 two puffs b.i.d. 6. Marinol 2.5 mg b.i.d. 7. Pepcid 20 mg daily. 8. Neurontin 100 mg p.o. daily and 300 mg q.h.s. 9. Imdur 30 mg p.o. daily. 10.Synthroid 50 mcg p.o. daily. 11.Cozaar 25 mg p.o. daily. 12.Lopressor 12.5 mg p.o. b.i.d. 13.Narcan 0.2 q.2 p.r.n. 14.Zosyn 3.375 IV q.8h. 15.Pravachol 10 mg p.o. daily. 16.Flomax 0.4 daily. PHYSICAL EXAM: Patient is alert, oriented x2. Pulse 87, blood pressure 92/56, respiration 18, temp 97.9, pulse ox 99% on 2 L. HEENT: Conjunctivae normal. NECK: No jugular venous distention. CARDIOVASCULAR: S1, S2 muffled. RESPIRATORY: Breath sounds diminished at the bases. Bilateral scattered rhonchi and crackles. ABDOMEN: Soft, nontender. No mass palpable. LEGS: No edema, no swelling. NERVOUS SYSTEM: Diffusely weak. LAB STUDIES: WBC 6.9, hemoglobin 10.1, otherwise UA noted. Urine culture showed Pseudomonas aeruginosa. ASSESSMENT: 1. Acute urinary tract infection with Pseudomonas aeruginosa with possible sepsis, present on admission. 2. Hypotension secondary to sepsis. 3. Dehydration, present on admission. 4. Metabolic encephalopathy change in mental status, possibly secondary to sepsis. 5. Left inferior pubic rami fracture status post fall. 6. Chronic urinary tract infection. 7. Atrial fibrillation, not on anticoagulation because of fall risk. 8. Peripheral neuropathy. 9. Cervical degenerative joint disease. 10.Hypothyroidism. 11.Hyperlipidemia. 12.Thoracic aortic aneurysm 3.6 cm. 13.Dementia. 14.Depression. 15.Chronic hypoxic respiratory failure on 2 L nasal cannula at home. RECOMMENDATIONS AND DISCUSSION: I recommend to continue current medications, management and symptomatic treatment. Otherwise, at this time, I recommend continue the broad-spectrum IV antibiotics and continue the rest of the medications. The blood pressure has improved to 92/56 at this time. We will continue to monitor. I would also recommend 8:[address] Walden will follow. MMBALL / SAMARAN: [id number] /
[2019-05-31] MEDS: GABAPENTIN 300 MG CAP PO SCH (22:08)
[2019-05-31 22:10] VITALS: RESP 20
[2019-06-01] MEDS: PIPERACILLIN-TAZOBACTAM 3.375 GM in SODIUM CHLORIDE 0.9% 100 ML IVPB SCH ×2 (02:55→11:25)
[2019-06-01] MEDS: LEVOTHYROXINE 50 MCG TAB PO SCH (06:09)
[2019-06-01] MEDS: ACETAMINOPHEN TAB 325 MG TAB PO PRN (06:21)
[2019-06-01 07:28] VITALS: BP 144/84; PULSE 72; TEMP 97.6
[2019-06-01] MEDS: ISOSORBIDE MONONITRATE ER 30 MG TAB.ER.24H PO SCH (08:36)
[2019-06-01] MEDS: PRAVASTATIN SODIUM 20 MG TAB PO SCH (08:36)
[2019-06-01] MEDS: FAMOTIDINE 20 MG TAB PO SCH (08:36)
[2019-06-01] MEDS: LOSARTAN 25 MG TAB PO SCH (08:36)
[2019-06-01] MEDS: TAMSULOSIN 0.4 MG CAP.ER.24H PO SCH (08:36)
[2019-06-01] MEDS: ASPIRIN 81 MG PO SCH (08:36)
[2019-06-01] MEDS: DRONABINOL 2.5 MG CAP PO SCH (08:36)
[2019-06-01] MEDS: METOPROLOL TARTRATE 12.5 MG TAB PO SCH (08:36)
[2019-06-01] MEDS: GABAPENTIN 100 MG CAP PO SCH (08:36)
[2019-06-01] MEDS: IPRATROPIUM-ALBUTEROL 3 ML NEB INHALATION SCH ×3 (09:18→12:54)
[2019-06-01] MEDS: SYMBICORT 160-4.5 MCG INHALER INHALATION PRN (09:18)
--- NOTE | 2019-06-01 09:39 | P.DS ---
Providers Date of admission: 05/29/19 11:26 Expected date of discharge: 06/01/19 Attending physician: Efrain Walden Primary care physician: Efrain Walden [facility] Course: Final Diagnoses: Acute UTI, pseudomonas -Dehydration -Hypotension secondary to the above.S/p fluid bolus, improved.Sepsis ruled out. -Acute metabolic encephalopathy secondary to the above, -Left Inferior pubic rami fracture, status post fall. Conservative management -Acute on chronic Urinary retention, follow-up with urology outpatient -Atrial fibrillation, not on anticoagulation secondary to age and fall risk -Peripheral neuropathy secondary to severe degenerative disc disease, uses walker at home -Cervical degenerative disc disease -Hypothyroidism -Hyperlipidemia -Thoracic aortic aneurysm 3.6 cm, further outpatient monitoring recommended -Dementia, possibly Alzheimer's -Depression, otherwise specified -Chronic hypoxic respiratory failure, wears 2 L nasal cannula O2 at home HOSPITAL COURSE:This is a 89-year-old female recently admitted to subacute rehab status post fall, sustaining left inferior pubic ramus fracture with conservative management recommended, presented to the ER with change in mental status, lethargic, without syncope. On admission afebrile, WBC normal, sodium 133, carbon dioxide 33, BUN 25, creatinine 0.77, with UA reporting large leukocytes and elevated WBCs. Daughter reports patient's water intake was minimal at the [facility]. Chest x-ray negative nonacute, small effusion. Brain CT reporting no acute hemorrhage, hydrocephalus or mass effect .EKG reporting sinus tachycardia with second degree AV block Mobitz 1.troponin negative. VSS. Denies chest pain, palpitations or increased shortness of breath. Received IV fluid hydration with significant improvement in responsiveness. Rocephin initiated. Urine culture ordered. Afebrile, normal WBC. Cultures pending. Recurrent urinary retention, post void residual 600 MLS, Ellis catheter placed. Patient will need to follow-up with urology in 1 week at discharge. Denies pain. Denies chest pain, palpitations or shortness of breath. Imdur placed on Hold r/t hypotension, re-eval Op.Maintained on IV antibiotics. Significant clinical improvement. Patient is being discharged to [facility] in a stable sondition with guarded prognosis. - Exam GENERAL: alert and oriented x3, not in any acute distress. CARDIOVASCULAR: S1 and S2 present. No murmurs, rubs, or gallops. PULMONARY: Diminished air entry into bilateral lung dykes no wheezing or crackles ABDOMEN: Soft, nontender, nondistended, normoactive bowel sounds. NEUROLOGICAL: Gross neurological examination did not reveal any focal deficits. The impression and plan of care has been dictated as directed. : I performed a history and examination of this patient, discussed the same with the dictator. I agree with the dictator's note ,documented as a scribe. Any additional findings or plans will be noted. Time taken: 35 minutes Patient Condition at Discharge: Stable Plan - Discharge Summary Discharge Rx Participant: No New Discharge Prescriptions: New Ciprofloxacin HCl [Cipro] 500 mg PO Q12HR #14 tablet No Action Albuterol Sulfate [Proair Hfa] 1 - 2 puff INHALATION RT-Q6H PRN PRN Reason: sob Budesonide/Formoterol Fumarate [Symbicort 160-4.5 Mcg Inhaler] 2 puff INHALATION RT-BID PRN PRN Reason: Cough Isosorbide Mononitrate ER [Imdur] 30 mg PO DAILY #30 tab.er.24h Losartan [Cozaar] 25 mg PO DAILY Ipratropium-Albuterol Nebulize [Duoneb 0.5 mg-3 mg/3 ml Soln] 3 ml INHALATION RT-QID #120 ampul.neb Pravastatin Sodium [Pravachol] 10 mg PO DAILY Aspirin 81 mg PO DAILY #30 chew Furosemide [Lasix] 20 mg PO DAILY #30 tab Famotidine [Pepcid] 20 mg PO DAILY #30 tab Levothyroxine Sodium [Synthroid] 50 mcg PO DAILY Metoprolol Tartrate [Lopressor] 12.5 mg PO BID Dronabinol [Marinol] 2.5 mg PO AC-BID #6 cap Gabapentin [Neurontin] 300 mg PO HS #3 cap Gabapentin [Neurontin] 100 mg PO DAILY #3 cap Acetaminophen Tab [Tylenol Tab] 650 mg PO Q6H PRN #1 tablet PRN Reason: Pain Discharge Medication List Albuterol Sulfate [Proair Hfa] 1 - 2 puff INHALATION RT-Q6H PRN 10/12/17 [History] Budesonide/Formoterol Fumarate [Symbicort 160-4.5 Mcg Inhaler] 2 puff INHALATION RT-BID PRN 10/12/17 [History] Isosorbide Mononitrate ER [Imdur] 30 mg PO DAILY #30 tab.er.24h 10/16/17 [Rx] Losartan [Cozaar] 25 mg PO DAILY 02/05/19 [History] Ipratropium-Albuterol Nebulize [Duoneb 0.5 mg-3 mg/3 ml Soln] 3 ml INHALATION RT-QID #120 ampul.neb 02/09/19 [Rx] Pravastatin Sodium [Pravachol] 10 mg PO DAILY 04/14/19 [History] Aspirin 81 mg PO DAILY #30 chew 04/22/19 [Rx] Famotidine [Pepcid] 20 mg PO DAILY #30 tab 04/22/19 [Rx] Furosemide [Lasix] 20 mg PO DAILY #30 tab 04/22/19 [Rx] Levothyroxine Sodium [Synthroid] 50 mcg PO DAILY 05/22/19 [History] Metoprolol Tartrate [Lopressor] 12.5 mg PO BID 05/22/19 [History] Acetaminophen Tab [Tylenol Tab] 650 mg PO Q6H PRN #1 tablet 05/25/19 [Rx] Dronabinol [Marinol] 2.5 mg PO AC-BID #6 cap 05/25/19 [Rx] Gabapentin [Neurontin] 100 mg PO DAILY #3 cap 05/25/19 [Rx] Gabapentin [Neurontin] 300 mg PO HS #3 cap 05/25/19 [Rx] Ciprofloxacin HCl [Cipro] 500 mg PO Q12HR #14 tablet 06/01/19 [Rx] Follow up Appointment(s)/Referral(s): Nawaf Aparicio MD [STAFF PHYSICIAN] - 1 Week Efrain Walden DO [Primary Care Provider] - 1 Week (After DC from subacute rehab) Activity/Diet/Wound Care/Special Instructions: [facility] Imdur on hold, Re-eval OP. DIET; Cardiac CBC,BMP in 3 days Discharge Disposition: TRANSFER TO SNF/F
[2019-06-01 10:11] LABS: African American GFR (CKD) >90 (>60 ml/min/1.73 sqM); Anion Gap 5 mmol/L; Blood Urea Nitrogen 11 mg/dL (7-17); Calcium 8.6 mg/dL (8.4-10.2); Carbon Dioxide 31 mmol/L (22-30); Chloride 102 mmol/L (98-107); Glucose 121 mg/dL (74-99); Non-African American GFR(CKD) 79 (>60 ml/min/1.73 sqM); Potassium 4.3 mmol/L (3.5-5.1); Sodium 138 mmol/L (137-145)
[2019-06-01 10:19] LABS: Basophils % (A) 1 %; Eosinophils # (A) 0.3 k/uL (0-0.7); Eosinophils % (A) 4 %; HCT 35.1 % (34.0-46.0); HGB 11.5 gm/dL (11.4-16.0); Lymphocytes # (A) 1.2 k/uL (1.0-4.8); Lymphocytes % (A) 17 %; MCH 36.1 pg (25.0-35.0); MCHC 32.8 g/dL (31.0-37.0); MCV 110.2 fL (80.0-100.0); Macrocytosis Marked; Mean Platelet Volume 7.2; Monocytes # (A) 0.3 k/uL (0-1.0); Monocytes % (A) 5 %; Neutrophils # (A) 5.2 k/uL (1.3-7.7); Neutrophils % (A) 73 %; Platelet Count 237 k/uL (150-450); RBC 3.19 m/uL (3.80-5.40); RDW 14.2 % (11.5-15.5); WBC 7.1 k/uL (3.8-10.6)
[2019-06-01 10:25] VITALS: BMI 22.8
== END 2019-06-01 13:42 | DRG 689 ==
LOC: EC 23:09 → 4MS4W 05-28 01:17 → OBSVTOIN 05-29 11:26
PROVIDERS: ADMIT Family Medicine; ATTEND Family Medicine
DX: N39.0 Urinary tract infection, site not specified (principal); G93.41 Metabolic encephalopathy; S32.592A Other specified fracture of left pubis, initial encounter for closed fracture; I50.22 Chronic systolic (congestive) heart failure; J96.11 Chronic respiratory failure with hypoxia; F05 Delirium due to known physiological condition; I42.9 Cardiomyopathy, unspecified; J44.9 Chronic obstructive pulmonary disease, unspecified; I48.91 Unspecified atrial fibrillation; I11.0 Hypertensive heart disease with heart failure; M19.90 Unspecified osteoarthritis, unspecified site; H57.9 Unspecified disorder of eye and adnexa; E86.0 Dehydration; G62.9 Polyneuropathy, unspecified; R33.9 Retention of urine, unspecified; M50.30 Other cervical disc degeneration, unspecified cervical region; E03.9 Hypothyroidism, unspecified; E78.5 Hyperlipidemia, unspecified; F32.9 Major depressive disorder, single episode, unspecified; G30.9 Alzheimer's disease, unspecified; F02.80 Dementia in other diseases classified elsewhere, unspecified severity, without behavioral disturbance, psychotic disturbance, mood disturbance, and anxiety; B96.5 Pseudomonas (aeruginosa) (mallei) (pseudomallei) as the cause of diseases classified elsewhere; I71.2 Thoracic aortic aneurysm, without rupture; M47.812 Spondylosis without myelopathy or radiculopathy, cervical region; I25.2 Old myocardial infarction; Z90.710 Acquired absence of both cervix and uterus; Z99.81 Dependence on supplemental oxygen; Z79.51 Long term (current) use of inhaled steroids; Z79.899 Other long term (current) drug therapy; Z79.82 Long term (current) use of aspirin; Z79.890 Hormone replacement therapy; Z91.81 History of falling; Z80.0 Family history of malignant neoplasm of digestive organs; Z80.2 Family history of malignant neoplasm of other respiratory and intrathoracic organs; Z86.19 Personal history of other infectious and parasitic diseases; Z88.8 Allergy status to other drugs, medicaments and biological substances; Z90.49 Acquired absence of other specified parts of digestive tract; Z98.890 Other specified postprocedural states
CPT/HCPCS: 36415; 70450; 71045; 71046; 80048; 80053; 81001; 82533; 82550; 83690; 83735; 84443; 84484; 85025; 87077; 87086; 87186; 93005; 94640; 94760; 96360; 96361; 99285

== ENCOUNTER 2020-09-02 11:04 | Inpatient (IN) | payer MEDICARE ==
[2020-09-02 12:50] LABS: Albumin 2.8 g/dL (3.5-5.0); Calcium 8.1 mg/dL (8.4-10.2); Magnesium 2.1 mg/dL (1.6-2.3); Potassium 4.6 mmol/L (3.5-5.1); Total Bilirubin 0.8 mg/dL (0.2-1.3); Total Protein 5.5 g/dL (6.3-8.2)
--- NOTE | 2020-09-02 13:03 | XR ---
EXAMINATION TYPE: XR chest 1V portable DATE OF EXAM: 09/02/2020 COMPARISON: Prior chest x-ray dated 05/30/2019, 04/06/2020 HISTORY: Suspected Covid 19 pneumonia TECHNIQUE: Single frontal view of the chest is obtained. FINDINGS: There is no focal air space opacity, pleural effusion, or pneumothorax seen. The cardiac silhouette size is stable, enlarged. Aorta appears ectatic and dense. Prominent central pulmonary art eries again noted, consider pulmonary artery hypertension. Interstitium is increased. Patchy bibasila r density is noted. Bone mineralization is reduced. The osseous structures are intact. IMPRESSION: Ectatic thoracic aorta. Possible basilar pneumonia or atelectasis. Cardiomegaly. Possibl e pulmonary artery hypertension..
[2020-09-02 13:05] LABS: Basophils % (A) 0 %; Eosinophils % (A) 1 %; HCT 38.8 % (34.0-46.0); HGB 13.3 gm/dL (11.4-16.0); Lymphocytes # (A) 0.9 k/uL (1.0-4.8); Lymphocytes % (A) 17 %; MCH 37.4 pg (25.0-35.0); MCHC 34.2 g/dL (31.0-37.0); Macrocytosis Moderate; Mean Platelet Volume 8.5; Monocytes # (A) 0.4 k/uL (0-1.0); Monocytes % (A) 8 %; Neutrophils # (A) 3.6 k/uL (1.3-7.7); Neutrophils % (A) 73 %; Platelet Count 124 k/uL (150-450); RBC 3.56 m/uL (3.80-5.40); RDW 12.1 % (11.5-15.5)
[2020-09-02 13:09] LABS: MCV 109.2 fL (80.0-100.0)
[2020-09-02 13:10] LABS: INR 1.1 (<1.2); Prothrombin Time 10.9 sec (9.0-12.0)
[2020-09-02 13:11] LABS: C Reactive Protein 22.1 mg/L (<10.0)
[2020-09-02 13:24] LABS: D-Dimer 3.35 mg/L FEU (<0.60)
[2020-09-02 13:33] LABS: Appearance,Urine Cloudy (Clear); Bilirubin,Urine Negative (Negative); Blood,Urine Negative (Negative); Color,Urine Yellow; Glucose,Urine (UA) Negative (Negative); Hyaline Casts,Urine 1 /lpf (0-2); Ketones,Urine Negative (Negative); Leukocyte Esterase,Urine Moderate (Negative); Mucus,Urine Few /hpf; Nitrite,Urine Positive (Negative); PH, Urine 6.5 (5.0-8.0); Protein,Urine Negative (Negative); RBC,Urine 2 /hpf (0-5); Specific Gravity,Urine 1.017 (1.001-1.035); Squamous Epithelial Cell,Urine 1 /hpf (0-4); Urobilinogen,Urine <2.0 mg/dL (<2.0); WBC,Urine 51 /hpf (0-5)
[2020-09-02] MEDS ORDERED: AZITHROMYCIN 500 MG in SODIUM CHLORIDE 0.9% 250 ML IVPB STA (13:50)
--- NOTE | 2020-09-02 13:52 | ED ---
General Adult HPI - General Source: patient, family Mode of arrival: wheelchair Limitations: altered mental status <Peace Ramirez - Last Filed: 09/02/20 13:56> <Morris Singleton - Last Filed: 09/02/20 14:58> - General Chief complaint: Fever Stated complaint: Weak/fever/sob Time Seen by Provider: 09/02/20 11:12 - History of Present Illness Initial comments: 89-year-old female presented for chief complaint of decreased appetite congestion cough. Family states the patient has advanced dementia and is overall poor historian. They state that for the past few days patient has had decreased appetite she's had cough congestion and appears slightly short of breath patient does have chronic COPD and hypoxia with home oxygen. Family denies any nausea or vomiting diarrhea. They deny any rashes. They have not recorded fever at home. Patient states that she does admit to a slight cough congestion she denies any chest pain she states she does not feel short of breath. Family denies noting any leg swelling. Remaining review of systems negative upon arrival patient appears well and nontoxic in no acute distress (Peace Ramirez) - Related Data Home Medications Medication Instructions Recorded Confirmed Budesonide/Formoterol Fumarate 2 puff INHALATION RT-BID PRN 10/12/17 09/02/20 [Symbicort 160-4.5 Mcg Inhaler] Pravastatin Sodium [Pravachol] 10 mg PO DAILY 04/14/19 09/02/20 Levothyroxine Sodium [Synthroid] 50 mcg PO DAILY 05/22/19 09/02/20 Ascorbic Acid [Vitamin C] 1,000 mg PO DAILY 09/02/20 09/02/20 Furosemide [Lasix] 20 mg PO DAILY 09/02/20 09/02/20 Gabapentin [Neurontin] 100 mg PO QAM 09/02/20 09/02/20 Ibuprofen [Motrin Ib] 200 mg PO Q8H PRN 09/02/20 09/02/20 Magnesium 250 mg PO DAILY 09/02/20 09/02/20 Metoprolol Tartrate 6.25 mg PO DAILY PRN 09/02/20 09/02/20 Nitrofurantoin Monohyd/M-Cryst 100 mg PO Q12HR 09/02/20 09/02/20 [Macrobid] Previous Rx's Medication Instructions Recorded Ipratropium-Albuterol Nebulize 3 ml INHALATION RT-QID #120 02/09/19 [Duoneb 0.5 mg-3 mg/3 ml Soln] ampul.neb Aspirin 81 mg PO DAILY #30 chew 04/22/19 Acetaminophen Tab [Tylenol] 650 mg PO Q6H PRN #1 tablet 05/25/19 Gabapentin [Neurontin] 300 mg PO HS #3 cap 06/01/19 Tamsulosin [Flomax] 0.4 mg PO [id number] cap.er.24h 06/01/19 Allergies Allergy/AdvReac Type Severity Reaction Status Date / Time alendronate sodium Allergy Unknown Verified 09/02/20 11:46 [From Fosamax] raloxifene [From Evista] Allergy Unknown Verified 09/02/20 11:46 simvastatin [From Zocor] Allergy Unknown Verified 09/02/20 11:46 Review of Systems ROS Other: All systems not noted in ROS Statement are negative. <Peace Ramirez - Last Filed: 09/02/20 13:56> ROS Other: All systems not noted in ROS Statement are negative. <Morris Singleton - Last Filed: 09/02/20 14:58> ROS Statement: Those systems with pertinent positive or pertinent negative responses have been documented in the HPI. Past Medical History Past Medical History: Atrial Fibrillation, Asthma, Heart Failure, COPD, Dementia, Eye Disorder, Hypertension, Myocardial Infarction (MA), Osteoarthritis (OA), Respiratory Disorder Additional Past Medical History / Comment(s): Aortic aneurysm, nonischemic cardiomyopathy, acute systolic heart failure, home oxygen at 2L.[place] ATC, rheumatic fever as a child, chronic back pain, macular degeneration L eye, hiatal hernia, diverticular disease, benign colon polyps. Last Myocardial Infarction Date:: 10/12/17 History of Any Multi-Drug Resistant Organisms: None Reported Past Surgical History: Appendectomy, Bladder Surgery, Cholecystectomy, Heart Catheterization, Hysterectomy Additional Past Surgical History / Comment(s): EGDs, colonoscopies/benign polyps, bladder suspension. Past Anesthesia/Blood Transfusion Reactions: No Reported Reaction Past Psychological History: No Psychological Hx Reported Smoking Status: Never smoker Past Alcohol Use History: None Reported Past Drug Use History: None Reported - Past Family History Father Family Medical History: Cancer Additional Family Medical History / Comment(s): Father had pleural cancer Mother Family Medical History: Cancer Additional Family Medical History / Comment(s): Mother had liver cancer and from but was 102yo. <AmadomarijaNandiniPeace L - Last Filed: 09/02/20 13:56> General Exam Limitations: altered mental status <Peace Ramirez Dave - Last Filed: 09/02/20 13:56> - General Exam Comments Initial Comments: General: The patient is awake and alert, in no distress Eye: Pupils are equal, round and reactive to light, extra-ocular movements are intact. No nystagmus. There is normal conjunctiva bilaterally. No signs of icterus. Ears, nose, mouth and throat: There are moist mucous membranes and no oral lesions. Neck: The neck is supple, there is no tenderness or JVD. No nuchal rigidity. Cardiovascular: There is a regular rate and rhythm. No murmur, rub or gallop is appreciated. Respiratory: Respirations are non-labored, breath sounds are equal. Rhonchi and rales. No wheezes, strido. Gastrointestinal: Soft, non-distended, non-tender abdomen without masses or organomegaly noted. There is no rebound or guarding present. Musculoskeletal: Normal ROM, no tenderness. Strength 5/5. Sensation intact. Radial pulses equal bilaterally 2+. Neurological: A&O x 3. CN II-XII intact grossly, There are no obvious motor or sensory deficits. Coordination appears grossly intact. Speech is normal. Skin: Skin is warm and dry and no rashes or lesions are noted. No LE edema. Psychiatric: Cooperative, appropriate mood & affect, normal judgment. (AshleyNandiniPeace L) Course Vital Signs 09/02/20 09/02/20 09/02/20 11:05 12:18 14:12 Temperature 99.7 F H Pulse Rate 60 62 Respiratory 22 20 Rate Blood Pressure 104/68 O2 Sat by Pulse 91 L Oximetry 09/02/20 14:22 Temperature Pulse Rate 62 Respiratory Rate Blood Pressure O2 Sat by Pulse Oximetry EKG Findings - EKG Comments: EKG Findings:: Ventricular rate 69 beats per minute, UT interval 180 ms, to in itiation 68 ms, QT/QTC 396/424ms. <Peace Ramirez - Last Filed: 09/02/20 13:56> Medical Decision Making - Lab Data Result diagrams: 09/02/20 11:58 09/02/20 11:58 <Peace Ramirez - Last Filed: 09/02/20 13:56> - Lab Data Result diagrams: 09/02/20 11:58 09/02/20 11:58 - Radiology Data Radiology results: report reviewed (computed tomography scan of the chest shows correlate for pneumonia. Probable luminal plaque rather than chronic dissection, cannot exclude some eccentric plaque hemorrhage. No pulmonary embolism.), image reviewed (chest x-ray shows ectatic aorta. Basilar pneumonia or atelectasis. Probable pulmonary hyperteension.) <Morris Singleton - Last Filed: 09/02/20 14:58> - Medical Decision Making 89yo female presenting for cc of cough congestion, sob. Patient on home oxygen, does not appear (Peace Ramirez) patient reevaluated. Patient updated on results and plan. Patient reexamined and reevaluated. I agree with the findings. This includes diagnostic to rotation entered and plan. Case was discussed in detail with Dr. Walden who is familiar with this patient and will admit. He does request consult with Dr. Hoff. He also agrees with vascular consult following notification of CT report (Morris Singleton) - Lab Data Lab Results 09/02/20 09/02/20 09/02/20 Range/Units 11:58 11:58 11:58 WBC 5.0 (3.8-10.6) k/uL RBC 3.56 L (3.80-5.40) m/uL Hgb 13.3 (11.4-16.0) gm/dL Hct 38.8 (34.0-46.0) % MCV 109.2 H D (80.0-100.0) fL MCH 37.4 H (25.0-35.0) pg MCHC 34.2 (31.0-37.0) g/dL RDW 12.1 (11.5-15.5) % Plt Count 124 L (150-450) k/uL MPV 8.5 Neutrophils % 73 % Lymphocytes % 17 % Monocytes % 8 % Eosinophils % 1 % Basophils % 0 % Neutrophils # 3.6 (1.3-7.7) k/uL Lymphocytes # 0.9 L (1.0-4.8) k/uL Monocytes # 0.4 (0-1.0) k/uL Eosinophils # 0.0 (0-0.7) k/uL Basophils # 0.0 (0-0.2) k/uL Macrocytosis Moderate PT 10.9 (9.0-12.0) sec INR 1.1 (<1.2) APTT 20.0 L (22.0-30.0) sec D-Dimer 3.35 H (<0.60) mg/L FEU Sodium 134 L (137-145) mmol/L Potassium 4.6 (3.5-5.1) mmol/L Chloride 96 L (98-107) mmol/L Carbon Dioxide 37 H (22-30) mmol/L Anion Gap 1 mmol/L BUN 24 H (7-17) mg/dL Creatinine 0.71 (0.52-1.04) mg/dL Est GFR (CKD-EPI)AfAm 88 (>60 ml/min/1.73 sqM) Est GFR (CKD-EPI)NonAf 77 (>60 ml/min/1.73 sqM) Glucose 113 H (74-99) mg/dL Plasma Lactic Acid Tramaine (0.7-2.0) mmol/L Calcium 8.1 L (8.4-10.2) mg/dL Magnesium 2.1 (1.6-2.3) mg/dL Total Bilirubin 0.8 (0.2-1.3) mg/dL AST 269 H (14-36) U/L ALT 174 H (4-34) U/L Alkaline Phosphatase 117 (38-126) U/L Lactate Dehydrogenase 758 H (313-618) U/L C-Reactive Protein 22.1 H (<10.0) mg/L NT-Pro-B Natriuret Pep pg/mL Total Protein 5.5 L (6.3-8.2) g/dL Albumin 2.8 L (3.5-5.0) g/dL Urine Color Urine Appearance (Clear) Urine pH (5.0-8.0) Ur Specific [place] (1.001-1.035) Urine Protein (Negative) Urine Glucose (UA) (Negative) Urine Ketones (Negative) Urine Blood (Negative) Urine Nitrite (Negative) Urine Bilirubin (Negative) Urine Urobilinogen (<2.0) mg/dL Ur Leukocyte Esterase (Negative) Urine RBC (0-5) /hpf Urine WBC (0-5) /hpf Ur Squamous Epith Cells (0-4) /hpf Hyaline Casts (0-2) /lpf Urine Mucus (None) /hpf Coronavirus (PCR) (Not Detectd) 09/02/20 09/02/20 09/02/20 Range/Units 11:58 12:20 12:20 WBC (3.8-10.6) k/uL RBC (3.80-5.40) m/uL Hgb (11.4-16.0) gm/dL Hct (34.0-46.0) % MCV (80.0-100.0) fL MCH (25.0-35.0) pg MCHC (31.0-37.0) g/dL RDW (11.5-15.5) % Plt Count (150-450) k/uL MPV Neutrophils % % Lymphocytes % % Monocytes % % Eosinophils % % Basophils % % Neutrophils # (1.3-7.7) k/uL Lymphocytes # (1.0-4.8) k/uL Monocytes # (0-1.0) k/uL Eosinophils # (0-0.7) k/uL Basophils # (0-0.2) k/uL Macrocytosis PT (9.0-12.0) sec INR (<1.2) APTT (22.0-30.0) sec D-Dimer (<0.60) mg/L FEU Sodium (137-145) mmol/L Potassium (3.5-5.1) mmol/L Chloride (98-107) mmol/L Carbon Dioxide (22-30) mmol/L Anion Gap mmol/L BUN (7-17) mg/dL Creatinine (0.52-1.04) mg/dL Est GFR (CKD-EPI)AfAm (>60 ml/min/1.73 sqM) Est GFR (CKD-EPI)NonAf (>60 ml/min/1.73 sqM) Glucose (74-99) mg/dL Plasma Lactic Acid Tramaine 1.8 (0.7-2.0) mmol/L Calcium (8.4-10.2) mg/dL Magnesium (1.6-2.3) mg/dL Total Bilirubin (0.2-1.3) mg/dL AST (14-36) U/L ALT (4-34) U/L Alkaline Phosphatase (38-126) U/L Lactate Dehydrogenase (313-618) U/L C-Reactive Protein (<10.0) mg/L NT-Pro-B Natriuret Pep 1170 pg/mL Total Protein (6.3-8.2) g/dL Albumin (3.5-5.0) g/dL Urine Color Urine Appearance (Clear) Urine pH (5.0-8.0) Ur Specific [place] (1.001-1.035) Urine Protein (Negative) Urine Glucose (UA) (Negative) Urine Ketones (Negative) Urine Blood (Negative) Urine Nitrite (Negative) Urine Bilirubin (Negative) Urine Urobilinogen (<2.0) mg/dL Ur Leukocyte Esterase (Negative) Urine RBC (0-5) /hpf Urine WBC (0-5) /hpf Ur Squamous Epith Cells (0-4) /hpf Hyaline Casts (0-2) /lpf Urine Mucus (None) /hpf Coronavirus (PCR) Detected A (Not Detectd) 09/02/20 Range/Units 13:02 WBC (3.8-10.6) k/uL RBC (3.80-5.40) m/uL Hgb (11.4-16.0) gm/dL Hct (34.0-46.0) % MCV (80.0-100.0) fL MCH (25.0-35.0) pg MCHC (31.0-37.0) g/dL RDW (11.5-15.5) % Plt Count (150-450) k/uL MPV Neutrophils % % Lymphocytes % % Monocytes % % Eosinophils % % Basophils % % Neutrophils # (1.3-7.7) k/uL Lymphocytes # (1.0-4.8) k/uL Monocytes # (0-1.0) k/uL Eosinophils # (0-0.7) k/uL Basophils # (0-0.2) k/uL Macrocytosis PT (9.0-12.0) sec INR (<1.2) APTT (22.0-30.0) sec D-Dimer (<0.60) mg/L FEU Sodium (137-145) mmol/L Potassium (3.5-5.1) mmol/L Chloride (98-107) mmol/L Carbon Dioxide (22-30) mmol/L Anion Gap mmol/L BUN (7-17) mg/dL Creatinine (0.52-1.04) mg/dL Est GFR (CKD-EPI)AfAm (>60 ml/min/1.73 sqM) Est GFR (CKD-EPI)NonAf (>60 ml/min/1.73 sqM) Glucose (74-99) mg/dL Plasma Lactic Acid Tramaine (0.7-2.0) mmol/L Calcium (8.4-10.2) mg/dL Magnesium (1.6-2.3) mg/dL Total Bilirubin (0.2-1.3) mg/dL AST (14-36) U/L ALT (4-34) U/L Alkaline Phosphatase (38-126) U/L Lactate Dehydrogenase (313-618) U/L C-Reactive Protein (<10.0) mg/L NT-Pro-B Natriuret Pep pg/mL Total Protein (6.3-8.2) g/dL Albumin (3.5-5.0) g/dL Urine Color Yellow Urine Appearance Cloudy H (Clear) Urine pH 6.5 (5.0-8.0) Ur Specific [place] 1.017 (1.001-1.035) Urine Protein Negative (Negative) Urine Glucose (UA) Negative (Negative) Urine Ketones Negative (Negative) Urine Blood Negative (Negative) Urine Nitrite Positive H (Negative) Urine Bilirubin Negative (Negative) Urine Urobilinogen <2.0 (<2.0) mg/dL Ur Leukocyte Esterase Moderate H (Negative) Urine RBC 2 (0-5) /hpf Urine WBC 51 H (0-5) /hpf Ur Squamous Epith Cells 1 (0-4) /hpf Hyaline Casts 1 (0-2) /lpf Urine Mucus Few H (None) /hpf Coronavirus (PCR) (Not Detectd) Disposition Is patient prescribed a controlled substance at d/c from ED?: No Time of Disposition: 13:56 Decision to Admit Reason: Admit from EC Decision Date: 09/02/20 Decision Time: 13:56 <Peace Ramirez - Last Filed: 09/02/20 13:56> Is patient prescribed a controlled substance at d/c from ED?: No <Morris Singleton - Last Filed: 09/02/20 14:58> Clinical Impression: COVID-19, Hypoxia, Weakness, Urinary tract infection Disposition: ADMITTED IP TO THIS HOSP Condition: Stable Referrals: Efrain Walden DO [Primary Care Provider] - 1-2 days
[2020-09-02] MEDS ORDERED: IPRATROPIUM-ALBUTEROL 3 ML NEB INHALATION STA (13:54)
[2020-09-02] MEDS ORDERED: ACETAMINOPHEN TAB 325 MG TAB PO STA (13:54)
[2020-09-02] MEDS ORDERED: NALOXONE 0.4 MG/ML 1 ML VIAL IV PRN (13:55)
--- NOTE | 2020-09-02 14:20 | CT ---
EXAMINATION TYPE: CT chest angio for PE DATE OF EXAM: 09/02/2020 COMPARISON: HISTORY: Weak, fever, SOB CT DLP: 306.9 mGycm Automated exposure control for dose reduction was used. CONTRAST: CT Chest for pulmonary embolism performed with without and with IV Contrast, patient injected with 10 0 ml mL of Isovue 370. FINDINGS: LUNGS: The lungs are remarkable for some strand-like densities at the bases, there may be some inters titial changes, scarring, some scattered areas of groundglass opacity are present. There is some basi lar atelectatic changes.. There is no pleural effusion or pneumothorax seen. The tracheobronchial tree is patent. MEDIASTINUM: There is satisfactory enhancement of the pulmonary artery, within the segmental branches in the right lower lobe there are areas of poor enhancement of the branches which is felt likely to be technical rather than to represent pulmonary embolism there is no CT evidence for pulmonary emboli sm. There are no greater than 1 cm hilar or mediastinal lymph nodes. No pericardial effusion is se en. Prominence of pulmonary artery could be indicative of pulmonary artery hypertension AORTA: Ascending aorta is not aneurysmal. Along the transverse aorta there is luminal plaque present . Within the plaque there is a linear focus of high attenuation, axial image #29, coronal image #94. There is some narrowing of the lumen of the thoracic aorta due to the luminal plaque. The proximal de scending aorta measures approximately 3.6 cm. Some additional luminal plaque is present more distally within the descending aorta, the aorta at the level of the hiatus measures approximately 3.1 cm. OTHER: There is a spinal curvature. Degenerative disc changes are present in the visualized spine.. IMPRESSION: Correlate for pneumonia. Probable luminal plaque within the thoracic aorta rather than representing c hronic dissection, difficult to exclude some eccentric plaque hemorrhage. No evident pulmonary emboli sm
[2020-09-02] MEDS: CHOLECALCIFEROL 1,000 UNIT TAB PO SCH (16:56)
[2020-09-02] MEDS ORDERED: METOPROLOL TARTRATE 12.5 MG TAB PO PRN (19:20)
[2020-09-02] MEDS ORDERED: IPRATROPIUM-ALBUTEROL 3 ML NEB INHALATION SCH (20:00)
[2020-09-02] MEDS: SYMBICORT 160-4.5 MCG INHALER INHALATION PRN (20:27)
[2020-09-02] MEDS: ALBUTEROL HFA INHALER INHALATION SCH (20:27)
[2020-09-02] MEDS: GABAPENTIN 300 MG CAP PO SCH (21:34)
[2020-09-02] MEDS: ENOXAPARIN 40 MG/0.4 ML SYRINGE SQ SCH (21:34)
[2020-09-02] MEDS: FAMOTIDINE 20 MG TAB PO SCH (21:34)
[2020-09-02] MEDS: ASCORBIC ACID 500 MG TAB PO SCH (21:34)
[2020-09-02] MEDS: dexAMETHasone 2 MG TAB PO SCH (21:38)
[2020-09-03] MEDS: LEVOTHYROXINE 50 MCG TAB PO SCH (05:47)
[2020-09-03 06:50] LABS: Basophils % (A) 0 %; Eosinophils % (A) 0 %; HCT 41.3 % (34.0-46.0); HGB 13.3 gm/dL (11.4-16.0); Lymphocytes % (A) 26 %; MCH 36.1 pg (25.0-35.0); MCHC 32.1 g/dL (31.0-37.0); Macrocytosis Marked; Mean Platelet Volume 8.9; Monocytes # (A) 0.1 k/uL (0-1.0); Monocytes % (A) 2 %; Neutrophils # (A) 2.9 k/uL (1.3-7.7); Neutrophils % (A) 71 %; Platelet Count 114 k/uL (150-450); RBC 3.68 m/uL (3.80-5.40); RDW 12.9 % (11.5-15.5)
[2020-09-03 06:51] LABS: MCV 112.3 fL (80.0-100.0)
[2020-09-03] MEDS: TIOTROPIUM 18 MCG/PUFF INHALER INHALATION SCH (09:03)
[2020-09-03] MEDS: ALBUTEROL HFA INHALER INHALATION SCH ×4 (09:03→21:06)
[2020-09-03] MEDS: PRAVASTATIN SODIUM 20 MG TAB PO SCH (09:24)
[2020-09-03] MEDS: dexAMETHasone 2 MG TAB PO SCH (09:25)
[2020-09-03] MEDS: ASCORBIC ACID 500 MG TAB PO SCH ×2 (09:25→20:24)
[2020-09-03] MEDS: MAGNESIUM OXIDE 400 MG TAB PO SCH (09:25)
[2020-09-03] MEDS: CHOLECALCIFEROL 1,000 UNIT TAB PO SCH (09:25)
[2020-09-03] MEDS: GABAPENTIN 100 MG CAP PO SCH (09:25)
[2020-09-03] MEDS: ASPIRIN 81 MG PO SCH (09:25)
[2020-09-03] MEDS: FAMOTIDINE 20 MG TAB PO SCH ×2 (09:25→20:24)
[2020-09-03] MEDS: TAMSULOSIN 0.4 MG CAP.ER.24H PO SCH (09:25)
[2020-09-03] MEDS: ENOXAPARIN 40 MG/0.4 ML SYRINGE SQ SCH ×2 (09:26→20:24)
[2020-09-03 09:38] LABS: African American GFR (CKD) 94.3 (60.0-200.0); Anion Gap 7.3 mmol/L (4.00-12.00); BUN/Creat Ratio 38.33 Ratio (12.00-20.00); Calcium 8.3 mg/dL (8.7-10.3); Carbon Dioxide 30.7 mmol/L (21.6-31.8); Non-African American GFR(CKD) 81.4 (60.0-200.0); Potassium 4.9 mmol/L (3.5-5.5)
--- NOTE | 2020-09-03 15:08 | P.HPIM ---
History of Present Illness 89-year-old female was brought in because of cough and congestion. Patient is a extremely poor historian because of her hearing problems and some memory issues as well. Patient does appear to have some dementia. The patient was having poor appetite was coughing. Found to have Covid19. Patient and does have history of COPD does have significant it is about a CAT scan. patient has a CAT scan CAT scan patient had an elevated d-dimer secondary to Covid 19.patient only had low-grade fever here. Patient did have elevated liver enzymes which we'll repeat tomorrow. Review of Systems all other review of systems which I can obtain were negative. Past Medical History Past Medical History: Atrial Fibrillation, Asthma, Heart Failure, COPD, Dementia, Eye Disorder, Hypertension, Myocardial Infarction (PA), Osteoarthritis (OA), Respiratory Disorder Additional Past Medical History / Comment(s): Aortic aneurysm, nonischemic cardiomyopathy, acute systolic heart failure, home oxygen at 2L.[place] ATC, rheumatic fever as a child, chronic back pain, macular degeneration L eye, hiatal hernia, diverticular disease, benign colon polyps. Last Myocardial Infarction Date:: 10/12/17 History of Any Multi-Drug Resistant Organisms: None Reported Past Surgical History: Appendectomy, Bladder Surgery, Cholecystectomy, Heart Catheterization, Hysterectomy Additional Past Surgical History / Comment(s): EGDs, colonoscopies/benign polyps, bladder suspension. Past Anesthesia/Blood Transfusion Reactions: No Reported Reaction Past Psychological History: No Psychological Hx Reported Additional Psychological History / Comment(s): Pt resides with her spouse and their adult son, Hernando. Hernando is very helpful with parents care. Pt has home oxygen at 2L/[place] ATC. She has a nebulizer. Pt no longer drives, her spouse drives. Smoking Status: Never smoker Past Alcohol Use History: None Reported Additional Past Alcohol Use History / Comment(s): Patient is a lifelong nonsmoker. She denies any illicit drug use, alcohol use. She lives at home with her . She ambulates with out press assistant and feeder device. She denies any oxygen or nebulizer at home. Past Drug Use History: None Reported - Past Family History Father Family Medical History: Cancer Additional Family Medical History / Comment(s): Father had pleural cancer Mother Family Medical History: Cancer Additional Family Medical History / Comment(s): Mother had liver cancer and from but was 102yo. Medications and Allergies Home Medications Medication Instructions Recorded Confirmed Type Budesonide/Formoterol Fumarate 2 puff INHALATION RT-BID PRN 10/12/17 09/02/20 History [Symbicort 160-4.5 Mcg Inhaler] Ipratropium-Albuterol Nebulize 3 ml INHALATION RT-QID #120 02/09/19 09/02/20 Rx [Duoneb 0.5 mg-3 mg/3 ml Soln] ampul.neb Pravastatin Sodium [Pravachol] 10 mg PO DAILY 04/14/19 09/02/20 History Aspirin 81 mg PO DAILY #30 chew 04/22/19 09/02/20 Rx Levothyroxine Sodium [Synthroid] 50 mcg PO DAILY 05/22/19 09/02/20 History Acetaminophen Tab [Tylenol] 650 mg PO Q6H PRN #1 tablet 05/25/19 09/02/20 Rx Gabapentin [Neurontin] 300 mg PO HS #3 cap 06/01/19 09/02/20 Rx Tamsulosin [Flomax] 0.4 mg PO PC-[id number] cap.er.24h 06/01/19 09/02/20 Rx Ascorbic Acid [Vitamin C] 1,000 mg PO DAILY 09/02/20 09/02/20 History Furosemide [Lasix] 20 mg PO DAILY 09/02/20 09/02/20 History Gabapentin [Neurontin] 100 mg PO QAM 09/02/20 09/02/20 History Ibuprofen [Motrin Ib] 200 mg PO Q8H PRN 09/02/20 09/02/20 History Magnesium 250 mg PO DAILY 09/02/20 09/02/20 History Metoprolol Tartrate 6.25 mg PO DAILY PRN 09/02/20 09/02/20 History Nitrofurantoin Monohyd/M-Cryst 100 mg PO Q12HR 09/02/20 09/02/20 History [Macrobid] Allergies Allergy/AdvReac Type Severity Reaction Status Date / Time alendronate sodium Allergy Unknown Verified 09/02/20 11:46 [From Fosamax] raloxifene [From Evista] Allergy Unknown Verified 09/02/20 11:46 simvastatin [From Zocor] Allergy Unknown Verified 09/02/20 11:46 Physical Exam Vitals: Vital Signs Temp Pulse Pulse Resp BP BP Pulse Ox 09/03/20 07:46 97.7 F 57 L 17 126/78 98 09/03/20 01:32 97.9 F 49 L 24 133/80 99 09/02/20 19:03 98.4 F 46 L 22 130/75 98 09/02/20 18:05 98.0 F 78 19 128/80 95 09/02/20 15:32 99.3 F 71 18 148/98 98 Intake and Output 09/02/20 09/03/20 09/03/20 22:59 06:59 14:59 Intake Total 250 Balance 250 Intake: IV 250 Azithromycin 500 mg In 250 Sodium Chloride 0.9% 250 ml @ 250 mls/hr IVPB ONCE STA Rx#:[id number] Other: # Voids 1 1 Weight 57.153 kg PHYSICAL EXAMINATION: GENERAL: The patient is alert and oriented x2, not in any acute distress. Well developed, well nourished. HEENT: Pupils are round and equally reacting to light. EOMI. No scleral icterus. No conjunctival pallor. Normocephalic, atraumatic. No pharyngeal erythema. No thyromegaly. CARDIOVASCULAR: S1 and S2 present. No murmurs, rubs, or gallops. PULMONARY:mild bibasilar crackles are appreciated ABDOMEN: Soft, nontender, nondistended, normoactive bowel sounds. No palpable organomegaly. MUSCULOSKELETAL: No joint swelling or deformity. EXTREMITIES: No cyanosis, clubbing, or pedal edema. NEUROLOGICAL: Gross neurological examination did not reveal any focal deficits. SKIN: No rashes. Results CBC & Chem 7: 09/03/20 05:51 09/03/20 05:51 Labs: Abnormal Lab Results - Last 24 Hours (Table) 09/02/20 09/02/20 09/03/20 Range/Units 11:58 11:58 05:51 RBC 3.68 L (3.80-5.40) m/uL MCV 112.3 H (80.0-100.0) fL MCH 36.1 H (25.0-35.0) pg Plt Count 114 L (150-450) k/uL Macrocytosis Marked A BUN/Creatinine Ratio (12.00-20.00) Ratio Glucose (70-110) mg/dL Calcium (8.7-10.3) mg/dL Ferritin 652.0 H (10.0-291.0) ng/mL Procalcitonin 0.40 H (0.02-0.09) ng/mL 09/03/20 Range/Units 05:51 RBC (3.80-5.40) m/uL MCV (80.0-100.0) fL MCH (25.0-35.0) pg Plt Count (150-450) k/uL Macrocytosis BUN/Creatinine Ratio 38.33 H (12.00-20.00) Ratio Glucose 113 H (70-110) mg/dL Calcium 8.3 L (8.7-10.3) mg/dL Ferritin (10.0-291.0) ng/mL Procalcitonin (0.02-0.09) ng/mL Microbiology - Last 24 Hours (Table) 09/02/20 11:58 Blood Culture - Preliminary Blood No Growth after 24 hours 09/02/20 13:02 Urine Culture - Preliminary Urine,Voided Thrombosis Risk Factor Assmnt - Choose All That Apply Any of the Below Risk Factors Present?: Yes Each Factor Represents 1 point: Abnormal pulmonary function (COPD), Obesity (BMI >25) Other Risk Factors: Yes Each Risk Factor Represents 3 Points: Age 75 years or older Other congenital or acquired thrombophilia - If yes, enter type in comment: No Thrombosis Risk Factor Assessment Total Risk Factor Score: 5 Thrombosis Risk Factor Assessment Level: High Risk Assessment and Plan Plan: -Covid 19 infection/pneumonia: Patient will continued on Decadron, pulmonary was consulted from ER. Patient does have elevated d-dimer PE is negative patient will be continued onLovenox twice a day for DVT prophylaxis. Continue with Pepcid.patient does use 2 L of his considering her age and monitor her one more night here patient does have history of COPD as well. -Atrial fibrillation probably paroxysmal not on any anticoagulation she is bit bradycardic at this time patient on a very low-dose of beta liz which will be discontinued. -COPD without any significant exacerbation and 10-chronic hypoxic respiratory failure secondary to COPD used to lose of oxygen -Dementia possibly senile and mild to moderate -Hypertension -Coronary artery disease DVT prophylaxis: As mentioned -
--- NOTE | 2020-09-03 17:35 | CONS ---
CONSULTATION PULMONARY/CRITICAL CARE CONSULTATION: DATE OF SERVICE: September 03, 2020. REASON FOR CONSULTATION: Covid-19 pneumonitis. HISTORY OF PRESENT ILLNESS: This is an 89-year-old female, very poor historian. She apparently came into the emergency room complaining of decreased appetite as well as congestion in the chest and cough. She apparently has advanced dementia and is not a particularly good historian and I found that today when I was speaking to her. She was really not giving me any good history. She apparently has had cough and congestion in the chest. She apparently appears to be short of breath. She does use home oxygen. In addition, the patient's appetite has been poor and she has not been drinking fluids that she normally does. There is no nausea, vomiting or diarrhea. The patient apparently did not have a temperature checked at home. She apparently is not coughing up any phlegm. There is no chest pain or chest discomfort. There is no change in weight or lower extremity edema. Again not much of the history is obtained from the ER mitch. The patient herself is a very poor historian. CURRENT MEDICATIONS: Reviewed. She is currently on Symbicort, pravastatin, Synthroid, ascorbic acid, Lasix, Neurontin, ibuprofen, magnesium, metoprolol, Macrobid, DuoNeb, aspirin, Tylenol, gabapentin, and Flomax. ALLERGIES: FOSAMAX, EVISTA, AND ZOCOR. MEDICAL HISTORY: Atrial fibrillation, chronic bronchial asthma, heart failure, dementia, hypertension, myocardial infarction, DJD, aortic aneurysm, cardiomyopathy, systolic heart failure, chronic hypoxemic respiratory failure, rheumatic fever, chronic back pain, macular degeneration, left eye, hiatal hernia, diverticulosis, and benign colonic polyps. SURGICAL HISTORY: Includes appendectomy, bladder surgery, cholecystectomy, heart catheterization, hysterectomy. Other surgical procedures include an EGD, colonoscopy, and bladder suspension. SOCIAL HISTORY: Social history is significant in that she is a lifelong nonsmoker. Denies any alcohol use or illicit drug use. FAMILY HISTORY: Positive for father who had pleural cancer, maybe mesothelioma, and mother with a history of liver cancer. REVIEW OF SYSTEMS: Is very unreliable. The patient is not a particularly good historian. According to history of the present illness, her issues included decreased appetite, cough, congestion, and possibly some increased shortness of breath. PHYSICAL EXAMINATION: VITAL SIGNS: Current vital signs are reviewed. Currently, she is on 2 L of O2. Saturations 99%. She appears in no acute distress. Temperature 97.7, heart rate 66, respiratory rate 17, blood pressure 154/85 mean 108. GENERAL: She appears in no acute distress. Certainly no respiratory difficulty or distress. HEENT: Examination is grossly unremarkable. Nasal O2 noted. NECK: Supple. Full range of motion. No adenopathy. Neck veins are flat. CARDIOVASCULAR: Examination reveals a regular rhythm and rate. Heart rate 66 beats per minute. S1, S2 normal. LUNGS: Reveal mostly clear. A few scattered mild rhonchi. No wheezes or crackles. ABDOMEN: Soft. Bowel sounds are heard. EXTREMITIES are intact. No edema. SKIN: Without rash. NEUROLOGIC: Examination is difficult to assess because of her dementia. LABS: Reviewed. White count 4, hemoglobin 13.3, hematocrit 41.3, platelet count 114,000. PT 10.9, INR 1.1, PTT 20 and D-dimer 3.35. Sodium 137, potassium 4.9, chloride 99, CO2 31, anion gap is 7.3, BUN and creatinine were 23 and 0.6, calcium 8.3, ferritin 652, AST 269, ALT 174, LDH 758. C-reactive protein 22.1. Urine is cloudy. Specific gravity is 1.017, pH 6.5, nitrate was positive, leukocyte esterase was moderate positive. There were 51 WBCs. COVID testing was positive. Microbiology is currently pending or negative. Chest x-ray shows possible basilar pneumonia and/or atelectasis. There is certainly cardiomegaly. CT angiogram was negative. There are some atelectatic changes at the bases and some interstitial/scars at bases as well as intermittent ground-glass opacities throughout. Medications are reviewed. The patient is currently on Tylenol, albuterol inhaler, vitamin C, aspirin, Symbicort, vitamin D3, Decadron, Lovenox, famotidine, Neurontin, gabapentin, levothyroxine, Mag-Ox, Narcan, pravastatin, Flomax and Spiriva. ASSESSMENT: 1. Mild Covid-19 pneumonitis. 2. History of chronic bronchial asthma, not particularly active at this time. 3. History of atrial fibrillation. 4. History of congestive heart failure. 5. History of dementia. 6. History of macular degeneration left eye. 7. Hypertension by history. 8. Myocardial infarction. 9. Degenerative joint disease. 10.Nonischemic cardiomyopathy. 11.History of rheumatic fever. 12.History of diverticular disease. 13.History of hiatal hernia. PLAN: Currently medications are appropriate. We will continue to follow. Additional recommendations will be made should she show signs of deterioration. She herself is not a particularly good historian. Medications currently are appropriate. Vital signs are stable. Oxygenation is reasonable. Changes on chest x-ray and CT scan are mild. MMODL / IJN: [id number] /
[2020-09-03] MEDS: GABAPENTIN 300 MG CAP PO SCH (20:24)
[2020-09-04] MEDS: LEVOTHYROXINE 50 MCG TAB PO SCH (06:01)
[2020-09-04] MEDS: ASCORBIC ACID 500 MG TAB PO SCH ×2 (07:56→20:12)
[2020-09-04] MEDS: MAGNESIUM OXIDE 400 MG TAB PO SCH (07:56)
[2020-09-04] MEDS: ASPIRIN 81 MG PO SCH (07:56)
[2020-09-04] MEDS: CHOLECALCIFEROL 1,000 UNIT TAB PO SCH (07:56)
[2020-09-04] MEDS: PRAVASTATIN SODIUM 20 MG TAB PO SCH (07:56)
[2020-09-04] MEDS: dexAMETHasone 2 MG TAB PO SCH (07:56)
[2020-09-04] MEDS: FAMOTIDINE 20 MG TAB PO SCH ×2 (07:56→20:12)
[2020-09-04] MEDS: ENOXAPARIN 40 MG/0.4 ML SYRINGE SQ SCH ×2 (07:57→20:12)
[2020-09-04] MEDS: TAMSULOSIN 0.4 MG CAP.ER.24H PO SCH (07:57)
[2020-09-04] MEDS: GABAPENTIN 100 MG CAP PO SCH (07:57)
[2020-09-04] MEDS: ALBUTEROL HFA INHALER INHALATION SCH ×4 (08:51→20:14)
[2020-09-04] MEDS: SYMBICORT 160-4.5 MCG INHALER INHALATION PRN ×2 (08:52→20:14)
[2020-09-04] MEDS: TIOTROPIUM 18 MCG/PUFF INHALER INHALATION SCH (08:52)
[2020-09-04 10:09] LABS: African American GFR (CKD) 89.7 (60.0-200.0); Albumin/Globulin Ratio 1.3 (1.60-3.17); Anion Gap 9.2 mmol/L (4.00-12.00); BUN/Creat Ratio 51.43 Ratio (12.00-20.00); Calcium 8.5 mg/dL (8.7-10.3); Carbon Dioxide 29.8 mmol/L (21.6-31.8); Globulin 2.3 g/dL (1.6-3.3); Non-African American GFR(CKD) 77.4 (60.0-200.0); Total Bilirubin 0.5 mg/dL (0.2-1.2); Total Protein 5.3 g/dL (6.2-8.2)
[2020-09-04] MEDS ORDERED: QUEtiapine 25 MG TAB PO PRN (13:56)
--- NOTE | 2020-09-04 14:01 | P.PN ---
Subjective 89-year-old female was brought in because of cough and congestion. Patient is a extremely poor historian because of her hearing problems and some memory issues as well. Patient does appear to have some dementia. The patient was having poor appetite was coughing. Found to have Covid19. Patient and does have history of COPD does have significant it is about a CAT scan. patient has a CAT scan CAT scan patient had an elevated d-dimer secondary to Covid 19.patient only had low-grade fever here. Patient did have elevated liver enzymes which we'll repeat tomorrow. 09/04/2020 Patient is slightly confused but oriented 3.remains on oxygen is still requiring oxygen.patient's liver enzymes are still elevated but Better compared to yesterday. D-dimer was 3.3 from yesterday Constitutional: Denied any fatigue denied any fever. Cardio vascular: denied any chest pain, palpitations Gastrointestinal denied any nausea vomiting Pulmonary: Denied any shortness of breath cough Neurologic denied any new focal deficits All inpatient medications were reviewed and appropriate changes in these medications as dictated in the interval history and assessment and plan. Objective - Vital Signs Vital signs: Vital Signs Temp 98.1 F 09/04/20 07:36 Pulse 45 L 09/04/20 07:36 Resp 16 09/04/20 07:36 BP 153/59 09/04/20 07:36 Pulse Ox 95 09/04/20 07:36 Intake & Output 09/03/20 09/04/20 09/04/20 18:59 06:59 18:59 Intake Total 250 Balance 250 Intake: IV 250 Azithromycin 500 mg In 250 Sodium Chloride 0.9% 250 ml @ 250 mls/hr IVPB ONCE STA Rx#:[id number] Other: Voiding Method Bedside Commode Diaper # Voids 1 2 - Exam PHYSICAL EXAMINATION: GENERAL: The patient is alert and oriented x2-3, not in any acute distress. Well developed, well nourished. HEENT: Pupils are round and equally reacting to light. EOMI. No scleral icterus. No conjunctival pallor. Normocephalic, atraumatic. No pharyngeal erythema. No thyromegaly. CARDIOVASCULAR: S1 and S2 present. No murmurs, rubs, or gallops. PULMONARY:mild bibasilar crackles are appreciated ABDOMEN: Soft, nontender, nondistended, normoactive bowel sounds. No palpable organomegaly. MUSCULOSKELETAL: No joint swelling or deformity. EXTREMITIES: No cyanosis, clubbing, or pedal edema. NEUROLOGICAL: Gross neurological examination did not reveal any focal deficits. SKIN: No rashes. - Labs CBC & Chem 7: 09/03/20 05:51 09/04/20 05:54 Labs: Abnormal Lab Results - Last 24 Hours (Table) 09/04/20 Range/Units 05:54 BUN 36.0 H (9.0-27.0) mg/dL BUN/Creatinine Ratio 51.43 H (12.00-20.00) Ratio Calcium 8.5 L (8.7-10.3) mg/dL AST 139 H (13-35) U/L ALT 130 H (8-44) U/L Total Protein 5.3 L (6.2-8.2) g/dL Albumin 3.00 L (3.80-4.90) g/dL Albumin/Globulin Ratio 1.30 L (1.60-3.17) g/dL Microbiology - Last 24 Hours (Table) 09/02/20 13:02 Urine Culture - Preliminary Urine,Voided Gram Neg Bacilli 09/02/20 11:58 Blood Culture - Preliminary Blood No Growth after 24 hours Assessment and Plan Plan: -Covid 19 infection/pneumonia: Patient will continued on Decadron, pulmonary was consulted from ER. Patient does have elevated d-dimer PE is negative patient will be continued onLovenox twice a day for DVT prophylaxis. -Atrial fibrillation probably paroxysmal not on any anticoagulation she is bit bradycardic at this time patient on a very low-dose of beta liz which discontinued heart rate remains low we will obtain EkG -COPD without any significant exacerbation -chronic hypoxic respiratory failure secondary to COPD uses 2 L of oxygen -Dementia possibly senile and mild to moderate -Hypertension -elevated liver enzymes probably secondary to sepsis improving at this time. Liver enzymes tomorrow -Coronary artery disease DVT prophylaxis: As mentioned -if cleared by pulmonology patient can be discharged
--- NOTE | 2020-09-04 18:03 | P.PN ---
Subjective Progress Note Date: 09/04/20 Principal diagnosis: CoVID 19 pneumonitis This is an 89-year-old female patient was admitted on 09/02/2020 with complaints of poor appetite cough congestion and fatigue. She has advanced dementia. She is a poor historian. She is seen today in follow-up on the regular medical floor. She is currently resting in bed. Awake and alert. He is maintaining O2 saturations in the mid 90s on 2 L/m per nasal cannula. She's been afebrile. Urine culture positive for gram-negative bacilli. Blood culture revealing no growth. Sodium 138. Potassium 5.0. Creatinine 0.7. She remains on vitamin C, vitamin D, Decadron, Lovenox, Pepcid. She is on Symbicort and albuterol. Objective - Vital Signs Vital signs: Vital Signs Temp 97.4 F L 09/04/20 14:57 Pulse 84 09/04/20 14:57 Resp 17 09/04/20 14:57 BP 124/79 09/04/20 14:57 Pulse Ox 95 09/04/20 14:57 Intake & Output 09/03/20 09/04/20 09/04/20 18:59 06:59 18:59 Intake Total 250 Balance 250 Intake: IV 250 Azithromycin 500 mg In 250 Sodium Chloride 0.9% 250 ml @ 250 mls/hr IVPB ONCE STA Rx#:[id number] Other: Voiding Method Bedside Commode Diaper # Voids 1 2 - Exam GENERAL EXAM: Alert, doesn't 89-year-old female patient, on 2 L nasal cannula comfortable in no apparent distress. HEAD: Normocephalic. EYES: Normal reaction of pupils, equal size. NOSE: Clear with pink turbinates. THROAT: No erythema or exudates. NECK: No masses, no JVD. CHEST: No chest wall deformity. LUNGS: Equal air entry with bilateral scattered rhonchi. CVS: S1 and S2 normal with no audible murmur, regular rhythm. ABDOMEN: No hepatosplenomegaly, normal bowel sounds, no guarding or rigidity. SPINE: No scoliosis or deformity SKIN: No rashes CENTRAL NERVOUS SYSTEM: Poor historian. Advanced dementia. Tone is normal in all 4 extremities. EXTREMITIES: There is no peripheral edema. No clubbing, no cyanosis. Peripheral pulses are intact. - Labs CBC & Chem 7: 09/03/20 05:51 09/04/20 05:54 Labs: Abnormal Lab Results - Last 24 Hours (Table) 09/04/20 Range/Units 05:54 BUN 36.0 H (9.0-27.0) mg/dL BUN/Creatinine Ratio 51.43 H (12.00-20.00) Ratio Calcium 8.5 L (8.7-10.3) mg/dL AST 139 H (13-35) U/L ALT 130 H (8-44) U/L Total Protein 5.3 L (6.2-8.2) g/dL Albumin 3.00 L (3.80-4.90) g/dL Albumin/Globulin Ratio 1.30 L (1.60-3.17) g/dL Microbiology - Last 24 Hours (Table) 09/02/20 11:58 Blood Culture - Preliminary Blood No Growth after 48 hours 09/02/20 13:02 Urine Culture - Preliminary Urine,Voided Gram Neg Bacilli Assessment and Plan Assessment: 1 Acute CoVID 19 pneumonitis 2 Urinary tract infection secondary to gram-negative bacilli 3 Advanced dementia 4 History of chronic bronchial asthma 5 History of atrial fibrillation 6 History of congestive heart failure 7 History of macular degeneration left eye 8 Hypertension 9 History of myocardial infarction 10 Degenerative joint disease 11 Non-ischemic cardiac myopathy 12 History of rheumatic fever Plan: The patient was seen and evaluated by Dr. Holt She is currently stable from the pulmonary standpoint Continue current medications Add ceftriaxone for UTI Continue to follow I, the cosigning physician, performed a history & physical examination of the patient. Lungs sounds scattered rhonchi. Maintaining good O2 saturations in the 90s on 2 L/m per nasal cannula. I discussed the assessment and plan of care with my nurse practitioner, Carolina Li. I attest to the above note as dictated by her.
[2020-09-04] MEDS: GABAPENTIN 300 MG CAP PO SCH (20:12)
[2020-09-05] MEDS: LEVOTHYROXINE 50 MCG TAB PO SCH (05:33)
[2020-09-05] MEDS: dexAMETHasone 2 MG TAB PO SCH (07:30)
[2020-09-05] MEDS: ASCORBIC ACID 500 MG TAB PO SCH ×2 (07:30→21:29)
[2020-09-05] MEDS: ASPIRIN 81 MG PO SCH (07:30)
[2020-09-05] MEDS: TAMSULOSIN 0.4 MG CAP.ER.24H PO SCH (07:30)
[2020-09-05] MEDS: FAMOTIDINE 20 MG TAB PO SCH ×2 (07:30→21:29)
[2020-09-05] MEDS: PRAVASTATIN SODIUM 20 MG TAB PO SCH (07:31)
[2020-09-05] MEDS: MAGNESIUM OXIDE 400 MG TAB PO SCH (07:31)
[2020-09-05] MEDS: ENOXAPARIN 40 MG/0.4 ML SYRINGE SQ SCH ×2 (07:31→21:29)
[2020-09-05] MEDS: CHOLECALCIFEROL 1,000 UNIT TAB PO SCH (07:31)
[2020-09-05] MEDS: GABAPENTIN 100 MG CAP PO SCH (07:33)
[2020-09-05] MEDS: ALBUTEROL HFA INHALER INHALATION SCH ×4 (08:09→21:19)
[2020-09-05] MEDS: TIOTROPIUM 18 MCG/PUFF INHALER INHALATION SCH (08:10)
[2020-09-05] MEDS: SYMBICORT 160-4.5 MCG INHALER INHALATION PRN (08:10)
[2020-09-05 08:32] LABS: ALT 75 U/L (4-34); African American GFR (CKD) >90 (>60 ml/min/1.73 sqM); Albumin/Globulin Ratio 0.9; Anion Gap -2 mmol/L; Blood Urea Nitrogen 45 mg/dL (7-17); Calcium 7.7 mg/dL (8.4-10.2); Carbon Dioxide 34 mmol/L (22-30); Chloride 104 mmol/L (98-107); Globulin 2.2 g/dL; Glucose 96 mg/dL (74-99); Non-African American GFR(CKD) 82 (>60 ml/min/1.73 sqM); Sodium 136 mmol/L (137-145); Total Bilirubin 0.5 mg/dL (0.2-1.3); Total Protein 4.2 g/dL (6.3-8.2)
[2020-09-05 08:46] LABS: AST 83 U/L (14-36); Potassium 4.6 mmol/L (3.5-5.1)
[2020-09-05 08:47] LABS: Alkaline Phosphatase 61 U/L (38-126)
--- NOTE | 2020-09-05 17:19 | P.PN ---
Subjective Progress Note Date: 09/05/20 Principal diagnosis: CoVID 19 pneumonitis This is an 89-year-old female patient was admitted on 09/02/2020 with complaints of poor appetite cough congestion and fatigue. She has advanced dementia. She is a poor historian. She is seen today in follow-up on the regular medical floor. She is currently resting in bed. Awake and alert. He is maintaining O2 saturations in the mid 90s on 2 L/m per nasal cannula. She's been afebrile. Urine culture positive for gram-negative bacilli. Blood culture revealing no growth. Sodium 138. Potassium 5.0. Creatinine 0.7. She remains on vitamin C, vitamin D, Decadron, Lovenox, Pepcid. She is on Symbicort and albuterol. On the 09/05/2020 patient seen in follow-up on medical surgical floor, patient was found to be positive for COVId 19 pneumonia. She is confused, she is only oriented 1, she has a history of advanced dementia. She remains on Rocephin, oral Decadron, and bronchodilators. Breathing comfortably, she is on 2 L of oxygen pulse ox is 99%, she's been afebrile, hemodynamics she's been stable. Urine culture was positive for pseudomonas aeruginosa, and we'll switch the antibiotic coverage to cefepime Objective - Vital Signs Vital signs: Vital Signs Temp 97.6 F 09/05/20 15:00 Pulse 66 09/05/20 15:00 Resp 17 09/05/20 15:00 BP 135/70 09/05/20 15:00 Pulse Ox 99 09/05/20 15:00 Intake & Output 09/04/20 09/05/20 09/05/20 18:59 06:59 18:59 Intake Total 50 Balance 50 Intake: Intake, IV Titration 50 Amount cefTRIAXone 1 gm In 50 Sodium Chloride 0.9% 50 ml @ 100 mls/hr IVPB Q24HR [facility] Rx#:[id number] Other: Voiding Method Bedside Commode Bedside Commode Diaper Diaper # Voids 2 1 - Exam GENERAL EXAM: Alert, pleasant, 82-year-old white female, on 2 L of oxygen pulse ox of 99%, oriented times, comfortable in no apparent distress. HEAD: Normocephalic/atraumatic. EYES: Normal reaction of pupils, equal size. Conjunctiva pink, sclera white. NOSE: Clear with pink turbinates. THROAT: No erythema or exudates. NECK: No masses, no JVD, no thyroid enlargement, no adenopathy. CHEST: No chest wall deformity. Symmetrical expansion. LUNGS: Equal air entry with no crackles, wheeze, rhonchi or dullness. CVS: Regular rate and rhythm, normal S1 and S2, no gallops, no murmurs, no rubs ABDOMEN: Soft, nontender. No hepatosplenomegaly, normal bowel sounds, no guarding or rigidity. EXTREMITIES: No clubbing, no edema, no cyanosis, 2+ pulses and upper and lower extremities. MUSCULOSKELETAL: Muscle strength and tone normal. SPINE: No scoliosis or deformity SKIN: No rashes CENTRAL NERVOUS SYSTEM: Alert and oriented -1. No focal deficits, tone is normal in all 4 extremities. PSYCHIATRIC: Alert and oriented -1. Appropriate affect. Intact judgment and insight. - Labs CBC & Chem 7: 09/03/20 05:51 09/05/20 06:25 Labs: Abnormal Lab Results - Last 24 Hours (Table) 09/05/20 Range/Units 06:25 Sodium 136 L (137-145) mmol/L Carbon Dioxide 34 H (22-30) mmol/L BUN 45 H (7-17) mg/dL Calcium 7.7 L (8.4-10.2) mg/dL AST 83 H (14-36) U/L ALT 75 H (4-34) U/L Total Protein 4.2 L (6.3-8.2) g/dL Albumin 2.0 L (3.5-5.0) g/dL Microbiology - Last 24 Hours (Table) 09/02/20 11:58 Blood Culture - Preliminary Blood No Growth after 72 hours 09/02/20 13:02 Urine Culture - Final Urine,Voided Pseudomonas aeruginosa Assessment and Plan Plan: Assessment: 1 Acute CoVID 19 pneumonitis 2 Urinary tract infection secondary to Pseudomonas 3 Advanced dementia 4 History of chronic bronchial asthma 5 History of atrial fibrillation 6 History of congestive heart failure 7 History of macular degeneration left eye 8 Hypertension 9 History of myocardial infarction 10 Degenerative joint disease 11 Non-ischemic cardiac myopathy 12 History of rheumatic fever Plan: Continue with current medical treatment, including Decadron, no significant hypoxemia, or dyspnea. We'll continue with supportive treatment, continue treating patient's urinary tract infection, discontinue Rocephin and start cefepime for pseudomonal urinary tract infection, we'll continue to follow, follow-up chest x-ray in the morning I performed a history & physical examination of the patient and discussed their management with my nurse practitioner, Josie Espinosa. I reviewed the nurse practitioner's note and agree with the documented findings and plan of care. Lung sounds are positive for diminished breath sounds. The findings and the impression was discussed with the patient. I attest to the documentation by the nurse practitioner. Time with Patient: Less than 30
[2020-09-05] MEDS: GABAPENTIN 300 MG CAP PO SCH (21:29)
[2020-09-05] MEDS: CEFEPIME 1 GM in SODIUM CHLORIDE 0.9% 50 ML IVPB SCH (21:30)
--- NOTE | 2020-09-05 23:13 | P.PN ---
Subjective Progress Note Date: 09/05/20 89-year-old female was brought in because of cough and congestion. Patient is a extremely poor historian because of her hearing problems and some memory issues as well. Patient does have dementia. She hpoor appetite was as coughing. Found to have Covid19. Patient and does have history of COPD does have significant it is about a CAT scan. patient had CAT scan patient due to an elevated d-dimer secondary to Covid 19.patient.. was neg for PE. Objective - Vital Signs Vital signs: Vital Signs Temp 97.6 F 09/05/20 15:00 Pulse 66 09/05/20 15:00 Resp 17 09/05/20 15:00 BP 135/70 09/05/20 15:00 Pulse Ox 99 09/05/20 15:00 Intake & Output 09/05/20 09/05/20 09/06/20 06:59 18:59 06:59 Intake Total 50 Balance 50 Intake: Intake, IV Titration 50 Amount cefTRIAXone 1 gm In 50 Sodium Chloride 0.9% 50 ml @ 100 mls/hr IVPB Q24HR [facility] Rx#:[id number] Other: Voiding Method Bedside Commode Diaper # Voids 1 - Exam GENERAL: The patient is alert and oriented x2-3, not in any acute distress. Well developed, well nourished. HEENT: Pupils are round and equally reacting to light. EOMI. No scleral icterus. No conjunctival pallor. Normocephalic, atraumatic. No pharyngeal erythema. No thyromegaly. CARDIOVASCULAR: S1 and S2 present. No murmurs, rubs, or gallops. PULMONARY:mild bibasilar crackles are appreciated ABDOMEN: Soft, nontender, nondistended, normoactive bowel sounds. No palpable organomegaly. MUSCULOSKELETAL: No joint swelling or deformity. EXTREMITIES: No cyanosis, clubbing, or pedal edema. NEUROLOGICAL: Gross neurological examination did not reveal any focal deficits. SKIN: No rashes. - Labs CBC & Chem 7: 09/03/20 05:51 09/05/20 06:25 Labs: Abnormal Lab Results - Last 24 Hours (Table) 09/05/20 Range/Units 06:25 Sodium 136 L (137-145) mmol/L Carbon Dioxide 34 H (22-30) mmol/L BUN 45 H (7-17) mg/dL Calcium 7.7 L (8.4-10.2) mg/dL AST 83 H (14-36) U/L ALT 75 H (4-34) U/L Total Protein 4.2 L (6.3-8.2) g/dL Albumin 2.0 L (3.5-5.0) g/dL Microbiology - Last 24 Hours (Table) 09/02/20 11:58 Blood Culture - Preliminary Blood No Growth after 72 hours 09/02/20 13:02 Urine Culture - Final Urine,Voided Pseudomonas aeruginosa Assessment and Plan (1) COVID-19 Current Visit: Yes Status: Acute Code(s): U07.1 - COVID-19 SNOMED Code(s): 897038119 (2) Hypoxia Current Visit: Yes Status: Acute Code(s): R09.02 - HYPOXEMIA SNOMED Code(s): 153239588 (3) Weakness Current Visit: Yes Status: Acute Code(s): R53.1 - WEAKNESS SNOMED Code(s): 95184191 Plan: Continue pulmonary treatment including DVT prophylaxis [facility] dexamethasone monitor labs
[2020-09-06] MEDS: ALBUTEROL HFA INHALER INHALATION SCH ×4 (07:47→19:00)
[2020-09-06] MEDS: TIOTROPIUM 18 MCG/PUFF INHALER INHALATION SCH (07:47)
[2020-09-06] MEDS: SYMBICORT 160-4.5 MCG INHALER INHALATION PRN ×2 (07:50→19:00)
[2020-09-06] MEDS: LEVOTHYROXINE 50 MCG TAB PO SCH (09:08)
[2020-09-06] MEDS: ENOXAPARIN 40 MG/0.4 ML SYRINGE SQ SCH ×2 (09:14→21:36)
[2020-09-06] MEDS: ASPIRIN 81 MG PO SCH (09:14)
[2020-09-06] MEDS: FAMOTIDINE 20 MG TAB PO SCH ×2 (09:14→21:36)
[2020-09-06] MEDS: ASCORBIC ACID 500 MG TAB PO SCH ×2 (09:15→21:36)
[2020-09-06] MEDS: MAGNESIUM OXIDE 400 MG TAB PO SCH (09:15)
[2020-09-06] MEDS: CHOLECALCIFEROL 1,000 UNIT TAB PO SCH (09:15)
[2020-09-06] MEDS: PRAVASTATIN SODIUM 20 MG TAB PO SCH (09:15)
[2020-09-06] MEDS: TAMSULOSIN 0.4 MG CAP.ER.24H PO SCH (09:15)
[2020-09-06] MEDS: GABAPENTIN 100 MG CAP PO SCH (09:15)
[2020-09-06] MEDS: dexAMETHasone 2 MG TAB PO SCH (09:16)
[2020-09-06] MEDS: CEFEPIME 1 GM in SODIUM CHLORIDE 0.9% 50 ML IVPB SCH (09:16)
--- NOTE | 2020-09-06 11:22 | XR ---
EXAMINATION TYPE: XR chest 1V portable DATE OF EXAM: 09/06/2020 COMPARISON: 09/02/2020 INDICATION: Shortness of breath TECHNIQUE: Single frontal view of the chest is obtained. FINDINGS: The heart size is normal. The pulmonary vasculature is normal. The lungs are clear. IMPRESSION: 1. No acute pulmonary process. Findings appear stable to comparison.
[2020-09-06 12:24] LABS: Creatine Kinase MB 2.9 ng/mL (0.0-2.4); Troponin I 0.026 ng/mL (0.000-0.034)
--- NOTE | 2020-09-06 15:30 | P.PN ---
Subjective Progress Note Date: 09/06/20 Principal diagnosis: CoVID 19 pneumonitis This is an 89-year-old female patient was admitted on 09/02/2020 with complaints of poor appetite cough congestion and fatigue. She has advanced dementia. She is a poor historian. She is seen today in follow-up on the regular medical floor. She is currently resting in bed. Awake and alert. He is maintaining O2 saturations in the mid 90s on 2 L/m per nasal cannula. She's been afebrile. Urine culture positive for gram-negative bacilli. Blood culture revealing no growth. Sodium 138. Potassium 5.0. Creatinine 0.7. She remains on vitamin C, vitamin D, Decadron, Lovenox, Pepcid. She is on Symbicort and albuterol. On the 09/05/2020 patient seen in follow-up on medical surgical floor, patient was found to be positive for COVId 19 pneumonia. She is confused, she is only oriented 1, she has a history of advanced dementia. She remains on Rocephin, oral Decadron, and bronchodilators. Breathing comfortably, she is on 2 L of oxygen pulse ox is 99%, she's been afebrile, hemodynamics she's been stable. Urine culture was positive for pseudomonas aeruginosa, and we'll switch the antibiotic coverage to cefepime On 09/06/2020 patient in follow-up on medical surgical floor, she is resting comfortably in bed, seen on 4 L of oxygen pulse ox of 90%, patient has been afebrile, she denies any shortness of breath, no cough, a bit lethargic, but arousable, is also on antibiotics for pseudomonal urinary tract infection, blood culture has shown no growth at 96 hour shell. He is hemodynamically stable. No nausea vomiting diarrhea, follow-up chest x-ray was obtained today showing no acute pulmonary process. We switched her to cefepime yesterday for pseudomonal urinary tract infection. She remains on oral Decadron, she remains on Pepcid. Objective - Vital Signs Vital signs: Vital Signs Temp 98.5 F 09/06/20 14:56 Pulse 58 L 09/06/20 14:56 Resp 20 09/06/20 14:56 BP 158/73 09/06/20 14:56 Pulse Ox 90 L 09/06/20 14:56 Intake & Output 09/05/20 09/06/20 09/06/20 18:59 06:59 18:59 Intake Total 50 300 Output Total 200 Balance 50 100 Intake: Intake, IV Titration 50 Amount cefTRIAXone 1 gm In 50 Sodium Chloride 0.9% 50 ml @ 100 mls/hr IVPB Q24HR [facility] Rx#:[id number] Oral 300 Output: Urine 200 Other: Voiding Method Bedside Commode Diaper Diaper Diaper # Voids 3 - Exam GENERAL EXAM: Lethargic, but arousable, 89-year-old white female, on 4 L of oxygen pulse ox of 90%, oriented times, comfortable in no apparent distress. HEAD: Normocephalic/atraumatic. EYES: Normal reaction of pupils, equal size. Conjunctiva pink, sclera white. NOSE: Clear with pink turbinates. THROAT: No erythema or exudates. NECK: No masses, no JVD, no thyroid enlargement, no adenopathy. CHEST: No chest wall deformity. Symmetrical expansion. LUNGS: Equal air entry with no crackles, wheeze, rhonchi or dullness. CVS: Regular rate and rhythm, normal S1 and S2, no gallops, no murmurs, no rubs ABDOMEN: Soft, nontender. No hepatosplenomegaly, normal bowel sounds, no guarding or rigidity. EXTREMITIES: No clubbing, no edema, no cyanosis, 2+ pulses and upper and lower extremities. MUSCULOSKELETAL: Muscle strength and tone normal. SPINE: No scoliosis or deformity SKIN: No rashes CENTRAL NERVOUS SYSTEM: Alert and oriented -1. No focal deficits, tone is normal in all 4 extremities. PSYCHIATRIC: Alert and oriented -1. Appropriate affect. Intact judgment and insight. - Labs CBC & Chem 7: 09/03/20 05:51 09/05/20 06:25 Labs: Abnormal Lab Results - Last 24 Hours (Table) 09/06/20 Range/Units 11:36 CK-MB (CK-2) 2.9 H (0.0-2.4) ng/mL Microbiology - Last 24 Hours (Table) 09/02/20 11:58 Blood Culture - Preliminary Blood No Growth after 96 hours Assessment and Plan Plan: Assessment: 1 Acute CoVID 19 pneumonitis 2 Urinary tract infection secondary to Pseudomonas 3 Advanced dementia 4 History of chronic bronchial asthma 5 History of atrial fibrillation 6 History of congestive heart failure 7 History of macular degeneration left eye 8 Hypertension 9 History of myocardial infarction 10 Degenerative joint disease 11 Non-ischemic cardiac myopathy 12 History of rheumatic fever Plan: We will switch oral cefepime to oral Levaquin for a urinary tract infection, she denies any pulmonary symptoms, she is a bit lethargic on today's exam, recommend possibly discontinuing the Seroquel. Maintain aspiration precautions, monitor febrile pattern, his chest x-ray has been reviewed showing no acute pulmonary process. Continue oral Decadron, continue anticoagulation in the form of Lovenox, we'll continue to follow I performed a history & physical examination of the patient and discussed their management with my nurse practitioner, Josie Espinosa. I reviewed the nurse practitioner's note and agree with the documented findings and plan of care. Lung sounds are positive for diminished breath sounds. The findings and the impression was discussed with the patient. I attest to the documentation by the nurse practitioner. Time with Patient: Less than 30
[2020-09-06] MEDS: LEVOFLOXACIN 500 MG TAB PO SCH (16:58)
[2020-09-06] MEDS: GABAPENTIN 300 MG CAP PO SCH (21:36)
--- NOTE | 2020-09-06 23:00 | P.PN ---
Subjective Progress Note Date: 09/06/20 Patient is a 89-year-old white female who was admitted for COPD19 pneumonia he states appetite is very diminished but she feels better today and a little bit stronger. Yesterday. She denies any overnight fevers she seems to be responding appropriately. Objective - Vital Signs Vital signs: Vital Signs Temp 98.1 F 09/06/20 19:40 Pulse 61 09/06/20 19:40 Resp 20 09/06/20 20:00 BP 145/51 09/06/20 19:40 Pulse Ox 98 09/06/20 19:40 Intake & Output 09/06/20 09/06/20 09/07/20 06:59 18:59 06:59 Intake Total 300 Output Total 200 Balance 100 Intake: Oral 300 Output: Urine 200 Other: Voiding Method Diaper Diaper Diaper # Voids 3 - Exam GENERAL: The patient is alert and oriented x2-3, not in any acute distress. Well developed, well nourished. HEENT: Pupils are round and equally reacting to light. EOMI. No scleral icterus. No conjunctival pallor. Normocephalic, atraumatic. No pharyngeal erythema. No thyromegaly. CARDIOVASCULAR: S1 and S2 present. No murmurs, rubs, or gallops. PULMONARY:mild bibasilar crackles are appreciated ABDOMEN: Soft, nontender, nondistended, normoactive bowel sounds. No palpable organomegaly. MUSCULOSKELETAL: No joint swelling or deformity. EXTREMITIES: No cyanosis, clubbing, or pedal edema. NEUROLOGICAL: Gross neurological examination did not reveal any focal deficits. SKIN: No rashes. - Labs CBC & Chem 7: 09/03/20 05:51 09/05/20 06:25 Labs: Abnormal Lab Results - Last 24 Hours (Table) 09/06/20 Range/Units 11:36 CK-MB (CK-2) 2.9 H (0.0-2.4) ng/mL Microbiology - Last 24 Hours (Table) 09/02/20 11:58 Blood Culture - Preliminary Blood No Growth after 96 hours Assessment and Plan (1) COVID-19 Current Visit: Yes Status: Acute Code(s): U07.1 - COVID-19 SNOMED Code(s): 562788124 (2) Hypoxia Current Visit: Yes Status: Acute Code(s): R09.02 - HYPOXEMIA SNOMED Code(s): 976182583 (3) Weakness Current Visit: Yes Status: Acute Code(s): R53.1 - WEAKNESS SNOMED Code(s): 40516965 Plan: Continue pulmonary treatment including [facility] labs
[2020-09-07] MEDS: LEVOTHYROXINE 50 MCG TAB PO SCH (06:30)
[2020-09-07] MEDS: ALBUTEROL HFA INHALER INHALATION SCH ×4 (08:45→20:53)
[2020-09-07] MEDS: SYMBICORT 160-4.5 MCG INHALER INHALATION PRN ×2 (08:46→20:53)
[2020-09-07] MEDS: TIOTROPIUM 18 MCG/PUFF INHALER INHALATION SCH (08:46)
[2020-09-07] MEDS: PRAVASTATIN SODIUM 20 MG TAB PO SCH (10:16)
[2020-09-07] MEDS: GABAPENTIN 100 MG CAP PO SCH (10:16)
[2020-09-07] MEDS: FAMOTIDINE 20 MG TAB PO SCH ×2 (10:17→21:01)
[2020-09-07] MEDS: dexAMETHasone 2 MG TAB PO SCH (10:17)
[2020-09-07] MEDS: CHOLECALCIFEROL 1,000 UNIT TAB PO SCH (10:17)
[2020-09-07] MEDS: MAGNESIUM OXIDE 400 MG TAB PO SCH (10:18)
[2020-09-07] MEDS: ENOXAPARIN 40 MG/0.4 ML SYRINGE SQ SCH ×2 (10:18→21:01)
[2020-09-07] MEDS: ASPIRIN 81 MG PO SCH (10:18)
[2020-09-07] MEDS: ASCORBIC ACID 500 MG TAB PO SCH ×2 (10:18→21:02)
[2020-09-07] MEDS: TAMSULOSIN 0.4 MG CAP.ER.24H PO SCH (10:18)
[2020-09-07] MEDS: ACETAMINOPHEN TAB 325 MG TAB PO PRN ×2 (10:26→15:17)
[2020-09-07] MEDS ORDERED: Magnesium Replacement Protocol 1 EACH MISC MISCELLANE PRN (10:39)
--- NOTE | 2020-09-07 10:39 | P.PN ---
Subjective Progress Note Date: 09/07/20 This is an 89-year-old female admitted with Covd 19 pneumonitis and multiple other medical issues. Yesterday patient apparently was a teamed, cardiology consulted for potential EKG changes/heart block. EKG reviewed by cardiology reporting sinus bradycardia/sinus rhythm with PACs. Cardiology consult was cancelled. Telemetry reporting heart rate in the 60s, sinus bradycardia, sinus rhythm with occasional PAC. Hypertensive this morning, repeat blood pressure pending. Denies chest pain, palpitations or shortness of breath. Maintained on Levaquin for UTI with pseudomonas aeruginosa. Afebrile. Labs pending. Continues on Decadron, Maintaining O2 sats in the high 90s on 4 L nasal cannula, which can be weaned down. Chest x-ray yesterday reported no acute pulmonary process. Objective - Vital Signs Vital signs: Vital Signs Temp 97.6 F 09/07/20 07:00 Pulse 47 L 09/07/20 07:00 Resp 18 09/07/20 07:00 BP 192/143 09/07/20 07:00 Pulse Ox 96 09/07/20 07:00 Intake & Output 09/06/20 09/07/20 09/07/20 18:59 06:59 18:59 Intake Total 300 Output Total 300 Balance 0 Intake: Oral 300 Output: Urine 300 Other: Voiding Method Diaper Diaper # Voids 3 # Bowel Movements 0 - Exam GENERAL: The patient is lying in bed, alert and oriented x 1, tired appearing ,not in any acute distress. HEENT: Pupils are round and equally reacting to light. EOMI. No scleral icterus. No conjunctival pallor. Normocephalic, atraumatic. No pharyngeal erythema. No thyromegaly. CARDIOVASCULAR: S1 and S2 present. No murmurs, rubs, or gallops. PULMONARY: Nonlabored , equal air entry with mild bibasilar wheezing ABDOMEN: Soft, nontender, nondistended, normoactive bowel sounds. No palpable organomegaly. MUSCULOSKELETAL: No joint swelling or deformity. EXTREMITIES: No cyanosis, clubbing, or pedal edema. NEUROLOGICAL: Gross neurological examination did not reveal any focal deficits. SKIN: No rashes. - Labs CBC & Chem 7: 09/03/20 05:51 09/05/20 06:25 Labs: Abnormal Lab Results - Last 24 Hours (Table) 09/06/20 Range/Units 11:36 CK-MB (CK-2) 2.9 H (0.0-2.4) ng/mL Microbiology - Last 24 Hours (Table) 09/02/20 11:58 Blood Culture - Preliminary Blood No Growth after 96 hours Assessment and Plan Assessment: (1) COVID-19 pneumonitis Current Visit: Yes Status: Acute Code(s): U07.1 - COVID-19 SNOMED Code(s): 829984748 (2) Hypoxia Current Visit: Yes Status: Acute Code(s): R09.02 - HYPOXEMIA SNOMED Code(s): 101901036 (3) Weakness Current Visit: Yes Status: Acute Code(s): R53.1 - WEAKNESS SNOMED Code(s): 09570511 (4) sinus bradycardia with PACs (5) chronic paroxysmal atrial fibrillation (6) acute UTI with pseudomonas aeruginosa (7) CAD, history of KS, nonischemic cardiomyopathy (8) dementia, advanced, possibly Alzheimer's type (9) macular degeneration left eye, history of (10) degenerative joint disease (11) history of rheumatic fever Plan: Continue on current medication regime ,monitoring and symptomatic treatment. Repeat blood pressure pending. Labs pending. DVT prophylaxis with Lovenox. Continue on Decadron, Levaquin. Patient tired appearing, lethargic, Seroquel discontinued. PT/OT consulted.potential subacute rehab at discharge , sw consulted..Prognosis guarded given multiple complex medical issues. The impression and plan of care has been dictated as directed. : I performed a history and examination of this patient, discussed the same with the dictator. I agree with the dictator's note ,documented as a scribe. Any additional findings or plans will be noted.
[2020-09-07 11:08] LABS: HCT 40.8 % (34.0-46.0); HGB 13.5 gm/dL (11.4-16.0); MCH 36.9 pg (25.0-35.0); MCHC 33.1 g/dL (31.0-37.0); MCV 111.4 fL (80.0-100.0); Macrocytosis Marked; Mean Platelet Volume 9.1; Platelet Count 146 k/uL (150-450); RBC 3.66 m/uL (3.80-5.40); RDW 12.6 % (11.5-15.5); WBC 8.4 k/uL (3.8-10.6)
[2020-09-07] MEDS: LEVOFLOXACIN 500 MG TAB PO SCH (15:17)
--- NOTE | 2020-09-07 16:24 | P.PN ---
Subjective Progress Note Date: 09/07/20 Principal diagnosis: CoVID 19 pneumonitis This is an 89-year-old female patient was admitted on 09/02/2020 with complaints of poor appetite cough congestion and fatigue. She has advanced dementia. She is a poor historian. She is seen today in follow-up on the regular medical floor. She is currently resting in bed. Awake and alert. He is maintaining O2 saturations in the mid 90s on 2 L/m per nasal cannula. She's been afebrile. Urine culture positive for gram-negative bacilli. Blood culture revealing no growth. Sodium 138. Potassium 5.0. Creatinine 0.7. She remains on vitamin C, vitamin D, Decadron, Lovenox, Pepcid. She is on Symbicort and albuterol. On the 09/05/2020 patient seen in follow-up on medical surgical floor, patient was found to be positive for COVId 19 pneumonia. She is confused, she is only oriented 1, she has a history of advanced dementia. She remains on Rocephin, oral Decadron, and bronchodilators. Breathing comfortably, she is on 2 L of oxygen pulse ox is 99%, she's been afebrile, hemodynamics she's been stable. Urine culture was positive for pseudomonas aeruginosa, and we'll switch the antibiotic coverage to cefepime On 09/06/2020 patient in follow-up on medical surgical floor, she is resting comfortably in bed, seen on 4 L of oxygen pulse ox of 90%, patient has been afebrile, she denies any shortness of breath, no cough, a bit lethargic, but arousable, is also on antibiotics for pseudomonal urinary tract infection, blood culture has shown no growth at 96 hour shell. He is hemodynamically stable. No nausea vomiting diarrhea, follow-up chest x-ray was obtained today showing no acute pulmonary process. We switched her to cefepime yesterday for pseudomonal urinary tract infection. She remains on oral Decadron, she remains on Pepcid. On 09/07/2020 patient seen in follow-up on medical surgical floor. Remains confused, but were told the patient has a component of underlying dementia. She is only oriented 1 to person, she does not know she is in the hospital, she could not tell me the month or the president. Appears to be in no respiratory distress, lung sounds are diminished, she is on 2 L of oxygen, lung sounds are free of wheezing, rhonchi, or crackles. Last chest x-ray showed no acute process, patient is on Levaquin for pseudomonal urinary tract infection. She's been afebrile. Objective - Vital Signs Vital signs: Vital Signs Temp 97.9 F 09/07/20 15:00 Pulse 66 09/07/20 15:00 Resp 18 09/07/20 15:00 BP 152/78 09/07/20 15:00 Pulse Ox 95 09/07/20 15:00 Intake & Output 09/06/20 09/07/20 09/07/20 18:59 06:59 18:59 Intake Total 300 Output Total 300 Balance 0 Intake: Oral 300 Output: Urine 300 Other: Voiding Method Diaper Diaper # Voids 3 # Bowel Movements 0 - Exam GENERAL EXAM: Lethargic, but arousable, 89-year-old white female, on 2 L of oxygen pulse ox of 95%, oriented times, comfortable in no apparent distress. HEAD: Normocephalic/atraumatic. EYES: Normal reaction of pupils, equal size. Conjunctiva pink, sclera white. NOSE: Clear with pink turbinates. THROAT: No erythema or exudates. NECK: No masses, no JVD, no thyroid enlargement, no adenopathy. CHEST: No chest wall deformity. Symmetrical expansion. LUNGS: Equal air entry with no crackles, wheeze, rhonchi or dullness. CVS: Regular rate and rhythm, normal S1 and S2, no gallops, no murmurs, no rubs ABDOMEN: Soft, nontender. No hepatosplenomegaly, normal bowel sounds, no guarding or rigidity. EXTREMITIES: No clubbing, no edema, no cyanosis, 2+ pulses and upper and lower extremities. MUSCULOSKELETAL: Muscle strength and tone normal. SPINE: No scoliosis or deformity SKIN: No rashes CENTRAL NERVOUS SYSTEM: Alert and oriented -1. No focal deficits, tone is normal in all 4 extremities. PSYCHIATRIC: Alert and oriented -1. Appropriate affect. Intact judgment and insight. - Labs CBC & Chem 7: 09/07/20 10:22 09/05/20 06:25 Labs: Abnormal Lab Results - Last 24 Hours (Table) 09/07/20 Range/Units 10:22 RBC 3.66 L (3.80-5.40) m/uL MCV 111.4 H (80.0-100.0) fL MCH 36.9 H (25.0-35.0) pg Plt Count 146 L (150-450) k/uL Macrocytosis Marked A Microbiology - Last 24 Hours (Table) 09/02/20 11:58 Blood Culture - Preliminary Blood No Growth after 120 hours Assessment and Plan Plan: Assessment: 1 Acute CoVID 19 pneumonitis 2 Urinary tract infection secondary to Pseudomonas 3 Advanced dementia 4 History of chronic bronchial asthma 5 History of atrial fibrillation 6 History of congestive heart failure 7 History of macular degeneration left eye 8 Hypertension 9 History of myocardial infarction 10 Degenerative joint disease 11 Non-ischemic cardiac myopathy 12 History of rheumatic fever Plan: Continue current medical treatment, continue oral antibiotics, Symbicort. Vital signs have been stable, chest x-ray showed no acute process. No acute events overnight, maintain safety precautions, from pulmonary perspective patient could likely be considered for discharge to ECF or home I performed a history & physical examination of the patient and discussed their management with my nurse practitioner, Josie Espinosa. I reviewed the nurse practitioner's note and agree with the documented findings and plan of care. Lung sounds are positive for diminished breath sounds. The findings and the impression was discussed with the patient. I attest to the documentation by the nurse practitioner. Time with Patient: Less than 30
[2020-09-07] MEDS ORDERED: SODIUM CHLORIDE 0.9% 500 ML 250 ML IV ONE (17:29)
[2020-09-07] MEDS: SODIUM CHLORIDE 0.9% 1,000 ML IV SCH (17:50)
[2020-09-07] MEDS ORDERED: traZODone HCL 50 MG TAB PO SCH (21:00)
[2020-09-07] MEDS: GABAPENTIN 300 MG CAP PO SCH (21:02)
[2020-09-08] MEDS: SODIUM CHLORIDE 0.9% 1,000 ML IV SCH ×2 (05:11→08:19)
[2020-09-08] MEDS: LEVOTHYROXINE 50 MCG TAB PO SCH (05:44)
[2020-09-08 08:00] LABS: Basophils # (A) 0.1 k/uL (0-0.2); Basophils % (A) 1 %; Eosinophils % (A) 0 %; HCT 39.5 % (34.0-46.0); Lymphocytes # (A) 1.1 k/uL (1.0-4.8); Lymphocytes % (A) 13 %; MCH 37.4 pg (25.0-35.0); MCHC 33.1 g/dL (31.0-37.0); MCV 113.1 fL (80.0-100.0); Macrocytosis Marked; Mean Platelet Volume 8.9; Monocytes # (A) 0.5 k/uL (0-1.0); Monocytes % (A) 6 %; Neutrophils # (A) 6.8 k/uL (1.3-7.7); Neutrophils % (A) 79 %; Platelet Count 133 k/uL (150-450); RBC 3.49 m/uL (3.80-5.40); RDW 12.1 % (11.5-15.5); WBC 8.5 k/uL (3.8-10.6)
[2020-09-08] MEDS: TIOTROPIUM 18 MCG/PUFF INHALER INHALATION SCH (08:04)
[2020-09-08] MEDS: SYMBICORT 160-4.5 MCG INHALER INHALATION PRN (08:04)
[2020-09-08] MEDS: ALBUTEROL HFA INHALER INHALATION SCH ×2 (08:04→12:00)
[2020-09-08] MEDS: MAGNESIUM OXIDE 400 MG TAB PO SCH (08:09)
[2020-09-08] MEDS: ASPIRIN 81 MG PO SCH (08:09)
[2020-09-08] MEDS: CHOLECALCIFEROL 1,000 UNIT TAB PO SCH (08:09)
[2020-09-08] MEDS: TAMSULOSIN 0.4 MG CAP.ER.24H PO SCH (08:09)
[2020-09-08] MEDS: FAMOTIDINE 20 MG TAB PO SCH (08:09)
[2020-09-08] MEDS: GABAPENTIN 100 MG CAP PO SCH (08:10)
[2020-09-08] MEDS: PRAVASTATIN SODIUM 20 MG TAB PO SCH (08:10)
[2020-09-08] MEDS: dexAMETHasone 2 MG TAB PO SCH (08:11)
[2020-09-08] MEDS: ENOXAPARIN 40 MG/0.4 ML SYRINGE SQ SCH (08:11)
[2020-09-08] MEDS: ACETAMINOPHEN TAB 325 MG TAB PO PRN (08:12)
[2020-09-08] MEDS: ASCORBIC ACID 500 MG TAB PO SCH (08:18)
[2020-09-08] MEDS ORDERED: PANTOPRAZOLE 40 MG/10 ML VIAL IVP SCH (10:00)
--- NOTE | 2020-09-08 10:24 | P.DS ---
Providers Date of admission: 09/02/20 13:55 Expected date of discharge: 09/08/20 Attending physician: Efrain Walden Consults: 09/02/20 15:00 Consult Physician Urgent Consulting Provider: Chaz Holt Reason/Comments: dyspnea, covid Do you want consulting provider notified?: Yes Primary care physician: Efrain Walden [facility] Course: Final Diagnoses: (1) COVID-19 pneumonitis Current Visit: Yes Status: Acute Code(s): U07.1 - COVID-19 SNOMED Code(s): 137254783 (2) Hypoxia, acute on chronic hypoxic respiratory failure. At baseline of 2 L nasal cannula. 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 Yesterday patient apparently was a teamed, cardiology consulted for potential EKG changes/heart block. EKG reviewed by cardiology reporting sinus bradycardia/sinus rhythm with PACs. Cardiology consult was cancelled. Telemetry reporting heart rate in the 60s, sinus bradycardia, sinus rhythm with occasional PAC. Hypertensive this morning, repeat blood pressure pending. Denies chest pain, palpitations or shortness of breath. Maintained on Levaquin for UTI with pseudomonas aeruginosa. Afebrile. Labs pending. Continues on Decadron, Maintaining O2 sats in the high 90s on 4 L nasal cannula, which can be weaned down. Chest x-ray yesterday reported no acute pulmonary process. Evaluated by speech therapy,dysphagia level III chopped with thin liquids recommended related to patient's confusional state-exhibited anterior munching pattern. No overt signs or symptoms of aspiration observed with varying consistencies. Significant clinical improvement. Patient is back to baseline maintaining O2 sats in my 90s on 2 L nasal cannula. Patient will be discharged home today pending final DC recommendations, clearance from pulmonary. The impression and plan of care has been dictated as directed. : I performed a history and examination of this patient, discussed the same with the dictator. I agree with the dictator's note ,documented as a scribe. Any additional findings or plans will be noted. Patient Condition at Discharge: Stable Plan - Discharge Summary Discharge Rx Participant: No New Discharge Prescriptions: New Levofloxacin [Levaquin] 500 mg PO Q24H #6 tab Famotidine [Pepcid] 20 mg PO BID #60 tablet traZODone HCL [Desyrel] 25 mg PO HS #30 tab dexAMETHasone [Hexadrol] See Taper PO DAILY 9 Days #18 tab Cholecalciferol [Vitamin D3 (25 Mcg = 1000 Iu)] 5,000 unit PO DAILY 10 Days #50 tab Continue Budesonide/Formoterol Fumarate [Symbicort 160-4.5 Mcg Inhaler] 2 puff INHALATION RT-BID PRN PRN Reason: Cough Ipratropium-Albuterol Nebulize [Duoneb 0.5 mg-3 mg/3 ml Soln] 3 ml INHALATION RT-QID #120 ampul.neb Pravastatin Sodium [Pravachol] 10 mg PO DAILY Aspirin 81 mg PO DAILY #30 chew Levothyroxine Sodium [Synthroid] 50 mcg PO DAILY Acetaminophen Tab [Tylenol] 650 mg PO Q6H PRN #1 tablet PRN Reason: Pain Tamsulosin [Flomax] 0.4 mg PO PC-BRKFST cap.er.24h Gabapentin [Neurontin] 300 mg PO HS #3 cap Magnesium 250 mg PO DAILY Furosemide [Lasix] 20 mg PO DAILY Gabapentin [Neurontin] 100 mg PO QAM Ascorbic Acid [Vitamin C] 1,000 mg PO DAILY Ibuprofen [Motrin Ib] 200 mg PO Q8H PRN PRN Reason: PAIN O Discontinued Metoprolol Tartrate 6.25 mg PO DAILY PRN PRN Reason: BP OVER 110 Nitrofurantoin Monohyd/M-Cryst [Macrobid] 100 mg PO Q12HR Discharge Medication List Budesonide/Formoterol Fumarate [Symbicort 160-4.5 Mcg Inhaler] 2 puff INHALATION RT-BID PRN 10/12/17 [History] Ipratropium-Albuterol Nebulize [Duoneb 0.5 mg-3 mg/3 ml Soln] 3 ml INHALATION RT-QID #120 ampul.neb 02/09/19 [Rx] Pravastatin Sodium [Pravachol] 10 mg PO DAILY 04/14/19 [History] Aspirin 81 mg PO DAILY #30 chew 04/22/19 [Rx] Levothyroxine Sodium [Synthroid] 50 mcg PO DAILY 05/22/19 [History] Acetaminophen Tab [Tylenol] 650 mg PO Q6H PRN #1 tablet 05/25/19 [Rx] Gabapentin [Neurontin] 300 mg PO HS #3 cap 06/01/19 [Rx] Tamsulosin [Flomax] 0.4 mg PO PC-BRKFST cap.er.24h 06/01/19 [Rx] Ascorbic Acid [Vitamin C] 1,000 mg PO DAILY 09/02/20 [History] Furosemide [Lasix] 20 mg PO DAILY 09/02/20 [History] Gabapentin [Neurontin] 100 mg PO QAM 09/02/20 [History] Ibuprofen [Motrin Ib] 200 mg PO Q8H PRN 09/02/20 [History] Magnesium 250 mg PO DAILY 09/02/20 [History] Cholecalciferol [Vitamin D3 (25 Mcg = 1000 Iu)] 5,000 unit PO DAILY 10 Days #50 tab 09/08/20 [Rx] Famotidine [Pepcid] 20 mg PO BID #60 tablet 09/08/20 [Rx] Levofloxacin [Levaquin] 500 mg PO Q24H #6 tab 09/08/20 [Rx] dexAMETHasone [Hexadrol] See Taper PO DAILY 9 Days #18 tab 09/08/20 [Rx] traZODone HCL [Desyrel] 25 mg PO HS #30 tab 09/08/20 [Rx] Follow up Appointment(s)/Referral(s): Efrain Walden DO [Primary Care Provider] - 1-2 days [facility], [NON-STAFF] - 1-2 Days Activity/Diet/Wound Care/Special Instructions: Pending final DC recommendations, clearance from pulmonary. Beta liz on hold secondary to bradycardia. Evaluated by speech therapy,dysphagia level III chopped with thin liquids recommended related to patient's confusional state-exhibited anterior munching pattern. No overt signs or symptoms of aspiration observed with varying consistencies.
[2020-09-08 11:29] LABS: African American GFR (CKD) 100.2 (60.0-200.0); Anion Gap 6.3 mmol/L (4.00-12.00); Carbon Dioxide 28.7 mmol/L (21.6-31.8); Non-African American GFR(CKD) 86.4 (60.0-200.0); Potassium 4.3 mmol/L (3.5-5.5)
[2020-09-08 15:01] VITALS: BP 154/80; PULSE 61; RESP 17; TEMP 97.7
[2020-09-08 15:13] VITALS: BMI 25.4
[2020-09-08] MEDS: LEVOFLOXACIN 500 MG TAB PO SCH (15:39)
--- NOTE | 2020-09-08 16:23 | P.PN ---
Subjective Progress Note Date: 09/08/20 Principal diagnosis: CoVID 19 pneumonitis This is an 89-year-old female patient was admitted on 09/02/2020 with complaints of poor appetite cough congestion and fatigue. She has advanced dementia. She is a poor historian. She is seen today in follow-up on the regular medical floor. She is currently resting in bed. Awake and alert. He is maintaining O2 saturations in the mid 90s on 2 L/m per nasal cannula. She's been afebrile. Urine culture positive for gram-negative bacilli. Blood culture revealing no growth. Sodium 138. Potassium 5.0. Creatinine 0.7. She remains on vitamin C, vitamin D, Decadron, Lovenox, Pepcid. She is on Symbicort and albuterol. On the 09/05/2020 patient seen in follow-up on medical surgical floor, patient was found to be positive for COVId 19 pneumonia. She is confused, she is only oriented 1, she has a history of advanced dementia. She remains on Rocephin, oral Decadron, and bronchodilators. Breathing comfortably, she is on 2 L of oxygen pulse ox is 99%, she's been afebrile, hemodynamics she's been stable. Urine culture was positive for pseudomonas aeruginosa, and we'll switch the antibiotic coverage to cefepime On 09/06/2020 patient in follow-up on medical surgical floor, she is resting comfortably in bed, seen on 4 L of oxygen pulse ox of 90%, patient has been afebrile, she denies any shortness of breath, no cough, a bit lethargic, but arousable, is also on antibiotics for pseudomonal urinary tract infection, blood culture has shown no growth at 96 hour shell. He is hemodynamically stable. No nausea vomiting diarrhea, follow-up chest x-ray was obtained today showing no acute pulmonary process. We switched her to cefepime yesterday for pseudomonal urinary tract infection. She remains on oral Decadron, she remains on Pepcid. On 09/07/2020 patient seen in follow-up on medical surgical floor. Remains confused, but were told the patient has a component of underlying dementia. She is only oriented 1 to person, she does not know she is in the hospital, she could not tell me the month or the president. Appears to be in no respiratory distress, lung sounds are diminished, she is on 2 L of oxygen, lung sounds are free of wheezing, rhonchi, or crackles. Last chest x-ray showed no acute process, patient is on Levaquin for pseudomonal urinary tract infection. She's been afebrile. On 09/08/2020 patient seen in follow-up on medical surgical floor, she is confused, and apparently some of it is her baseline, she appears to be in no acute distress, currently on 2 L of oxygen pulse ox between 94 and 97%, she's been afebrile, hemodynamically stable, lung sounds reveal some mild crackles at bases, no wheezing, she is recovering from Covid 19 related infection, and she is also being treated for pseudomonal urinary tract infection. She has remained stable over last several days, she's had no acute events overnight. His labs have been reviewed, white blood cell count is 8.5, hemoglobin of 13.0, electrolytes and renal profile were within normal limits. Troponin was negative, no complaints. Objective - Vital Signs Vital signs: Vital Signs Temp 97.7 F 09/08/20 14:36 Pulse 61 09/08/20 14:36 Resp 17 09/08/20 14:36 BP 154/80 09/08/20 14:36 Pulse Ox 94 L 09/08/20 14:36 Intake & Output 09/07/20 09/08/20 09/08/20 18:59 06:59 18:59 Intake Total 580 Output Total 300 200 300 Balance -300 -200 280 Weight 57.153 kg Intake: Oral 580 Output: Urine 300 200 300 Other: Voiding Method Diaper # Voids 2 - Exam GENERAL EXAM: Lethargic, but arousable, 89-year-old white female, on 2 L of oxygen pulse ox of 94%, oriented times, comfortable in no apparent distress. HEAD: Normocephalic/atraumatic. EYES: Normal reaction of pupils, equal size. Conjunctiva pink, sclera white. NOSE: Clear with pink turbinates. THROAT: No erythema or exudates. NECK: No masses, no JVD, no thyroid enlargement, no adenopathy. CHEST: No chest wall deformity. Symmetrical expansion. LUNGS: Equal air entry with no crackles, wheeze, rhonchi or dullness. CVS: Regular rate and rhythm, normal S1 and S2, no gallops, no murmurs, no rubs ABDOMEN: Soft, nontender. No hepatosplenomegaly, normal bowel sounds, no guarding or rigidity. EXTREMITIES: No clubbing, no edema, no cyanosis, 2+ pulses and upper and lower extremities. MUSCULOSKELETAL: Muscle strength and tone normal. SPINE: No scoliosis or deformity SKIN: No rashes CENTRAL NERVOUS SYSTEM: Alert and oriented -1. No focal deficits, tone is normal in all 4 extremities. PSYCHIATRIC: Alert and oriented -1. Appropriate affect. Intact judgment and insight. - Labs CBC & Chem 7: 09/08/20 07:08 09/08/20 07:08 Labs: Abnormal Lab Results - Last 24 Hours (Table) 09/08/20 09/08/20 Range/Units 07:08 07:08 RBC 3.49 L (3.80-5.40) m/uL MCV 113.1 H (80.0-100.0) fL MCH 37.4 H (25.0-35.0) pg Plt Count 133 L (150-450) k/uL Macrocytosis Marked A Creatinine 0.5 L (0.6-1.5) mg/dL BUN/Creatinine Ratio 40.00 H (12.00-20.00) Ratio Calcium 8.0 L (8.7-10.3) mg/dL Microbiology - Last 24 Hours (Table) 09/02/20 11:58 Blood Culture - Final Blood No Growth after 144 hours Assessment and Plan Plan: Assessment: 1 Acute CoVID 19 pneumonitis, recovering 2 Urinary tract infection secondary to Pseudomonas 3 Advanced dementia 4 History of chronic bronchial asthma 5 History of atrial fibrillation 6 History of congestive heart failure 7 History of macular degeneration left eye 8 Hypertension 9 History of myocardial infarction 10 Degenerative joint disease 11 Non-ischemic cardiac myopathy 12 History of rheumatic fever Plan: Patient has remained stable overnight, she has no specific complaints, she has remained afebrile, she can be considered for discharge home today. Patient has caregivers at home, she denies any respiratory difficulty, obtain a home oxygen assessment, complete a total of 10 day course of oral Decadron, complete oral antibiotics for urinary tract infection. I performed a history & physical examination of the patient and discussed their management with my nurse practitioner, Josie Espinosa. I reviewed the nurse practitioner's note and agree with the documented findings and plan of care. Lung sounds are positive for diminished breath sounds. The findings and the impression was discussed with the patient. I attest to the documentation by the nurse practitioner. Time with Patient: Less than 30
== END 2020-09-08 16:15 | disposition home health service (06) | DRG 177 ==
LOC: EC 11:04 → 4SSUR 13:55
PROVIDERS: ADMIT Family Medicine; ATTEND Family Medicine
PROC: 05HC33Z Insertion of Infusion Device into Left Basilic Vein, Percutaneous Approach (ICD-10-PCS; principal; 2020-09-05)
DX: U07.1 COVID-19 (principal); J12.89 Other viral pneumonia; J96.21 Acute and chronic respiratory failure with hypoxia; J44.0 Chronic obstructive pulmonary disease with (acute) lower respiratory infection; N39.0 Urinary tract infection, site not specified; I42.8 Other cardiomyopathies; I48.20 Chronic atrial fibrillation, unspecified; I50.22 Chronic systolic (congestive) heart failure; M19.90 Unspecified osteoarthritis, unspecified site; I48.0 Paroxysmal atrial fibrillation; I25.2 Old myocardial infarction; B96.5 Pseudomonas (aeruginosa) (mallei) (pseudomallei) as the cause of diseases classified elsewhere; H35.30 Unspecified macular degeneration; I11.0 Hypertensive heart disease with heart failure; I25.10 Atherosclerotic heart disease of native coronary artery without angina pectoris; Z79.51 Long term (current) use of inhaled steroids; G30.9 Alzheimer's disease, unspecified; Z79.82 Long term (current) use of aspirin; Z79.890 Hormone replacement therapy; F02.80 Dementia in other diseases classified elsewhere, unspecified severity, without behavioral disturbance, psychotic disturbance, mood disturbance, and anxiety; Z79.899 Other long term (current) drug therapy; Z99.81 Dependence on supplemental oxygen; Z80.0 Family history of malignant neoplasm of digestive organs; Z80.2 Family history of malignant neoplasm of other respiratory and intrathoracic organs; Z86.19 Personal history of other infectious and parasitic diseases; Z86.010 Personal history of colon polyps; Z90.710 Acquired absence of both cervix and uterus; Z90.49 Acquired absence of other specified parts of digestive tract; I49.1 Atrial premature depolarization; R79.1 Abnormal coagulation profile; R13.10 Dysphagia, unspecified; J45.909 Unspecified asthma, uncomplicated; G89.29 Other chronic pain; M54.9 Dorsalgia, unspecified; K57.90 Diverticulosis of intestine, part unspecified, without perforation or abscess without bleeding; E66.9 Obesity, unspecified; Z68.25 Body mass index [BMI] 25.0-25.9, adult; Z88.8 Allergy status to other drugs, medicaments and biological substances
CPT/HCPCS: 36410; 36415; 71045; 71275; 76937; 80048; 80053; 81001; 82550; 82553; 82728; 83605; 83615; 83735; 83880; 84145; 84484; 85025; 85027; 85379; 85610; 85730; 86140; 87040; 87077; 87086; 87186; 87635; 93005; 94640; 96365; 96366; 96368; 99285